=== PATIENT | male | born 1930 | race Caucasian/White ===

== ENCOUNTER 2016-09-26 16:26 | Emergency (ER) | payer MEDICARE ==
[2016-09-26] MEDS ORDERED: HYDROmorphone HCL INJ 2 MG/ML VIAL IV SCH (17:00)
--- NOTE | 2016-09-26 18:39 | CT ---
EXAM DESCRIPTION: CT Abdoment/Pelvis w/o Contrast CLINICAL HISTORY: severe lower abd pain, elevated ddimer COMPARISON: None Available TECHNIQUE: Contiguous axial images of the abdomen and pelvis were obtained followed by reconstruction images. FINDINGS: Appendix is dilated measuring 1.2 cm. There is stranding of the adjacent fat. These findings are compatible with acute appendicitis. Linear opacities within the lungs may represent scar versus subsegmental atelectasis. Elliptical opacity in the right lower lung could represent rounded atelectasis. There is a loculated right pleural fluid collection. Patient is status post median sternotomy. There is atherosclerosis. Decreased attenuation of the ventricular chamber in relation to the ventricular septum compatible with anemia. There are bilateral renal cysts, some of slight increased attenuation, Hounsfield unit of 25 which could represent complex cysts. There is a nonobstructive stone within the right kidney. Calcifications within the pelvis compatible with phleboliths. There is ectasia of the distal abdominal aorta measuring 2.8 cm. The liver, spleen, pancreas and kidneys are otherwise within normal limits. There is no hydronephrosis. The gallbladder is unremarkable by CT criteria. Adrenal glands are within normal limits There is no free fluid in the abdomen or pelvis. There is no bowel obstruction. IMPRESSION: Evidence compatible with acute appendicitis. Loculated right pleural fluid collection. Elliptical opacity in the right lower lung may represent rounded atelectasis. Electronically signed by: Keshawn Mejia MD 09/26/2016 6:38 PM INTERVENTION ANALYST
[2016-09-26] MEDS ORDERED: ceFAZolin SODIUM 2 GM in SODIUM CHLORIDE 0.9% 100ML 100 ML IVPB ONE (19:01)
--- NOTE | 2016-09-26 19:03 | ED.PDOC ---
History of Present Illness - General Chief Complaint: Abdominal Pain Time Seen by Provider: 09/26/16 16:32 Source: patient Exam Limitations: no limitations - History of Present Illness Initial Comments: the patient is an 86-year-old male presenting due to 24 hours of lower abdominal pain. He has been passing gas and having bowel movements he has been urinating without difficulty. He doesn't think he's had any fevers. He has not had this kind of abdominal pain before. He has some BPH issues. He has not had diverticulitis before. He does have some known vascular disease. He has had a CABG in the past and sees Dr. Altamirano. Timing/Duration: 24 hours Severity: moderate Improving Factors: nothing Worsening Factors: eating, movement Associated Symptoms: loss of appetite, malaise Allergies/Adverse Reactions: Allergies NO KNOWN ALLERGY Allergy (Verified 09/26/16 17:06) Home Medications: Ambulatory Orders Aspirin [Aspirin Childrens] 81 mg PO DAILY 09/26/16 Lisinopril 5 mg PO DAILY 09/26/16 Review of Systems - Review of Systems Constitutional: States: no symptoms reported EENTM: States: no symptoms reported Respiratory: States: no symptoms reported Cardiology: States: no symptoms reported Gastrointestinal/Abdominal: States: see HPI Genitourinary: States: no symptoms reported Musculoskeletal: States: no symptoms reported Skin: States: no symptoms reported Neurological: States: no symptoms reported Endocrine: States: no symptoms reported All other Systems: No Change from Baseline Past Medical History (General) - Patient Medical History Hx Seizures: No Hx Stroke: No Hx Asthma: No Hx of COPD: No Hx Cardiac Disorders: Yes - CABG and mitral valve repair 2013 Hx Congestive Heart Failure: No Hx Pacemaker: No Hx Hypertension: Yes - Last few years Hx Diabetes: No Hx MRSA: No Surgical History: coronary bypass surgery, tonsillectomy - Vaccination History Hx Tetanus, Diphtheria Vaccination: Yes Hx Influenza Vaccination: No Hx Pneumococcal Vaccination: No - Social History Hx Tobacco Use: Yes - Quit 2013 Hx Alcohol Use: No Hx Substance Use: No Hx Physical Abuse: No Hx Emotional Abuse: No - Female History Patient : No Family Medical History - Family History Grandparents Family History: Unknown Name: Juan Day Age (years): 64 Living Status: Still Living Hx Family Asthma: No Hx Family Congestive Heart Failure: No Hx Family Hypertension: - doesn't know Hx Family Stroke: No Hx Cardiac Disease: Yes Hx Family Diabetes: No Hx Family Cancer: No Hx Family;Other: he did not want to talk about it Physical Exam - Physical Exam General Appearance: Alert, Obvious distress Eye Exam: bilateral normal Ears, Nose, Throat: normal ENT inspection, normal pharynx Neck: full range of motion, supple Respiratory: chest non-tender, lungs clear, normal breath sounds, no respiratory distress, no accessory muscle use Cardiovascular/Chest: normal peripheral pulses, regular rate, rhythm, no edema Peripheral Pulses: radial,right: 2+, radial,left: 2+, dorsalis pedis,right: 2+, dorsalis pedis,left: 2+ Gastrointestinal/Abdominal: non tender, soft Rectal Exam: deferred Back Exam: normal inspection, no CVA tenderness Extremity: normal range of motion, non-tender, normal inspection, no pedal edema , normal capillary refill Neurologic: insole channeler II-XII nml as tested, alert, normal mood/affect, oriented x 3 Skin Exam: normal color Comments: Vital Signs - 24 hr 09/26/16 16:59 Temperature 98.6 F Pulse Rate [ 64 Left Radial] Respiratory 20 Rate Blood Pressure 119/78 [Right Arm] O2 Sat by Pulse 94 L Oximetry Progress - Progress Progress: 09/26/16 19:04 the patient's 86-year-old male presenting to the emergency room secondary to lower abdominal pain of [address] scan confirms acute appendicitis. The patient is being made nothing by mouth and will be transferred for surgical evaluation at a facility with a trade embalmer at present given his previous history. The patient is fairly high risk from a cardiac standpoint and age. He sees Dr. Altamirano in [place] as his trade embalmer so we will attempt to send him that direction. He is receiving a small fluid bolus and 2 g of Ancef. He did receive 1 dose of IV Dilaudid which did help significantly with the pain. - Results/Orders Results/Orders: Laboratory Tests 09/26/16 04:55 WBC 8.3 RBC 4.88 Hgb 14.3 Hct 42.7 MCV 87.4 MCH 29.2 MCHC 33.4 RDW 15.5 H Plt Count 194 MPV 9.2 Absolute Neuts (auto) 6.30 Absolute Lymphs (auto) 0.90 L Absolute Monos (auto) 0.70 Absolute Eos (auto) 0.30 Absolute Basos (auto) 0.10 Neutrophils % 76.3 Lymphocytes % 10.5 L Monocytes % 8.2 Eosinophils % 3.7 Basophils % 1.3 PT 12.2 INR 1.080 PTT (SP) 37.1 H D-Dimer, Quantitative 1669 H* Sodium 135 Potassium 4.2 Chloride 99 L Carbon Dioxide 28 Anion Gap 12.2 BUN 23 H Creatinine 1.39 H BUN/Creatinine Ratio 16.5 Random Glucose 111 H Serum Osmolality 274.5 L Lactic Acid 1.2 Calcium 10.0 Total Bilirubin 0.9 AST 17 ALT 14 Alkaline Phosphatase 118 Creatine Kinase 46 CK-MB (CK-2) 1.3 CK-MB (CK-2) % Not Reportable Troponin I < 0.02 B-Natriuretic Peptide 202.0 H* Serum Total Protein 8.4 H Albumin 4.5 Globulin 3.9 H Albumin/Globulin Ratio 1.2 Amylase 40 Lipase 26 Urine Color Yellow Urine Appearance Clear Urine pH 7.0 Ur Specific [place] 1.020 Urine Protein 30 Urine Glucose (UA) Negative Urine Ketones Negative Urine Blood Negative Urine Nitrite Negative Urine Bilirubin Negative Urine Urobilinogen 1.0 Ur Leukocyte Esterase Trace H Urine RBC 3-5 H Urine WBC 3-5 H Ur Epithelial Cells 1-3 Amorphous Sediment 1+ Urine Bacteria 1+ Urine Mucus Large abdominal x-ray with mildly dilated loops of bowel. CT scan with discoid atelectasis of the right lung base. Acute appendicitis with a dilated appendix 1.2 cm and adjacent fat stranding. No evidence of rocio perforation or abscess formation. Departure - Departure Clinical Impression: Appendicitis Qualifiers: Appendicitis type: acute appendicitis Acute appendicitis type: with localized peritonitis Qualifier Code: (K35.3) Acute appendicitis with localized peritonitis Disposition: Transfer to Hospital Home Medications: Ambulatory Orders Aspirin [Aspirin Childrens] 81 mg PO DAILY 09/26/16 Lisinopril 5 mg PO DAILY 09/26/16 Transfer to Outside Facility - Transfer Information Accepting Provider:: dr lynch Accepting Facility: [facility] Reason for Transfer: required specialist not available
[2016-09-26] MEDS ORDERED: ceFAZolin SODIUM 1 GM VIAL ONE (19:21)
[2016-09-26] MEDS ORDERED: SODIUM CHLORIDE 0.9% 100ML 100 ML IVPB ONE (19:21)
[2016-09-26] MEDS ORDERED: HYDROmorphone HCL INJ 2 MG/ML VIAL IV ONE (19:45)
[2016-09-26 20:35] VITALS: BP 110/67; O2SAT 98
[2016-09-26 22:00] VITALS: TEMP 97.6
--- NOTE | 2016-10-01 00:39 | RAD ---
EXAM DESCRIPTION: Abdomen Series CLINICAL HISTORY: 86 years Male ,lower abd pain 24 hours COMPARISON: Chest x-ray from 10/02/2014. TECHNIQUE: Frontal view chest x-ray and two views of the abdomen. FINDINGS: The cardiac silhouette appears unremarkable. Changes from previous sternotomy. Similar tortuosity in the thoracic aorta. There is blunting of the right costophrenic angle with opacities at the right lung base which may be from scarring. The opacity is slightly increased compared to the previous study and superimposed small pleural effusion with atelectasis or infectious process is not completely excluded. No free air is identified beneath the hemidiaphragms. There are prominent loops of bowel in the left abdomen which could be from gaseous distention in the colon. If there is clinical concern for bowel obstruction, follow-up is recommended. Atherosclerotic calcifications and phleboliths in the pelvis. Degenerative changes in the spine. IMPRESSION: Opacity at the right lung base with blunting of the right costophrenic angle which may be from scarring. The possibility of pleural effusion with atelectasis/infiltrate is not excluded. Slightly prominent loops of bowel in the left abdomen which may be from colonic distention. If there is clinical concern for bowel obstruction, follow-up is recommended. Electronically signed by: Reza Navarrete MD 09/26/2016 5:29 PM FACSIMILE MACHINE OPERATOR
== END 2016-09-26 21:35 | disposition short-term general hospital (02) ==
LOC: ER 16:26
DX: K35.3 Acute appendicitis with localized peritonitis (principal); Z95.1 Presence of aortocoronary bypass graft; I10 Essential (primary) hypertension; Z87.891 Personal history of nicotine dependence
CPT/HCPCS: 36415; 74020; 74176; 80053; 81001; 82150; 82550; 82553; 83605; 83690; 83880; 84484; 85025; 85379; 85610; 85730; 93005; J0690; J1170; J7050

== ENCOUNTER 2017-02-26 16:56 | Inpatient (IN) | payer MEDICARE ==
[2017-02-26] MEDS ORDERED: SODIUM CHLORIDE 0.9% 1000ML 1,000 ML IVS ONE (17:32)
--- NOTE | 2017-02-26 17:33 | ED.PDOC ---
History of Present Illness - General Chief Complaint: Abdominal Pain Stated Complaint: abdominal pain Time Seen by Provider: 02/26/17 17:31 Information Source: patient Exam Limitations: no limitations - History of Present Illness Initial Comments: Gaurang Day 86 y/o male stated that he started having generalized dull abdominal pains all over which had gotten worse this afternoon. No nausea, vomiting or diarrhea but has no appetite. Bowel movement today.no dysuria Abdominal Pain Onset Location: generalized abdomen Pain Radiation: no radiation Quality: dull, steady Timing/Duration: 7-24 hours Improving Factors: nothing Worsening Factors: nothing Associated Symptoms: denies symptoms Review of Systems - Review of Systems Constitutional: States: no symptoms reported EENTM: States: no symptoms reported Respiratory: States: no symptoms reported Cardiology: States: no symptoms reported Gastrointestinal/Abdominal: States: see HPI Genitourinary: States: no symptoms reported Musculoskeletal: States: no symptoms reported Skin: States: no symptoms reported Neurological: States: no symptoms reported Past Medical History (General) - Patient Medical History Hx Seizures: No Hx Stroke: No Hx Asthma: No Hx of COPD: No Hx Cardiac Disorders: Yes - CABG and mitral valve repair 2013 Hx Congestive Heart Failure: No Hx Pacemaker: No Hx Hypertension: Yes - Last few years Hx Diabetes: No Hx MRSA: No Surgical History: appendectomy, coronary bypass surgery, tonsillectomy - Vaccination History Hx Tetanus, Diphtheria Vaccination: Yes Hx Influenza Vaccination: No Hx Pneumococcal Vaccination: No - Social History Hx Tobacco Use: Yes - Quit 2013 Hx Alcohol Use: No Hx Substance Use: No Hx Physical Abuse: No Hx Emotional Abuse: No - Female History Patient : No Family Medical History - Family History Grandparents Family History: Unknown Name: Juan Day Age (years): 64 Living Status: Hx Family Asthma: No Hx Family Congestive Heart Failure: No Hx Family Hypertension: - doesn't know Hx Family Stroke: No Hx Cardiac Disease: Yes Hx Family Diabetes: No Hx Family Cancer: No Hx Family;Other: he did not want to talk about it Son Family History: No Known Physical Exam - Physical Exam General Appearance: Alert, Comfortable, No apparent distress Eyes, Ears, Nose, Throat Exam: PERRL/EOMI, normal ENT inspection, TMs normal, pharynx normal Neck: non-tender, full range of motion, supple Respiratory: chest non-tender, lungs clear, normal breath sounds, no respiratory distress Cardiovascular/Chest: normal peripheral pulses, regular rate, rhythm, no gallop , systolic murmur - grade 3/4 apex Peripheral Pulses: No deficit Gastrointestinal/Abdominal: normal bowel sounds, soft, tenderness - generalized Back Exam: normal inspection, no CVA tenderness Extremity: normal range of motion, no pedal edema, no calf tenderness Neurologic: no motor/sensory deficits, alert, normal mood/affect, oriented x 3 Progress - Progress Progress: 02/26/17 22:50 Vital Signs - 8 hr 02/26/17 02/26/17 02/26/17 17:02 17:51 18:48 Temperature 98.3 F Pulse Rate [ 67 59 L 59 L left brachial] Respiratory 22 20 22 Rate Blood Pressure 145/91 128/76 117/72 [left brachial] O2 Sat by Pulse 98 97 96 Oximetry 02/26/17 02/26/17 02/26/17 19:00 20:00 21:00 Temperature 98.3 F Pulse Rate [ 55 L 55 L 54 L left brachial] Respiratory 18 18 18 Rate Blood Pressure 115/72 146/77 152/73 [left brachial] O2 Sat by Pulse 95 95 96 Oximetry 02/26/17 22:00 Temperature Pulse Rate [ 57 L left brachial] Respiratory 16 Rate Blood Pressure 132/72 [left brachial] O2 Sat by Pulse 94 L Oximetry 02/26/17 17:32 IV Care:Saline Lock per Protoc QSHIFT 02/26/17 18:13 Sodium Chloride 0.9% 1000ML [Ns 1000 ml] 1,000 ml IVS .QD Laboratory Results - last 24 hr 02/26/17 02/26/17 02/26/17 17:55 17:55 18:05 WBC 5.4 RBC 4.47 L Hgb 12.7 L Hct 38.1 L MCV 85.2 MCH 28.4 MCHC 33.3 RDW 14.7 H Plt Count 185 MPV 8.4 Absolute Neuts (auto) 3.90 Absolute Lymphs (auto) 0.50 L Absolute Monos (auto) 0.50 Absolute Eos (auto) 0.40 Absolute Basos (auto) 0.10 Neutrophils % 71.8 Lymphocytes % 10.0 L Monocytes % 9.7 H Eosinophils % 7.5 H Basophils % 1.0 Sodium 135 Potassium 4.0 Chloride 101 Carbon Dioxide 27 Anion Gap 11.0 L BUN 27 H Creatinine 1.39 H BUN/Creatinine Ratio 19.4 Random Glucose 137 H Serum Osmolality 277.4 Calcium 9.1 Total Bilirubin 0.6 AST 14 ALT 11 Alkaline Phosphatase 92 Serum Total Protein 7.3 Albumin 3.7 Globulin 3.6 H Albumin/Globulin Ratio 1.0 L Urine Color Yellow Urine Appearance Clear Urine pH 6.5 Ur Specific [place] 1.020 Urine Protein Trace Urine Glucose (UA) Negative Urine Ketones Negative Urine Blood Trace-intact H Urine Nitrite Negative Urine Bilirubin Negative Urine Urobilinogen 0.2 Ur Leukocyte Esterase Negative Urine RBC 0-1 Urine WBC 0 Ur Epithelial Cells 0 Urine Bacteria 0 - EKG/XRAY/CT CT Ordered: Yes - acute appendicitis no perforation /rupture Departure - Departure Clinical Impression: Acute appendicitis Qualifiers: Acute appendicitis type: unspecified acute appendicitis type Qualified Code(s) : K35.80 - Unspecified acute appendicitis Time of Disposition: 23:03 - D/W Bhavesh Latif -JERONIMO/Hospitalist Disposition: Admit Patient Condition: Fair Departure Forms: Patient Portal Self Enrollment Home Medications: Ambulatory Orders Aspirin [Aspirin Childrens] 81 mg PO DAILY 09/26/16 Lisinopril 5 mg PO DAILY 09/26/16 Decision To Admit - Decistion To Admit Decision to Admit Reason: Admit from ER Decision to Admit Date: 02/26/17 Decision to Admit Time: 23:01 - D/W Dr. Srinivasan surgeon
[2017-02-26] MEDS ORDERED: PROMETHAZINE HCL INJ 25 MG/ML VIAL IM ONE (17:35)
[2017-02-26] MEDS ORDERED: SODIUM CHLORIDE 0.9% 1000ML 1,000 ML IVS PRN (18:13)
[2017-02-26] MEDS ORDERED: MORPHINE SULFATE INJ 10 MG/ML VIAL IV ONE (18:14)
--- NOTE | 2017-02-26 20:27 | CT ---
EXAM DESCRIPTION: Abdoment/Pelvis w/o Contrast CLINICAL HISTORY: 86 years Male pain COMPARISON: 09/26/2016 TECHNIQUE: Contiguous axial images obtained through the abdomen and pelvis following IV contrast. Reformatted images obtained. This exam was performed according to our department optimization program which includes automated exposure control, adjustment of the mA and/or kv according to patient size and/or use of iterative reconstruction technique. FINDINGS: There is cardiac enlargement with calcification in aorta and the coronary vessels. There is a chronic appearing right pleural fluid collection with rounded atelectasis in the right lung base and areas of atelectasis in the right middle lobe and left lung base which appears similar to the prior study. Small supradiaphragmatic lymph node on the right which is stable. Liver spleen and pancreas appear stable. Stable renal cysts. No adrenal masses. No evidence of obstructive uropathy. The gallbladder is visualized. 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 Recommend follow-up every three years. 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 The right common iliac artery just above the level of the bifurcation measures 3.1 cm. This is unchanged from the prior exam. Moderate fecal material in colon. There is significant inflammatory change involving bowel in the right lower quadrant. There appears to be a dilated and inflamed appendix which measures up to 1.9 cm with surrounding stranding. There is some adjacent wall thickening in terminal ileum but this likely reflects appendicitis. Small amount of fluid in the pelvis. IMPRESSION: Findings most consistent with acute appendicitis. There is marked inflammation involving a blind-ending tubular structure. Small bowel process is thought less likely. I relayed the findings to Dr. Tobar at 8:20 PM central time. He was under the impression patient had a prior appendectomy after the study in September. Recommend confirmation with surgical report. 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
[2017-02-26] MEDS ORDERED: PIPERACILLIN/TAZOBACTAM 3.375 GM in SODIUM CHLORIDE 0.9% 100ML 100 ML IVPB ONE (20:31)
[2017-02-26] MEDS ORDERED: PIPERACILLIN/TAZOBACTAM 3.375 GM VIAL IVPB ONE (21:21)
[2017-02-26] MEDS ORDERED: SODIUM CHLORIDE 0.9% 100ML 100 ML IVPB ONE (21:21)
[2017-02-26] MEDS ORDERED: MORPHINE SULFATE INJ 10 MG/ML VIAL IV PRN (23:28)
[2017-02-26] MEDS ORDERED: SODIUM CHLORIDE 0.9% (FLUSH) 10 ML SYG IV PRN (23:28)
[2017-02-26] MEDS ORDERED: ONDANSETRON INJ 4 MG/2 ML VIAL IV PRN (23:28)
[2017-02-26] MEDS ORDERED: IV SET AND CAP CHANGE INJ INJ SCH (23:30)
--- NOTE | 2017-02-26 23:46 | HP ---
SUPERVISING PHYSICIAN: Usman Capps MD CHIEF COMPLAINT: Abdominal pain. HISTORY OF PRESENT ILLNESS: Mr. Day is an 86-year-old, male patient who presented to the Emergency Room after he started having generalized dull abdominal pains that had worsened throughout the day. He had no nausea, vomiting, or diarrhea, but had a significantly decreased appetite. He did have a bowel movement on the day of admission and denied any dysuria. Laboratory studies showed a white count of 5.4 without a left shift. Chemistries showed normal electrolytes with BUN 27, creatinine 1.39. Liver function within normal limits. He did have a CT of the abdomen and pelvis for further evaluation of abdominal pain which was done with IV contrast. Per radiologic interpretation, significant findings were noted consistent with acute appendicitis. Dr. Tobar, Emergency Room physician, notified Dr. Srinivasan of the patient's findings of acute appendicitis and recommended the patient be admitted to hospitalist services for a consultation with general surgery, Dr. Srinivasan, in the morning for possible appendectomy. The patient has a significant history that includes previous case of appendicitis on 09/26/16 at which time he was shipped to [place] for cardiac evaluation as he does have a significant history of cardiovascular disease. In the Emergency Department, he was started on Zosyn and given pain medicine with morphine and Zofran for nausea with improvement of his symptoms. Dr. Tobar notified me of admission. The patient is now going to be admitted to the Medical/Surgical Floor for further evaluation for acute appendicitis. PAST MEDICAL HISTORY: 1. Hypertension. 2. Congestive heart failure, unknown etiology with no current echocardiogram for review. 3. Coronary artery disease. 4. Benign prostatic hypertrophy. PAST SURGICAL HISTORY: 1. Coronary artery bypass grafting time 5. 2. Mitral valve replacement for regurgitation in 12/2013. 3. Tonsillectomy and adenoidectomy. CURRENT MEDICATIONS: Please updated list of medications in electronic medical record verified by nursing staff. Current medications listed at time of admission included: 1. Lisinopril 5 mg daily. 2. Aspirin 81 mg daily. ALLERGIES: NO KNOWN DRUG ALLERGIES. FAMILY HISTORY: Positive for multiple members with coronary artery disease. SOCIAL HISTORY: He has a history of smoking, but quit in 2013. He denies any alcohol or illicit drug use. REVIEW OF SYSTEMS: CONSTITUTIONAL: Denies any fevers, chills. HEENT: Denies headaches, visual disturbances, nasal congestion. RESPIRATORY: Denies shortness of breath, cough. CARDIOVASCULAR: Denies chest pain or palpitations, no syncopal episodes. GASTROINTESTINAL: As noted in history of present illness, generalized abdominal pain with acute appendicitis. GENITOURINARY: Denies any current urinary symptoms, but does have a history of benign prostatic hypertrophy. NEUROLOGIC: Denies headaches, syncopal episodes or neurological sensory deficits. PHYSICAL EXAMINATION: VITAL SIGNS: Temperature 98.3. Pulse 55. Blood pressure 146/77. Respirations 18. Saturation 95% on room air. Admission weight 72.5 kg. GENERAL: On admission to the Medical/Surgical Floor, the patient is comfortable and appears to be in no current distress. HEENT: Tympanic membranes clear bilaterally. Oropharynx is pink, moist without any lesions. NECK: No jugular venous distention noted. Supple, full range of motion. CHEST: Lungs clear to auscultation bilaterally without any rhonchi, wheezes, or rales. CARDIOVASCULAR: Regular rate and rhythm with a grade III/IV systolic murmur. ABDOMEN: Positive bowel sounds with generalized tenderness. No rebound tenderness. EXTREMITIES: There is no cyanosis, clubbing or edema. NEUROLOGIC: The patient is oriented times three. Cranial nerves II-XII are grossly intact. Facial features are symmetrical. Extraocular movements are within normal limits. There is no nystagmus noted. There are no discernible motor or sensory deficits. LABORATORY: White count 5.4, hemoglobin 12.7, hematocrit 38.1, platelet count 185,000, differential within normal limits. Coagulation studies showed normal PT at 11.9 with a slightly elevated PT-T of 45.0. Chemistries showed normal electrolytes with potassium 4.0, BUN 27, creatinine 1.39. Glucose 137. Liver functions within normal limits. Calcium normal at 9.1. Amylase and lipase pending. BNP pending. Urinalysis showed just a trace of blood on dipstick, otherwise within normal limits. RADIOLOGY: CT of the abdomen and pelvis with contrast per radiologic interpretation significant for findings consistent with acute appendicitis. Please see that report for full details. EKG: Review of EKG on 09/26/16 showed a left bundle branch block. No current EKG was found for review. ASSESSMENT: 1. Acute appendicitis as noted on CT findings. 2. History of coronary artery disease. 3. History of congestive heart failure with a mitral valve replacement. 4. History of hypertension. 5. Benign prostatic hypertrophy. 6. Renal insufficiency, probably related to some mild prerenal azotemia with review of previous renal functions showing a baseline creatinine of 1.2. PLAN: The patient will be admitted to the Medical/Surgical Floor for continuation of treatment for acute appendicitis with possible anticipation of surgical procedure awaiting Dr. Srinivasan's consultation. The patient was started on Zosyn and this will be continued q.6h., awaiting further evaluation with repeat CBC and CMP in the morning. He will be made NPO tonight and provided pain management with morphine and antiemetics with Zofran as needed. I will start him on some IV fluids with normal saline at 80 an hour. We will anticipate his length of stay to be 2 to 3 days depending on clinical reevaluation and need for surgical procedure, appendectomy. Until then, we will continue to monitor the patient closely and treat appropriately. #[id number] MTDD
[2017-02-27] MEDS: KCL 20 MEQ/NS 1,000 ML IVS PRN ×2 (01:06→20:13)
[2017-02-27] MEDS ORDERED: MAGNESIUM HYDROXIDE 30 ML UD PO PRN (01:22)
[2017-02-27] MEDS ORDERED: PIPERACILLIN/TAZOBACTAM 3.375 GM VIAL IVPB ONE ×3 (03:06→13:43)
[2017-02-27] MEDS ORDERED: SODIUM CHLORIDE 0.9% 100ML 100 ML IVPB ONE ×3 (03:06→13:43)
[2017-02-27] MEDS: PIPERACILLIN/TAZOBACTAM 3.375 GM in SODIUM CHLORIDE 0.9% 100ML 100 ML IVPB SCH ×3 (03:36→14:12)
[2017-02-27] MEDS ORDERED: metroNIDAZOLE IV PREMIX 500MG 100 ML IVPB ONE ×2 (10:34→16:55)
[2017-02-27] MEDS: metroNIDAZOLE IV PREMIX 500MG 500 MG in PREMIX BAG 1 BAG IVPB SCH ×2 (10:53→17:19)
--- NOTE | 2017-02-27 13:14 | CONS ---
DATE OF CONSULTATION: 02/27/17 REFERRING PHYSICIAN: Hospitalist service HISTORY OF PRESENT ILLNESS: The patient is an 86-year-old male who was admitted through the Emergency Room last night with worsening abdominal pain over the previous 24 hours with no fever. He denied vomiting, but had mild nausea. He had a bowel movement yesterday, which he stated was normal. His history is significant in that in September of this year, he was sent to [place] where he was treated for appendicitis with antibiotics and there was some question about the ability for him to undergo general anesthesia due to his cardiac history. PAST MEDICAL HISTORY: 1. Congestive heart failure. 2. Hypertension. 3. Coronary artery disease. 4. Benign prostatic hypertrophy. PAST SURGICAL HISTORY: 1. Mitral valve replacement. 2. Coronary artery bypass graft. 3. Tonsillectomy and adenoidectomy. CURRENT MEDICATIONS: 1. Aspirin. 2. Lisinopril. ALLERGIES: NO KNOWN DRUG ALLERGIES. FAMILY HISTORY: Positive for heart disease. SOCIAL HISTORY: The patient quit smoking in 2017. There is no history of alcohol or drug abuse. REVIEW OF SYSTEMS: There has been no change in his bowel habits, no chest pain or shortness of breath. No urinary symptoms. PHYSICAL EXAMINATION: VITAL SIGNS: The patient is currently afebrile, normotensive. HEENT: Sclerae nonicteric. Mucous membranes moist. NECK: Without adenopathy. BACK: Without CVA tenderness. CHEST: Equal breath sounds bilaterally. ABDOMEN: Soft. Mildly distended. Generally tender, but worse in the right lower quadrant and suprapubic area. There is no rebound or guarding. RECTAL: Deferred. EXTREMITIES: Without cyanosis, clubbing or edema. LABORATORY: Last night, white blood cell count 5.4. This morning, it is 5.4 with 62% neutrophils. It was 71% neutrophils this morning. His hemoglobin is down from 12.7 to 11.8. He has 175,000 platelets. Chemistries show potassium has gone from 4 to 5. Creatinine has gone from 1.39 to 1.51. Liver function tests are within normal limits. BNP in the Emergency Room was 220. Amylase and lipase are within normal limits. CT scan revealed inflammatory changes about the appendix with no signs of free air, free fluid or obstruction. There was a question of a longstanding pleural effusion in the right chest. ASSESSMENT: 1. Possible recurrent appendicitis. 2. Significant heart disease of uncertain status. PLAN: Agree with the Zosyn. Would recommend adding Flagyl. Keep the patient NPO and attempt to evaluate his history of an endoscopy in [address] Altamirano evaluation of his cardiac situation as to whether he could withstand a general anesthetic in anything but a dire emergent situation. [facility][id number] [facility]
[2017-02-27] MEDS: LISINOPRIL 10 MG TAB PO SCH ×2 (18:52→20:13)
[2017-02-27] MEDS: TAMSULOSIN 0.4 MG CAP PO SCH (18:52)
--- NOTE | 2017-02-27 19:13 | PCM.CORE ---
Physician DVT/VTE - Nurse DVT Assessment & Total Each Risk Factor Represents 3 Points: Age over 75 years, Hx of DVT/PE DVT Assessment Score: 6 - 5 or more Very High Risk Treatments: Early Ambulation *, Sequential Compression Device Pharmacological: Enoxaparin 40mg SQ Daily
[2017-02-27] MEDS ORDERED: PIPERACILLIN/TAZOBACTAM 2.25 GM VIAL IVPB ONE (20:08)
[2017-02-27] MEDS ORDERED: SODIUM CHLORIDE 0.9% 50ML 50 ML ONE (20:08)
[2017-02-27] MEDS: PIPERACILLIN/TAZOBACTAM 2.25 GM in SODIUM CHLORIDE 0.9% 50ML 50 ML IVPB SCH (20:14)
[2017-02-28] MEDS ORDERED: metroNIDAZOLE IV PREMIX 500MG 100 ML IVPB ONE ×3 (02:09→18:16)
[2017-02-28] MEDS: metroNIDAZOLE IV PREMIX 500MG 500 MG in PREMIX BAG 1 BAG IVPB SCH ×3 (02:13→18:24)
[2017-02-28] MEDS: PIPERACILLIN/TAZOBACTAM 2.25 GM in SODIUM CHLORIDE 0.9% 50ML 50 ML IVPB SCH ×4 (03:40→21:32)
[2017-02-28] MEDS ORDERED: PIPERACILLIN/TAZOBACTAM 2.25 GM VIAL IVPB ONE ×4 (04:03→19:50)
[2017-02-28] MEDS ORDERED: SODIUM CHLORIDE 0.9% 50ML 50 ML ONE ×4 (04:03→19:50)
--- NOTE | 2017-02-28 08:00 | PN ---
SUPERVISING PHYSICIAN: Usman Capps MD DATE: 02/27/17 SUBJECTIVE: The patient says his pain is lessened today, but it is still present. He remains NPO and remains afebrile. OBJECTIVE: VITAL SIGNS: T-max 98.3. Pulse 55. Blood pressure 128/89. Respirations 18. Saturation 97% on room air. I&Os show positive balance of 1685 with the patient having voided 400. Weight 72.0 kg. CHEST: Lungs clear to auscultation. HEART: Regular rate and rhythm. ABDOMEN: Soft. Continued tenderness to the right lower quadrant although on deep palpation. EXTREMITIES: No notable edema, cyanosis, clubbing. NEUROLOGIC: Alert and oriented times three. LABORATORY: White count 5.4, hemoglobin 11.8, hematocrit 35.1, platelet count 175,000. Differential continues to show a normal neutrophil count. Chemistries show electrolytes remain within normal limits with potassium 5, BUN 23 which is down from admission, creatinine is up a little bit to 1.51, glucose 88. Liver functions within normal limits. ASSESSMENT: 1. Possible recurrent appendicitis as noted on CT findings with the patient having a normal white count and remaining afebrile. 2. History of coronary artery disease. 3. History of congestive heart failure with a mitral valve repair. 4. History of hypertension. 5. Benign prostatic hypertrophy. 6. Renal insufficiency, possibly related to some mild prerenal azotemia with ongoing IV fluid therapy in place with previous baseline creatinine of 1.2 with some possible exacerbation from current illness and current antibiotic therapy. We will continue to monitor closely. PLAN: Consultation with Dr. Srinivasan. We will continue to follow as per Dr. Srinivasan' s recommendations and monitor medically. He remains NPO. We will try to secure records from [facility] as well as Dr. Mc' office and Dr. Altamirano' office to further assess the patient's risk factors for anesthesia should he require appendectomy. We will await those records and Dr. Srinivasan's recommendations. We will continue with antibiotic therapy with addition of Flagyl and closely monitor the Zosyn and renal function and dose appropriately. He will be on NPO status except for p.o. medications. We will continue to monitor closely and treat appropriately. [facility][id number] [facility]
[2017-02-28] MEDS: LISINOPRIL 10 MG TAB PO SCH (09:16)
[2017-02-28] MEDS: TAMSULOSIN 0.4 MG CAP PO SCH (09:19)
[2017-02-28] MEDS ORDERED: SODIUM CHLORIDE 0.9% (FLUSH) 10 ML SYG IV PRN (10:30)
[2017-02-28] MEDS: ENOXAPARIN SODIUM 40 MG/0.4 ML SYG SUBCU SCH (12:11)
[2017-02-28] MEDS: KCL 20 MEQ/NS 1,000 ML IVS PRN (14:41)
--- NOTE | 2017-02-28 17:53 | PN ---
DATE: 02/28/17 SUPERVISING PHYSICIAN: Ramsey Peck M.D. SUBJECTIVE: The patient continues to have some abdominal pain in the right lower quadrant which appears to be a little bit worse than yesterday. He has not had any nausea, vomiting or diarrhea and he does remain afebrile. His biggest complaint at this point is he is ready to eat. I was called yesterday that the patient was having some increase in blood pressures. He was treated with Clonidine and his Lisinopril was increased. He has had good response. OBJECTIVE: VITAL SIGNS: T max 98.0, pulse 58, blood pressure 146/76, respirations 19, O2 sat 97%. I's and O's show a positive balance of 1615 with 2240 in, 625 out. Weight is not available. CHEST: Clear to auscultation bilaterally. HEART: Regular rate and rhythm. ABDOMEN: Remains soft, mildly distended with continued right lower quadrant pain on palpation. Seems to be a little bit more prominent today than yesterday. EXTREMITIES: No clubbing, cyanosis or edema. NEUROLOGIC: He is alert and oriented times three. LABORATORY: White count remains normal at 5.2, hemoglobin 12.6, hematocrit 37.9 , platelet count 184,000. Differential shows to be within normal limits. Chemistries show normal electrolytes with potassium 4.5, BUN 23, creatinine has improved to 137. ASSESSMENT: 1. Possible recurrent appendicitis as noted on CT findings with the patient having a normal white count and remaining afebrile having been on parenteral antibiotics to include Flagyl and Zosyn. 2. History of coronary artery disease. 3. History of congestive heart failure with mitral valve repair with no echocardiogram found for review. 4. History of hypertension. 5. Benign prostatic hypertrophy. 6. Renal insufficiency with prerenal azotemia showing improvement after IV therapy. PLAN: Will continue to follow the patient with Dr. Srinivasan. The patient remains NPO. We are continuing to track down records from both Dr. Mc' office and [facility] [place] in efforts to see if he has had any cardiac workup done at all or an echocardiogram. Will await Dr. Srinivasan's final decision on treatment. Until then, will follow and treat appropriately. [facility][id number] [facility]
[2017-03-01] MEDS ORDERED: metroNIDAZOLE IV PREMIX 500MG 100 ML IVPB ONE ×3 (01:19→17:54)
[2017-03-01] MEDS: metroNIDAZOLE IV PREMIX 500MG 500 MG in PREMIX BAG 1 BAG IVPB SCH ×3 (01:32→17:58)
[2017-03-01] MEDS ORDERED: SODIUM CHLORIDE 0.9% 50ML 50 ML ONE ×4 (02:35→19:52)
[2017-03-01] MEDS ORDERED: PIPERACILLIN/TAZOBACTAM 2.25 GM VIAL IVPB ONE ×4 (02:35→19:51)
[2017-03-01] MEDS: PIPERACILLIN/TAZOBACTAM 2.25 GM in SODIUM CHLORIDE 0.9% 50ML 50 ML IVPB SCH ×4 (03:11→20:39)
[2017-03-01] MEDS: TAMSULOSIN 0.4 MG CAP PO SCH (08:55)
[2017-03-01] MEDS: ENOXAPARIN SODIUM 40 MG/0.4 ML SYG SUBCU SCH (08:55)
[2017-03-01] MEDS: KCL 20 MEQ/NS 1,000 ML IVS PRN (08:56)
[2017-03-01] MEDS ORDERED: LISINOPRIL 10 MG TAB ONE (09:00)
[2017-03-01] MEDS: LISINOPRIL 10 MG TAB PO SCH (09:03)
[2017-03-01] MEDS: amLODIPine BESYLATE 5 MG TAB PO SCH (10:39)
--- NOTE | 2017-03-01 17:58 | PN ---
DATE: SUPERVISING PHYSICIAN: Ramsey Peck M.D. SUBJECTIVE: The patient is sitting up in his bed. He has no complaints of chest pain, nausea or vomiting, diarrhea or shortness of breath. He actually states that he is hungry and that he is feeling much improved since he was admitted. He denies any abdominal pain. He did say he has a little bit of diarrhea but he feels that is from the apple juice as well as the antibiotics. OBJECTIVE: VITAL SIGNS: He is afebrile, heart rate 62, blood pressure 153/85, earlier it had been 196/106, respiratory rate 18, O2 sat is 98% on room air. RESPIRATORY: Clear to auscultation bilaterally. CARDIAC: Regular rate and rhythm. ABDOMEN: Soft, nondistended, non-tender. Bowel sounds are positive. EXTREMITIES: No cyanosis, clubbing or edema. NEUROLOGIC: He is awake, alert and oriented times three. LABORATORY: WBCs 4.8, hemoglobin and hematocrit are stable at 12.5 and 37.8. Chemistries are basically within normal limits with the exception of his BUN is 22, creatinine 1.34. All other labs and films have been reviewed via the EMR. ASSESSMENT: 1. Possible recurrent appendicitis as noted on CT findings with the patient having a normal white count and remaining afebrile having been on parenteral antibiotics to include Flagyl and Zosyn. 2. History of coronary artery disease. 3. History of congestive heart failure with mitral valve repair with no echocardiogram found for review. 4. History of hypertension. 5. Benign prostatic hypertrophy. 6. Renal insufficiency with prerenal azotemia showing improvement after IV therapy. PLAN: We will continue present supportive care. I will add Align due to his diarrhea and we will monitor that closely. I discussed his case with Dr. Srinivasan and he agreed that he could maybe advance his diet slowly as tolerated. He will need a followup with Dr. Mc as well as cardiac clearance, and he needs a washcoat wiper in this area, so will need to get him set up with Dr. Altamirano. Although he is improving clinically, at some point he may need to have surgery and it would be beneficial to have that clearance before his surgery become emergent. I have ordered routine labs for the in the morning and advanced his diet. His blood pressure was elevated today and I have added Amlodipine for his hypertension in addition to his Lisinopril. We will continue to monitor him closely and followup as needed. Dr. Peck is the collaborating physician and available for consultation. #[id number] [facility]
[2017-03-01] MEDS ORDERED: BIFIDOBACTERIUM INFANTIS 4 MG CAP ONE (19:51)
[2017-03-01] MEDS: BIFIDOBACTERIUM INFANTIS 4 MG CAP PO SCH (20:39)
[2017-03-02] MEDS: KCL 20 MEQ/NS 1,000 ML IVS PRN (00:55)
[2017-03-02] MEDS ORDERED: metroNIDAZOLE IV PREMIX 500MG 0 ML IVPB ONE (02:13)
[2017-03-02] MEDS: metroNIDAZOLE IV PREMIX 500MG 500 MG in PREMIX BAG 1 BAG IVPB SCH ×2 (02:18→19:45)
[2017-03-02] MEDS ORDERED: SODIUM CHLORIDE 0.9% 50ML 50 ML ONE ×2 (02:47→07:38)
[2017-03-02] MEDS ORDERED: PIPERACILLIN/TAZOBACTAM 2.25 GM VIAL IVPB ONE ×2 (02:47→07:38)
[2017-03-02] MEDS: PIPERACILLIN/TAZOBACTAM 2.25 GM in SODIUM CHLORIDE 0.9% 50ML 50 ML IVPB SCH ×2 (03:01→09:42)
[2017-03-02] MEDS ORDERED: LISINOPRIL 10 MG TAB ONE (07:38)
[2017-03-02] MEDS: ENOXAPARIN SODIUM 40 MG/0.4 ML SYG SUBCU SCH (09:42)
[2017-03-02] MEDS: LISINOPRIL 10 MG TAB PO SCH (09:42)
[2017-03-02] MEDS: BIFIDOBACTERIUM INFANTIS 4 MG CAP PO SCH ×2 (09:42→20:39)
[2017-03-02] MEDS: amLODIPine BESYLATE 5 MG TAB PO SCH (09:42)
[2017-03-02] MEDS: TAMSULOSIN 0.4 MG CAP PO SCH (09:42)
[2017-03-02] MEDS ORDERED: metroNIDAZOLE IV PREMIX 500MG 100 ML IVPB ONE (11:46)
[2017-03-02] MEDS: metroNIDAZOLE 250 MG TAB PO SCH ×3 (11:50→23:25)
[2017-03-02] MEDS: AMOXICILLIN & POT CLAVULANATE 875 MG TAB PO SCH ×2 (11:50→23:25)
[2017-03-03] MEDS: metroNIDAZOLE 250 MG TAB PO SCH ×2 (05:50→12:03)
[2017-03-03 06:29] VITALS: TEMP 98.2
[2017-03-03] MEDS ORDERED: LISINOPRIL 10 MG TAB ONE (07:59)
[2017-03-03] MEDS: TAMSULOSIN 0.4 MG CAP PO SCH (08:24)
[2017-03-03] MEDS: amLODIPine BESYLATE 5 MG TAB PO SCH (08:24)
[2017-03-03] MEDS: ENOXAPARIN SODIUM 40 MG/0.4 ML SYG SUBCU SCH (08:24)
[2017-03-03] MEDS: BIFIDOBACTERIUM INFANTIS 4 MG CAP PO SCH (08:24)
[2017-03-03] MEDS: LISINOPRIL 10 MG TAB PO SCH (08:25)
[2017-03-03] MEDS ORDERED: SODIUM CHLORIDE 0.9% (FLUSH) 10 ML SYG IV SCH (09:00)
[2017-03-03 09:14] VITALS: O2SAT 95
[2017-03-03 10:20] VITALS: BP 150/91
[2017-03-03] MEDS: AMOXICILLIN & POT CLAVULANATE 875 MG TAB PO SCH (12:03)
--- NOTE | 2017-03-03 12:15 | DS ---
SUPERVISING PHYSICIAN: Usman Capps M.D. DISCHARGE DIAGNOSIS: 1. Possible recurrent appendicitis as noted on CT findings with the patient having a normal white count and remaining afebrile and presently on oral antibiotics to include Flagyl and Augmentin. He was previously on IV Flagyl and IV Zosyn. 2. History of coronary artery disease. 3. History of congestive heart failure with a mitral valve repair and an echocardiogram found for review. 4. History of hypertension. 5. Benign prostatic hypertrophy. 6. Renal insufficiency. HISTORY OF PRESENT ILLNESS: This is an 86 year-old male patient who presented to the Emergency Room after he started having generalized dull abdominal pains that had have worsened today. He had no nausea, vomiting or diarrhea but has significantly decreased appetite. He had a bowel movement on the day of admission and denied any dysuria. Lab studies showed a white count of 5.4 without a left shift. His chemistries showed normal electrolytes with a BUN of 27 and creatinine 1.39. Liver functions are within normal limits. He had a CT of the abdomen and pelvis for further evaluation of the abdominal pain which was done with IV contrast per radiology interpretation significant findings were noted consistent with acute appendicitis. Dr. Srinivasan was notified of the patient's findings and recommended the patient be admitted to the hospital services for consultation with General Surgery. The patient has a significant history that includes a previous case of appendicitis on 09/27/16 at which time he was shipped to [place] for cardiac evaluation as he does have a significant history of cardiovascular disease. There were no records available for any cardiac workup. He did not have surgery in [place]. In the Emergency Room, he was started on Zosyn and given pain medications, and he was admitted to the hospital. HOSPITAL COURSE: Dr. Srinivasan saw him in the hospital and due to his significant history of cardiac issues and his response to IV antibiotics as well as bowel rest, elected not to do surgery at this time. His diet was advanced slowly and he tolerated it well. He had no further abdominal pain. He did have several incidences of an elevated blood pressure that was in the 180s/107, 155/100, 196/ 106 and he was given Amlodipine. Yesterday, he was changed from IV antibiotics to Augmentin and oral Metronidazole. He has tolerated his diet well. He has had no further complaints of abdominal pain and he is to be discharged today. DISCHARGE PLAN: The patient will be discharged home in stable condition. He is to have a followup within the next week or so with Dr. Mc, his primary care physician in [place]. It is recommended that Dr. Mc refer the patient to Dr. Altamirano here in [place] so he can have a local torch straightener and heater on board due to the recurrence of this appendicitis. It would be prudent to have the patient have a cardiac workup and clearance in case surgery is needed. He is to continue on 2 weeks total of the Augmentin and Flagyl. He is to increase activity as tolerated as well as to resume his usual diet, to return to the hospital or followup with his primary care physician for any further problems or questions. DISCHARGE MEDICATIONS: 1. Lisinopril. 2. Aspirin. 3. Amlodipine. 4. Augmentin. 5. Align. 6. Metronidazole. 7. Flomax. Dr. Capps is the collaborating physician available for consultation. #[id number] [facility]
== END 2017-03-03 12:15 | disposition home or self-care (01) | DRG 395 ==
LOC: ER 16:56 → MS 23:45
PROVIDERS: ADMIT Nurse Practitioner Family; ATTEND Nurse Practitioner Acute Care
PROC: BW21YZZ Computerized Tomography (CT Scan) of Abdomen and Pelvis using Other Contrast (ICD-10-PCS; principal; 2017-02-26)
DX: K35.89 Other acute appendicitis (principal); I25.10 Atherosclerotic heart disease of native coronary artery without angina pectoris; I11.0 Hypertensive heart disease with heart failure; I50.9 Heart failure, unspecified; N40.0 Benign prostatic hyperplasia without lower urinary tract symptoms; N28.9 Disorder of kidney and ureter, unspecified; Z95.1 Presence of aortocoronary bypass graft; Z95.2 Presence of prosthetic heart valve; Z79.82 Long term (current) use of aspirin; Z79.899 Other long term (current) drug therapy; Z87.891 Personal history of nicotine dependence

== ENCOUNTER 2017-08-05 14:59 | Emergency (ER) | payer MEDICARE ==
[2017-08-05] MEDS ORDERED: IPRATROPIUM/ALBUTEROL 3 ML VIAL NEB ONE (16:19)
[2017-08-05] MEDS ORDERED: fentaNYL CITRATE INJ 50 MCG/ML AMP IV ONE (16:21)
--- NOTE | 2017-08-05 16:23 | ED.PDOC ---
History of Present Illness - General Chief Complaint: Respiratory Problem Stated Complaint: COUGH AND CHEST PAIN Time Seen by Provider: 08/05/17 16:19 Source: patient, family - History of Present Illness Initial Comments: PT PRESENTS TO THE ED WITH COMPLAINT OF PLEURITIC RIGHT SIDED CHEST PAIN, COUGH , AND DYSPNEA X 1 WEEK. PT WAS HOSPITALIZED 1 MONTH AGO IN [place] FOR PNEUMONIA. PT DENIES FEVER OR CHILLS. Timing/Duration: 1 week Severity: moderate Improving Factors: immobilization, rest Worsening Factors: movement, other - DEEP BREATHIN AND COUGH Associated Symptoms: chest pain, cough, shortness of breath Allergies/Adverse Reactions: Allergies NO KNOWN ALLERGY Allergy (Verified 09/26/16 17:06) Home Medications: Ambulatory Orders Aspirin [Aspirin Childrens] 81 mg PO DAILY 09/26/16 Amoxicillin & Pot Clavulanate [Augmentin Tab] 875 mg PO Q12H #24 tablet Bifidobacterium Infantis [Align] 4 mg PO BID #60 capsule 03/03/17 Lisinopril [Prinivil] 10 mg PO DAILY #30 tablet 03/03/17 Tamsulosin [Flomax] 0.4 mg PO DAILY #30 capsule 03/03/17 amLODIPine BESYLATE [Norvasc] 5 mg PO DAILY #30 tablet 03/03/17 metroNIDAZOLE [Flagyl] 250 mg PO Q6H #48 tablet 03/03/17 Tramadol-Acetaminophen [Ultracet] 1 - 2 tab PO Q6HR PRN #30 tab 08/05/17 levoFLOXacin [Levaquin] 500 mg PO DAILY 10 Days #10 tab 08/05/17 Review of Systems - Review of Systems Constitutional: Denies: chills, fever EENTM: Denies: nose congestion, throat pain Respiratory: States: see HPI, cough, short of breath Cardiology: States: see HPI, chest pain. Denies: palpitations, syncope Gastrointestinal/Abdominal: Denies: diarrhea, vomiting Genitourinary: Denies: dysuria, frequency Musculoskeletal: Denies: joint pain, joint swelling Skin: Denies: change in hair/nails, dryness Neurological: Denies: headache, numbness Endocrine: States: no symptoms reported Hematologic/Lymphatic: States: no symptoms reported Past Medical History (General) - Patient Medical History Hx Seizures: No Hx Stroke: No Hx Asthma: No Hx of COPD: No Hx Cardiac Disorders: Yes - CABG and mitral valve repair 2013 Hx Congestive Heart Failure: No Hx Pacemaker: No Hx Hypertension: No Hx Diabetes: No Hx MRSA: No - Vaccination History Hx Tetanus, Diphtheria Vaccination: Yes Hx Influenza Vaccination: No Hx Pneumococcal Vaccination: No - Social History Hx Tobacco Use: Yes - Quit 2013 Hx Alcohol Use: No Hx Substance Use: No Hx Physical Abuse: No Hx Emotional Abuse: No - Female History Patient : No Family Medical History - Family History Son Family History: No Known Living Status: Still Living Hx Family Asthma: No Hx Family Congestive Heart Failure: No Hx Family Hypertension: Yes Hx Family Stroke: No Hx Cardiac Disease: Yes Hx Family Diabetes: No Hx Family Cancer: No Grandparents Family History: Unknown Name: Juan Day Age (years): 64 Living Status: Hx Family Asthma: No Hx Family Congestive Heart Failure: No Hx Family Hypertension: - doesn't know Hx Family Stroke: No Hx Cardiac Disease: Yes Hx Family Diabetes: No Hx Family Cancer: No Hx Family;Other: he did not want to talk about it Physical Exam - Physical Exam General Appearance: Alert, Obvious distress Eye Exam: bilateral normal Ears, Nose, Throat: hearing grossly normal Neck: non-tender, full range of motion, supple Respiratory: no respiratory distress, no accessory muscle use, rales - AT RIGHT BASE Cardiovascular/Chest: regular rate, rhythm, no edema, no murmur Gastrointestinal/Abdominal: non tender, soft Back Exam: normal inspection, no CVA tenderness Extremity: non-tender, normal inspection Neurologic: alert, normal mood/affect, oriented x 3 Skin Exam: normal color, warm/dry Lymphatic: no adenopathy Progress - Progress Progress: 08/05/17 18:33 PT RESTING COMFORTABLY ON RE-EVAL. LABS AND DIAGNOSTIC STUDIES DISCUSSED. PT GIVEN OPTION OF TRANSFER TO [facility], HOWEVER PATIENT DOES NOT WANT TO BE TRANSFERRED. GIVEN PTS CLINICAL PRESENTATION AND LAB FINDINGS I AGREED TO D/C HOME ON ABX PATIENT AGREES TO RETURN IF SYMPTOMS GET WORSE OR FAIL TO IMPROVE. - Results/Orders Results/Orders: 08/05/17 16:19 EKG Assessment ONCE 08/05/17 16:20 Telemetry ONCE Pulse Ox Stat Pulse Oximetry Assessment DAILY 08/05/17 16:30 EKG STAT 08/05/17 16:45 BLOOD CULTURE Stat Laboratory Results - last 24 hr 08/05/17 08/05/17 16:45 16:45 WBC 5.5 RBC 4.60 L Hgb 13.2 L Hct 39.0 L MCV 84.7 MCH 28.6 MCHC 33.8 RDW 16.3 H Plt Count 221 MPV 9.1 Absolute Neuts (auto) 3.90 Absolute Lymphs (auto) 0.60 L Absolute Monos (auto) 0.50 Absolute Eos (auto) 0.50 H Absolute Basos (auto) 0.10 Neutrophils % 70.2 Lymphocytes % 11.7 L Monocytes % 8.5 Eosinophils % 8.2 H Basophils % 1.4 Sodium 139 Potassium 4.0 Chloride 102 Carbon Dioxide 29 Anion Gap 12.0 BUN 25 H Creatinine 1.31 H BUN/Creatinine Ratio 19.1 Random Glucose 96 Serum Osmolality 281.8 Calcium 9.1 Total Bilirubin 0.5 AST 16 ALT 12 Alkaline Phosphatase 109 Serum Total Protein 8.0 Albumin 4.1 Globulin 3.9 H Albumin/Globulin Ratio 1.1 - EKG/XRAY/CT XRAY: chest - PLEURAL PARENCHYMAL CHANGE TO THE RIGHT BASE, PER RAD. Departure - Departure Clinical Impression: Pneumonia Time of Disposition: 18:26 Disposition: Discharge to Home or Self Care Condition: Fair Departure Forms: ED Discharge - Pt. Copy, Patient Portal Self Enrollment Instructions: DI for Pneumonia -- Adult Diet: resume usual diet Activity: increase activity as tolerated Referrals: MARY SLATER [Referring] - 1-5 Days Prescriptions: Tramadol-Acetaminophen [Ultracet] 1 - 2 tab PO Q6HR PRN #30 tab PRN Reason: Pain levoFLOXacin [Levaquin] 500 mg PO DAILY 10 Days #10 tab Home Medications: Ambulatory Orders Aspirin [Aspirin Childrens] 81 mg PO DAILY 09/26/16 Amoxicillin & Pot Clavulanate [Augmentin Tab] 875 mg PO Q12H #24 tablet Bifidobacterium Infantis [Align] 4 mg PO BID #60 capsule 03/03/17 Lisinopril [Prinivil] 10 mg PO DAILY #30 tablet 03/03/17 Tamsulosin [Flomax] 0.4 mg PO DAILY #30 capsule 03/03/17 amLODIPine BESYLATE [Norvasc] 5 mg PO DAILY #30 tablet 03/03/17 metroNIDAZOLE [Flagyl] 250 mg PO Q6H #48 tablet 03/03/17 Tramadol-Acetaminophen [Ultracet] 1 - 2 tab PO Q6HR PRN #30 tab 08/05/17 levoFLOXacin [Levaquin] 500 mg PO DAILY 10 Days #10 tab 08/05/17
--- NOTE | 2017-08-05 17:10 | RAD ---
EXAM DESCRIPTION: Chest,1 View CLINICAL HISTORY: 86 years Male, COUGH, CHEST PAIN COMPARISON: October 02, 2014 TECHNIQUE: Single view chest FINDINGS: Sternotomy changes. Pleural parenchymal change at the right base are again seen. Congestive change. Cardiac silhouette remains moderately enlarged. IMPRESSION: Mild congestive changes Pleural parenchymal change right base as noted previously Electronically signed by: Waldo Cardoza 08/05/2017 5:09 PM [employer] TECHNICIAN
[2017-08-05] MEDS ORDERED: levoFLOXacin 500 MG TAB PO ONE (18:23)
[2017-08-05] MEDS ORDERED: fentaNYL CITRATE INJ 50 MCG/ML AMP ONE (18:53)
[2017-08-05 19:08] VITALS: BP 158/88; TEMP 98.1; O2SAT 97
== END 2017-08-05 18:50 | disposition home or self-care (01) ==
LOC: ER 14:59
DX: J18.9 Pneumonia, unspecified organism (principal); Z95.1 Presence of aortocoronary bypass graft; Z87.891 Personal history of nicotine dependence; Z79.82 Long term (current) use of aspirin
CPT/HCPCS: 36415; 71010; 80053; 85025; 87040; 93005; 94640; 94760; J3010; J7620

== ENCOUNTER 2017-08-14 14:34 | Emergency (ER) | payer MEDICARE ==
[2017-08-14 14:52] VITALS: TEMP 97.5; O2SAT 95
--- NOTE | 2017-08-14 16:06 | RAD ---
EXAM DESCRIPTION: Chest,2 Views CLINICAL HISTORY: 86 years Male, pna symptoms persist COMPARISON: 2017 TECHNIQUE: PA/lateral FINDINGS: The patient is poststernotomy. Persistent pleural and parenchymal lung disease is observed on the right unchanged from the previous exam. The left chest is clear. There is evidence of prior mitral valve surgery. Osteopenia and degenerative changes are seen in the thoracic spine. IMPRESSION: 1. The patient is poststernotomy for valve replacement. 2. Persistent pleural-parenchymal lung disease is observed on the right unchanged. Electronically signed by: Mahendra Alex MD 08/14/2017 4:05 PM [facility]
--- NOTE | 2017-08-14 16:42 | CT ---
PROCEDURE: Chest w/o Contrast CLINICAL HISTORY: 86 years Male rll abnormality COMPARISON: CT abdomen September 24 09/24/2016 and 02/26/2017. TECHNIQUE: Contiguous axial images obtained through the chest without IV contrast. Reformatted images obtained. This exam was performed according to our department optimization program which includes automated exposure control, adjustment of the mA and/or kv according to patient size and/or use of iterative reconstruction technique. FINDINGS: The thoracic aorta is ectatic and calcified with elongation. The ascending aorta measures 4.4 cm and the descending thoracic aorta 3.6 cm. Coronary artery calcifications. Postsurgical changes with median sternotomy wires are present. Scattered small mediastinal lymph nodes. There is volume loss in the right hemithorax with shift of the heart and mediastinal structures toward the right. There is a thick-walled chronic appearing pleural fluid collection on the right with area of parenchymal density in the right lower lobe which suggests rounded atelectasis. There is mild associated bronchial wall thickening. Areas of scarring with platelike atelectasis or scarring along the anterolateral aspect of the right lung base also stable. Small amount of interstitial fibrosis is present in the left lung base as well as area of scarring in the posterior aspect of the left lung base. This also appears stable. There is degenerative change throughout the thoracic spine with areas of chronic appearing wedging at multiple levels. Nonobstructing right renal calculus is noted. No new infiltrate is noted. IMPRESSION: Stable appearing area of parenchymal density in the right lower lobe likely reflecting rounded atelectasis with associated chronic appearing pleural fluid collection. Additional areas of stable pleural parenchymal scarring in the anterolateral right lung base and posterior lateral left lower lobe Mild interstitial fibrosis Tortuous and ectatic thoracic aorta with vascular calcifications in the aorta and the coronary vessels No acute abnormality noted Electronically signed by: Rosalba Navarrete 08/14/2017 4:41 PM [employer]ER[employer] PROCESSING TECHNICIAN
--- NOTE | 2017-08-14 16:54 | ED.PDOC ---
History of Present Illness - General Chief Complaint: Respiratory Problem Stated Complaint: sob Time Seen by Provider: 08/14/17 14:54 Source: patient Exam Limitations: no limitations - History of Present Illness Initial Comments: the patient is an 86-year-old male presenting back to the emergency room after a visit a little more than a week ago. The patient was diagnosed with a pneumonia and was going to be put in the hospital however there was no room available at that time. He was placed on oral Levaquin and has been on oral Levaquin since that time. He is still having some right lower lobe pain with breathing. His cough is less productive. He has not having any fevers. He is not hypoxic. He does have some known chronic right lower lung scarring and atelectasis. At rest the patient actually looks completely normal. He only seems to have discomfort when he tries to take a deep breath or cough. He is oxygenating well without any supplemental oxygen. There is no increased work of breathing. No respiratory distress. Timing/Duration: 1 week, constant Severity: moderate Improving Factors: nothing Worsening Factors: other - deep breathing Associated Symptoms: cough, malaise Allergies/Adverse Reactions: Allergies NO KNOWN ALLERGY Allergy (Verified 08/14/17 14:52) Home Medications: Ambulatory Orders Aspirin [Aspirin Childrens] 81 mg PO DAILY 09/26/16 Amoxicillin & Pot Clavulanate [Augmentin Tab] 875 mg PO Q12H #24 tablet Bifidobacterium Infantis [Align] 4 mg PO BID #60 capsule 03/03/17 Lisinopril [Prinivil] 10 mg PO DAILY #30 tablet 03/03/17 Tamsulosin [Flomax] 0.4 mg PO DAILY #30 capsule 03/03/17 amLODIPine BESYLATE [Norvasc] 5 mg PO DAILY #30 tablet 03/03/17 metroNIDAZOLE [Flagyl] 250 mg PO Q6H #48 tablet 03/03/17 Tramadol-Acetaminophen [Ultracet] 1 - 2 tab PO Q6HR PRN #30 tab 08/05/17 levoFLOXacin [Levaquin] 500 mg PO DAILY 10 Days #10 tab 08/05/17 Moxifloxacin HCl 400 mg PO DAILY #7 tab 08/14/17 Review of Systems - Review of Systems Constitutional: States: no symptoms reported EENTM: States: no symptoms reported Respiratory: States: cough Cardiology: States: chest pain - right lower Gastrointestinal/Abdominal: States: no symptoms reported Genitourinary: States: no symptoms reported Musculoskeletal: States: no symptoms reported Skin: States: no symptoms reported Neurological: States: no symptoms reported Endocrine: States: no symptoms reported Hematologic/Lymphatic: States: no symptoms reported All other Systems: No Change from Baseline Past Medical History (General) - Patient Medical History Hx Seizures: No Hx Stroke: No Hx Asthma: No Hx of COPD: No Hx Cardiac Disorders: Yes - CABG and mitral valve repair 2013 Hx Congestive Heart Failure: No Hx Pacemaker: No Hx Hypertension: Yes Hx Diabetes: No Hx MRSA: No - Vaccination History Hx Tetanus, Diphtheria Vaccination: Yes Hx Influenza Vaccination: No Hx Pneumococcal Vaccination: No - Social History Hx Tobacco Use: Yes - Quit 2013 Hx Alcohol Use: No Hx Substance Use: No Hx Physical Abuse: No Hx Emotional Abuse: No - Female History Patient : No Family Medical History - Family History Son Family History: No Known Living Status: Still Living Hx Family Asthma: No Hx Family Congestive Heart Failure: No Hx Family Hypertension: Yes Hx Family Stroke: No Hx Cardiac Disease: Yes Hx Family Diabetes: No Hx Family Cancer: No Grandparents Family History: Unknown Name: Juan Day Age (years): 64 Living Status: Hx Family Asthma: No Hx Family Congestive Heart Failure: No Hx Family Hypertension: - doesn't know Hx Family Stroke: No Hx Cardiac Disease: Yes Hx Family Diabetes: No Hx Family Cancer: No Hx Family;Other: he did not want to talk about it Physical Exam - Physical Exam General Appearance: Alert, Comfortable, No apparent distress Eye Exam: bilateral normal Ears, Nose, Throat: hearing grossly normal - chronically decreased bilaterally, normal ENT inspection, normal pharynx Neck: full range of motion, supple Respiratory: lungs clear, normal breath sounds, no respiratory distress, no accessory muscle use, other - right lower rib cage uncomfortable to palpation. 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 The patient apparently had a rocio pneumonia a little more than a week ago and does appear to be improving on the Levaquin. Apparently the Levaquin is cost prohibitive so he will be changed to moxifloxacin for another week. The patient is to follow-up with his primary care doctor early next week for reevaluation and he will likely need to be set up with pulmonology for long-term follow-up of the right lower lung field abnormality. Additionally the patient is being set up with an incentive spirometer to try to help recruit lung tissue in the right lower lung field. The patient also needs to be followed long-term for his thoracic aortic aneurysm. ER warnings were given for any significant worsening. he does need to take big deep breaths and make himself cough. - Results/Orders Results/Orders: chest x-ray shows right lower lobe infiltrate and atelectasis. Largely stable. CT scan of the chest without contrast shows a thoracic aortic aneurysm with largest diameter 4.4 cm. He also has thick wall chronic pleural fluid collection in the right lower lung field. He has right lower lobe rounded atelectasis. Mild bronchial wall thickening. Departure - Departure Clinical Impression: Atelectasis Pneumonia Qualifiers: Pneumonia type: due to unspecified organism Laterality: right Lung location: lower lobe of lung Qualified Code(s): J18.1 - Lobar pneumonia, unspecified organism Disposition: Discharge to Home or Self Care Condition: Fair Departure Forms: ED Discharge - Pt. Copy, Patient Portal Self Enrollment Instructions: DI for Pneumonia -- Adult, Atelectasis Diet: regular diet Activity: increase activity as tolerated Referrals: MARY SLATER [Primary Care Provider] - 1-5 Days Prescriptions: Moxifloxacin HCl 400 mg PO DAILY #7 tab Home Medications: Ambulatory Orders Aspirin [Aspirin Childrens] 81 mg PO DAILY 09/26/16 Amoxicillin & Pot Clavulanate [Augmentin Tab] 875 mg PO Q12H #24 tablet Bifidobacterium Infantis [Align] 4 mg PO BID #60 capsule 03/03/17 Lisinopril [Prinivil] 10 mg PO DAILY #30 tablet 03/03/17 Tamsulosin [Flomax] 0.4 mg PO DAILY #30 capsule 03/03/17 amLODIPine BESYLATE [Norvasc] 5 mg PO DAILY #30 tablet 03/03/17 metroNIDAZOLE [Flagyl] 250 mg PO Q6H #48 tablet 03/03/17 Tramadol-Acetaminophen [Ultracet] 1 - 2 tab PO Q6HR PRN #30 tab 08/05/17 levoFLOXacin [Levaquin] 500 mg PO DAILY 10 Days #10 tab 08/05/17 Moxifloxacin HCl 400 mg PO DAILY #7 tab 08/14/17 Additional Instructions: the patient is a 86-year-old male presenting to the emergency room for persistent symptoms of right lower lung field discomfort. The patient apparently had a rocio pneumonia a little more than a week ago and does appear to be improving on the Levaquin. Apparently the Levaquin is cost prohibitive so he will be changed to moxifloxacin for another week. The patient is to follow-up with his primary care doctor early next week for reevaluation and he will likely need to be set up with pulmonology for long-term follow-up of the right lower lung field abnormality. Additionally the patient is being set up with an incentive spirometer to try to help recruit lung tissue in the right lower lung field. The patient also needs to be followed long-term for his thoracic aortic aneurysm. ER warnings were given for any significant worsening. he does need to take big deep breaths and make himself cough.
[2017-08-14 17:25] VITALS: BP 128/72
== END 2017-08-14 17:24 | disposition home or self-care (01) ==
LOC: ER 14:34
DX: J18.1 Lobar pneumonia, unspecified organism (principal); J98.11 Atelectasis; Z95.1 Presence of aortocoronary bypass graft; Z79.82 Long term (current) use of aspirin

== ENCOUNTER 2017-11-01 09:04 | Emergency (ER) | payer MEDICARE ==
[~2017-11-01 09:04] MED LIST: CARBOXYMETHYLCELLULOSE 0.5% OPHTH SOL 0.4 ML UD ONE; TETRACAINE HCL 0.5% OPHTH SOL 1 DROP ONE
[2017-11-01 09:14] VITALS: TEMP 97.4; O2SAT 98
[2017-11-01 09:27] VITALS: BP 138/76
--- NOTE | 2017-11-01 10:13 | ED.PDOC ---
History of Present Illness - General Chief Complaint: Eye Problems Stated Complaint: Eye disturbances - redness, drainage Time Seen by Provider: 11/01/17 09:26 Additional Information: 87 Y/O MALE, C/O R EYE PAIN AND REDNESS, X 2 DAYS, MILD TO MODERATE, GETTING WORSE, (+) EYE DISCHARGE, WAS MATTED SHUT THIS MORNING. DENIES TRAUMA, NO PHOTOPHOBIA, HAS HAD SOME RUNNY NOSE, COUGH WITH WHITE PHLEGM. DENIES FEVER, CP , SOB, ABD PAIN, N/V/D. HAS SL FELDMAN, NO FOCAL WEAKNESS. HAS SOME NUMBNESS IN THE L HAND AND FOOT WHICH IS CHRONIC, UNCHANGED AND HAS BEEN EVALUATED BY HIS PCP. - History of Present Illness Allergies/Adverse Reactions: Allergies NO KNOWN ALLERGY Allergy (Verified 11/01/17 09:16) Home Medications: Ambulatory Orders Lisinopril [Prinivil] 10 mg PO DAILY #30 tablet 03/03/17 Azithromycin [Zithromax Z-Puma] 1 ea PO DAILY #1 pack 11/01/17 Ciprofloxacin HCl (Ophth) [Ciloxan] 3.5 gm OP TID #1 oin 11/01/17 Review of Systems - Review of Systems Constitutional: States: no symptoms reported EENTM: States: see HPI, eye pain, tearing. Denies: blurred vision, double vision, ear pain, ear discharge, nose pain, nose congestion, throat pain, throat swelling, mouth pain, mouth swelling Respiratory: States: cough. Denies: orthopnea, short of breath, stridor, wheezing Cardiology: States: no symptoms reported Gastrointestinal/Abdominal: States: no symptoms reported Genitourinary: States: no symptoms reported Musculoskeletal: States: no symptoms reported Skin: States: no symptoms reported Neurological: States: see HPI, headache. Denies: anxiety, depressed, emotional problems, tingling, tremors, weakness Hematologic/Lymphatic: States: no symptoms reported Past Medical History (General) - Patient Medical History Hx Seizures: No Hx Stroke: No Hx Asthma: No Hx of COPD: No Hx Cardiac Disorders: Yes - CABG and mitral valve repair 2013 Hx Congestive Heart Failure: No Hx Pacemaker: No Hx Hypertension: Yes Hx Diabetes: No Hx MRSA: No Surgical History: coronary bypass surgery - Vaccination History Hx Tetanus, Diphtheria Vaccination: Yes Hx Influenza Vaccination: No Hx Pneumococcal Vaccination: No - Social History Hx Tobacco Use: Yes - Quit 2013 Hx Alcohol Use: No Hx Substance Use: No Hx Physical Abuse: No Hx Emotional Abuse: No - Female History Patient : No Family Medical History - Family History Son Family History: No Known Living Status: Still Living Hx Family Asthma: No Hx Family Congestive Heart Failure: No Hx Family Hypertension: Yes Hx Family Stroke: No Hx Cardiac Disease: Yes Hx Family Diabetes: No Hx Family Cancer: No Grandparents Family History: Unknown Name: Juan Day Age (years): 64 Living Status: Hx Family Asthma: No Hx Family Congestive Heart Failure: No Hx Family Hypertension: - doesn't know Hx Family Stroke: No Hx Cardiac Disease: Yes Hx Family Diabetes: No Hx Family Cancer: No Hx Family;Other: he did not want to talk about it Physical Exam - Physical Exam General Appearance: Alert, No apparent distress Eye Exam: right other - R CONJUNCTIVA RED, (+) DISCHARGE, NO DIRECT OR CONSENSUAL PHOTOPHOBIA, EVERSION OF UPPER LID: NO FB, , bilateral normal, bilateral abnormal EOM, bilateral abnormal pupil Ears, Nose, Throat: normal ENT inspection, normal pharynx Neck: full range of motion, supple Respiratory: chest non-tender, lungs clear, normal breath sounds Cardiovascular/Chest: normal peripheral pulses, regular rate, rhythm, no edema, no gallop, no JVD, no murmur Gastrointestinal/Abdominal: normal bowel sounds, non tender, soft, no organomegaly Extremity: normal range of motion, non-tender, normal inspection, no pedal edema 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 Departure - Departure Clinical Impression: Acute bronchitis Conjunctivitis Qualifiers: Conjunctivitis type: acute Acute conjunctivitis type: bacterial Laterality: right Qualified Code(s): H10.31 - Unspecified acute conjunctivitis, right eye Corneal abrasion Qualifiers: Encounter type: initial encounter Laterality: right Qualified Code(s): S05.01XA - Injury of conjunctiva and corneal abrasion without foreign body, right eye, initial encounter Time of Disposition: 10:30 Disposition: Discharge to Home or Self Care Condition: Good Departure Forms: ED Discharge - Pt. Copy, Patient Portal Self Enrollment Diet: resume usual diet Referrals: MARY SLATER [Primary Care Provider] - 1-2 Weeks Prescriptions: Azithromycin [Zithromax Z-Puma] 1 ea PO DAILY #1 pack Ciprofloxacin HCl (Ophth) [Ciloxan] 3.5 gm OP TID #1 oin Home Medications: Ambulatory Orders Lisinopril [Prinivil] 10 mg PO DAILY #30 tablet 03/03/17 Azithromycin [Zithromax Z-Puma] 1 ea PO DAILY #1 pack 11/01/17 Ciprofloxacin HCl (Ophth) [Ciloxan] 3.5 gm OP TID #1 oin 11/01/17
== END 2017-11-01 10:18 | disposition home or self-care (01) ==
LOC: ER 09:04
DX: H10.31 Unspecified acute conjunctivitis, right eye (principal); J20.9 Acute bronchitis, unspecified; S05.01XA Injury of conjunctiva and corneal abrasion without foreign body, right eye, initial encounter; I10 Essential (primary) hypertension; Z95.1 Presence of aortocoronary bypass graft; Z87.891 Personal history of nicotine dependence; X58.XXXA Exposure to other specified factors, initial encounter

== ENCOUNTER 2017-12-27 18:47 | Inpatient (IN) | payer MEDICARE ==
[2017-12-27] MEDS ORDERED: PIPERACILLIN/TAZOBACTAM 2.25 GM in SODIUM CHLORIDE 0.9% 50ML 50 ML IVPB ONE (18:54)
[2017-12-27] MEDS ORDERED: IPRATROPIUM/ALBUTEROL 3 ML VIAL NEB ONE (18:54)
--- NOTE | 2017-12-27 18:59 | ED.PDOC ---
History of Present Illness - General Chief Complaint: Respiratory Problem Stated Complaint: patient has been short of breath for 2 days Time Seen by Provider: 12/27/17 18:53 Source: patient Exam Limitations: no limitations - History of Present Illness Initial Comments: Patient comes in for shortness of breath 2 days. He states he's been short of breath for the past 4 years but this acute exacerbation has been for the past 2 days. He's been having severe cough that is primarily nonproductive with no fever or chills although on arrival he was noted to have an increased temp of 101. Patient states he's felt ill and has not been able to catch his breath. patient denies chest pain but has had some tightness in his chest with no nausea or emesis. Patient had been a smoker for 70 years but quit 4 years ago when he was diagnosed with coronary artery disease. She has some minimal pedal edema for the past several days. Timing/Duration: days - 2 Severity: severe Activities at Onset: none Possible Cause: chronic episodes Improving Factors: nothing Allergies/Adverse Reactions: Allergies NO KNOWN ALLERGY Allergy (Verified 11/01/17 09:16) Home Medications: Ambulatory Orders Lisinopril [Prinivil] 10 mg PO DAILY #30 tablet 03/03/17 Azithromycin [Zithromax Z-Puma] 1 ea PO DAILY #1 pack 11/01/17 Ciprofloxacin HCl (Ophth) [Ciloxan] 3.5 gm OP TID #1 oin 11/01/17 Review of Systems - Review of Systems Constitutional: Denies: chills, diaphoresis, fever, malaise EENTM: Denies: eye pain, ear pain, nose pain, throat pain Respiratory: States: cough, short of breath, wheezing Cardiology: States: edema. Denies: chest pain, palpitations Gastrointestinal/Abdominal: Denies: abdominal pain, constipation, diarrhea, nausea, vomiting Genitourinary: States: no symptoms reported Musculoskeletal: States: no symptoms reported Skin: States: no symptoms reported Past Medical History (General) - Patient Medical History Hx Seizures: No Hx Stroke: No Hx Asthma: No Hx of COPD: No Hx Cardiac Disorders: Yes - CABG and mitral valve repair 2013 Hx Congestive Heart Failure: No Hx Pacemaker: No Hx Hypertension: Yes Hx Diabetes: No Hx MRSA: No - Vaccination History Hx Tetanus, Diphtheria Vaccination: Yes Hx Influenza Vaccination: No Hx Pneumococcal Vaccination: No - Social History Hx Tobacco Use: Yes - Quit 2013 Hx Alcohol Use: No Hx Substance Use: No Hx Physical Abuse: No Hx Emotional Abuse: No - Female History Patient : No Family Medical History - Family History Son Family History: No Known Living Status: Still Living Hx Family Asthma: No Hx Family Congestive Heart Failure: No Hx Family Hypertension: Yes Hx Family Stroke: No Hx Cardiac Disease: Yes Hx Family Diabetes: No Hx Family Cancer: No Grandparents Family History: Unknown Name: Juan Day Age (years): 64 Living Status: Hx Family Asthma: No Hx Family Congestive Heart Failure: No Hx Family Hypertension: - doesn't know Hx Family Stroke: No Hx Cardiac Disease: Yes Hx Family Diabetes: No Hx Family Cancer: No Hx Family;Other: he did not want to talk about it Physical Exam - Physical Exam General Appearance: Obvious distress, Ill Appearing Eyes, Ears, Nose, Throat Exam: PERRL/EOMI, normal ENT inspection, TMs normal, pharynx normal Neck: non-tender, full range of motion, supple, normal inspection Respiratory: chest non-tender, lungs clear, decreased breath sounds Cardiovascular/Chest: normal peripheral pulses, regular rate, rhythm, no edema, no gallop, no JVD Peripheral Pulses: radial,right: 2+, radial,left: 2+, dorsalis pedis,right: 2+, dorsalis pedis,left: 2+ Gastrointestinal/Abdominal: normal bowel sounds, non tender, soft, no organomegaly, no pulsatile mass Neurologic: alert, oriented x 3 Progress - Progress Progress: 12/27/17 19:45 12/27/17 18:54 Piperacillin/Tazobactam [Zosyn] 2.25 gm Sodium Chloride 0.9% 50Ml [NS 50ml] 50 ml IVPB ONCE Chest,1 View [RAD] Stat 12/27/17 19:00 EKG STAT 12/27/17 19:09 BLOOD CULTURE Stat 12/28/17 09:00 Oxygen Daily Laboratory Results WBC 9.5 K/mm3 (4.8-10.8) 12/27/17 19:09 RBC 4.86 M/mm3 (4.70-6.10) 12/27/17 19:09 Hgb 14.1 gm/dL (14.0-18.0) 12/27/17 19:09 Hct 41.9 % (42.0-52.0) L 12/27/17 19:09 MCV 86.3 fl (80.0-94.0) 12/27/17 19:09 MCH 29.0 pg (27.0-31.0) 12/27/17 19:09 MCHC 33.6 g/dL (33.0-37.0) 12/27/17 19:09 RDW 16.4 % (11.5-14.5) H 12/27/17 19:09 Plt Count 169 K/mm3 (130-400) 12/27/17 19:09 MPV 8.9 fl (7.40-10.4) 12/27/17 19:09 Absolute Neuts (auto) 7.90 K/uL (1.8-6.8) H 12/27/17 19:09 Absolute Lymphs (auto) 0.70 K/uL (1.0-3.4) L 12/27/17 19:09 Absolute Monos (auto) 0.70 K/uL (0.2-0.8) 12/27/17 19:09 Absolute Eos (auto) 0.20 K/uL (0.0-0.4) 12/27/17 19:09 Absolute Basos (auto) 0.10 K/uL (0.0-0.1) 12/27/17 19:09 Neutrophils % 83.0 % (42.0-78.0) H 12/27/17 19:09 Lymphocytes % 7.2 % (20.0-50.0) L 12/27/17 19:09 Monocytes % 7.5 % (2.0-9.0) 12/27/17 19:09 Eosinophils % 1.7 % (1.0-5.0) 12/27/17 19:09 Basophils % 0.6 % (0.0-2.0) 12/27/17 19:09 Sodium 135 mmol/L (135-145) 12/27/17 19:09 Potassium 4.0 mmol/L (3.6-5.0) 12/27/17 19:09 Chloride 101 mmol/L (101-111) 12/27/17 19:09 Carbon Dioxide 25 mmol/L (21-31) 05/25/18 19:09 Anion Gap 13.0 (12-18) 12/27/17 19:09 BUN 28 mg/dL (7-18) H 12/27/17 19:09 Creatinine 1.42 mg/dL (0.6-1.3) H 12/27/17 19:09 BUN/Creatinine Ratio 19.7 (10-20) 12/27/17 19:09 Random Glucose 104 mg/dL (70-105) 12/27/17 19:09 Serum Osmolality 275.9 mOsm/L (275-295) 12/27/17 19:09 Lactic Acid 0.9 mmol/L (0.5-2.2) 12/27/17 19:09 Calcium 9.3 mg/dL (8.4-10.2) 12/27/17 19:09 Total Bilirubin 1.0 mg/dL (0.2-1.0) 12/27/17 19:09 AST 15 IU/L (10-42) 12/27/17 19:09 ALT 11 IU/L (10-60) 12/27/17 19:09 Alkaline Phosphatase 90 IU/L (42-121) 12/27/17 19:09 Creatine Kinase 55 IU/L (38-174) 12/27/17 19:09 CK-MB (CK-2) 1.2 ng/mL (0.0-4.4) 12/27/17 19:09 CK-MB (CK-2) % Not Reportable 12/27/17 19:09 Troponin I < 0.02 ng/mL (0.01-0.05) 12/27/17 19:09 B-Natriuretic Peptide 571.0 pg/ml (0-100) H* 12/27/17 19:09 Serum Total Protein 8.1 gm/dL (6.4-8.2) 12/27/17 19:09 Albumin 4.1 g/dl (3.2-5.5) 12/27/17 19:09 Globulin 4.0 gm/dL (2.3-3.5) H 12/27/17 19:09 Albumin/Globulin Ratio 1.0 (1.1-1.9) L 12/27/17 19:09 12/27/17 19:58 patient is doing much better after breathing treatment and IV Solu-Medrol. His does state that every time he gets breathing treatments it seems to help and then when he goes home he doesn't have them given to them on discharge and she wonders if they might help. Although he does not have an ongoing diagnosis of COPD per patient he has a greater than 70 year history of smoking. He only quit 4 years ago. Patient however this time does have fever and presentation consistent with pneumonia as well as chest x-ray that shows worsening right lower lobe consolidation. White blood cell count and lactic acid are reassuring the blood cultures are pending. We have called on-call practitioner Niranjan Latif and he has accepted admission. IV Zosyn was given in ER at lower dose for decreased GFR - EKG/XRAY/CT EKG: Sinus Comments: Sinus with normal axis, with LVH, 1st degree Av block, and LBBB XRAY: chest Xray Comments: worsening RLL consolidation with moderate pleural effusion Departure - Departure Clinical Impression: Pneumonia Qualifiers: Pneumonia type: due to unspecified organism Laterality: right Lung location: lower lobe of lung Qualified Code(s): J18.1 - Lobar pneumonia, unspecified organism Congestive heart failure Qualifiers: Congestive heart failure type: unspecified congestive heart failure type Congestive heart failure chronicity: chronic Qualified Code(s): I50.9 - Heart failure, unspecified Disposition: Admit Patient Condition: Fair Departure Forms: ED Discharge - Pt. Copy, Patient Portal Self Enrollment Referrals: MARY SLATER [Primary Care Provider] - 1-2 Weeks Home Medications: Ambulatory Orders Lisinopril [Prinivil] 10 mg PO DAILY #30 tablet 03/03/17 Azithromycin [Zithromax Z-Puma] 1 ea PO DAILY #1 pack 11/01/17 Ciprofloxacin HCl (Ophth) [Ciloxan] 3.5 gm OP TID #1 oin 11/01/17
[2017-12-27] MEDS ORDERED: PIPERACILLIN/TAZOBACTAM 2.25 GM VIAL IVPB ONE (19:13)
[2017-12-27] MEDS ORDERED: SODIUM CHLORIDE 0.9% 50ML 50 ML ONE (19:13)
[2017-12-27] MEDS ORDERED: methylPREDNISolone SODIUM SUC 125 MG/2 ML VIAL IV ONE (19:36)
--- NOTE | 2017-12-27 19:49 | RAD ---
EXAM DESCRIPTION: Chest,1 View CLINICAL HISTORY: shortness of breath COMPARISON: 08/14/2017 FINDINGS: Cardiac silhouette is mildly enlarged. There is worsening consolidation and atelectasis at the right lung base with a moderate right pleural effusion. Mild atelectasis has developed in the left lung. IMPRESSION: Worsening right lung consolidation. Electronically signed by: David Mendoza 12/27/2017 7:48 PM CDT
--- NOTE | 2017-12-27 20:20 | HP ---
SUPERVISING PHYSICIAN: Ramsey Peck MD CHIEF COMPLAINT: Increasing shortness of breath. HISTORY OF PRESENT ILLNESS: Mr. Day is an 87-year-old, male patient who presented to the Emergency Room with two days of increasing shortness of breath. He notes that over the last several days he has been having a severe cough that has been nonproductive and not felt that he has had any fever or chills, although in the Emergency Room his temperature was noted to be 100.1. He does not have a history of chronic obstructive pulmonary disease but he has a history of tobacco abuse for 70 years and has been diagnosed with coronary artery disease and required CABG times 5 vessels in the past. He also notes that he was treated back in August of this year in the Emergency Room for the same symptoms, right lower lobe pneumonia, but was not hospitalized and treated with Levaquin. He felt like he did well with outpatient treatment but again had similar symptoms approximately a month later , he thinks in September and then was started on antibiotics at the [place], [place]. Since that time, he has not had any antibiotics which appears to be approximately 3 months to 4 months without any antibiotic treatment. He denied any ill contacts at home and has been in his usual health up until 2 days ago. His initial workup in the Emergency Room showed he has a normal white count but a left shift and radiographic studies indicated he had a right lung consolidation in the base compared to previous on 08/14/17. His 02 saturations initially were low, saturation 88% on nasal cannula with significant respirations and some obvious distress. He was given a Duoneb treatment and Solu-Medrol which did improve his symptoms significantly, improving his 02 saturations on 08/06 nasal up to 96%. Given the findings on the radiographic studies indicating right lower lobe pneumonia, fever and increasing shortness of breath, the patient is now going to be admitted to the medical/surgical floor for treatment of right lower lobe pneumonia. He had blood cultures drawn prior to antibiotics and was given one single dose of Zosyn in the Emergency Department along with Solu-Medrol. He was in stable condition at time of admission. PAST MEDICAL HISTORY: 1. Hypertension. 2. Benign prostatic hypertrophy. PAST SURGICAL HISTORY: 1. Coronary artery bypass grafting times 5. 2. 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 CURRENT MEDICATIONS: : Lisinopril 10 mg daily. ALLERGIES: NO KNOWN DRUG ALLERGIES. FAMILY HISTORY: Significant for cardiovascular disease. . SOCIAL HISTORY: Patient lives in [place], [place]. 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 He has a history of smoking cigars for well over 72 years but quit four years previously. He does not drink alcohol or use illicit drugs. REVIEW OF SYSTEMS: CONSTITUTIONAL: Denies any chills, diaphoresis, fever or malaise. HEENT: Denies headaches, earaches, sore throats, nasal congestion. RESPIRATORY: As noted in history of present illness, worsening shortness of breath, wheezing and cough which is nonproductive, over the lat two days. CARDIOVASCULAR: He has some chronic lower extremity edema at times but denies chest pain or palpitations, no syncopal episodes. GASTROINTESTINAL: Denies abdominal pain, constipation, diarrhea, nausea or vomiting. GENITOURINARY: Denies any dysuria but notes he does have difficulty keeping his stream started but is not being treated for any significant benign prostatic hypertrophy and denies dysuria, hematuria, nocturia or urinary symptoms. NEUROLOGIC: Denies headaches, ataxia, seizures or neurological deficits. PHYSICAL EXAMINATION: VITAL SIGNS: Febrile with a temperature 101.0. Pulse 79. Blood pressure 156/ 64. Respirations were tachypneic after 28 with some purse-lip breathing on distress.. Saturation 98% on nasal cannula at 2 liters. After breathing treatments, he did show improvement and saturation 96% on nasal cannula at 4 liters at rest. Admission weight 74.4 kg. GENERAL: On admission to the Medical/Surgical Floor, the patient was alert and appeared to be in no acute distress and resting comfortably. HEENT: Tympanic membranes clear bilaterally. Oropharynx is pink, moist without any lesions. NECK: No jugular venous distention noted. Supple, non-tender, full range of motion. CHEST: Lungs were significantly decreased throughout. There was a very faint crackle heard in the lateral right lower base. No obvious wheezing or rales. CARDIOVASCULAR: No appreciable murmurs, rubs, or gallops. ABDOMEN: Soft, obese, non-tender with positive bowel sounds. . EXTREMITIES: There is no cyanosis, clubbing or edema. NEUROLOGIC: The patient is alert and oriented times three. LABORATORY: CBC showed a white count of 9,500 and he did have a left shift. Hemoglobin 14.1, hematocrit 41.9, platelet count 169,000. Chemistries showed normal electrolytes, BUN elevated at 29, creatinine 1.42, lactic acid 0.9. Liver functions all was negative. Troponin less than 0.02. He had a BNP that was elevated at 571. Urinalysis shows trace of intact blood with 3 to 5 WBCs and 1 to 3 RBCs on microscopic examination. MICROBIOLOGY Sputum culture pending. Blood culture pending. RADIOLOGY: Chest x-ray in the Emergency Department, single view chest, showed cardiac silhouette mildly enlarged. There was a worsening consolidation and atelectasis at the right lung base with a moderate right pleural effusion compared to previous examination on 08/14/17 that showed a worsening right lung consolidation. EKG showed sinus rhythm with a first degree AV block and a left bundle branch block with no comparison at time of admission. The patient was not complaining of chest pain. ASSESSMENT: 1. Pneumonia, community acquired, right lower lobe. 2. Chronic obstructive pulmonary disease with exacerbation secondary to #1. 3. Febrile illness secondary to #1 with cultures pending. 4. History of hypertension. 5. History of benign prostatic hypertrophy. 6. Renal insufficiency, likely prerenal azotemia with elevated creatinine with no history of renal insufficiency. PLAN: The patient is going to be admitted to the medical/surgical floor for treatment of the right lower lobe pneumonia. Initially in the Emergency Room he was given a dose of Zosyn but given his kidney function and his current clinical stability, I am going deescalate him to Rocephin one gram every 12 hours along with azithromycin 500 IV daily. He will be on aggressive pulmonary hygiene with Duoneb treatments q.i.d. along with chest percussion therapy. Will attempt to collect a sputum and await culture results to further target antibiotic therapy if possible. He is a little dry along with increased renal function, I will go ahead and give him some IV fluids tonight. Recheck his labs in the morning to include a BNP and a repeat CBC. He was given a dose of Solu-Medrol in the Emergency Room but is no longer having any obvious and in no distress. At this point, I will hold off additional corticosteroids. He will be on DVT prophylaxis as per protocol. Will anticipate his length of stay to e at least 2 to 3 days and until clinically stable, continue to monitor and treat appropriately. [facility][id number] [facility]
[2017-12-27] MEDS ORDERED: ACETAMINOPHEN 325 MG TAB PO PRN (20:42)
[2017-12-27] MEDS ORDERED: HYDROcodone 5MG/APAP 325MG 1 EA TAB PO PRN (20:42)
[2017-12-27] MEDS ORDERED: SODIUM CHLORIDE 0.9% (FLUSH) 10 ML SYG IV PRN (20:42)
[2017-12-27] MEDS ORDERED: ALBUTEROL SULFATE 2.5 MG/3 ML VIAL NEB PRN (20:42)
[2017-12-27] MEDS ORDERED: ONDANSETRON INJ 4 MG/2 ML VIAL IV PRN (20:42)
--- NOTE | 2017-12-27 21:03 | PCM.CORE ---
Physician DVT/VTE - Nurse DVT Assessment & Total Each Risk Factor Represents 3 Points: Age over 75 years, Medical PT with Hx of [place], CHF, Severe infection/sepsis Each Risk Factor is 1 Point: Serious Lung disease (pnemonia <1month, COPD, emphysema,etc) DVT Assessment Score: 7 - 5 or more Very High Risk Treatments: Early Ambulation *, Sequential Compression Device Pharmacological: Enoxaparin 40mg SQ Daily
[2017-12-27] MEDS: IV SET AND CAP CHANGE INJ INJ SCH (22:04)
[2017-12-27] MEDS ORDERED: SODIUM CHL 0.9% 50ML MIN-BAG+ 50 ML IVPB ONE (22:09)
[2017-12-27] MEDS ORDERED: cefTRIAXone SODIUM 1 GM VIAL ONE (22:10)
[2017-12-27] MEDS: KCL 20MEQ/0.45% NS 1,000 ML IVS PRN (22:10)
[2017-12-27] MEDS: cefTRIAXone SODIUM 1 GM in SODIUM CHL 0.9% 50ML MIN-BAG+ 50 ML IVPB SCH (22:16)
[2017-12-27] MEDS ORDERED: SODIUM CHLORIDE 0.9% 250ML 250 ML ONE (22:20)
[2017-12-27] MEDS ORDERED: AZITHROMYCIN IV 500 MG VIAL IVPB ONE (22:20)
[2017-12-27] MEDS ORDERED: ENOXAPARIN SODIUM 40 MG/0.4 ML SYG SUBCU SCH (23:00)
[2017-12-27] MEDS ORDERED: AZITHROMYCIN IV 500 MG in SODIUM CHLORIDE 0.9% 250ML 250 ML IVPB SCH (23:30)
[2017-12-28] MEDS: PANTOPRAZOLE SODIUM IV 40 MG VIAL IV SCH (06:27)
--- NOTE | 2017-12-28 07:35 | RAD ---
EXAM: Two view chest. INDICATION: Pneumonia. COMPARISON: Chest x-ray: None. FINDINGS: There is a stable right basilar airspace opacity with small right pleural effusion. The heart is normal in size with a tortuous aorta. There is no pneumothorax. There is no acute fracture IMPRESSION: Stable right basilar airspace opacity, likely representing scarring. A superimposed pneumonia may be present. Small right pleural effusion Electronically signed by: Abundio Reese MD 12/28/2017 7:34 AM CDT Workstation: [id number]
[2017-12-28] MEDS: IPRATROPIUM/ALBUTEROL 3 ML VIAL NEB SCH ×4 (08:20→20:03)
[2017-12-28] MEDS ORDERED: SODIUM CHL 0.9% 50ML MIN-BAG+ 50 ML IVPB ONE ×2 (09:34→19:52)
[2017-12-28] MEDS ORDERED: cefTRIAXone SODIUM 1 GM VIAL ONE ×2 (09:35→19:53)
[2017-12-28] MEDS: cefTRIAXone SODIUM 1 GM in SODIUM CHL 0.9% 50ML MIN-BAG+ 50 ML IVPB SCH ×2 (10:26→22:26)
[2017-12-28] MEDS: LISINOPRIL 10 MG TAB PO SCH (10:27)
[2017-12-28] MEDS: DUTASTERIDE 0.5 MG CAP PO SCH (10:27)
[2017-12-28] MEDS: guaiFENesin ER TAB 600 MG TAB PO SCH ×2 (10:27→20:44)
[2017-12-28] MEDS: TAMSULOSIN 0.4 MG CAP PO SCH (10:27)
[2017-12-28] MEDS: AZITHROMYCIN 250 MG TAB PO SCH (10:27)
[2017-12-28] MEDS: BIFIDOBACTERIUM INFANTIS 4 MG CAP PO SCH (10:27)
[2017-12-28] MEDS ORDERED: MAGNESIUM HYDROXIDE 30 ML UD PO ONE (10:36)
[2017-12-28] MEDS ORDERED: MAGNESIUM HYDROXIDE 30 ML UD PO PRN (10:36)
[2017-12-28] MEDS: BISACODYL TAB 5 MG TAB PO SCH (11:39)
--- NOTE | 2017-12-28 13:31 | PN ---
SUPERVISING PHYSICIAN: Ramsey Peck MD DATE: SUBJECTIVE: The patient notes his breathing is much easier today. After starting chest percussive therapy, he was able to produce a sputum for culture and has been clearing his airways much more compared to admission. He remains afebrile since admission and has not had any complications of diarrhea or nausea or vomiting since starting antibiotic therapy. The patient has had a little difficulty with urination in getting his stream started but is not having any obvious retention problems. Discussed starting him on some Avodart and Flomax and he was in agreement in efforts to help decrease his symptoms. The patient also noted he has had some mild constipation and is requesting some assistance to have a bowel movement. OBJECTIVE: VITAL SIGNS: T-max temperature was 100.4 at 2100 last night. Pulse 80, blood pressure 118/83, respirations 16, saturation 98% on nasal cannula at rest. Weight is stable at 74.4 kg. CHEST: Lung sounds are much improved today with more prominent breath sounds heard towards the bases, just a very faint coarse rhonchi found again on the lateral right aspect in the base. HEART: Regular rate and rhythm. ABDOMEN: Soft, non-tender, positive bowel sounds. EXTREMITIES: No cyanosis, clubbing, or edema. NEUROLOGICAL: He is alert and oriented x3. LABORATORY: White count 7,900, hemoglobin 13.2, hematocrit 39.2, platelet count 157,000. Differential does continue to show a left shift. Chemistries show normal electrolytes today with a potassium 4.3, BUN up to 35, creatinine up to 1.52, calcium 9.2. RADIOLOGY: Repeat chest x-ray per radiology interpretation showed a stable right basilar interstitial opacity likely representing scarring, although a superimposed pneumonia may be present with small right pleural effusion. ASSESSMENT: 1. Pneumonia, community acquired, right lower lobe. 2. Chronic obstructive pulmonary disease with exacerbation secondary to #1. 3. Febrile illness secondary to #1 with cultures pending. 4. History of hypertension. 5. History of benign prostatic hypertrophy with current symptoms requiring initiation of medical treatment. 6. Renal insufficiency with a slight worsening this morning, again likely due to prerenal azotemia. 7. Constipation. PLAN: Will continue with current treatment plan and antibiotic therapy with Rocephin and azithromycin. He continues with aggressive pulmonary hygiene and was able to produce a sputum. Will await those for cultures. I will go ahead and give him some milk of magnesia and some Miralax today with the stool softener efforts to resolve his constipation. Will continue with IV fluids as he is still a little dry in efforts to help improve his renal function. Unsure at this point what his baseline creatinine actually is but he has no history per his report of kidney problems. Will plan to recheck labs in the morning with a BMP, CBC, and not do a chest x-ray tomorrow morning as his x-ray has been showing to be fairly stable today. Again, will anticipate hopefully discharging Saturday or Saturday. Until the, we will continue to monitor and treat appropriately. Once discharged, he will need close followup with his primary care physician who is Dr. Mc. #[id number] [facility]
[2017-12-28] MEDS: POLYETHYLENE GLYCOL 3350 17 GM PCKT PO SCH (13:59)
[2017-12-28] MEDS: KCL 20MEQ/0.45% NS 1,000 ML IVS PRN (15:21)
[2017-12-28] MEDS: ENOXAPARIN SODIUM 40 MG/0.4 ML SYG SUBCU SCH (20:44)
[2017-12-29] MEDS: KCL 20MEQ/0.45% NS 1,000 ML IVS PRN (04:03)
[2017-12-29] MEDS: PANTOPRAZOLE SODIUM IV 40 MG VIAL IV SCH (06:08)
[2017-12-29] MEDS: IPRATROPIUM/ALBUTEROL 3 ML VIAL NEB SCH ×4 (08:49→19:54)
[2017-12-29] MEDS ORDERED: SODIUM CHL 0.9% 50ML MIN-BAG+ 50 ML IVPB ONE ×2 (09:20→19:53)
[2017-12-29] MEDS ORDERED: cefTRIAXone SODIUM 1 GM VIAL ONE ×2 (09:21→19:53)
[2017-12-29] MEDS: DUTASTERIDE 0.5 MG CAP PO SCH (09:43)
[2017-12-29] MEDS: BIFIDOBACTERIUM INFANTIS 4 MG CAP PO SCH (09:43)
[2017-12-29] MEDS: guaiFENesin ER TAB 600 MG TAB PO SCH ×2 (09:43→20:37)
[2017-12-29] MEDS: AZITHROMYCIN 250 MG TAB PO SCH (09:44)
[2017-12-29] MEDS: LISINOPRIL 10 MG TAB PO SCH (09:44)
[2017-12-29] MEDS: BISACODYL TAB 5 MG TAB PO SCH (09:44)
[2017-12-29] MEDS: TAMSULOSIN 0.4 MG CAP PO SCH (09:44)
[2017-12-29] MEDS: POLYETHYLENE GLYCOL 3350 17 GM PCKT PO SCH (10:00)
--- NOTE | 2017-12-29 10:49 | CT ---
EXAM DESCRIPTION: Abdoment/Pelvis w/o Contrast CLINICAL HISTORY: elevated kidney fx COMPARISON: None Available TECHNIQUE: Contiguous axial images of the abdomen and pelvis were obtained followed by reconstruction images. This exam was performed according to our departmental dose-optimization program, which includes automated exposure control, adjustment of the mA and/or kV according to patient size and/or use of iterative reconstruction technique. FINDINGS: There is right pleural thickening, underlying loculated right pleural fluid collection cannot be excluded. Focal opacity in the right lower lung suggests rounded atelectasis. Linear opacities within the lungs may represent scar versus subsegmental atelectasis. Patient is status post median sternotomy. There is atherosclerosis. Calcifications within the pelvis compatible with phleboliths. There is aneurysmal dilatation of the right common iliac artery measuring approximately 3 cm. There is focal aneurysmal dilatation of the left internal iliac artery measuring approximately 1.8 cm. There are degenerative changes of the lumbar spine. There are bilateral renal cysts ranging from 7 mm to 2.6 cm. There is a nonobstructive right renal stone. There is a small anterior abdominal wall hernia without bowel components, image 31. The appendix was not visualized. There is no pericecal inflammation. The liver, spleen, pancreas and kidneys are otherwise within normal limits. There is no hydronephrosis . The gallbladder is unremarkable by CT criteria. Adrenal glands are within normal limits. There is no free fluid in the abdomen or pelvis. There is no bowel obstruction. There is no stranding of the mesenteric fat to suggest an inflammatory response. IMPRESSION: No acute intra-abdominal abnormality. 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 Electronically signed by: Keshawn Mejia MD 12/29/2017 10:48 AM CDT
[2017-12-29] MEDS ORDERED: SODIUM CHLORIDE 0.45% 1000ML 1,000 ML IVS ONE (11:00)
[2017-12-29] MEDS: cefTRIAXone SODIUM 1 GM in SODIUM CHL 0.9% 50ML MIN-BAG+ 50 ML IVPB SCH ×2 (11:03→22:06)
--- NOTE | 2017-12-29 13:15 | PN ---
SUPERVISING PHYSICIAN: Ramsey Peck MD DATE: 12/29/17 SUBJECTIVE: The patient is lying in his hospital bed. He is asleep. He awakens easily. He feels much better today than yesterday. He had been dizzy yesterday and today it is much improved. I discussed the results of the CT of his abdomen and encouraged him use the urinal so the nurses could do close urinary output monitoring. He has no complaints of chest pain, nausea or vomiting or dysuria or difficulty voiding at this time. OBJECTIVE: VITAL SIGNS: He is afebrile. Heart rate is 77, blood pressure 130/78, respiratory rate 20, 02 saturation 94% on room air. RESPIRATORY: Essentially clear in the apices but diminished at the bases. There are a few scattered rhonchi but mostly clears with coughing. CARDIAC: Regular rate and rhythm. GI: Abdomen soft, nondistended, non-tender. Bowel sounds are positive. EXTREMITIES: No cyanosis, clubbing, or edema. NEURO: He is awake, alert, and oriented x3. LABORATORY: WBC 10.5 with hemoglobin of 11.5 and hematocrit 34.3. He also has a left shift with neutrophils of 89.4%. Electrolytes are basically within normal limits with the exception his BUN is 48 and his creatinine has slightly worsened to 1.85. Cultures are still pending. 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 All other films and labs have been reviewed via the EMR. ASSESSMENT: 1. Pneumonia, community acquired, right lower lobe. 2. Chronic obstructive pulmonary disease with exacerbation secondary to #1. 3. Febrile illness secondary to #1 with cultures pending. 4. History of hypertension. 5. History of benign prostatic hypertrophy with current symptoms requiring initiation of medical treatment. 6. Renal insufficiency with a continuing worsening. Creatinine again most likely due to prerenal azotemia. . 7. Constipation. PLAN: We will continue present supportive care. I have discontinued his IV fluids with potassium. I will give him another liter of fluids to help improve his kidney function. Will check his labs in the morning as well as a chest x-ray. Will continue with aggressive pulmonary hygiene. He received milk of magnesia yesterday and has had good results. Will continue to monitor him closely and followup as needed. Dr. Peck is the collaborating physician available for consultation. [facility][id number] [facility]
[2017-12-29] MEDS: SODIUM CHLORIDE 0.9% (FLUSH) 10 ML SYG IV SCH ×2 (14:31→20:37)
[2017-12-29] MEDS: GENTAMICIN 0.3% OPHTH SOL 1 DROP BOTH_EYES SCH ×2 (17:08→20:37)
[2017-12-29] MEDS: ENOXAPARIN SODIUM 40 MG/0.4 ML SYG SUBCU SCH (20:37)
[2017-12-30] MEDS: PANTOPRAZOLE SODIUM IV 40 MG VIAL IV SCH (06:01)
[2017-12-30] MEDS: IPRATROPIUM/ALBUTEROL 3 ML VIAL NEB SCH ×4 (08:29→21:13)
[2017-12-30] MEDS: AZITHROMYCIN 250 MG TAB PO SCH (08:57)
[2017-12-30] MEDS: DUTASTERIDE 0.5 MG CAP PO SCH (08:58)
[2017-12-30] MEDS: LISINOPRIL 10 MG TAB PO SCH (08:58)
[2017-12-30] MEDS: POLYETHYLENE GLYCOL 3350 17 GM PCKT PO SCH (08:58)
[2017-12-30] MEDS: BIFIDOBACTERIUM INFANTIS 4 MG CAP PO SCH (08:58)
[2017-12-30] MEDS: BISACODYL TAB 5 MG TAB PO SCH (08:58)
[2017-12-30] MEDS: SODIUM CHLORIDE 0.9% (FLUSH) 10 ML SYG IV SCH ×2 (08:58→20:57)
[2017-12-30] MEDS: TAMSULOSIN 0.4 MG CAP PO SCH (08:58)
[2017-12-30] MEDS: guaiFENesin ER TAB 600 MG TAB PO SCH ×2 (08:58→20:56)
[2017-12-30] MEDS: GENTAMICIN 0.3% OPHTH SOL 1 DROP BOTH_EYES SCH ×4 (08:59→20:54)
[2017-12-30] MEDS ORDERED: SODIUM CHL 0.9% 50ML MIN-BAG+ 50 ML IVPB ONE ×2 (10:39→19:47)
[2017-12-30] MEDS ORDERED: cefTRIAXone SODIUM 1 GM VIAL ONE ×2 (10:40→19:47)
[2017-12-30] MEDS: cefTRIAXone SODIUM 1 GM in SODIUM CHL 0.9% 50ML MIN-BAG+ 50 ML IVPB SCH ×2 (10:45→22:16)
[2017-12-30] MEDS ORDERED: MAGNESIUM SULFATE PREMIX 2GM 2 GM in PREMIX BAG 1 BAG IVPB ONE (11:50)
[2017-12-30] MEDS ORDERED: MAGNESIUM SULFATE PREMIX 2GM 50 ML IVPB ONE (11:59)
--- NOTE | 2017-12-30 15:03 | RAD ---
EXAM DESCRIPTION: Chest,2 Views CLINICAL HISTORY: pna COMPARISON: 12/28/2017 FINDINGS: Single view of the chest is submitted. Cardiac silhouette is normal. There is worsened consolidation at the right lung base. Poorly defined possible masses at the left upper lateral lung measuring 13 mm.. No acute bony abnormality. There is no significant pulmonary vascular engorgement. IMPRESSION: Possible left lung mass. Right lung consolidation. Electronically signed by: David Mendoza 12/30/2017 3:02 PM CDT
--- NOTE | 2017-12-30 17:19 | PN ---
DATE: 12/30/17 SUPERVISING PHYSICIAN: Lane Laureano M.D. SUBJECTIVE: The patient is lying in bed. He has been walking around in his room. Denies shortness of breath or chest pain, but he does complain of a sinus -type headache with pressure along his sinuses. In fact, the pressure was so bad that he refused his lunch because he says he just does not feel like eating. OBJECTIVE: VITAL SIGNS: He is afebrile, heart rate 77, blood pressure 116/73, respiratory rate 18, O2 sat 93% on room air. HEENT: The patient has bilateral frontal sinus tenderness and nasal congestion with some thick nasal drainage. RESPIRATORY: Somewhat diminished at the bases but essentially clear to auscultation. CARDIAC: Regular rate and rhythm. GASTROINTESTINAL: Abdomen is soft, nondistended, non-tender. Bowel sounds are positive. EXTREMITIES: No cyanosis, clubbing or edema. NEUROLOGIC: He is awake, alert and oriented times three. LABORATORY: WBCs are 7 with hemoglobin 11.8, hematocrit 35.3. He still has a left shift with neutrophils at 81.7. Electrolytes are basically within normal limits except his magnesium is slightly low at 1.7. Preliminary blood cultures show no growth after 48 hours. Sputum culture is pending. Chest x-ray is also pending. All other labs and films have been reviewed via the EMR. ASSESSMENT: 1. Pneumonia, community acquired, right lower lobe. 2. Chronic obstructive pulmonary disease with exacerbation secondary to #1. 3. Febrile illness secondary to #1 with cultures pending. 4. Acute frontal sinusitis. 5. History of hypertension. 6. History of benign prostatic hypertrophy with current symptoms requiring initiation of medical treatment. 7. Renal insufficiency that has improved today. His creatinine is down to 1.24. 8. Constipation that is now improved. PLAN: We will continue present supportive care. I am awaiting his chest x- ray. I have ordered some nasal spray for his sinusitis. If he continues to have problems, he mad to have a CT at some point. I have encouraged good pulmonary hygiene as well as frequent ambulation. Will monitor cultures as they become available to facilitate the antibiotic therapy. Will continue to monitor him closely and follow as needed. Dr. Laureano is the collaborating physician available for consultation. #[id number] [facility]
[2017-12-30] MEDS: IV SET AND CAP CHANGE INJ INJ SCH (20:55)
[2017-12-30] MEDS: ENOXAPARIN SODIUM 40 MG/0.4 ML SYG SUBCU SCH (20:55)
[2017-12-31] MEDS: PANTOPRAZOLE SODIUM IV 40 MG VIAL IV SCH (05:52)
[2017-12-31] MEDS: DUTASTERIDE 0.5 MG CAP PO SCH (08:33)
[2017-12-31] MEDS: BIFIDOBACTERIUM INFANTIS 4 MG CAP PO SCH (08:33)
[2017-12-31] MEDS: LISINOPRIL 10 MG TAB PO SCH (08:33)
[2017-12-31] MEDS: BISACODYL TAB 5 MG TAB PO SCH (08:33)
[2017-12-31] MEDS: SODIUM CHLORIDE 0.9% (FLUSH) 10 ML SYG IV SCH (08:33)
[2017-12-31] MEDS: POLYETHYLENE GLYCOL 3350 17 GM PCKT PO SCH (08:33)
[2017-12-31] MEDS: AZITHROMYCIN 250 MG TAB PO SCH (08:33)
[2017-12-31] MEDS: GENTAMICIN 0.3% OPHTH SOL 1 DROP BOTH_EYES SCH ×2 (08:33→12:19)
[2017-12-31] MEDS: TAMSULOSIN 0.4 MG CAP PO SCH (08:33)
[2017-12-31] MEDS: guaiFENesin ER TAB 600 MG TAB PO SCH (08:33)
[2017-12-31] MEDS: IPRATROPIUM/ALBUTEROL 3 ML VIAL NEB SCH ×2 (08:35→12:23)
[2017-12-31] MEDS ORDERED: cefTRIAXone SODIUM 1 GM VIAL ONE (09:54)
[2017-12-31] MEDS ORDERED: SODIUM CHL 0.9% 50ML MIN-BAG+ 50 ML IVPB ONE (09:54)
[2017-12-31] MEDS: cefTRIAXone SODIUM 1 GM in SODIUM CHL 0.9% 50ML MIN-BAG+ 50 ML IVPB SCH (10:02)
[2017-12-31 14:22] VITALS: BP 127/74; TEMP 97.8; O2SAT 95
[2018-01-01] MEDS ORDERED: PANTOPRAZOLE SODIUM TAB 40 MG PO SCH (06:30)
--- NOTE | 2018-01-01 08:42 | DS ---
SUPERVISING PHYSICIAN: Lane Laureano MD DISCHARGE DIAGNOSIS: 1. Pneumonia, community acquired, right lower lobe. 2. Chronic obstructive pulmonary disease with exacerbation secondary to #1. 3. Febrile illness secondary to #1 with blood cultures showing no growth after three days. Preliminary sputum culture showed no growth. 4. Acute frontal sinusitis. 5. History of hypertension. 6. History of benign prostatic hypertrophy with current symptoms requiring initiation of Flomax and Avodart. 7. Renal insufficiency, improved. 8. Constipation, improved. HISTORY OF PRESENT ILLNESS: This is an 87-year-old, male patient who presented to the Emergency Room with two days of increasing shortness of breath. Over the last several days he had been having a severe cough that was nonproductive and not felt that he had any fever or chills, although in the Emergency Room his temperature was noted to be 100.1. He has a history of chronic obstructive pulmonary disease as well as coronary artery disease and required a 5 vessel CABG in the past. He also notes that he was treated back in August of this year in the Emergency Room for the same symptoms, but was not hospitalized and treated with Levaquin. He was started on antibiotics again September at [place], but since that time, he has been 3 months to 4 months without any treatment. He was in his usual state of health until 2 days prior to admission. His workup in the Emergency Room showed a normal white count but a left shift and radiographic studies indicated he had a right lung consolidation in the base compared to previous visit on 08/14/17. His 02 saturations initially were 88% on nasal cannula with some respiratory distress. He was given DuoNeb treatment and Solu-Medrol which did improve his symptoms significantly, improving his 02 saturations on 2.5 liters up to 96%. He was given a single dose of Zosyn in the Emergency Room along with Solu-Medrol and breathing treatments. Blood cultures were done prior to his antibiotics and he was admitted to the hospital. He was in stable condition at time of admission. HOSPITAL COURSE: The patient was started on Rocephin and azithromycin as well as aggressive pulmonary hygiene. He also had complaints of constipation during his stay and was given MiraLAX as well as extra IV fluids. He has had renal insufficiency in the past, but unsure of his baseline creatinine. During his stay, his creatinine did elevate to 1.85, but after fluids, it came down to 1.24. His electrolytes remained within normal limits except his magnesium at one point was 1.7 and after supplementation, it was 2.2. Initially, his BNP was 571. He was given some Lasix, continued with his antibiotic therapy as well as he had some urinary retention and he was started on Flomax and Avodart which improved his urinary symptoms. On the day prior to discharge, he had some complaints of some sinus symptoms. He was given some saline nasal spray. His WBCs remained within normal limits and his neutrophils today were 78%. Hemoglobin and hematocrit were stable at 12.3 and 36.6. Preliminary blood culture showed no growth after 3 days and his preliminary sputum culture showed no growth at 48 hours. Today, he is feeling much improved. He is walking in the hallways, no complaints of sinus symptoms and he will be discharged home. DISCHARGE PLAN: The patient will be discharged home in stable condition. He is to resume his previous diet as well as his previous activity. He is to followup with his primary care physician, Dr. David Mc within 1 to 2 weeks. He has completed his antibiotic therapy in the hospital. He is to return to Dr. Mc' office or to the hospital for any further complications or problems. DISCHARGE MEDICATIONS: 1. Lisinopril. 2. Align. 3. Avodart. 4. Gentamicin eyedrops. 5. Guaifenesin. 6. Tamsulosin. Dr. Laureano is the collaborating physician and available for consultation. #[id number] [facility]
== END 2017-12-31 15:43 | disposition home or self-care (01) | DRG 194 ==
LOC: ER 18:47 → OBSVTOIN 20:19 → MS 20:19
PROVIDERS: ADMIT Nurse Practitioner Family; ATTEND Nurse Practitioner Acute Care
DX: J18.1 Lobar pneumonia, unspecified organism (principal); J44.1 Chronic obstructive pulmonary disease with (acute) exacerbation; J44.0 Chronic obstructive pulmonary disease with (acute) lower respiratory infection; J91.8 Pleural effusion in other conditions classified elsewhere; J01.10 Acute frontal sinusitis, unspecified; I10 Essential (primary) hypertension; N40.1 Benign prostatic hyperplasia with lower urinary tract symptoms; N28.9 Disorder of kidney and ureter, unspecified; K59.00 Constipation, unspecified; I25.10 Atherosclerotic heart disease of native coronary artery without angina pectoris; I72.3 Aneurysm of iliac artery; R79.89 Other specified abnormal findings of blood chemistry; I44.0 Atrioventricular block, first degree; I44.7 Left bundle-branch block, unspecified; R33.8 Other retention of urine; E66.9 Obesity, unspecified; Z95.1 Presence of aortocoronary bypass graft; Z95.2 Presence of prosthetic heart valve; Z79.899 Other long term (current) drug therapy; Z87.891 Personal history of nicotine dependence; Z68.24 Body mass index [BMI] 24.0-24.9, adult

== ENCOUNTER 2018-02-12 07:27 | Inpatient (IN) | payer MEDICARE ==
[2018-02-12] MEDS ORDERED: PIPERACILLIN/TAZOBACTAM 3.375 GM in SODIUM CHLORIDE 0.9% 100ML 100 ML IVPB ONE (07:47)
[2018-02-12] MEDS ORDERED: SODIUM CHLORIDE 0.9% 100ML 100 ML IVPB ONE ×3 (08:13→19:58)
[2018-02-12] MEDS ORDERED: PIPERACILLIN/TAZOBACTAM 3.375 GM VIAL IVPB ONE ×3 (08:13→19:58)
[2018-02-12] MEDS ORDERED: SODIUM CHLORIDE 0.9% 1000ML 500 ML IVS ONE (08:26)
--- NOTE | 2018-02-12 10:13 | CT ---
EXAM DESCRIPTION: Abdomen/Pelvis w/o Contrast: Computed Tomography. CLINICAL HISTORY: abd pain, possible recurrent appy COMPARISON: CT abdomen and pelvis without contrast 12/29/2017 and 02/26/2017. TECHNIQUE: Spiral-axial scans 5.0 mm intervals through the abdomen and pelvis without oral or IV contrast. Coronal and sagittal 2.0 mm reconstructions. Total Exam DLP: 804.63 mGy-cm. This exam was performed according to our departmental CT dose-optimization program which includes automated exposure control, adjustment of the mA and/or kV according to patient size and/or use of iterative reconstruction technique; to reduce radiation dose to as low as reasonably achievable (ALARA). FINDINGS: Small Bowel: Minimal gas and fluid with normal caliber. Terminal Ileum/Cecum: Fatty stranding and fascial thickening around the terminal ileum. Minimal wall thickening in the TI with fecalization. (Axial series 2, images 51-61). Fecal matter in the cecum but not abnormally distended. Appendix is not seen. No fluid collection. Colon: Fecal material in the ascending and transverse colon with minimal distention. Redundancy of the splenic flexure. Minimal fecal material in the descending colon with no distention and no complications. Pelvic Organs: Prostate gland impressing on the base of the urinary bladder with transverse dimensions 5.2 x 4.5 cm and central calcification. Also mass effect on the seminal vesicles. Normal density of the bladder. Spine and Bony Pelvis: Multiple levels of spondylosis in the lumbar spine spine and included thoracic spine. Narrowing L5-S1 disc space and significant bilateral foraminal narrowing. Also bilateral hip joint space narrowing. Abdominal Wall/Back Soft Tissues: Abdominal wall hernia in the right AC abutting the medial right musculature with the neck of the hernia approximately 1 x 1 cm. Density or edema in the hernia sac but no bowel. Axial series #2, images 31-36. Bilateral fatty inguinal hernias not containing bowel. Lung bases and pleura: Persistent scarring and fibrosis in the lung bases and pleural based tissue with partial air bronchograms measuring 6 x 3 cm. Stable since the prior study. 9 mm nodule with irregular borders in the left lung base is stable. Bibasilar pleural thickening. Coronary Artery calcifications and stents with cardiac enlargement. Liver, stomach, spleen, and adrenal glands: Stomach distended by gas and fluid. Solid organs are unremarkable. Pancreas, Gallbladder, and Ducts: Gallbladder visualized. Fatty infiltration of the pancreas. Duct negative. Kidneys and Ureters: 2 mm radiodense stone in the upper collecting system of the right kidney. Multiple bilateral renal cysts are stable. No stones in the left kidney and no hydronephrosis bilaterally. Bilateral ureters unremarkable. Mesentery: Physiologic density around the kidneys. Stranding as described around the distal ileum and terminal ileum. No free air. No ascites. Aorta: Proximal abdominal aorta caliber 3.3 x 3.3 cm. Moderate atherosclerotic calcification in its entire length. 2.6 x 2.5 cm distal aorta. 2.8 x 2.7 cm caliber. The origins of the renal arteries and 2.6 x 2.6 cm inferior to the renal arteries. Significant calcification of the ostia of the major branch vessels. Ectasia also of the bilateral common iliac arteries 3 x 3 cm on the right which is stable. IMPRESSION: 1. Nonspecific inflammatory process involving the distal ileum and terminal ileum but not involving the cecum. No appendix is seen. Fecalization of the terminal ileum. No free air or free fluid. 2. Small hernia in the midline anterior abdominal wall raising abutting the medial edge of the right abdominal musculature at the L2 level and the inferior liver. Contains fatty tissue with increased density but no bowel. The hernia neck is one by one cm. Stable bilateral fatty inguinal hernias not containing bowel. 3. Fibrosis and scarring in the right lung base with pleural thickening and stable loculated fluid or fibrosis in the pleural base. Stable irregular nodule left base. (Stable since CT scan 02/26/2017.) 4. Stable bilateral renal cysts. Stable small stone in the upper collecting system of the right kidney without hydronephrosis. Enlarged prostate gland impressing on the base of the urinary bladder. Correlate with physical findings and serial serum PSA measurements. 5. Stable ectasia of the abdominal aorta and atherosclerotic calcification also involving the major branch vessels. Stable aneurysm right common iliac artery. Electronically signed by: David Esquivel MD 02/12/2018 10:11 AM CDT
--- NOTE | 2018-02-12 11:08 | ED.PDOC ---
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 He does have a significant history of coronary artery disease and COPD. He has had 2 previous episodes of appendicitis that were dealt with with antibiotics as the patient is a poor surgical candidate. He was sent to [facility] first time and they deferred surgery and the second time he was admitted here where surgery was again deferred. he denies any high fevers. He threw up once yesterday but otherwise has not really been nauseated. He has not been very hungry. No chest pain or shortness of breath. No syncope or near syncope. Pain is somewhat worse with movement. It is essentially localized to the right lower quadrant. He does have mild peritoneal signs. No true rebound at this point. No palpable mass. He does have a upper ventral hernia that is nontender. the patient does obviously have some mild dementia as well. Timing/Duration: 24 hours Severity: moderate Improving Factors: nothing Worsening Factors: nothing Associated Symptoms: malaise Allergies/Adverse Reactions: Allergies NO KNOWN ALLERGY Allergy (Verified 12/31/17 09:21) Home Medications: Ambulatory Orders Lisinopril [Prinivil] 10 mg PO DAILY #30 tablet 03/03/17 Bifidobacterium Infantis [Align] 4 mg PO DAILY #30 cap 12/31/17 Dutasteride [Avodart] 0.5 mg PO DAILY #30 cap 12/31/17 Gentamicin 0.3% Ophth Polina [Garamycin Opthalmic Solution] 1 drop BOTH_EYES QID drops 12/31/17 Tamsulosin [Flomax] 0.4 mg PO DAILY #30 cap 12/31/17 guaiFENesin ER TAB [Mucinex Tab] 600 mg PO BID #60 tab 12/31/17 Review of Systems - Review of Systems Constitutional: States: fever - low-grade according to him EENTM: States: no symptoms reported Respiratory: States: no symptoms reported Cardiology: States: no symptoms reported Gastrointestinal/Abdominal: States: abdominal pain, nausea, vomiting. Denies: constipation, diarrhea Genitourinary: States: no symptoms reported Musculoskeletal: States: no symptoms reported Skin: States: no symptoms reported Neurological: States: no symptoms reported Endocrine: States: no symptoms reported All other Systems: No Change from Baseline Past Medical History (General) - Patient Medical History Hx Seizures: No Hx Stroke: No Hx Asthma: No Hx of COPD: Yes Hx Cardiac Disorders: Yes - CABG and mitral valve repair 2013 Hx Congestive Heart Failure: Yes Hx Pacemaker: No Hx Hypertension: Yes Hx Diabetes: No Hx MRSA: No Surgical History: coronary bypass surgery - Vaccination History Hx Tetanus, Diphtheria Vaccination: Yes Hx Influenza Vaccination: No Hx Pneumococcal Vaccination: No - Social History Hx Tobacco Use: Yes Hx Alcohol Use: No Hx Substance Use: No Hx Physical Abuse: No Hx Emotional Abuse: No - Female History Patient : No Family Medical History - Family History Son Family History: No Known Living Status: Still Living Hx Family Asthma: No Hx Family Congestive Heart Failure: No Hx Family Hypertension: Yes Hx Family Stroke: No Hx Cardiac Disease: Yes Hx Family Diabetes: No Hx Family Cancer: No Grandparents Family History: Unknown Name: Juan Day Age (years): 64 Living Status: Hx Family Asthma: No Hx Family Congestive Heart Failure: No Hx Family Hypertension: - doesn't know Hx Family Stroke: No Hx Cardiac Disease: Yes Hx Family Diabetes: No Hx Family Cancer: No Hx Family;Other: he did not want to talk about it Physical Exam - Physical Exam General Appearance: Alert, Comfortable, No apparent distress Eye Exam: bilateral normal Ears, Nose, Throat: hearing grossly normal, normal ENT inspection, normal pharynx Neck: full range of motion, supple Respiratory: lungs clear, normal breath sounds, no respiratory distress, no accessory muscle use Cardiovascular/Chest: normal peripheral pulses, no edema, other - regular rate Peripheral Pulses: radial,right: 2+, radial,left: 2+, dorsalis pedis,right: 2+, dorsalis pedis,left: 2+ Gastrointestinal/Abdominal: soft, other - see history of present illness Rectal Exam: deferred Back Exam: no CVA tenderness, no vertebral tenderness Extremity: normal range of motion, non-tender, normal inspection, no pedal edema , normal capillary refill Neurologic: cutlery grinder II-XII nml as tested, alert, normal mood/affect, oriented x 3 - he does obviously have some mild dementia Skin Exam: normal color Comments: Vital Signs - 24 hr 02/12/18 02/12/18 07:35 09:04 Temperature 97.4 F L Pulse Rate [ 61 50 L left brachial] Respiratory 16 16 Rate Blood Pressure 167/98 137/68 [left brachial] O2 Sat by Pulse 98 96 Oximetry Progress - Progress Progress: 02/12/18 11:10 the patient is an 87-year-old male presenting to emergency room secondary to what appears to be a terminal ileitis that is possibly related to infection in whatever remnant is left of the appendix at this point after 2 previous infections. A blood culture has been performed. The patient has been placed on Zosyn. We are starting Flagyl as well as per inpatient request. No evidence of sepsis at this point. No evidence of abscess or perforation. The patient is a poor surgical candidate and if surgery becomes absolutely necessary he will have to be transferred to a facility for higher risk surgery patients. We are not anticipating any surgical intervention at this time and indeed the patient does not want any. Laboratory work is reassuring at this point. - Results/Orders Results/Orders: 02/12/18 08:09 BLOOD CULTURE Stat Laboratory Results - last 24 hr 02/12/18 02/12/18 02/12/18 07:46 07:46 07:46 WBC 5.3 RBC 4.59 L Hgb 13.5 L Hct 39.6 L MCV 86.3 MCH 29.4 MCHC 34.0 RDW 16.6 H Plt Count 210 MPV 9.1 Absolute Neuts (auto) 3.60 Absolute Lymphs (auto) 0.80 L Absolute Monos (auto) 0.40 Absolute Eos (auto) 0.40 Absolute Basos (auto) 0.00 Neutrophils % 68.1 Lymphocytes % 15.8 L Monocytes % 7.5 Eosinophils % 7.7 H Basophils % 0.9 PT 12.3 INR 1.060 PTT (SP) 34.0 Sodium 139 Potassium 3.8 Chloride 104 Carbon Dioxide 28 Anion Gap 10.8 L BUN 23 H Creatinine 1.45 H BUN/Creatinine Ratio 15.9 Random Glucose 140 H Serum Osmolality 283.5 Lactic Acid Calcium 9.1 Total Bilirubin 0.6 AST 16 ALT 11 Alkaline Phosphatase 94 Creatine Kinase 61 CK-MB (CK-2) 1.7 CK-MB (CK-2) % Not Reportable Troponin I < 0.02 B-Natriuretic Peptide 547.0 H* Serum Total Protein 7.7 Albumin 4.0 Globulin 3.7 H Albumin/Globulin Ratio 1.1 Amylase 39 Lipase 22 Urine Color Urine Appearance Urine pH Ur Specific [place] Urine Protein Urine Glucose (UA) Urine Ketones Urine Blood Urine Nitrite Urine Bilirubin Urine Urobilinogen Ur Leukocyte Esterase Urine RBC Urine WBC Ur Epithelial Cells Urine Bacteria Urine Mucus 02/12/18 02/12/18 08:09 08:52 WBC RBC Hgb Hct MCV MCH MCHC RDW Plt Count MPV Absolute Neuts (auto) Absolute Lymphs (auto) Absolute Monos (auto) Absolute Eos (auto) Absolute Basos (auto) Neutrophils % Lymphocytes % Monocytes % Eosinophils % Basophils % PT INR PTT (SP) Sodium Potassium Chloride Carbon Dioxide Anion Gap BUN Creatinine BUN/Creatinine Ratio Random Glucose Serum Osmolality Lactic Acid 1.3 Calcium Total Bilirubin AST ALT Alkaline Phosphatase Creatine Kinase CK-MB (CK-2) CK-MB (CK-2) % Troponin I B-Natriuretic Peptide Serum Total Protein Albumin Globulin Albumin/Globulin Ratio Amylase Lipase Urine Color Yellow Urine Appearance Clear Urine pH 5.5 Ur Specific [place] 1.025 Urine Protein Trace Urine Glucose (UA) Negative Urine Ketones Negative Urine Blood Negative Urine Nitrite Negative Urine Bilirubin Negative Urine Urobilinogen 1.0 Ur Leukocyte Esterase Negative Urine RBC 0 Urine WBC 1-3 Ur Epithelial Cells 1-3 Urine Bacteria Rare Urine Mucus Small CT scan abdomen and pelvis shows fatty stranding and fascial thickening around the area of the terminal ileum. No appendix is seen. No fluid collection. No free air. He does have some prostate enlargement. He does have chronic pleural -based thickening that is stable at 6 x 3 cm since the last CT scan. He has a stable left lung base nodule 9 mm as well. He does have chronic large vessel changes. He does have a upper midline ventral hernia containing fat only an adjacent to the level of L2. Departure - Departure Clinical Impression: Terminal ileitis without complication Disposition: Admit Patient Referrals: MARY SLATER [Primary Care Provider] - 1-2 Weeks Home Medications: Ambulatory Orders Lisinopril [Prinivil] 10 mg PO DAILY #30 tablet 03/03/17 Bifidobacterium Infantis [Align] 4 mg PO DAILY #30 cap 12/31/17 Dutasteride [Avodart] 0.5 mg PO DAILY #30 cap 12/31/17 Gentamicin 0.3% Ophth Polina [Garamycin Opthalmic Solution] 1 drop BOTH_EYES QID drops 12/31/17 Tamsulosin [Flomax] 0.4 mg PO DAILY #30 cap 12/31/17 guaiFENesin ER TAB [Mucinex Tab] 600 mg PO BID #60 tab 12/31/17 Decision To Admit - Decistion To Admit Decision to Admit Reason: Medical Nature Decision to Admit Date: 02/12/18 Decision to Admit Time: 11:13
--- NOTE | 2018-02-12 11:29 | HP ---
SUPERVISING PHYSICIAN: Lane Laureano MD CHIEF COMPLAINT: Abdominal pain. HISTORY OF PRESENT ILLNESS: Mr. Day is an 87-year-old, male patient who presented today to the Emergency Room complaining of lower abdominal pain that had been present and progressively worsening over the last 48 hours. He has a history that is significant for coronary artery disease and chronic obstructive pulmonary disease and previous two episodes of appendicitis that were with with antibiotics as the patient is a poor surgical candidate. His last admission here was on 12/27/17. He was treated back in September at which time he was transferred to [facility] for acute appendicitis as surgery was deferred here due to the patient's comorbidities as well as it was deferred at [facility] at which he was again treated with medical management with antibiotics. He notes he was not noted to be feverish, but had thrown up once yesterday and had not really been significantly nauseated, but had no appetite. He denied any chest pains or shortness of breath. He notes his pain is somewhat worse when he is moving and it seems to be localized to the right lower quadrant. In the Emergency Room, it was noted he had some mild peritoneal signs, but no rebound tenderness and no palpable masses. Workup in the Emergency Room included laboratory studies that showed he had a white count of 5,300 with a normal differential. His coagulation studies were normal. Chemistries showed he had a slightly elevated creatinine at 1.45. Electrolytes were normal with potassium 3.8, lactic acid 1.3. Liver functions all within normal limits. Troponin less than 0.02. BNP slightly elevated at 547. Amylase and lipase were both normal. Urinalysis was within normal limits. CT of his abdomen and pelvis without contrast was also completed showed nonspecific inflammatory process involving the distal ileum and terminal ileum, but not involving the cecum. The appendix was not seen. There was fecalization of the terminal ileum, but no free air or free fluid. There was also note of a small hernia in the midline anterior abdominal wall containing fat, tissue and no bowel. Given the findings on CT with concerns for appendicitis with probable terminal ileitis, the patient was started on antibiotics after blood cultures were completed with Zosyn. The patient is now going to be admitted to the Medical/Surgical Floor for acute on chronic appendicitis with further treatment and evaluation and surgical consultation. The patient was admitted in stable condition. PAST MEDICAL HISTORY: 1. Several hospitalizations for appendicitis. 2. Hypertension. 3. Benign prostatic hypertrophy. PAST SURGICAL HISTORY: 1. Coronary artery bypass grafting x5. 2. Mitral valve replacement along with coronary artery bypass graft in 2014. CURRENT MEDICATIONS: 1. Mucinex 600 mg b.i.d. 2. Flomax 0.4 mg daily. 3. Prinivil 10 mg daily. 4. Garamycin ophthalmic solution with 1 drop both eyes q.i.d. 5. Avodart 0.5 mg. 6. Align 4 mg daily. ALLERGIES: NO KNOWN DRUG ALLERGIES FAMILY HISTORY: Significant for cardiovascular disease. SOCIAL HISTORY: The patient lives in [place], [place]. 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 He has a history of smoking cigarettes for well over 72 years, but quit 4 years previously. He is . He does not drink alcohol or use illicit drugs. REVIEW OF SYSTEMS: CONSTITUTIONAL: He notes a low grade subjective fever, but no weight loss. There is some general malaise. HEENT: Denies headaches, earaches, sore throats, nasal congestion. RESPIRATORY: No significant wheezing, coughing, exertional dyspnea. CARDIOVASCULAR: Denies edema, chest pain, palpitations or syncopal episodes. GASTROINTESTINAL: As noted in history of present illness, abdominal king, nausea and vomiting. Denies any constipation or diarrhea. GENITOURINARY: Denies dysuria, hematuria, polyuria or other urinary symptoms. NEUROLOGIC: Denies headaches, ataxia, seizures, neurologic deficits. PHYSICAL EXAMINATION: VITAL SIGNS: Temperature 97.4. Pulse 50. Blood pressure 137/68. Respirations 16. Saturation 96% on room air. Admission weight 80.0 kg which is up from previous admission of 74.4 kg. GENERAL: On admission to the Medical/Surgical Floor, the patient was resting comfortably, appeared to be in no acute distress. He was alert. HEENT: Tympanic membranes clear bilaterally. Oropharynx is pink, moist without any lesions. NECK: Supple, nontender with full range of motion. No jugular venous distention noted. RESPIRATORY: Lungs clear to auscultation bilaterally without any rhonchi, wheezes, or rales. CARDIOVASCULAR: Regular rate and rhythm without any appreciable murmurs, gallops, or rubs. ABDOMEN: Soft with some mild peritoneal signs. No masses. Positive bowel sounds. No guarding. EXTREMITIES: There is no cyanosis, clubbing or edema. NEUROLOGIC: The patient is alert and oriented times three. Cranial nerves II- XII are grossly intact. Facial features are symmetrical. Extraocular movements are within normal limits. There is no nystagmus noted. LABORATORY: CBC showed white count 5,300, hemoglobin 13.5, hematocrit 39.6, platelet count 210,000. Differential without a left shift. Coagulation studies showed normal PT, PT-T. Chemistries showed normal electrolytes. BUN elevated at 23, creatinine 1.45, calcium 9.1, lactic acid 1.3. Liver functions all within normal limits. Troponin less than 0.02. He had elevated BNP of 547. Amylase and lipase normal. Urinalysis within normal limits. MICROBIOLOGY: Blood cultures pending. RADIOLOGY: CT of the abdomen and pelvis in the Emergency Room without contrast as per radiologic interpretation was significant for nonspecific inflammatory process involving the distal ileum and terminal ileum, but not involving the cecum. The appendix was not visualized. There was fecalization of the terminal ileum, but no free air or free fluid. There was also note of a small hernia in the midline anterior abdominal wall raising and abutting the medial edge of the right abdominal musculature at L2 level and inferior liver, containing fatty tissue with increased density, but no bowel. Also of note were stable bilateral fatty inguinal hernias not containing bowel. There was also note if fibrous and scarring in the right lung base with pleural thickening and stable loculated fluid or fibrosis in the pleural base, stable irregular nodule noted on CT as compared to 02/26/17. Also of note were stable bilateral renal cysts with stable small stones in the upper collecting system of the right kidney without hydronephrosis. The prostate was noted to be enlarged and pressing on the base of the urinary bladder. Also noted was stable ectasia of the abdominal aorta and atherosclerotic calcification involving major branch vessels with a stable aneurysm of the right common iliac artery. ASSESSMENT: 1. Acute abdominal pain with history of previous episodes of appendicitis treated medically with findings on CT showing some inflammatory changes around the terminal ileum. 2. Chronic benign prostatic hypertrophy. 3. Chronic obstructive pulmonary disease without exacerbation. 4. History of hypertension. 5. Renal insufficiency, likely prerenal azotemic state with a noted elevated creatinine with no previous history of renal insufficiency, more likely a component of the dehydration due to nausea and vomiting. 6. Constipation. PLAN: The patient is going to be admitted to the Medical/Surgical Floor for ongoing treatment of questionable appendicitis versus terminal ileitis. Dr. Srinivasan has been consulted. We will await his findings and further management plan. At this point, the patient will remain NPO, on pain medicine with morphine and Phenergan and Zofran as needed for nausea. We will have him on IV fluids. He was started on Zosyn. This will be continued with extended infusion of Zosyn 3.375 mg as per protocol as well as addition of Flagyl to his antibiotic regimen. We will plan to repeat labs in the morning and further evaluate clinically. At this point, the patient is a not a surgical candidate due to his underlying comorbidities and has agreed that at this point he does not want to seek any surgical intervention if possible and wants to treat as previously with antibiotics. Again, we will await Dr. Srinivasan's consultation. If the patient should show any clinical decline, certainly he will need to be transferred to [facility] for further management. We will anticipate his length of stay to be 2 to 3 days. Until clinically stable, we will continue to monitor the patient closely and treat appropriately. #[id number] [facility]
[2018-02-12] MEDS ORDERED: SODIUM CHLORIDE 0.9% (FLUSH) 10 ML SYG IV PRN (12:46)
[2018-02-12] MEDS ORDERED: ACETAMINOPHEN 325 MG TAB PO PRN (12:56)
[2018-02-12] MEDS ORDERED: MORPHINE SULFATE INJ 10 MG/ML VIAL IV PRN (12:56)
[2018-02-12] MEDS ORDERED: IV SET AND CAP CHANGE INJ INJ SCH (13:00)
[2018-02-12] MEDS ORDERED: ONDANSETRON INJ 4 MG/2 ML VIAL IV PRN (13:06)
[2018-02-12] MEDS ORDERED: metroNIDAZOLE IV PREMIX 500MG 100 ML IVPB ONE ×2 (13:09→19:58)
[2018-02-12] MEDS: metroNIDAZOLE IV PREMIX 500MG 500 MG in PREMIX BAG 1 BAG IVPB SCH ×2 (13:13→21:04)
[2018-02-12] MEDS: KCL 20MEQ/D5 1/2NS 1,000 ML IVS PRN (14:24)
[2018-02-12] MEDS: PIPERACILLIN/TAZOBACTAM 3.375 GM in SODIUM CHLORIDE 0.9% 100ML 100 ML IVPB SCH ×2 (14:29→22:20)
[2018-02-12] MEDS: MAGNESIUM HYDROXIDE 30 ML UD PO PRN (22:30)
[2018-02-13] MEDS: KCL 20MEQ/D5 1/2NS 1,000 ML IVS PRN ×2 (03:15→17:37)
[2018-02-13] MEDS ORDERED: SODIUM CHLORIDE 0.9% 100ML 100 ML IVPB ONE ×2 (04:46→17:42)
[2018-02-13] MEDS ORDERED: PIPERACILLIN/TAZOBACTAM 3.375 GM VIAL IVPB ONE ×2 (04:46→17:42)
[2018-02-13] MEDS ORDERED: metroNIDAZOLE IV PREMIX 500MG 100 ML IVPB ONE ×2 (04:46→17:29)
[2018-02-13] MEDS: metroNIDAZOLE IV PREMIX 500MG 500 MG in PREMIX BAG 1 BAG IVPB SCH ×2 (04:54→17:35)
[2018-02-13] MEDS: PIPERACILLIN/TAZOBACTAM 3.375 GM in SODIUM CHLORIDE 0.9% 100ML 100 ML IVPB SCH ×2 (06:12→22:25)
--- NOTE | 2018-02-13 07:30 | RAD ---
EXAM DESCRIPTION: Abdomen Flat Upright CLINICAL HISTORY: 87 years Male, termial ileitis vs appendicytis COMPARISON: CT February 12, 2018 FINDINGS: Upright and supine views of the abdomen were obtained. There is a small right-sided pleural effusion with overlying atelectasis or consolidation in the right lung base. No free subdiaphragmatic gas. Large amount of colonic stool and gas. No small bowel obstruction. No suspicious intra-abdominal calcification or mass. IMPRESSION: Large amount of colonic stool and gas, but no pneumoperitoneum or obstruction. Small right-sided pleural effusion with overlying atelectasis or consolidation in the right lung base. Electronically signed by: Jagdeep Sheikh MD 02/13/2018 7:29 AM CDT
[2018-02-13] MEDS: MAGNESIUM HYDROXIDE 30 ML UD PO PRN (11:17)
--- NOTE | 2018-02-13 11:58 | PCM.CORE ---
Physician DVT/VTE - Nurse DVT Assessment & Total Each Risk Factor Represents 3 Points: Age over 75 years, Medical PT with Hx of VA, CHF, Severe infection/sepsis DVT Assessment Score: 6 - 5 or more Very High Risk Treatments: Early Ambulation *, Sequential Compression Device Pharmacological: Enoxaparin 40mg SQ Daily
[2018-02-13] MEDS ORDERED: ENOXAPARIN SODIUM 40 MG/0.4 ML SYG SUBCU SCH (12:00)
--- NOTE | 2018-02-13 13:40 | CONS ---
DATE OF CONSULTATION: 02/13/18 HISTORY OF PRESENT ILLNESS: The patient is an 87-year-old male who I saw previously in the Emergency Room with right lower quadrant pain consistent with appendicitis. At that time, we were told he had been told he had comorbidities that would make him a very poor surgical candidate and, therefore, he was transferred to [facility]. He has had a second hospitalization where he has been treated with antibiotics for appendicitis. He presents now with right lower quadrant pain again. He had normal white count with no fever. Physical examination revealed tenderness in the right lower quadrant. At that time, a CT scan was consistent with terminal ileitis with no identification of the appendix, no free fluid, no free air. He has been NPO overnight and I see him today just afternoon. He is actually different pain now which he describes as crampy like he needs to have a bowel movement. He is hungry. He has voided dark urine, but has not had a bowel movement. PAST MEDICAL HISTORY: 1. Benign prostatic hypertrophy. 2. Hypertension. PAST SURGICAL HISTORY: 1. 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 CURRENT MEDICATIONS: 1. Mucinex. 2. Flomax. 3. Prinivil. 4. Garamycin ophthalmic. 5. Avodart. 6. Align. ALLERGIES: NO KNOWN DRUG ALLERGIES. FAMILY HISTORY: Positive for cardiovascular disease. SOCIAL HISTORY: The patient lives in [place]. He quit smoking 4 years ago after smoking for over 70 years. He does not drink or use other drugs. 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 REVIEW OF SYSTEMS: From a gastrointestinal point of view, no changes in bowel habits, no hematemesis, no hematochezia, no melanotic stools. He has had no change in his urinary symptoms. He current denies chest pain or shortness of breath. PHYSICAL EXAMINATION: GENERAL: The patient was, in fact, up using the restroom when I walked in. VITAL SIGNS: The patient is currently afebrile, normotensive. HEENT: Sclerae nonicteric. Mucous membranes moist. NECK: Without adenopathy. ABDOMEN: Soft, distended. Bowel sounds are positive. There is no discrete tenderness. There is mild diffuse tenderness. RECTAL: Deferred. LABORATORY: Potassium up to 4.2. Creatinine down to 1.31, still high. Liver function tests are all within normal limits. BNP was elevated yesterday on admission to 547. His hemoglobin is down to 12.1, white count down to 4.8, 64% neutrophils, 198,[address] scan was reviewed as is today's x-ray which reveals no dilated loops of bowel and large amount of stool. No free air or free fluid. ASSESSMENT: 1. Abdominal pain which is changing in nature. 2. Large amount of stool. 3. Abnormal CT scan worrisome for ileitis. RECOMMENDATION: Begin clear liquids. Continue the antibiotics and given an enema. If enema is not successful, consider another dose of Milk of Magnesia. #[id number] [facility]
--- NOTE | 2018-02-13 22:57 | PN ---
DATE: 02/13/18 SUPERVISING PHYSICIAN: Lane Laureano M.D. SUBJECTIVE: The patient notes that his abdominal pain is pretty much the same as it was yesterday. It is being controlled with pain medicine. He has had no nausea. Does remain afebrile. He does note that he feels like he is constipated and I told him that after Dr. Srinivasan sees him today we will more likely try an enema and some Milk of Magnesia. OBJECTIVE: VITAL SIGNS: temperature 98, pulse 57, blood pressure 160/88, respirations 18, satting 96% on room air. I's and O's show a positive balance of 700 with 2100 in, 1400 out. Weight is 74.6 kg. CHEST: Clear to auscultation , just slightly diminished towards the bases. HEART: Regular rate and rhythm. ABDOMEN: Remains soft with some tenderness noted around the umbilicus and with some mild rebound tenderness and more so persistent tenderness across the left and lower right quadrants. EXTREMITIES: No clubbing, cyanosis or edema. NEUROLOGIC: He is alert and oriented times three. LABORATORY: White count remains within normal limits at 4,800, hemoglobin stable at 12.1, hematocrit 35.3, platelet count 198,000. Differential shows to be without a left shift. Chemistries show normal electrolytes with BUN 15, creatinine 1.31 which is improved from admission. Liver functions all show to be within normal limits. MICROBIOLOGY: Blood cultures remain negative at 24 hours. RADIOLOGY: Abdominal series this morning per radiology interpretation shows a large amount of colonic stool and gas but no pneumoperitoneum or obstruction. There was a slight right pleural effusion with atelectasis or consolidation in the right lung base. ASSESSMENT: 1. Acute abdominal pain with history of previous episodes of appendicitis having been treated medically with findings on CT now showing some inflammatory changes around the terminal ileum with concerns for possible terminal ileitis. 2. Chronic benign prostatic hypertrophy. 3. Chronic obstructive pulmonary disease without any signs of exacerbation. 4. History of hypertension. 5. Renal insufficiency, likely prerenal azotemic state with a noted elevated creatinine on admission with no previous history of renal insufficiency showing improvement with fluids. 6. Constipation possibly contributing to exacerbation of #1. PLAN: Dr. Srinivasan has seen the patient in consultation. Will follow his recommendations in regards to the patient's diet which is now on a clear liquid diet. He remains on antibiotic coverage with Zosyn extended infusion along with Flagyl. Will plan to repeat laboratory studies including a BMP and CBC in the morning. Will hopefully be able to continue with medical management of the patient's condition as he continues to be a very poor candidate for any surgical intervention. Again, will follow the patient. Will treat the patient based off Dr. Srinivasan's consultation and recommendations. Until discharge, will continue to monitor and treat appropriately. #[id number] [facility]
[2018-02-14] MEDS: PIPERACILLIN/TAZOBACTAM 3.375 GM in SODIUM CHLORIDE 0.9% 100ML 100 ML IVPB SCH ×4 (00:11→22:02)
[2018-02-14] MEDS: metroNIDAZOLE IV PREMIX 500MG 500 MG in PREMIX BAG 1 BAG IVPB SCH ×5 (01:40→17:58)
[2018-02-14] MEDS ORDERED: metroNIDAZOLE IV PREMIX 500MG 100 ML IVPB ONE ×4 (01:52→19:13)
[2018-02-14] MEDS ORDERED: SODIUM CHLORIDE 0.9% 100ML 100 ML IVPB ONE ×4 (05:29→19:14)
[2018-02-14] MEDS ORDERED: PIPERACILLIN/TAZOBACTAM 3.375 GM VIAL IVPB ONE ×4 (05:29→19:14)
[2018-02-14] MEDS: KCL 20MEQ/D5 1/2NS 1,000 ML IVS PRN (06:53)
[2018-02-14] MEDS ORDERED: MAGNESIUM HYDROXIDE 30 ML UD PO ONE (14:39)
--- NOTE | 2018-02-14 23:12 | PN ---
DATE: 02/14/18 SUPERVISING PHYSICIAN: Lane Laureano M.D. SUBJECTIVE: The patient has no complaints of abdominal pain, nausea or vomiting , chest pain or shortness of breath. He has had multiple bowel movements overnight as he had an enema. Otherwise he says he is feeling much improved and is actually hungry. He has been tolerating his clear liquids without any problems. OBJECTIVE: VITAL SIGNS: He is afebrile, heart rate 66, blood pressure 160/90, respiratory rate 20, O2 sat 96% on room air. RESPIRATORY: Essentially clear to auscultation bilaterally. CARDIAC: Regular rate and rhythm. GASTROINTESTINAL: Abdomen is soft. Very mildly tender in the epigastric and umbilicus area. There is no rebound tenderness. EXTREMITIES: No cyanosis, clubbing or edema. NEUROLOGIC: He is awake, alert and oriented times three. LABORATORY: WBCs have remained stable at 5 with hemoglobin 12.8, hematocrit 37.3. Electrolytes are basically within normal limits. Preliminary blood cultures show no growth after 48 hours. All other labs and films have been reviewed via the EMR. ASSESSMENT: 1. Acute abdominal pain with history of previous episodes of appendicitis. He has been treated medically with findings on CT that now shows some inflammatory changes around the terminal ileum with concerns for possible terminal ileitis. 2. Chronic benign prostatic hypertrophy. 3. Chronic obstructive pulmonary disease with no sign of exacerbation. 4. Hypertension. 5. Renal insufficiency that has improved. 6. Constipation that has improved and also may have contributed to the abdominal pain. PLAN: We will continue present supportive care. We will follow Dr. Srinivasan's recommendations in regard to the patient's diet. I have now advanced it to a cardiac diet. Will continue his antibiotic coverage. I will hold on his lab for in the morning as they have remained stable. Hopefully he can be medically managed as he is a poor candidate for surgical intervention. He does see Dr. Mc routinely in [place]. We will follow the patient closely. It was noted that he does drink 3 to 4 alcoholic beverages nightly and I have ordered Ativan for any signs or symptoms of ETOH withdrawal as well as given him 1 additional dose of Milk of Magnesia as per Dr. Srinivasan's recommendation. Will continue to monitor patient and treat as needed. #[id number] [facility]
[2018-02-15] MEDS: metroNIDAZOLE IV PREMIX 500MG 500 MG in PREMIX BAG 1 BAG IVPB SCH ×2 (02:13→10:22)
[2018-02-15] MEDS: KCL 20MEQ/D5 1/2NS 1,000 ML IVS PRN (04:09)
[2018-02-15] MEDS: PIPERACILLIN/TAZOBACTAM 3.375 GM in SODIUM CHLORIDE 0.9% 100ML 100 ML IVPB SCH (06:18)
[2018-02-15] MEDS ORDERED: metroNIDAZOLE IV PREMIX 500MG 100 ML IVPB ONE (10:20)
[2018-02-15 11:19] VITALS: BP 121/72; TEMP 98; O2SAT 97
--- NOTE | 2018-02-15 15:51 | DS ---
SUPERVISING PHYSICIAN: Lane Laureano M.D. DISCHARGE DIAGNOSIS: 1. Acute abdominal pain with history of previous episodes of appendicitis. He has been treated medically with findings on CT that now shows some inflammatory changes around the terminal ileum with concerns for possible terminal ileitis. 2. Chronic benign prostatic hypertrophy. 3. Chronic obstructive pulmonary disease with no sign of exacerbation. 4. Hypertension. 5. Renal insufficiency that has improved. 6. Constipation that has improved and also may have contributed to the abdominal pain. HISTORY OF PRESENT ILLNESS: This is an 87-year-old male patient who presented to the Emergency Room on day of admission for lower abdominal pain that had been present and progressively worsened over the the previous 2 days. He has a significant history of coronary artery disease and chronic obstructive pulmonary disease as well as 2 episodes of appendicitis that were cleared up with antibiotics. Due to his age and co-morbidities, the patient is a poor surgical candidate. His last admission here was on 12/27/17. He was also treated back in September where he was transferred to [facility] for acute appendicitis and was deferred here due to the patient's co- morbidities. He was medically managed with antibiotics. He had no fever, some mild nausea and vomiting. Also he had no appetite. There were no complaints of chest pain or shortness of breath. In the E. R., he had some mild peritoneal signs but no rebound tenderness and no palpable masses. Workup in the E. R. included lab studies that showed he had a white count of 5,300 and a normal differential. His coagulation studies were normal. Chemistries showed an elevated creatinine at 1.45. Electrolytes were normal. Lactic acid was 1.3. Liver functions all within normal limits. Troponin less than 0.02. BNP slightly elevated at 547. Amylase and lipase were both normal. Urinalysis was within normal limits. CT of his abdomen and pelvis without contrast also showed nonspecific inflammatory process involving the distal ileum and terminal ileum, but not involving the cecum. The appendix was not seen. There was fecalization of the terminal ileum, but no free air or free fluid. There was also note of a small hernia in the midline anterior abdominal wall containing fat tissue and no bowel. Given the findings on CT with concerns for appendicitis with probable terminal ileitis, the patient was started on antibiotics after cultures were completed. He was started on Zosyn and was admitted to the Medical/Surgical floor for acute on chronic appendicitis with further treatment and evaluation with a surgical consultation. The patient was admitted in stable condition. HOSPITAL COURSE: Dr. Srinivasan was consulted. He was started on Flagyl in addition to continuing the Zosyn. His electrolytes remained stable. His creatinine improved to 1.14. Cardiac enzymes were within normal limits. White count remained normal with a stable hemoglobin and hematocrit of 12.8 and 37.3. He had a normal differential. He was placed on bowel rest and after several days of bowel rest with antibiotics his condition improved. His preliminary blood cultures showed no growth. His diet was advanced yesterday. He has tolerated a cardiac diet without any problems. There is no abdominal pain or discomfort today. The patient will be discharged home with close followup with his primary care physician, Dr. Mc. DISCHARGE PLAN: The patient will be discharged home in stable condition. He is to resume his previous activity which includes rehab at the [facility]. He is to continue a low fat cardiac diet and to have close followup with his primary care physician, Dr. Mc, within the next 1 to 2 weeks. He will be discharged on Levaquin and Flagyl. I sent those prescriptions to [facility]. He is to return to the Emergency Room or call Dr. Mc for any further problems or complications. The patient will be sent home with a DVD of his radiology reports. DISCHARGE MEDICATIONS: 1. Lisinopril. 2. Align. 3. Avodart. 4. Garamycin ophthalmic drops. 5. Guaifenesin. 6. Tamsulosin. 7. Levaquin. 8. Metronidazole. #[id number] [facility]
== END 2018-02-15 11:50 | disposition home or self-care (01) | DRG 387 ==
LOC: ER 07:27 → MS 11:27
PROVIDERS: ADMIT Nurse Practitioner Family; ATTEND Nurse Practitioner Acute Care
DX: K50.00 Crohn's disease of small intestine without complications (principal); E86.0 Dehydration; N28.9 Disorder of kidney and ureter, unspecified; K59.00 Constipation, unspecified; N40.0 Benign prostatic hyperplasia without lower urinary tract symptoms; I10 Essential (primary) hypertension; I25.10 Atherosclerotic heart disease of native coronary artery without angina pectoris; J44.9 Chronic obstructive pulmonary disease, unspecified; Z95.1 Presence of aortocoronary bypass graft; Z95.2 Presence of prosthetic heart valve; Z79.899 Other long term (current) drug therapy; Z87.891 Personal history of nicotine dependence

== ENCOUNTER 2018-10-18 19:24 | Emergency (ER) | payer MEDICARE ==
--- NOTE | 2018-10-18 19:53 | ED.PDOC ---
History of Present Illness - General Chief Complaint: Respiratory Problem Stated Complaint: SOB, coughing Time Seen by Provider: 10/18/18 19:44 Source: patient, RN notes reviewed, Vital Signs reviewed Exam Limitations: no limitations - History of Present Illness Initial Comments: c/o dyspnea x 5 days similar to with a previous pneumonia. Denies edema or weight gain. Has had a dry cough but no fever. He was discharged from another hospital 2 days ago with the flu. Severity: moderate Possible Cause: occasional episodes Improving Factors: nothing Worsening Factors: movement Associated Symptoms: weakness Allergies/Adverse Reactions: Allergies NO KNOWN ALLERGY Allergy (Verified 10/18/18 19:47) Home Medications: Ambulatory Orders Lisinopril [Prinivil] 10 mg PO DAILY #30 tablet 03/03/17 Bifidobacterium Infantis [Align] 4 mg PO DAILY #30 cap 12/31/17 Dutasteride [Avodart] 0.5 mg PO DAILY #30 cap 12/31/17 Gentamicin 0.3% Ophth Polina [Garamycin Opthalmic Solution] 1 drop BOTH_EYES QID drops 12/31/17 Tamsulosin [Flomax] 0.4 mg PO DAILY #30 cap 12/31/17 guaiFENesin ER TAB [Mucinex Tab] 600 mg PO BID #60 tab 12/31/17 levoFLOXacin [Levaquin] 500 mg PO DAILY #7 tab 02/15/18 metroNIDAZOLE [Flagyl] 500 mg PO Q8H #21 tab 02/15/18 Review of Systems - Review of Systems Constitutional: States: see HPI, weakness EENTM: States: no symptoms reported Respiratory: States: see HPI Cardiology: States: no symptoms reported Gastrointestinal/Abdominal: States: no symptoms reported Genitourinary: States: no symptoms reported Musculoskeletal: States: no symptoms reported Skin: States: no symptoms reported Neurological: States: no symptoms reported Endocrine: States: no symptoms reported Hematologic/Lymphatic: States: no symptoms reported Past Medical History (General) - Patient Medical History Hx Seizures: No Hx Stroke: No Hx Dementia: No Hx Asthma: No Hx of COPD: Yes - patient states it's possible he was diagnosed with it Hx Cardiac Disorders: No Hx Congestive Heart Failure: Yes Hx Pacemaker: No Hx Hypertension: Yes Hx Thyroid Disease: No Hx Diabetes: No Hx Gastroesophageal Reflux: No Hx Renal Disease: No Hx Cancer: No Hx of HIV: No Hx Hepatitis C: No Hx MRSA: No - Vaccination History Hx Tetanus, Diphtheria Vaccination: No Hx Influenza Vaccination: No Hx Pneumococcal Vaccination: No - Social History Hx Tobacco Use: Yes - quit 4 years ago Hx Alcohol Use: No Hx Substance Use: No Hx Physical Abuse: No Hx Emotional Abuse: No - Female History Patient : No Family Medical History - Family History Son Family History: No Known Living Status: Still Living Hx Family Asthma: No Hx Family Congestive Heart Failure: No Hx Family Hypertension: Yes Hx Family Stroke: No Hx Cardiac Disease: Yes Hx Family Diabetes: No Hx Family Cancer: No Grandparents Family History: Unknown Name: Juan Day Age (years): 64 Living Status: Hx Family Asthma: No Hx Family Congestive Heart Failure: No Hx Family Hypertension: - doesn't know Hx Family Stroke: No Hx Cardiac Disease: Yes Hx Family Diabetes: No Hx Family Cancer: No Hx Family;Other: he did not want to talk about it Physical Exam - Physical Exam General Appearance: Alert Eyes, Ears, Nose, Throat Exam: other - anicteric, pink conjunctiva; moist mucosa Neck: full range of motion, supple Respiratory: lungs clear, respiratory distress, accessory muscle use Cardiovascular/Chest: regular rate, rhythm, JVD, other - 1+ peripheral edema Gastrointestinal/Abdominal: non tender, soft, no organomegaly, no pulsatile mass Extremity: normal range of motion, non-tender, pedal edema Neurologic: change control coordinator II-XII nml as tested, normal mood/affect, oriented x 3, other - unsteady gait Skin Exam: normal color - dry, somewhat cool Progress - Progress Progress: 10/18/18 20:40 States he is feeling better. He reports he has either a h/o DVT or PE 4 years ago for which hhe was placed on Xarelto. That was later discontinued due to a GI bleed. Due to his Cr I am unable to do a CTA here. Will seek transfer to . 10/18/18 21:06 ASSESSMENT: 88 yo male presents c/o 5 days of dyspnea. - released from an outside facility 2 days ago for the flu - h/o pneumonia with a new RUL infiltrate on today's CXR (nml WBC & LA; no fever) - h/o CHF (BNP mildly elevated; trace peripheral edema; no failure on CXR) - h/o DVT/PE (recently hospitalized; d-dimer elevated; not anti-coagulated due to h/o GIB; Lovenox given here) - h/o CAD with CABG (LBBB here - old; nml troponin) PLAN: 1. Transfer for VQ scan 2. Zosyn 3. Lovenox - EKG/XRAY/CT EKG: Sinus, LBBB, Unchanged from Comments: unchanged from December 2017 XRAY: chest - new RUL opacity - Consult/PCP Time Called: 20:55 Consult/PCP: Dr. Montgomery Consult Reason/Comments: accepted in transfer Departure - Departure Clinical Impression: Left bundle branch block (LBBB), Lung infiltrate Time of Disposition: 21:05 Disposition: Transfer to Hospital Condition: Fair Referrals: MARY SLATER [Primary Care Provider] - 1-2 Weeks Home Medications: Ambulatory Orders Lisinopril [Prinivil] 10 mg PO DAILY #30 tablet 03/03/17 Bifidobacterium Infantis [Align] 4 mg PO DAILY #30 cap 12/31/17 Dutasteride [Avodart] 0.5 mg PO DAILY #30 cap 12/31/17 Gentamicin 0.3% Ophth Polina [Garamycin Opthalmic Solution] 1 drop BOTH_EYES QID drops 12/31/17 Tamsulosin [Flomax] 0.4 mg PO DAILY #30 cap 12/31/17 guaiFENesin ER TAB [Mucinex Tab] 600 mg PO BID #60 tab 12/31/17 levoFLOXacin [Levaquin] 500 mg PO DAILY #7 tab 02/15/18 metroNIDAZOLE [Flagyl] 500 mg PO Q8H #21 tab 02/15/18
--- NOTE | 2018-10-18 20:01 | RAD ---
EXAM DESCRIPTION: Chest,1 View CLINICAL HISTORY: 88 years Male, dyspnea COMPARISON: Chest x-ray December 30, 2017 FINDINGS: Irregular opacity in the right lower lung zone is again noted appearing relatively unchanged. There is new mild patchy opacity in the right upper lung zone. No pneumothorax. There is blunting of the right costophrenic angle suggestive pleural effusion versus pleural thickening. Cardiac silhouette appears mildly enlarged. Aortic tortuosity is present. Sternotomy changes are present. Degenerative changes of the spine noted. IMPRESSION: 1. New mild patchy opacity in the right upper lung zone may be related to pneumonia. 3. Relatively unchanged right basilar pulmonary opacity suggestive of atelectasis or scarring. 3. Possible small right pleural effusion versus pleural thickening. Electronically signed by: Juvencio Gomez MD 10/18/2018 7:58 PM CDT
[2018-10-18 20:31] VITALS: O2SAT 97
[2018-10-18] MEDS ORDERED: PIPERACILLIN/TAZOBACTAM 3.375 GM VIAL IVPB ONE (20:38)
[2018-10-18] MEDS ORDERED: SODIUM CHLORIDE 0.9% 100ML 100 ML IVPB ONE (20:38)
[2018-10-18] MEDS ORDERED: PIPERACILLIN/TAZOBACTAM 3.375 GM in SODIUM CHLORIDE 0.9% 100ML 100 ML IVPB ONE (20:38)
[2018-10-18] MEDS ORDERED: ENOXAPARIN SODIUM 80 MG/0.8 ML SYG SUBCU ONE (21:10)
[2018-10-18 21:17] VITALS: BP 134/94; TEMP 99.3
== END 2018-10-18 21:25 | disposition short-term general hospital (02) ==
LOC: ER 19:24
DX: I44.7 Left bundle-branch block, unspecified (principal); R91.8 Other nonspecific abnormal finding of lung field; I50.9 Heart failure, unspecified; I11.0 Hypertensive heart disease with heart failure; Z87.01 Personal history of pneumonia (recurrent); Z87.891 Personal history of nicotine dependence; Z79.899 Other long term (current) drug therapy
CPT/HCPCS: 36415; 71045; 80048; 83605; 83880; 84484; 85025; 85379; 87040; 87804; 93005; J1650; J2543; J7050

== ENCOUNTER 2019-01-10 12:36 | Inpatient (IN) | payer MEDICARE ==
[2019-01-10] MEDS ORDERED: IPRATROPIUM/ALBUTEROL 3 ML VIAL NEB ONE (13:13)
--- NOTE | 2019-01-10 13:44 | RAD ---
EXAM: PA and LATERAL CHEST RADIOGRAPHS CLINICAL INDICATION: Shortness of breath. Recent pneumonia. COMPARISON: Chest radiograph October 18, 2018. FINDINGS: Cardiac size and pulmonary vasculature are normal. Slight improvement in right basilar consolidation and right pleural effusion October 18, 2018 comparison chest radiograph. Left lung remains clear. No pneumothorax or free peritoneal gas. No suspicious hilar or mediastinal lymphadenopathy. Bones are intact on these two views. IMPRESSION: Slight improvement in right basilar consolidation and small right pleural effusion suspicious for sequela of a typical pneumonia versus right empyema. Post contrast chest CTA would prove useful for further evaluation as clinically warranted. Electronically signed by: Waldo Geiger MD 01/10/2019 1:42 PM CDT
[2019-01-10] MEDS ORDERED: AZITHROMYCIN IV 500 MG in SODIUM CHLORIDE 0.9% 250ML 250 ML IVPB ONE (14:19)
[2019-01-10] MEDS ORDERED: cefTRIAXone SODIUM 1 GM in SODIUM CHL 0.9% 50ML MIN-BAG+ 50 ML IVPB ONE (14:19)
[2019-01-10] MEDS ORDERED: methylPREDNISolone SODIUM SUC 40 MG/ML VIAL IV ONE (14:19)
[2019-01-10] MEDS ORDERED: cefTRIAXone SODIUM 1 GM VIAL ONE (14:30)
[2019-01-10] MEDS ORDERED: AZITHROMYCIN IV 500 MG VIAL IVPB ONE (14:31)
[2019-01-10] MEDS ORDERED: SODIUM CHLORIDE 0.9% 250ML 250 ML ONE (14:31)
[2019-01-10] MEDS ORDERED: SODIUM CHL 0.9% 50ML MIN-BAG+ 50 ML IVPB ONE (14:31)
--- NOTE | 2019-01-10 14:34 | ED.PDOC ---
History of Present Illness - General Chief Complaint: Respiratory Problem Stated Complaint: Pt is SOB Time Seen by Provider: 01/10/19 13:05 Source: patient Exam Limitations: no limitations - History of Present Illness Initial Comments: the patient's an 88-year-old male presenting to the emergency room secondary to increasing shortness of breath and fatigue along with a productive sputum over the last 24-48 hours. He was in the hospital 2 weeks ago for a pneumonia at [facility]. He finishes antibiotics a little more than a week ago. He does have advanced COPD but historically has not required supplemental oxygen. He does desaturate down to around 85% here without oxygen at times. Additionally he presented with significant respiratory distress which was significantly improved with supplemental oxygen and a breathing treatment. He has not reported any fever. No chest pain. No palpitations. No syncope. He does have a chronically elevated d-dimer and was apparently worked up for it at [facility] and found to have no DVT or pulmonary embolus. Timing/Duration: 24 hours Severity: moderate Improving Factors: nothing Worsening Factors: nothing Associated Symptoms: cough, loss of appetite, malaise, shortness of breath Allergies/Adverse Reactions: Allergies NO KNOWN ALLERGY Allergy (Verified 01/10/19 12:57) Home Medications: Ambulatory Orders Lisinopril [Prinivil] 10 mg PO DAILY #30 tablet 03/03/17 Bifidobacterium Infantis [Align] 4 mg PO DAILY #30 cap 12/31/17 Dutasteride [Avodart] 0.5 mg PO DAILY #30 cap 12/31/17 Gentamicin 0.3% Ophth Polina [Garamycin Opthalmic Solution] 1 drop BOTH_EYES QID drops 12/31/17 Tamsulosin [Flomax] 0.4 mg PO DAILY #30 cap 12/31/17 guaiFENesin ER TAB [Mucinex Tab] 600 mg PO BID #60 tab 12/31/17 levoFLOXacin [Levaquin] 500 mg PO DAILY #7 tab 02/15/18 metroNIDAZOLE [Flagyl] 500 mg PO Q8H #21 tab 02/15/18 Review of Systems - Review of Systems Constitutional: States: malaise, weakness EENTM: States: no symptoms reported Respiratory: States: cough, short of breath, wheezing Cardiology: States: no symptoms reported Gastrointestinal/Abdominal: States: no symptoms reported Genitourinary: States: no symptoms reported Musculoskeletal: States: no symptoms reported Skin: States: no symptoms reported Neurological: States: no symptoms reported Endocrine: States: no symptoms reported All other Systems: No Change from Baseline Past Medical History (General) - Patient Medical History Hx Seizures: No Hx Stroke: No Hx Dementia: No Hx Asthma: No Hx of COPD: Yes - patient states it's possible he was diagnosed with it Hx Cardiac Disorders: No Hx Congestive Heart Failure: Yes Hx Pacemaker: No Hx Hypertension: Yes Hx Thyroid Disease: No Hx Diabetes: No Hx Gastroesophageal Reflux: No Hx Renal Disease: No Hx Cancer: No Hx of HIV: No Hx Hepatitis C: No Hx MRSA: No Surgical History: coronary bypass surgery - Vaccination History Hx Tetanus, Diphtheria Vaccination: No Hx Influenza Vaccination: No Hx Pneumococcal Vaccination: No - Social History Hx Tobacco Use: Yes - quit 4 years ago Hx Alcohol Use: No Hx Substance Use: No Hx Physical Abuse: No Hx Emotional Abuse: No - Female History Patient is a Female of Child Bearing Age (10 -59 yrs old): No Patient : No Family Medical History - Family History Son Family History: No Known Living Status: Still Living Hx Family Asthma: No Hx Family Congestive Heart Failure: No Hx Family Hypertension: Yes Hx Family Stroke: No Hx Cardiac Disease: Yes Hx Family Diabetes: No Hx Family Cancer: No Grandparents Family History: Unknown Name: Jaun Day Age (years): 64 Living Status: Hx Family Asthma: No Hx Family Congestive Heart Failure: No Hx Family Hypertension: - doesn't know Hx Family Stroke: No Hx Cardiac Disease: Yes Hx Family Diabetes: No Hx Family Cancer: No Hx Family;Other: he did not want to talk about it Physical Exam - Physical Exam General Appearance: Alert, Frail, Ill Appearing, Other - the patient presents in significant respiratory distress Eye Exam: bilateral normal Ears, Nose, Throat: hearing grossly normal, normal ENT inspection Neck: full range of motion, supple Respiratory: respiratory distress, decreased breath sounds, accessory muscle use, crackles, rhonchi, wheezing Cardiovascular/Chest: normal peripheral pulses, no edema, other - telemetry monitoring shows normal sinus rhythm with frequent PVCs. 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 He has been started on Solu-Medrol, Rocephin and azithromycin. He has received supplemental oxygen and breathing treatment. He is breathing more comfortably at this point. He does still require supplemental oxygen to prevent desaturations when he is resting. The COPD may be triggering a mild CHF exacerbation. I have not given him any diuretic to this point. This may imp rove simply with a improvement in the respiratory distress. Admit for continued care. - Results/Orders Results/Orders: chest x-ray shows numerous chronic changes. No definitive new pneumonia. COPD is apparent. Laboratory Tests 01/10/19 01/10/19 01/10/19 13:28 13:28 13:28 WBC 7.7 RBC 4.43 L Hgb 13.0 L Hct 38.9 L MCV 87.9 MCH 29.4 MCHC 33.4 RDW 15.1 H Plt Count 221 MPV 8.0 Absolute Neuts (auto) 6.10 Absolute Lymphs (auto) 0.60 L Absolute Monos (auto) 0.90 H Absolute Eos (auto) 0.10 Absolute Basos (auto) 0.00 Neutrophils % 79.1 H Lymphocytes % 7.8 L Monocytes % 11.1 H Eosinophils % 1.6 Basophils % 0.4 PT 10.6 INR 1.06 PTT (SP) 35.4 H D-Dimer, Quantitative 1.94 H* Sodium Potassium Chloride Carbon Dioxide Anion Gap BUN Creatinine BUN/Creatinine Ratio Random Glucose Serum Osmolality Lactic Acid Calcium Magnesium Total Bilirubin AST ALT Alkaline Phosphatase Creatine Kinase 38 CK-MB (CK-2) 1.3 CK-MB (CK-2) % Not Reportable Troponin I < 0.02 B-Natriuretic Peptide 574.0 H* Serum Total Protein Albumin Globulin Albumin/Globulin Ratio 01/10/19 01/10/19 13:28 13:28 WBC RBC Hgb Hct MCV MCH MCHC RDW Plt Count MPV Absolute Neuts (auto) Absolute Lymphs (auto) Absolute Monos (auto) Absolute Eos (auto) Absolute Basos (auto) Neutrophils % Lymphocytes % Monocytes % Eosinophils % Basophils % PT INR PTT (SP) D-Dimer, Quantitative Sodium 134 L Potassium 3.9 Chloride 99 L Carbon Dioxide 25 Anion Gap 13.9 BUN 24 H Creatinine 1.24 BUN/Creatinine Ratio 19.4 Random Glucose 114 H Serum Osmolality 273.1 L Lactic Acid 1.1 Calcium 9.2 Magnesium 1.9 Total Bilirubin 1.0 AST 17 ALT 15 Alkaline Phosphatase 97 Creatine Kinase CK-MB (CK-2) CK-MB (CK-2) % Troponin I B-Natriuretic Peptide Serum Total Protein 8.0 Albumin 3.8 Globulin 4.2 H Albumin/Globulin Ratio 0.9 L EKG shows an old left bundle branch block with old anterior J-point elevation. First-degree AV block. Difficult to interpret otherwise but no obvious acute changes when compared to previous. Rate is 74 bpm and in sinus rhythm. Departure - Departure Clinical Impression: COPD with exacerbation, Respiratory distress CHF exacerbation Qualifiers: Heart failure type: unspecified Qualified Code(s): I50.9 - Heart failure, unspecified Disposition: Admit Patient Departure Forms: ED Discharge - Pt. Copy, Patient Portal Self Enrollment Referrals: MARY SLATER [Primary Care Provider] - 1-2 Weeks Home Medications: Ambulatory Orders Lisinopril [Prinivil] 10 mg PO DAILY #30 tablet 03/03/17 Bifidobacterium Infantis [Align] 4 mg PO DAILY #30 cap 12/31/17 Dutasteride [Avodart] 0.5 mg PO DAILY #30 cap 12/31/17 Gentamicin 0.3% Ophth Polina [Garamycin Opthalmic Solution] 1 drop BOTH_EYES QID drops 12/31/17 Tamsulosin [Flomax] 0.4 mg PO DAILY #30 cap 12/31/17 guaiFENesin ER TAB [Mucinex Tab] 600 mg PO BID #60 tab 12/31/17 levoFLOXacin [Levaquin] 500 mg PO DAILY #7 tab 02/15/18 metroNIDAZOLE [Flagyl] 500 mg PO Q8H #21 tab 02/15/18 Decision To Admit - Decistion To Admit Decision to Admit Reason: Medical Nature Decision to Admit Date: 01/10/19 Decision to Admit Time: 14:39
--- NOTE | 2019-01-10 14:56 | HP ---
SUPERVISING PHYSICIAN: Salvador Amaya M.D. CHIEF COMPLAINT: Shortness of breath. HISTORY OF PRESENT ILLNESS: This is an 88 year-old male patient who came to the Emergency Room with shortness of breath around 1:00 this afternoon. He also complained of some fatigue and some sputum production over the last 24 to 48 hours. It should be noted the patient was recently admitted to [facility] for pneumonia about 2 weeks ago. This was along with a chronic obstructive pulmonary disease exacerbation as well. He was discharged on nebulizer treatments as well as antibiotics that he actually completed last week. Today, his symptoms worsened so he came to the E. R. In the E. R., at rest he was tachypneic and his O2 saturations were around 85%. He was placed on supplemental oxygen and got a nebulizer treatment as well as a dose of Solu- Medrol 40 mg. He was also give Rocephin and azithromycin. Chest x-ray showed an improvement of the right base infiltrate that was noted a couple of weeks ago. His white count was normal. There was a mild shift with 79% neutrophils. He is not complaining of any fever or chills. He does have a chronically elevated D-dimer, however, this was worked up at [facility] and he did not have any DVT or pulmonary embolism at the time. He states that he was on Xarelto several years ago but nearly bled to . He states he does not really remember why he was on Xarelto, but that he has never been told that he had a pulmonary embolism or DVT in the past. His primary care physician is in [place] and he was in [place] today working on his son-in-law's house. PAST MEDICAL HISTORY: 1. Hypertension. 2. Coronary artery disease. 3. Chronic obstructive pulmonary disease. 4. Possible heart failure. 5. Benign prostatic hypertrophy. 6. Hospitalization for appendicitis in the past. PAST SURGICAL HISTORY: 1. 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 CURRENT MEDICATIONS: Please see the medication list. They are reconciled in the computer. ALLERGIES: NO KNOWN DRUG ALLERGIES. FAMILY HISTORY: SOCIAL HISTORY: The patient quit smoking 4 years ago but had 72 pack years prior to that. No significant alcohol or illicit drug use. 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 REVIEW OF SYSTEMS: CONSTITUTIONAL: No fever, no chills. No recent weight loss or weight gain. HEENT: No headaches, vision changes, ear pain, nasal congestion or throat pain. RESPIRATORY: Positive for cough. No hemoptysis. No pleuritic chest pain but he has shortness of breath and a productive cough. CARDIOVASCULAR: Denies chest pain, palpitations or peripheral edema. GASTROINTESTINAL: No nausea, vomiting, diarrhea, constipation or abdominal pain. GENITOURINARY: No dysuria, frequency or flank pain. NEUROLOGIC: No headaches, vision changes, syncope or seizures. ENDOCRINE: No polydipsia, polyuria or polyphagia. No heat or cold intolerance. MUSCULOSKELETAL: No joint pain, joint swelling or muscle cramps. PHYSICAL EXAMINATION: VITAL SIGNS: Blood pressure 126/92, heart rate 64, respiratory rate 16, temperature 99.0, oxygen secondary to 97%. GENERAL: This is an 88 year-old male patient who is mildly tachypneic at rest but in no significant distress. NEUROLOGIC: The patient is alert and oriented. CHEST: Lungs with a mild expiratory wheeze left base, but other than that he has some coarseness on expiration but no active wheezing in any other lung lazo. CARDIOVASCULAR: The patient has an irregular rate which is sinus, but he has PVCs. ABDOMEN: Soft. Positive bowel sounds. No tenderness to palpation. GENITOURINARY: Exam is deferred. EXTREMITIES: Lower extremities with no significant edema, 2+ pulses. Capillary refill is less than 2 seconds. LABORATORY: White count 7.7, hemoglobin 13.0, hematocrit 38.9, platelet count 221. Neutrophils 79.1. D-dimer 1.94. PT 10.6, INR 1.06, PTT 35.4. Sodium 134, potassium 3.9, chloride 99, CO2 is 25, BUN 24, creatinine 1.24, glucose 114, calcium 9.2, lactate is 1.1. BNP 574. Transaminases are normal. Chest x-ray shows slight improvement of the right basilar consolidation and small right pleural effusion. He does recommend possibly a CT would be more beneficial to evaluate that pleural effusion to ensure that it is not empyema based on the fact that he had a recent pneumonia. ASSESSMENT: 1. Chronic obstructive pulmonary disease exacerbation. 2. Congestive heart failure exacerbation. 3. Recent pneumonia status post hospitalization. 4. Hypertension. 5. History of benign prostatic hypertrophy. PLAN: At this time the patient will be admitted for COPD exacerbation. I will place him on scheduled nebulizers as well as scheduled steroids. I am also going to start him on a small dose of diuretics given his elevated BNP and shortness of breath. Although the chest x-ray does not show a lot of pulmonary vascular congestion, he does have a history of significant COPD and his vasculature may not indicate that at this time. I am going to place him on Lovenox 30 mg for DVT prophylaxis and a PPI for GI ulcer prophylaxis. I am going to resume his home medications once they are reconciled in the computer as well. I am utilizing Levaquin for antibiotics at this time, although he does not have a significantly elevated white count. I do not want to cover for healthcare associated pneumonia due to the improvement in the right sided infiltrate as well as the fact that the white count is not significantly elevated. Will reevaluate his labs and chest x-ray tomorrow. If he continues to improve, I anticipate that he will go home on Saturday, however if there is any deterioration in his condition will probably go ahead and get a CAT scan to evaluate that effusion on the right side. #[id number] [facility]
[2019-01-10] MEDS ORDERED: SODIUM CHLORIDE 0.9% (FLUSH) 10 ML SYG IV PRN (15:43)
[2019-01-10] MEDS ORDERED: IV SET AND CAP CHANGE INJ INJ SCH (16:00)
[2019-01-10] MEDS: ENOXAPARIN SODIUM 30 MG/0.3 ML SYG SUBCU SCH (17:13)
[2019-01-10] MEDS ORDERED: levoFLOXacin 500MG IV 100 ML IVPB ONE (17:21)
[2019-01-10] MEDS: IPRATROPIUM/ALBUTEROL 3 ML VIAL NEB SCH ×2 (17:23→19:45)
[2019-01-10] MEDS: FUROSEMIDE INJ 20 MG/2 ML VIAL IV SCH (17:24)
[2019-01-10] MEDS: levoFLOXacin 500MG IV 500 MG in PREMIX BAG 1 BAG IVPB SCH (17:24)
[2019-01-10] MEDS ORDERED: methylPREDNISolone SODIUM SUC 40 MG/ML VIAL ONE (18:56)
[2019-01-10] MEDS: methylPREDNISolone SODIUM SUC 40 MG/ML VIAL IV SCH (21:04)
[2019-01-11] MEDS: methylPREDNISolone SODIUM SUC 40 MG/ML VIAL IV SCH ×3 (06:01→21:33)
[2019-01-11] MEDS: OMEPRAZOLE CAP 20 MG CAP PO SCH (06:01)
--- NOTE | 2019-01-11 06:33 | RAD ---
EXAM: XR Chest, 1 View CLINICAL HISTORY: The patient is 88 years old and is Male; COPD TECHNIQUE: Frontal view of the chest. COMPARISON: Chest radiograph January 10, 2019. FINDINGS: LUNGS: The lungs are hyperinflated with chronic coarse interstitial markings. Right lower lobe opacity is present. PLEURAL SPACE: Right pleural effusion with apical pleural capping/thickening is noted. No pneumothorax. HEART: The cardiac silhouette is stable. MEDIASTINUM: Unremarkable. BONES/JOINTS: Median sternotomy wires are present. IMPRESSION: Stable chest. Electronically signed by: Jossie Christianson MD 01/11/2019 6:31 AM CDT
[2019-01-11] MEDS: IPRATROPIUM/ALBUTEROL 3 ML VIAL NEB SCH ×4 (08:19→20:00)
[2019-01-11] MEDS: FUROSEMIDE INJ 20 MG/2 ML VIAL IV SCH ×2 (08:52→16:46)
[2019-01-11] MEDS: ENOXAPARIN SODIUM 30 MG/0.3 ML SYG SUBCU SCH (08:53)
--- NOTE | 2019-01-11 11:07 | PN ---
DATE: 01/11/19 SUPERVISING PHYSICIAN: Salvador Amaya M.D. SUBJECTIVE: The patient states he feels a little bit better today.. He is coughing and states it is productive and is white in color. Has significant shortness of breath. OBJECTIVE: Blood pressure 161/99, heart rate 62, respiratory rate 16, temperature 97.5, oxygen saturation 97%. GENERAL: Mr. Day is an 88 year-old male patient in no active distress. NEUROLOGIC: The patient is alert and oriented. LUNGS: Clear to auscultation bilaterally. CARDIOVASCULAR: The patient has a regular rate and rhythm. Normal S1 and S2. ABDOMEN: Soft. Positive bowel sounds. GENITOURINARY: Exam is deferred. EXTREMITIES: Lower extremities no significant edema. LABORATORY: White count 6.9, hemoglobin 12.0, hematocrit 35.3, platelet count 221. Chemistry with sodium 132, potassium 4.3, chloride 101, CO2 is 22, BUN 26, creatinine 1.20, glucose 166, calcium 8.8. Chest x-ray with no active disease at this time. ASSESSMENT: 1. Chronic obstructive pulmonary disease exacerbation. 2. Congestive heart failure exacerbation. 3. Recent pneumonia status post hospitalization. 4. Hypertension. 5. History of benign prostatic hypertrophy. PLAN: At this time we are going to continue his current therapy. He seems to be clinically improving, so we will reduce his steroids. Continue empiric antibiotics as well. Due to stable labs and chest x-ray will not repeat labs and x-ray tomorrow. If his clinical status remains improved, he could potentially go home tomorrow. #[id number] [facility]
[2019-01-11] MEDS ORDERED: levoFLOXacin 500MG IV 100 ML IVPB ONE (14:52)
[2019-01-11] MEDS: levoFLOXacin 500MG IV 500 MG in PREMIX BAG 1 BAG IVPB SCH (14:57)
[2019-01-12] MEDS: methylPREDNISolone SODIUM SUC 40 MG/ML VIAL IV SCH (05:52)
[2019-01-12] MEDS: OMEPRAZOLE CAP 20 MG CAP PO SCH ×2 (05:52→06:03)
[2019-01-12 06:16] VITALS: O2SAT 96
[2019-01-12] MEDS: IPRATROPIUM/ALBUTEROL 3 ML VIAL NEB SCH ×2 (08:11→13:07)
[2019-01-12] MEDS: ENOXAPARIN SODIUM 30 MG/0.3 ML SYG SUBCU SCH (09:24)
[2019-01-12] MEDS ORDERED: levoFLOXacin 500 MG TAB PO ONE (10:50)
[2019-01-12 12:51] VITALS: BP 100/72; TEMP 98
--- NOTE | 2019-01-12 19:45 | DS ---
SUPERVISING PHYSICIAN: Lane Laureano M.D. ADMISSION DIAGNOSIS; 1. Chronic obstructive pulmonary disease exacerbation. 2. Congestive heart failure exacerbation. 3. Recent pneumonia status post hospitalization. 4. Hypertension. 5. History of benign prostatic hypertrophy. 6. Elevated D-dimer with the patient having a history of chronic elevation, uncertain etiology with extensive workup for DVT at [facility] with no evidence of thrombus, probably due to underlying pneumonia. DISCHARGE DIAGNOSIS: 1. Acute exacerbation of chronic obstructive pulmonary disease secondary to right lower lobe pneumonia showing improvement with parenteral antibiotics and aggressive pulmonary hygiene. 2. Acute on chronic congestive heart failure exacerbation, uncertain etiology, without an echocardiogram available on admission with the patient showing good response to treatment. 3. Recent pneumonia status post hospitalization. 4. Hypertension, stable. 5. History of benign prostatic hypertrophy without any complications. REASON FOR HOSPITALIZATION: This is an 88 year-old male patient who came to the Emergency Room with shortness of breath around 1:00 this afternoon. He also complained of some fatigue and some sputum production over the last 24 to 48 hours. It should be noted the patient was recently admitted to [facility] for pneumonia about 2 weeks ago. This was along with a chronic obstructive pulmonary disease exacerbation as well. He was discharged on nebulizer treatments as well as antibiotics that he actually completed last week. Today, his symptoms worsened so he came to the E. R. In the E. R., at rest he was tachypneic and his O2 saturations were around 85%. He was placed on supplemental oxygen and got a nebulizer treatment as well as a dose of Solu- Medrol 40 mg. He was also give Rocephin and azithromycin. Chest x-ray showed an improvement of the right base infiltrate that was noted a couple of weeks ago. His white count was normal. There was a mild shift with 79% neutrophils. He is not complaining of any fever or chills. He does have a chronically elevated D-dimer, however, this was worked up at [facility] and he did not have any DVT or pulmonary embolism at the time. He states that he was on Xarelto several years ago but nearly bled to . He states he does not really remember why he was on Xarelto, but that he has never been told that he had a pulmonary embolism or DVT in the past. His primary care physician is in [place] and he was working in [employer] at time of admission. On admission the patient was showing to be stable. LABORATORY STUDIES: White count on admission was 7,700, at discharge was 6,900. It did show a left shift. Hemoglobin and hematocrit were stable, at discharge was 12 and 35.5 respectively with platelet count 222,000. Coagulation studies did show D-dimer elevation of 1.94 with PT of 10.6 and 35.4 with the patient having a chronically elevated D-dimer. Chemistries showing a sodium 134 on admission, at discharge was 132. Potassium was normal at 4.3, BUN 26, creatinine 1.20. Lactic acid on admission was 1.1. Liver functions were all within normal limits. Did have an elevated BNP at 574 on admission. Troponin was less than 0.02. MICROBIOLOGY: Blood cultures were no growth at 48 hours. RADIOLOGY: Initial radiographic study in the E. R. of two view chest shows slight improvement of right basilar consolidation and small right pleural effusion suspicious for sequelae of typical pneumonia versus right empyema. Please see that report for details. Final chest x-ray on 01/11/19 showed a stable chest. Please see that report for details. HOSPITAL COURSE: Mr. Day was admitted on 01/10/19 for exacerbation of COPD with right sided pneumonia and with exacerbation of CHF. He was treated aggressively with antibiotics on admission that included azithromycin and Rocephin, and then was transitioned to Levaquin. After admission he was also given several doses of Lasix along with Solu-Medrol. He did show good clinical improvement and on day of discharge was felt clinically stable enough to continue with outpatient management. PHYSICAL EXAMINATION: VITAL SIGNS: Temperature 98, pulse 65, blood pressure 100/72, respirations 20, satting 96% on 2 liters nasal cannula. GENERAL: The patient was showing to be without any acute distress. He was alert, actually ambulating and maintaining O2 saturations above 92% on room air. CHEST: Lung sounds were clear to auscultation bilaterally without any rhonchi, wheezing or rales. HEART: Regular rate and rhythm without appreciable murmurs, gallops, or rubs. ABDOMEN: Soft, non-tender. Positive bowel sounds. EXTREMITIES: Without any edema. NEUROLOGIC: He is alert and oriented times three. PLAN: Mr. Day was discharged to have close clinical followup with Dr. Mc as scheduled. He was to resume his home medications as instructed and take new medications as directed. He was encouraged to increase his activity levels as tolerated. Diet was regular diet as tolerated. He was encouraged to return to the hospital should he have any worsening or other concerning symptoms. Medications prescribed at discharge included: 1. Proventil nebs 2.5 mg inhaled every 4 hours as needed, #60. No refills. 2. Levaquin 750 mg daily, #4. No refills. 3. Medrol Dosepak 4 mg daily, 6 day taper as directed, #21. No refills. DISPOSITION: The patient is discharged to the care of family members. Condition at discharge was stable and improved. [facility][id number] [facility]
== END 2019-01-12 12:35 | disposition home or self-care (01) | DRG 190 ==
LOC: ER 12:36 → MS 14:55
PROVIDERS: ADMIT Nurse Practitioner; ATTEND Nurse Practitioner Family
DX: J44.1 Chronic obstructive pulmonary disease with (acute) exacerbation (principal); J18.9 Pneumonia, unspecified organism; J44.0 Chronic obstructive pulmonary disease with (acute) lower respiratory infection; I11.0 Hypertensive heart disease with heart failure; I50.9 Heart failure, unspecified; N40.0 Benign prostatic hyperplasia without lower urinary tract symptoms; R79.89 Other specified abnormal findings of blood chemistry; I25.10 Atherosclerotic heart disease of native coronary artery without angina pectoris; Z95.1 Presence of aortocoronary bypass graft; Z95.2 Presence of prosthetic heart valve; Z87.891 Personal history of nicotine dependence; Z79.899 Other long term (current) drug therapy

== ENCOUNTER 2019-06-26 09:35 | Emergency (ER) | payer MEDICARE ==
[2019-06-26] MEDS ORDERED: IPRATROPIUM/ALBUTEROL 3 ML VIAL NEB ONE (09:49)
--- NOTE | 2019-06-26 09:55 | ED.PDOC ---
History of Present Illness - General Chief Complaint: Respiratory Problem Stated Complaint: SOB, cough, congestion Time Seen by Provider: 06/26/19 09:47 Source: patient, RN notes reviewed, Vital Signs reviewed, old records Exam Limitations: no limitations - History of Present Illness Initial Comments: 88 yo male with PMH of COPD, CHF, CKD and HTN presents for 3 day h/o nonprodu ctive cough, runny nose and congestion. Has felt short of breath. Denies fever, chills, CP, NVD. Has taken albuterol nebs for the symptoms at home with some improvement. Allergies/Adverse Reactions: Allergies NO KNOWN ALLERGY Allergy (Verified 01/10/19 17:20) Home Medications: Ambulatory Orders Albuterol Sulfate Nebs [Proventil Nebs] 2.5 mg INH Q4H PRN #60 vial 01/12/19 Levofloxacin [Levaquin] 750 mg PO DAILY #4 tablet 01/12/19 Methylprednisolone [Medrol Dose Puma] 4 mg PO DAILY 6 Days #21 tab 01/12/19 Azithromycin [Zithromax Z-Puma] 250 mg PO DAILY #6 tab 06/26/19 Prednisone 60 mg PO DAILY 5 Days #15 tab 06/26/19 Review of Systems - Review of Systems Constitutional: Denies: chills, fever, weakness EENTM: States: nose congestion. Denies: ear pain, throat swelling Respiratory: States: cough, short of breath Cardiology: Denies: chest pain, edema, palpitations, syncope Gastrointestinal/Abdominal: Denies: abdominal pain, nausea, vomiting Musculoskeletal: Denies: joint pain Skin: Denies: rash All other Systems: Reviewed and Negative Past Medical History (General) - Patient Medical History Hx Seizures: No Hx Stroke: No Hx Dementia: No Hx Asthma: No Hx of COPD: Yes - patient states it's possible he was diagnosed with it Hx Cardiac Disorders: Yes Hx Congestive Heart Failure: Yes Hx Pacemaker: No Hx Hypertension: Yes Hx Thyroid Disease: No Hx Diabetes: No Hx Gastroesophageal Reflux: No Hx Renal Disease: No Hx Cancer: No Hx of HIV: No Hx Hepatitis C: No Hx MRSA: No Surgical History: coronary bypass surgery - Vaccination History Hx Tetanus, Diphtheria Vaccination: No Hx Influenza Vaccination: No Hx Pneumococcal Vaccination: No - Social History Hx Tobacco Use: Yes Hx Alcohol Use: Yes Hx Substance Use: No Hx Substance Use Treatment: No Hx Depression: No Hx Physical Abuse: No Hx Emotional Abuse: No - Female History Patient is a Female of Child Bearing Age (10 -59 yrs old): No Patient : No Family Medical History - Family History Son Family History: No Known Living Status: Still Living Hx Family Asthma: No Hx Family Congestive Heart Failure: No Hx Family Hypertension: Yes Hx Family Stroke: No Hx Cardiac Disease: Yes Hx Family Diabetes: No Hx Family Cancer: No Grandparents Family History: Unknown Name: Juan Day Age (years): 64 Living Status: Hx Family Asthma: No Hx Family Congestive Heart Failure: No Hx Family Hypertension: - doesn't know Hx Family Stroke: No Hx Cardiac Disease: Yes Hx Family Diabetes: No Hx Family Cancer: No Hx Family;Other: he did not want to talk about it Physical Exam - Physical Exam General Appearance: Alert, Comfortable, No apparent distress, Well Groomed Ears, Nose, Throat: other - Oropharynx has no erythema, edema or exudates. TM's have no erythema or effusion. Neck: non-tender, full range of motion, supple Respiratory: chest non-tender, other - No distress. Good air movement with bilateral wheezes Cardiovascular/Chest: normal peripheral pulses, regular rate, rhythm, no edema Gastrointestinal/Abdominal: non tender, soft, no pulsatile mass Back Exam: no CVA tenderness, no vertebral tenderness Extremity: normal range of motion, non-tender, no pedal edema Neurologic: no motor/sensory deficits, alert Skin Exam: warm/dry Progress - Progress Progress: 06/26/19 11:15 Pt presents with 3 day h/o cough, congestion and wheezing. Has been using albuterol neb at home with improvement. Wheezes and SOB resolved with nebs here. Flu negative. CXR and labs unremarkable. O2 sat 96% on RA with no respiratory distress. he feels improved and comfortable going home. Will treat with prednisone and Z pack for COPD exac and bronchitis. He will continue albuterol nebs at home. F/U with pcp in 1-2 days for recheck. srp given. - Results/Orders Results/Orders: EXAM DESCRIPTION: Chest,1 View CLINICAL HISTORY: short of breath COMPARISON: CT abdomen pelvis February 12, 2018. Chest x-ray dated January 11, 2019. FINDINGS: Single frontal view the thorax. Stable chronic findings of right-sided pleural thickening, rounded atelectasis and scar tissue. No significant interval change in the right lung is evident from multiple comparisons. The contralateral left lung remains clear. Remote surgical changes of the mediastinum are present. Heart size within normal limits. Ectasia thoracic aortic and seen with chronic hypertension. No acute bony pathology. IMPRESSION: No new/acute radiographic abnormality 06/26/19 09:50 Pulse Ox Stat 06/26/19 09:51 Pulse Oximetry Assessment DAILY 06/26/19 10:00 EKG STAT 06/26/19 10:45 BLOOD CULTURE Stat Laboratory Results - last 24 hr 06/26/19 06/26/19 10:00 10:00 WBC 6.2 RBC 4.70 Hgb 13.6 L Hct 41.2 L MCV 87.6 MCH 29.0 MCHC 33.1 RDW 15.0 H Plt Count 187 MPV 8.6 Absolute Neuts (auto) 4.80 Absolute Lymphs (auto) 0.60 L Absolute Monos (auto) 0.40 Absolute Eos (auto) 0.30 Absolute Basos (auto) 0.10 Neutrophils % 77.5 Lymphocytes % 9.8 L Monocytes % 6.8 Eosinophils % 4.8 Basophils % 1.1 Sodium 137 Potassium 3.8 Chloride 100 L Carbon Dioxide 26 Anion Gap 14.8 BUN 27 H Creatinine 1.38 H BUN/Creatinine Ratio 19.6 Random Glucose 104 Serum Osmolality 279.2 Calcium 9.4 Total Bilirubin 0.7 AST 18 ALT 12 Alkaline Phosphatase 96 B-Natriuretic Peptide 581.0 H* Serum Total Protein 7.6 Albumin 4.3 Globulin 3.3 Albumin/Globulin Ratio 1.3 Influenza A&B--Negative - EKG/XRAY/CT EKG: Sinus, LBBB Comments: rate 67, nonspecific T wave abnormality Departure - Departure Clinical Impression: COPD with exacerbation, Bronchitis Hypertension Qualifiers: Hypertension type: essential hypertension Qualified Code(s): I10 - Essential (primary) hypertension Time of Disposition: 11:12 Disposition: Discharge to Home or Self Care Departure Forms: ED Discharge - Pt. Copy, Patient Portal Self Enrollment Instructions: COPD Including Emphysema (DC) Diet: resume usual diet Activity: walking as tolerated Referrals: MARY SLATER [Primary Care Provider] - 1-2 Weeks Prescriptions: Azithromycin [Zithromax Z-Puma] 250 mg PO DAILY #6 tab Prednisone 60 mg PO DAILY 5 Days #15 tab Home Medications: Ambulatory Orders Albuterol Sulfate Nebs [Proventil Nebs] 2.5 mg INH Q4H PRN #60 vial 01/12/19 Levofloxacin [Levaquin] 750 mg PO DAILY #4 tablet 01/12/19 Methylprednisolone [Medrol Dose Puma] 4 mg PO DAILY 6 Days #21 tab 01/12/19 Azithromycin [Zithromax Z-Puma] 250 mg PO DAILY #6 tab 06/26/19 Prednisone 60 mg PO DAILY 5 Days #15 tab 06/26/19
[2019-06-26] MEDS ORDERED: methylPREDNISolone SODIUM SUC 125 MG/2 ML VIAL IV ONE (10:05)
--- NOTE | 2019-06-26 10:37 | RAD ---
EXAM DESCRIPTION: Chest,1 View CLINICAL HISTORY: short of breath COMPARISON: CT abdomen pelvis February 12, 2018. Chest x-ray dated January 11, 2019. FINDINGS: Single frontal view the thorax. Stable chronic findings of right-sided pleural thickening, rounded atelectasis and scar tissue. No significant interval change in the right lung is evident from multiple comparisons. The contralateral left lung remains clear. Remote surgical changes of the mediastinum are present. Heart size within normal limits. Ectasia thoracic aortic and seen with chronic hypertension. No acute bony pathology. IMPRESSION: No new/acute radiographic abnormality Electronically signed by: Magan Loving MD 06/26/2019 10:35 AM [facility]
[2019-06-26 10:39] VITALS: O2SAT 95
[2019-06-26 11:11] VITALS: BP 129/87
[2019-06-26 11:25] VITALS: TEMP 97.3
== END 2019-06-26 11:15 | disposition home or self-care (01) ==
LOC: ER 09:35
DX: J44.1 Chronic obstructive pulmonary disease with (acute) exacerbation (principal); J40 Bronchitis, not specified as acute or chronic; I44.7 Left bundle-branch block, unspecified; I13.0 Hypertensive heart and chronic kidney disease with heart failure and stage 1 through stage 4 chronic kidney disease, or unspecified chronic kidney disease; N18.9 Chronic kidney disease, unspecified; I50.9 Heart failure, unspecified; Z95.1 Presence of aortocoronary bypass graft; Z87.891 Personal history of nicotine dependence; Z79.899 Other long term (current) drug therapy
CPT/HCPCS: 71045; 80053; 83880; 85025; 87040; 87502; 93005; 94640; J2930; J7620

== ENCOUNTER 2019-07-13 08:23 | Emergency (ER) | payer MEDICARE ==
--- NOTE | 2019-07-13 08:57 | ED.PDOC ---
History of Present Illness - General Chief Complaint: General Stated Complaint: weakness Time Seen by Provider: 07/13/19 08:36 Source: patient Exam Limitations: no limitations - History of Present Illness Initial Comments: 88 yo who presents for generalized weakness worsening this morning. Recently dx with bronchitis and finished antibx two days ago, remains with cough that is intermittently productive. 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 Denies f/c, congestion, CP, SOB, abd pain, n/v/d, edema, back pain, neck pain, focal weakness, change in vision, slurred speech. Allergies/Adverse Reactions: Allergies NO KNOWN ALLERGY Allergy (Verified 07/13/19 08:43) Review of Systems - Review of Systems Constitutional: States: weakness - generalized. Denies: chills, fever EENTM: Denies: blurred vision, double vision, nose congestion, throat pain Respiratory: States: cough. Denies: orthopnea, short of breath, stridor, wheezing Cardiology: Denies: chest pain, edema, palpitations, syncope Gastrointestinal/Abdominal: Denies: abdominal pain, constipation, diarrhea, nausea, vomiting Genitourinary: Denies: dysuria, frequency, hematuria Musculoskeletal: Denies: back pain, neck pain Skin: Denies: change in color, lesions, rash Neurological: States: numbness - chronic neuropathy BLE, weakness - generalized. Denies: headache Endocrine: Denies: increased thirst, increased urine Past Medical History (General) - Patient Medical History Hx Seizures: No Hx Stroke: No Hx Dementia: No Hx Asthma: No Hx of COPD: Yes - patient states it's possible he was diagnosed with it Hx Cardiac Disorders: Yes Hx Congestive Heart Failure: Yes Hx Pacemaker: No Hx Hypertension: Yes Hx Thyroid Disease: No Hx Diabetes: No Hx Gastroesophageal Reflux: No Hx Renal Disease: No Hx Cancer: No Hx of HIV: No Hx Hepatitis C: No Hx MRSA: No Surgical History: coronary bypass surgery - Vaccination History Hx Tetanus, Diphtheria Vaccination: No Hx Influenza Vaccination: No Hx Pneumococcal Vaccination: No Immunizations Up to Date: No - Social History Hx Tobacco Use: No Hx Alcohol Use: No Hx Substance Use: No Hx Substance Use Treatment: No Hx Depression: No Hx Physical Abuse: No Hx Emotional Abuse: No - Female History Patient : No Family Medical History - Family History Son Family History: No Known Living Status: Still Living Hx Family Asthma: No Hx Family Congestive Heart Failure: No Hx Family Hypertension: Yes Hx Family Stroke: No Hx Cardiac Disease: Yes Hx Family Diabetes: No Hx Family Cancer: No Grandparents Family History: Unknown Name: Juan Day Age (years): 64 Living Status: Hx Family Asthma: No Hx Family Congestive Heart Failure: No Hx Family Hypertension: - doesn't know Hx Family Stroke: No Hx Cardiac Disease: Yes Hx Family Diabetes: No Hx Family Cancer: No Hx Family;Other: he did not want to talk about it Physical Exam - Physical Exam General Appearance: Alert, Comfortable, No apparent distress, Well Developed, Well Nourished Eye Exam: bilateral normal Ears, Nose, Throat: hearing grossly normal, normal ENT inspection Neck: non-tender, full range of motion, supple, normal inspection Respiratory: chest non-tender, lungs clear, normal breath sounds, no respiratory distress, no accessory muscle use Cardiovascular/Chest: normal peripheral pulses, no edema, no gallop, no JVD, no murmur, bradycardia Peripheral Pulses: radial,right: 2+, radial,left: 2+ Gastrointestinal/Abdominal: normal bowel sounds, non tender, soft, no organomegaly, no pulsatile mass Back Exam: normal inspection, no CVA tenderness, no vertebral tenderness Extremity: normal range of motion, non-tender, normal inspection, no pedal edema, no calf tenderness, normal capillary refill, pelvis stable 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 HR still in the 40's, BP stable, neuro intact, well appearing, NAD. 07/13/19 09:[address] Rain, hospitalist at [facility], accepts pt for transfer and admission. Yane Quiros MD Emergency Medicine Physician Billing Number [id number] - Results/Orders Results/Orders: 07/13/19 08:45 EKG STAT 07/13/19 09:47 levoFLOXacin 750MG IV [Levaquin 750MG IV] 750 mg Premix Bag 1 bag IVPB ONCE Laboratory Results - last 24 hr 07/13/19 07/13/19 07/13/19 08:46 08:46 08:46 WBC 5.2 RBC 4.67 L Hgb 13.6 L Hct 41.5 L MCV 88.9 MCH 29.2 MCHC 32.8 L RDW 15.4 H Plt Count 188 MPV 8.2 Absolute Neuts (auto) 3.40 Absolute Lymphs (auto) 0.70 L Absolute Monos (auto) 0.60 Absolute Eos (auto) 0.30 Absolute Basos (auto) 0.10 Neutrophils % 66.3 Lymphocytes % 13.7 L Monocytes % 12.5 H Eosinophils % 6.2 H Basophils % 1.3 Sodium 134 L Potassium 4.3 Chloride 97 L Carbon Dioxide 29 Anion Gap 12.3 BUN 28 H Creatinine 1.27 BUN/Creatinine Ratio 22.0 H Random Glucose 96 Serum Osmolality 273.6 L Calcium 9.2 Total Bilirubin 0.8 AST 15 ALT 16 Alkaline Phosphatase 85 Troponin I 0.02 Serum Total Protein 6.8 Albumin 3.5 Globulin 3.3 Albumin/Globulin Ratio 1.1 Urine Color Urine Appearance Urine pH Ur Specific [place] Urine Protein Urine Glucose (UA) Urine Ketones Urine Blood Urine Nitrite Urine Bilirubin Urine Urobilinogen Ur Leukocyte Esterase Urine RBC Urine WBC Ur Epithelial Cells Urine Bacteria 07/13/19 09:13 WBC RBC Hgb Hct MCV MCH MCHC RDW Plt Count MPV Absolute Neuts (auto) Absolute Lymphs (auto) Absolute Monos (auto) Absolute Eos (auto) Absolute Basos (auto) Neutrophils % Lymphocytes % Monocytes % Eosinophils % Basophils % Sodium Potassium Chloride Carbon Dioxide Anion Gap BUN Creatinine BUN/Creatinine Ratio Random Glucose Serum Osmolality Calcium Total Bilirubin AST ALT Alkaline Phosphatase Troponin I Serum Total Protein Albumin Globulin Albumin/Globulin Ratio Urine Color Yellow Urine Appearance Clear Urine pH 7.0 Ur Specific [place] 1.015 Urine Protein Negative Urine Glucose (UA) Negative Urine Ketones Negative Urine Blood Negative Urine Nitrite Negative Urine Bilirubin Negative Urine Urobilinogen 0.2 Ur Leukocyte Esterase Negative Urine RBC 0 Urine WBC 0-1 Ur Epithelial Cells 0 Urine Bacteria 0 CXR: EXAM DESCRIPTION: Chest,2 Views CLINICAL HISTORY: 88 years Male, cough COMPARISON: 06/26/2019. TECHNIQUE: PA and lateral radiographs of the chest were obtained. FINDINGS: Trachea is midline.The cardiomediastinal silhouette is normal in size. The pulmonary vasculature is within normal limits. Right pleural effusion with associated airspace opacities of the right lower lobe. IMPRESSION: Right pleural effusion with associated airspace opacities of the right lower lobe. Electronically signed by: Herminia Oliver MD 07/13/2019 9:16 AM [employer] Vital Signs - 24 hr 07/13/19 07/13/19 08:37 09:23 Temperature 96.1 F L Pulse Rate [ 55 L 46 L monitor] Respiratory 20 15 Rate Blood Pressure 180/106 132/86 [LA] O2 Sat by Pulse 95 95 Oximetry - EKG/XRAY/CT EKG: Eduar, LBBB Comments: 1st degree AV block, PVC, PAC; previous with LBBB and 1st degree, rate 67 Departure - Departure Clinical Impression: Symptomatic bradycardia, Pleural effusion Right lower lobe pneumonia Qualifiers: Pneumonia type: due to unspecified organism Qualified Code(s): J18.9 - Pneumonia, unspecified organism Time of Disposition: 09:43 Disposition: Transfer to Hospital Condition: Fair
--- NOTE | 2019-07-13 09:17 | RAD ---
EXAM DESCRIPTION: Chest,2 Views CLINICAL HISTORY: 88 years Male, cough COMPARISON: 06/26/2019. TECHNIQUE: PA and lateral radiographs of the chest were obtained. FINDINGS: Trachea is midline.The cardiomediastinal silhouette is normal in size. The pulmonary vasculature is within normal limits. Right pleural effusion with associated airspace opacities of the right lower lobe. IMPRESSION: Right pleural effusion with associated airspace opacities of the right lower lobe. Electronically signed by: Herminia Oliver MD 07/13/2019 9:16 AM [facility]
[2019-07-13] MEDS: levoFLOXacin 750MG IV 750 MG in PREMIX BAG 1 BAG IVPB ONE (09:54)
[2019-07-13 10:33] VITALS: O2SAT 95
[2019-07-13 11:04] VITALS: BP 179/103; TEMP 97.3
== END 2019-07-13 10:55 | disposition short-term general hospital (02) ==
LOC: ER 08:23
DX: J18.9 Pneumonia, unspecified organism (principal); R00.1 Bradycardia, unspecified; I50.9 Heart failure, unspecified; I44.0 Atrioventricular block, first degree; I44.7 Left bundle-branch block, unspecified; I49.1 Atrial premature depolarization; I49.3 Ventricular premature depolarization; J44.9 Chronic obstructive pulmonary disease, unspecified; I51.9 Heart disease, unspecified; I11.0 Hypertensive heart disease with heart failure; Z95.1 Presence of aortocoronary bypass graft
CPT/HCPCS: 36415; 71046; 80053; 81001; 84484; 85025; 93005; J1956

== ENCOUNTER 2019-10-22 18:22 | Observation (INO) | payer MEDICARE ==
--- NOTE | 2019-10-22 18:40 | ED.PDOC ---
History of Present Illness - General Chief Complaint: Respiratory Problem Stated Complaint: Pt presents with SOB x 3 days Time Seen by Provider: 10/22/19 18:27 Additional Information: Patient is an 89-year-old male who presents the ED with chief complaint of shortness of breath. Patient indicates his symptoms began approximately 3 days ago and are not worse today but have not improved. Patient denies a history of lung disease to include COPD or emphysema or asthma. Patient has had CABG surgery in the distant past and indicates he is not on blood thinner. Patient's cough is for the most part dry but is occasionally productive of slightly colored sputum. Patient specifically denies fever or chest pain. Patient does indicate that he has a component of orthopnea and sometimes sleeps flat sometimes not but recently he has not been able to sleep laying flat. He denies any peripheral edema but does indicate that he takes Lasix for intermittent edema. Patient has no other complaints at this time. Patient denies any history of tobacco use. - History of Present Illness Allergies/Adverse Reactions: Allergies NO KNOWN ALLERGY Allergy (Verified 10/22/19 18:30) Home Medications: Ambulatory Orders NK 10/22/19 Review of Systems - Review of Systems Constitutional: Denies: chills, fever EENTM: States: no symptoms reported Respiratory: States: cough, short of breath. Denies: wheezing Cardiology: Denies: chest pain, palpitations, syncope Gastrointestinal/Abdominal: Denies: abdominal pain, diarrhea, nausea, vomiting Skin: States: no symptoms reported. Denies: rash Neurological: States: no symptoms reported Endocrine: States: no symptoms reported All other Systems: Reviewed and Negative Past Medical History (General) - Patient Medical History Hx Seizures: No Hx Stroke: No Hx Dementia: No Hx Asthma: No Hx of COPD: No Hx Cardiac Disorders: Yes - [place] Hx Congestive Heart Failure: - ??? Unsure of dx Hx Pacemaker: No Hx Hypertension: Yes Hx Thyroid Disease: No Hx Diabetes: No Hx Gastroesophageal Reflux: No Hx Renal Disease: No Hx Cancer: No Hx of HIV: No Hx Hepatitis C: No Hx MRSA: No Surgical History: coronary bypass surgery, tonsillectomy - Vaccination History Hx Tetanus, Diphtheria Vaccination: No Hx Influenza Vaccination: Yes Hx Pneumococcal Vaccination: Yes - Social History Hx Tobacco Use: Yes Hx Alcohol Use: No Hx Substance Use: No Hx Substance Use Treatment: No Hx Depression: No Hx Physical Abuse: No Hx Emotional Abuse: No - Female History Patient is a Female of Child Bearing Age (10 -59 yrs old): No Patient : No Family Medical History - Family History Son Family History: No Known Living Status: Still Living Hx Family Asthma: No Hx Family Congestive Heart Failure: No Hx Family Hypertension: Yes Hx Family Stroke: No Hx Cardiac Disease: Yes Hx Family Diabetes: No Hx Family Cancer: No Grandparents Family History: Unknown Name: Juan Day Age (years): 64 Living Status: Hx Family Asthma: No Hx Family Congestive Heart Failure: No Hx Family Hypertension: - doesn't know Hx Family Stroke: No Hx Cardiac Disease: Yes Hx Family Diabetes: No Hx Family Cancer: No Hx Family;Other: he did not want to talk about it Physical Exam - Physical Exam General Appearance: Alert, Comfortable, No apparent distress, Unkempt ENT Exam: normal ENT inspection Neck: supple, normal inspection Respiratory: chest non-tender, lungs clear, normal breath sounds, no respiratory distress, no accessory muscle use Cardiovascular/Chest: normal peripheral pulses, regular rate, rhythm, no edema, no gallop, no JVD, no murmur, other - Well-healed surgical midline scar Gastrointestinal/Abdominal: normal bowel sounds, non tender, no organomegaly Extremity: normal range of motion, non-tender, normal inspection, no pedal edema 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 10/22/19 19:48 EKG: Normal sinus rhythm rate of 63, prolonged GA, wide QRS, left axis deviation, LBBB B, ST and T wave changes consistent with LBBB. Negative STEMI. Read by Yan Peck MD. 10/22/19 20:09 Patient now has a caregiver in the room with him and she indicates that patient does indeed have a history of congestive heart failure. EMR reviewed and patient has been admitted here in the past for CHF exacerbation. Patient's BNP is elevated above his baseline but his chest x-ray is stable and shows no new findings, only known chronic issues. Patient is breathing more easily now and is comfortable and certainly speaking in complete sentences and I believe he is a good candidate for observation here for diuresis. Patient's d-dimer is slightly elevated but his d-dimer has been elevated in the past and given his known history of CHF clinically I do not suspect PE. Patient is comfortable and stable at this time. 10/22/19 20:13 Case discussed with Niranjan Latif MD, hospitalist, who accepts patient for admission. Departure - Departure Clinical Impression: Left bundle branch block (LBBB) Congestive heart failure Qualifiers: Heart failure type: unspecified Heart failure chronicity: acute Qualified Code(s): I50.9 - Heart failure, unspecified CKD (chronic kidney disease) Qualifiers: Chronic kidney disease stage: unspecified stage Qualified Code(s): N18.9 - Chronic kidney disease, unspecified Disposition: Admit Patient Condition: Fair Home Medications: Ambulatory Orders NK 10/22/19 Decision To Admit - Decistion To Admit Decision to Admit Reason: Admit from ER Decision to Admit Date: 10/22/19 Decision to Admit Time: 20:12
--- NOTE | 2019-10-22 19:12 | RAD ---
EXAM DESCRIPTION: Chest,1 View CLINICAL HISTORY: 89 years Male SOB COMPARISON: 07/13/2019, 01/11/2019 FINDINGS: Cardial enlargement with tortuous and ectatic appearance of the aorta. Increased density in the lateral right lung base which appears similar to previous studies based on patient rotation. Question persistent atelectasis or infiltrate. Findings may reflect rounded atelectasis. There is blunting of the costophrenic angle. Left lung appears clear. IMPRESSION: Chronic appearing pleural fluid on the right with rounded area consistent with rounded atelectasis or infiltrate seen on previous exams. Cardiac enlargement and tortuous aorta Electronically signed by: Rosalba Navarrete MD 10/22/2019 7:11 PM CDT
[2019-10-22] MEDS ORDERED: FUROSEMIDE INJ 40 MG/4 ML VIAL IV ONE (19:44)
--- NOTE | 2019-10-22 23:30 | CT ---
CLINICAL HISTORY: elevated DDimer COMPARISON: None. TECHNIQUE: CT CHEST ANGIOGRAPHY WITH IV CONTRAST on 10/22/2019 10:54 PM CDT. MIPS reconstructions were generated. This exam was performed according to our departmental dose-optimization program, which includes automated exposure control, adjustment of the mA and/or kV according to patient size and/or use of iterative reconstruction technique. MIP images were generated. 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 There is no convincing dissection. There is suggestion of a small filling defect in the posterior medial branch of the right lower lobe pulmonary artery. The heart is moderately enlarged following sternotomy, CABG and mitral valve replacement. There is no pericardial effusion. Intrathoracic lymph nodes are not enlarged. There is no pleural effusion, pleural thickening or pneumothorax. Central airways are patent. There is a rounded atelectasis throughout the right lower lobe and to lesser degree the right middle lobe. There are no acute abnormalities within the limited images of the upper abdomen. There are no acute osseous findings. No suspicious bony lesions. IMPRESSION: Small right lower lobe pulmonary embolus. Postoperative changes of the heart with mildly dilated mid ascending thoracic aorta. Electronically signed by: Kannan Sanz MD 10/22/2019 11:29 PM CDT
[2019-10-23] MEDS ORDERED: SODIUM CHLORIDE 0.9% (FLUSH) 10 ML SYG IV PRN (00:07)
[2019-10-23] MEDS ORDERED: ACETAMINOPHEN 325 MG TAB PO PRN (00:07)
[2019-10-23] MEDS ORDERED: SODIUM CHLORIDE 0.9% 1000ML 1,000 ML IVS PRN (00:13)
[2019-10-23] MEDS ORDERED: ENOXAPARIN SODIUM 100 MG/ML SYG SUBCU ONE (00:19)
[2019-10-23] MEDS ORDERED: IV SET AND CAP CHANGE INJ INJ SCH (00:30)
[2019-10-23] MEDS ORDERED: MAGNESIUM HYDROXIDE 30 ML UD PO PRN (07:22)
[2019-10-23] MEDS ORDERED: APIXABAN 5 MG TAB PO SCH ×2 (10:00→21:00)
[2019-10-23] MEDS ORDERED: ENOXAPARIN SODIUM 80 MG/0.8 ML SYG SUBCU SCH (10:00)
[2019-10-23] MEDS ORDERED: APIXABAN 5 MG TAB PO ONE (11:24)
--- NOTE | 2019-10-23 11:48 | US ---
EXAM DESCRIPTION: Venous,Lower Extremity LT (accession [id number]), Venous,Lower Extremity RT (accession [id number]): Ultrasound. CLINICAL HISTORY: CTA positive for PE COMPARISON: None Available. TECHNIQUE: Two -dimensional and doppler sonographic evaluation of the deep venous system of the bilateral lower extremities. FINDINGS: Doppler evaluation shows normal color flow and normal phasicity and augmentation of the bilateral common femoral veins, junctions with the bilateral proximal saphenous veins, femoral veins, popliteal veins, greater saphenous vein, peroneal and posterior tibial veins. These veins showed normal occlusion with transducer pressure. Two-dimensional survey showed no echogenic clot within these veins. IMPRESSION: Duplex ultrasound evaluation of the bilateral lower extremity deep venous systems showing no evidence of thrombosis. Electronically signed by: David Esquivel MD 10/23/2019 11:47 AM CDT
--- NOTE | 2019-10-23 11:48 | US ---
EXAM DESCRIPTION: Venous,Lower Extremity LT (accession [id number]), Venous,Lower Extremity RT (accession [id number]): Ultrasound. CLINICAL HISTORY: CTA positive for PE COMPARISON: None Available. TECHNIQUE: Two -dimensional and doppler sonographic evaluation of the deep venous system of the bilateral lower extremities. FINDINGS: Doppler evaluation shows normal color flow and normal phasicity and augmentation of the bilateral common femoral veins, junctions with the bilateral proximal saphenous veins, femoral veins, popliteal veins, greater saphenous vein, peroneal and posterior tibial veins. These veins showed normal occlusion with transducer pressure. Two-dimensional survey showed no echogenic clot within these veins. IMPRESSION: Duplex ultrasound evaluation of the bilateral lower extremity deep venous systems showing no evidence of thrombosis. Electronically signed by: David Esquivel MD 10/23/2019 11:47 AM CDT
[2019-10-23 14:55] VITALS: BP 161/92; TEMP 97; O2SAT 94
--- NOTE | 2019-10-30 13:37 | SSS ---
SUPERVISING PHYSICIAN: Philippe Mayer MD DATE OF ADMISSION: 10/22/19 DATE OF DISCHARGE: 10/23/19 DISCHARGE DIAGNOSIS: 1. Pulmonary embolism with elevated D-dimer on admission. 2. Congestive heart failure with questionable exacerbation. He has diastolic dysfunction with an ejection fraction of 45 to 50%. BNP on admission was 605. His chest x-ray showed chronic appearing pleural fluid, but no fluid overload. 3. Shortness of breath on admission. He had a negative troponin and O2 saturations were 92 to 97% on room air. 4. Acute on chronic renal insufficiency. His baseline creatinine is 1.2. Admitting creatinine was 1.57. 5. Hypertension. 6. Coronary artery disease. 7. Chronic obstructive pulmonary disease. HISTORY OF PRESENT ILLNESS: This is an 89-year-old male patient who presented to the Emergency Room with chief complaint of shortness of breath as well as some chest pain. The symptoms started about three days ago. They were not worse on the date of admission, but they had not improved. He does have chronic obstructive pulmonary disease and has a history of coronary artery bypass graft although he is not on a blood thinner. His cough is mostly dry, but occasionally productive with slightly pale green sputum. He does have questionable congestive heart failure and has not been able to sleep flat for several days. He does see Dr. Mc in [place]. He also takes Lasix for intermittent edema. His vital signs on admission showed temperature 98.4, heart rate 79, blood pressure 133/73, respiratory rate 30, O2 saturation 96% on room air. He was given several breathing treatments and his respiratory rate improved to 14. His CBC was unremarkable. INR was 1.08, but his D-dimer was elevated at 1,370. Chemistry was basically within normal limits. Troponin was less than 0.02 and BNP was 605. Chest x-ray showed chronic appearing pleural fluid on the right with rounded area consistent with rounded atelectasis or infiltrate seen on previous exam, cardiac enlargement and tortuous aorta. His chest/thorax CTA showed 1) Small right lower lobe pulmonary embolus. 2) Postoperative changes of the heart with mildly dilated ascending thoracic aorta. The patient was admitted for observation in stable condition. HOSPITAL COURSE: The patient was continued with Lovenox 1 mg/kg. He was then transitioned to Eliquis. We discussed at length with the patient that his need for continued anticoagulation for the pulmonary embolus. He said he has had a problem with some GI bleeds in the past on Xarelto and after discussing the risks versus rewards with the patient, it was felt that a low dose of Eliquis 2.5 mg b.i.d. would be preferable to the high dose of other anticoagulants and he agreed. He had no further complaints of any shortness of breath, nausea, vomiting or chest pain. He will be discharged home in stable condition. PAST MEDICAL HISTORY: 1. Hypertension. 2. Coronary artery disease. 3. Chronic obstructive pulmonary disease. 4. Questionable congestive heart failure with no current echocardiogram to review. 5. Benign prostatic hypertrophy. PAST SURGICAL HISTORY: 1. 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 HOME MEDICATIONS: 1. Furosemide. ALLERGIES: NO KNOWN DRUG ALLERGIES. He does have increased tendency for GI bleed with Xarelto. FAMILY HISTORY: Noncontributory. SOCIAL HISTORY: He quit smoking about 5 years ago. He has a 72-pack year history prior to that. He denies any ETOH or illicit drug use. He lives does live in [place] presently, but he has lived in [place] in the past. REVIEW OF SYSTEMS: GENERAL: Negative for fever, fatigue. HEENT: Negative for ear pain, vision changes or sore throat. RESPIRATORY: Positive for coughing and shortness of breath. Negative for wheezing. CARDIAC: Negative for chest pain, palpitations or tachycardia. GASTROINTESTINAL: Negative for nausea, vomiting, diarrhea, constipation. GENITOURINARY: Negative for hematuria, dysuria or polyuria. SKIN: Negative for lesions or rashes. NEUROLOGIC: Negative for headache, weakness or seizures. PHYSICAL EXAMINATION: VITAL SIGNS: Temperature 97. Heart rate 72. Blood pressure 161/92. Respiratory rate 20. O2 saturation 94% on room air. GENERAL: This is an 89-year-old male patient who is sitting up in his hospital bed. He is in no acute distress. HEENT: Normocephalic, atraumatic. Pupils are equal and reactive. Oropharynx is clear. NECK: Supple without mass. RESPIRATORY: Essentially clear to auscultation bilaterally. CHEST: Equal rise and fall of chest with inspiration and expiration. CARDIOVASCULAR: Regular rate and rhythm. GASTROINTESTINAL: Abdomen is soft, nondistended, nontender. Bowel sounds are positive. NEUROLOGIC: Awake, alert and oriented times three. LABORATORY: CBC is basically within normal limits. Electrolytes are within normal limits. BUN 29, creatinine 1.52 on discharge. Preliminary blood cultures show no growth. RADIOLOGY: His bilateral lower extremity ultrasound showed no evidence of DVT or thrombosis. His echocardiogram showed 1) Technically difficult study and not all regions of the heart including the valves are visualized well. 2) Normal left ventricular size and low normal left ventricular systolic function with an estimated ejection fraction of approximately 45% to 50%. Regional wall motion abnormalities cannot be excluded due to poor endocardial visualization. 3) Normal right ventricular size and function. 4) Mild left atrial enlargement. 5) Mitral valve not well visualized. The leaflets are calcified and restricted in movement. The gradients are not estimated and moderate mitral stenosis cannot be excluded. Recommend CHIARA for further evaluation. 6) Aortic valve is poorly seen. The valve leaflets are calcified and restricted in motion. The peak gradient estimated at 19 mmHg and mean gradient 11 mmHg. Mild to moderate aortic stenosis cannot be excluded. Mild to moderate aortic valve regurgitation. 7) Normal pericardium. 8) Agitated saline contrast did not suggest an intraatrial septal defect. 8) Mild mitral valve regurgitation. PLAN: The patient will be discharged home in stable condition. He is to continue his previous medications and to followup with Dr. Mc as soon as possible. It is recommended that he have a CHIARA at some point. He is to return to the hospital or call Dr. Mc' office for any problems or complications. We did discuss at length bleeding abnormalities in relation to his Eliquis. In addition to his home medications, he is to continue with his Eliquis 2.5 mg b.i.d. I have given him two weeks of Eliquis samples. DISCHARGE MEDICATIONS: 1. Furosemide. 2. Eliquis. #[id number] [id number]
== END 2019-10-23 15:13 | disposition home or self-care (01) ==
LOC: ER 18:22 → MS 20:56
PROVIDERS: ADMIT Nurse Practitioner Family; ATTEND Nurse Practitioner Acute Care
DX: I26.99 Other pulmonary embolism without acute cor pulmonale (principal); I13.0 Hypertensive heart and chronic kidney disease with heart failure and stage 1 through stage 4 chronic kidney disease, or unspecified chronic kidney disease; I50.30 Unspecified diastolic (congestive) heart failure; N18.9 Chronic kidney disease, unspecified; N17.9 Acute kidney failure, unspecified; I25.10 Atherosclerotic heart disease of native coronary artery without angina pectoris; J44.9 Chronic obstructive pulmonary disease, unspecified; I25.2 Old myocardial infarction; I44.7 Left bundle-branch block, unspecified; I35.1 Nonrheumatic aortic (valve) insufficiency; I34.0 Nonrheumatic mitral (valve) insufficiency; I36.1 Nonrheumatic tricuspid (valve) insufficiency; Z79.01 Long term (current) use of anticoagulants; Z79.899 Other long term (current) drug therapy; Z95.1 Presence of aortocoronary bypass graft; Z95.2 Presence of prosthetic heart valve; Z87.891 Personal history of nicotine dependence; Z82.49 Family history of ischemic heart disease and other diseases of the circulatory system
CPT/HCPCS: 96374; 96372; J1940; J7030; J1650; 85379; 80048 ×2; 80053; 36415 ×2; 85025; 87040; 83735; 85610; 84484; 83880; 83605; 71045; 71275; 93971 ×2; 94760; 94762; 99285; 93306; 93005; G0378

== ENCOUNTER 2019-10-30 12:19 | Inpatient (IN) | payer MEDICARE ==
[2019-10-30] MEDS ORDERED: SODIUM CHLORIDE 0.9% 1000ML 1,000 ML IVS ONE (12:36)
--- NOTE | 2019-10-30 12:37 | ED.PDOC ---
History of Present Illness - General Time Seen by Provider: 10/30/19 12:27 - History of Present Illness Initial Comments: 89 yo M PMH CABG and possible NH CHF PE on eloquis and lasix but did not take this am, poor historian presents to ED c/o SOB x [address] Mc. Denies fever chills nausea vomiting diarrhea chest pain diaphoresis. No change in diet rest bowel or bladder but pt reports constipation no other c/o today. Allergies/Adverse Reactions: Allergies NO KNOWN ALLERGY Allergy (Verified 10/30/19 12:48) Home Medications: Ambulatory Orders Furosemide [Lasix] 20 mg PO DAILY PRN 10/22/19 Apixaban [Eliquis] 2.5 mg PO BID 14 Days #28 tab 10/23/19 Review of Systems - Review of Systems Constitutional: States: see HPI EENTM: States: see HPI Respiratory: States: see HPI Cardiology: States: see HPI Gastrointestinal/Abdominal: States: see HPI Genitourinary: States: see HPI Musculoskeletal: States: see HPI Skin: States: see HPI Neurological: States: see HPI Endocrine: States: see HPI Hematologic/Lymphatic: States: see HPI All other Systems: Reviewed and Negative Past Medical History (General) - Patient Medical History Hx Seizures: No Hx Stroke: No Hx Dementia: No Hx Asthma: No Hx of COPD: No Hx Cardiac Disorders: Yes - NH Hx Congestive Heart Failure: Yes Hx Pacemaker: No Hx Hypertension: No Hx Thyroid Disease: No Hx Diabetes: No Hx Gastroesophageal Reflux: No Hx Renal Disease: No Hx Cancer: No Hx of HIV: No Hx Hepatitis C: No Hx MRSA: No - Vaccination History Hx Tetanus, Diphtheria Vaccination: No Hx Influenza Vaccination: Yes Hx Pneumococcal Vaccination: Yes - Social History Hx Tobacco Use: Yes Hx Alcohol Use: No Hx Substance Use: No Hx Substance Use Treatment: No Hx Depression: No Hx Physical Abuse: No Hx Emotional Abuse: No - Female History Patient : No Family Medical History - Family History Son Family History: No Known Living Status: Still Living Hx Family Asthma: No Hx Family Congestive Heart Failure: No Hx Family Hypertension: Yes Hx Family Stroke: No Hx Cardiac Disease: Yes Hx Family Diabetes: No Hx Family Cancer: No Grandparents Family History: Unknown Name: Martinezjesús Day Age (years): 64 Living Status: Hx Family Asthma: No Hx Family Congestive Heart Failure: No Hx Family Hypertension: - doesn't know Hx Family Stroke: No Hx Cardiac Disease: Yes Hx Family Diabetes: No Hx Family Cancer: No Hx Family;Other: he did not want to talk about it Physical Exam - Physical Exam General Appearance: No apparent distress Eye Exam: bilateral normal Ears, Nose, Throat: normal ENT inspection Neck: non-tender, full range of motion Respiratory: no respiratory distress Cardiovascular/Chest: regular rate, rhythm Gastrointestinal/Abdominal: non tender, soft Rectal Exam: deferred Back Exam: normal inspection Extremity: non-tender Neurologic: no motor/sensory deficits Skin Exam: normal color Progress - Progress Progress: 10/30/19 12:40 A/P-SOB, PE, Pneumonia-iv bolus ekg cxr ct angio chest cbc cmp lipase trop pt ptt contact and droplet precautions reassess Pt. assessed with full PPE gown face shield mask gloves 10/30/19 12:52 EKG-non specific TW changes LBBB old when compared to prior studies 10/30/19 14:22 Laboratory Tests 10/30/19 10/30/19 10/30/19 12:40 12:42 12:42 WBC 4.5 L RBC 4.48 L Hgb 13.3 L Hct 38.7 L MCV 86.4 MCH 29.7 MCHC 34.3 RDW 14.4 Plt Count 233 MPV 8.2 Absolute Neuts (auto) 2.70 Absolute Lymphs (auto) 0.90 L Absolute Monos (auto) 0.60 Absolute Eos (auto) 0.40 Absolute Basos (auto) 0.10 Neutrophils % 58.4 Lymphocytes % 20.2 Monocytes % 12.2 H Eosinophils % 8.0 H Basophils % 1.2 PT 10.4 INR 1.05 PTT (SP) 29.2 Sodium Potassium Chloride Carbon Dioxide Anion Gap BUN Creatinine BUN/Creatinine Ratio Random Glucose Serum Osmolality Lactic Acid Calcium Total Bilirubin AST ALT Alkaline Phosphatase Troponin I B-Natriuretic Peptide 283.0 H* Serum Total Protein Albumin Globulin Albumin/Globulin Ratio Lipase 10/30/19 10/30/19 10/30/19 12:42 12:42 12:42 WBC RBC Hgb Hct MCV MCH MCHC RDW Plt Count MPV Absolute Neuts (auto) Absolute Lymphs (auto) Absolute Monos (auto) Absolute Eos (auto) Absolute Basos (auto) Neutrophils % Lymphocytes % Monocytes % Eosinophils % Basophils % PT INR PTT (SP) Sodium 137 Potassium 4.1 Chloride 99 L Carbon Dioxide 28 Anion Gap 14.1 BUN 38 H Creatinine 1.58 H BUN/Creatinine Ratio 24.1 H Random Glucose 85 Serum Osmolality 282.1 Lactic Acid 0.8 Calcium 9.3 Total Bilirubin 0.5 AST 16 ALT 13 Alkaline Phosphatase 107 Troponin I < 0.02 B-Natriuretic Peptide Serum Total Protein 7.7 Albumin 4.1 Globulin 3.6 H Albumin/Globulin Ratio 1.1 Lipase 34 EXAM DESCRIPTION: Chest,1 View CLINICAL HISTORY: 89 years Male, SOB COMPARISON: Previous study October 22, 2019 TECHNIQUE: AP portable chest. FINDINGS: Heart size is large with normal pulmonary vascularity. Ectatic tortuous aorta. Sternotomy wires are present. Surgical clips in the left paracardiac region. Abnormal density in the right lower lung zone appears new or increased compared to previous study and could be a small mass 1.9 x 2.8 cm. Blunting of the right costophrenic angle may be pleural scarring or pleural effusion. Apical pleural thickening on the right. Right lung appears small compared the left. Patchy increased density in the right infrahilar region. Findings in the right lung base are new or worsened compared to previous study. Surgical clips in the mediastinum. No pneumothorax or left pleural effusion. Patient had a CT of the chest October 22, 2019 which showed masslike densities in the right middle lobe and right lower lobe with appearance suggesting progressive massive fibrosis or rounded atelectasis. Patient had an earlier CT abdomen which included a portion of the lower chest. Abnormal densities were present previously in the right middle lobe and right lower lobe with a similar appearance more than two years ago and therefore chronic process was thought most likely. The present x-ray findings likely relate to these abnormal densities seen on CT. Continued follow-up with chest x-ray recommended to rule out developing acute infiltrate. IMPRESSION: Abnormal densities in the right lung base. See above. Electronically signed by: Glen Hurd MD 10/30/2019 1:10 PM CDT 10/30/19 14:45 EXAM DESCRIPTION: CTA Chest CLINICAL HISTORY: 89 years Male, r/o PE TECHNIQUE: Volumetric CT angiographic data acquisition of the thorax was obtained using the pulmonary embolism protocol after administration of IV contrast. Standard axial and coronal and CT angiographic MIP sagittal and coronal images are submitted. This exam was performed according to our departmental dose- optimization program, which includes automated exposure control, adjustment of the mA and/or kV according to patient size and/or use of iterative reconstruction technique. COMPARISON: October 22, 2019 FINDINGS: The thyroid gland is unremarkable. No axillary adenopathy. Median sternotomy. Cardiomegaly. No pericardial effusion. No evidence of acute process in the visualized upper abdomen. No mediastinal adenopathy. Similar right lower lobe segmental pulmonary embolus burden no new pulmonary embolus. Chronic right pleural thickening. No pleural effusion. No pneumothorax. Long-term stability of the bilateral lower lobe rounded atelectasis. No new pulmonary nodule. Scattered multifocal tree-in-bud airspace disease. No acute or suspicious osseous abnormality. Scattered degenerative changes present. IMPRESSION: 1. Redemonstrated right lower lobe segmental nonocclusive pulmonary embolus. Similar clot burden. No new pulmonary embolus. 2. Scattered multifocal tree in bud airspace opacities, most likely infectious/inflammatory. Electronically signed by: Tye Jacobs MD 10/30/2019 2:37 PM CDT PE Pneumonia-zosyn vancomycin admit 10/30/19 14:50 10/30/19 15:26 Laboratory Tests 10/30/19 10/30/19 10/30/19 12:40 12:42 12:42 WBC 4.5 L RBC 4.48 L Hgb 13.3 L Hct 38.7 L MCV 86.4 MCH 29.7 MCHC 34.3 RDW 14.4 Plt Count 233 MPV 8.2 Absolute Neuts (auto) 2.70 Absolute Lymphs (auto) 0.90 L Absolute Monos (auto) 0.60 Absolute Eos (auto) 0.40 Absolute Basos (auto) 0.10 Neutrophils % 58.4 Lymphocytes % 20.2 Monocytes % 12.2 H Eosinophils % 8.0 H Basophils % 1.2 PT 10.4 INR 1.05 PTT (SP) 29.2 Sodium Potassium Chloride Carbon Dioxide Anion Gap BUN Creatinine BUN/Creatinine Ratio Random Glucose Serum Osmolality Lactic Acid Calcium Total Bilirubin AST ALT Alkaline Phosphatase Troponin I B-Natriuretic Peptide 283.0 H* Serum Total Protein Albumin Globulin Albumin/Globulin Ratio Lipase 10/30/19 10/30/19 10/30/19 12:42 12:42 12:42 WBC RBC Hgb Hct MCV MCH MCHC RDW Plt Count MPV Absolute Neuts (auto) Absolute Lymphs (auto) Absolute Monos (auto) Absolute Eos (auto) Absolute Basos (auto) Neutrophils % Lymphocytes % Monocytes % Eosinophils % Basophils % PT INR PTT (SP) Sodium 137 Potassium 4.1 Chloride 99 L Carbon Dioxide 28 Anion Gap 14.1 BUN 38 H Creatinine 1.58 H BUN/Creatinine Ratio 24.1 H Random Glucose 85 Serum Osmolality 282.1 Lactic Acid 0.8 Calcium 9.3 Total Bilirubin 0.5 AST 16 ALT 13 Alkaline Phosphatase 107 Troponin I < 0.02 B-Natriuretic Peptide Serum Total Protein 7.7 Albumin 4.1 Globulin 3.6 H Albumin/Globulin Ratio 1.1 Lipase 34 10/30/19 15:57 Laboratory Tests 10/30/19 10/30/19 10/30/19 12:40 12:42 12:42 WBC 4.5 L RBC 4.48 L Hgb 13.3 L Hct 38.7 L MCV 86.4 MCH 29.7 MCHC 34.3 RDW 14.4 Plt Count 233 MPV 8.2 Absolute Neuts (auto) 2.70 Absolute Lymphs (auto) 0.90 L Absolute Monos (auto) 0.60 Absolute Eos (auto) 0.40 Absolute Basos (auto) 0.10 Neutrophils % 58.4 Lymphocytes % 20.2 Monocytes % 12.2 H Eosinophils % 8.0 H Basophils % 1.2 PT 10.4 INR 1.05 PTT (SP) 29.2 Sodium Potassium Chloride Carbon Dioxide Anion Gap BUN Creatinine BUN/Creatinine Ratio Random Glucose Serum Osmolality Lactic Acid Calcium Total Bilirubin AST ALT Alkaline Phosphatase Troponin I B-Natriuretic Peptide 283.0 H* Serum Total Protein Albumin Globulin Albumin/Globulin Ratio Lipase 10/30/19 10/30/19 10/30/19 12:42 12:42 12:42 WBC RBC Hgb Hct MCV MCH MCHC RDW Plt Count MPV Absolute Neuts (auto) Absolute Lymphs (auto) Absolute Monos (auto) Absolute Eos (auto) Absolute Basos (auto) Neutrophils % Lymphocytes % Monocytes % Eosinophils % Basophils % PT INR PTT (SP) Sodium 137 Potassium 4.1 Chloride 99 L Carbon Dioxide 28 Anion Gap 14.1 BUN 38 H Creatinine 1.58 H BUN/Creatinine Ratio 24.1 H Random Glucose 85 Serum Osmolality 282.1 Lactic Acid 0.8 Calcium 9.3 Total Bilirubin 0.5 AST 16 ALT 13 Alkaline Phosphatase 107 Troponin I < 0.02 B-Natriuretic Peptide Serum Total Protein 7.7 Albumin 4.1 Globulin 3.6 H Albumin/Globulin Ratio 1.1 Lipase 34 10/30/19 16:18 Laboratory Tests 10/30/19 10/30/19 10/30/19 12:40 12:42 12:42 WBC 4.5 L RBC 4.48 L Hgb 13.3 L Hct 38.7 L MCV 86.4 MCH 29.7 MCHC 34.3 RDW 14.4 Plt Count 233 MPV 8.2 Absolute Neuts (auto) 2.70 Absolute Lymphs (auto) 0.90 L Absolute Monos (auto) 0.60 Absolute Eos (auto) 0.40 Absolute Basos (auto) 0.10 Neutrophils % 58.4 Lymphocytes % 20.2 Monocytes % 12.2 H Eosinophils % 8.0 H Basophils % 1.2 PT 10.4 INR 1.05 PTT (SP) 29.2 Sodium Potassium Chloride Carbon Dioxide Anion Gap BUN Creatinine BUN/Creatinine Ratio Random Glucose Serum Osmolality Lactic Acid Calcium Total Bilirubin AST ALT Alkaline Phosphatase Troponin I B-Natriuretic Peptide 283.0 H* Serum Total Protein Albumin Globulin Albumin/Globulin Ratio Lipase 10/30/19 10/30/19 10/30/19 12:42 12:42 12:42 WBC RBC Hgb Hct MCV MCH MCHC RDW Plt Count MPV Absolute Neuts (auto) Absolute Lymphs (auto) Absolute Monos (auto) Absolute Eos (auto) Absolute Basos (auto) Neutrophils % Lymphocytes % Monocytes % Eosinophils % Basophils % PT INR PTT (SP) Sodium 137 Potassium 4.1 Chloride 99 L Carbon Dioxide 28 Anion Gap 14.1 BUN 38 H Creatinine 1.58 H BUN/Creatinine Ratio 24.1 H Random Glucose 85 Serum Osmolality 282.1 Lactic Acid 0.8 Calcium 9.3 Total Bilirubin 0.5 AST 16 ALT 13 Alkaline Phosphatase 107 Troponin I < 0.02 B-Natriuretic Peptide Serum Total Protein 7.7 Albumin 4.1 Globulin 3.6 H Albumin/Globulin Ratio 1.1 Lipase 34 10/30/19 15:38 WBC RBC Hgb Hct MCV MCH MCHC RDW Plt Count MPV Absolute Neuts (auto) Absolute Lymphs (auto) Absolute Monos (auto) Absolute Eos (auto) Absolute Basos (auto) Neutrophils % Lymphocytes % Monocytes % Eosinophils % Basophils % PT INR PTT (SP) Sodium Potassium Chloride Carbon Dioxide Anion Gap BUN Creatinine BUN/Creatinine Ratio Random Glucose Serum Osmolality Lactic Acid Calcium Total Bilirubin AST ALT Alkaline Phosphatase Troponin I < 0.02 B-Natriuretic Peptide Serum Total Protein Albumin Globulin Albumin/Globulin Ratio Lipase 10/30/19 16:23 Admit Observation Jess Mckenzie Accepts Departure - Departure Clinical Impression: Pulmonary embolism Qualifiers: Pulmonary embolism type: other Chronicity: unspecified Acute cor pulmonale presence: unspecified Qualified Code(s): I26.99 - Other pulmonary embolism without acute cor pulmonale Pneumonia Qualifiers: Pneumonia type: due to unspecified organism Laterality: unspecified laterality Lung location: unspecified part of lung Qualified Code(s): J18.9 - Pneumonia, unspecified organism Disposition: Admit Patient Condition: Fair Referrals: MARY [facility] [Primary Care Provider] - 1-2 Days Home Medications: Ambulatory Orders Furosemide [Lasix] 20 mg PO DAILY PRN 10/22/19 Apixaban [Eliquis] 2.5 mg PO BID 14 Days #28 tab 10/23/19 Decision To Admit - Decistion To Admit Decision to Admit Reason: Admit from ER Decision to Admit Date: 10/30/19 Decision to Admit Time: 16:24 - Jess Mckenzie Accepts
--- NOTE | 2019-10-30 13:11 | RAD ---
EXAM DESCRIPTION: Chest,1 View CLINICAL HISTORY: 89 years Male, SOB COMPARISON: Previous study October 22, 2019 TECHNIQUE: AP portable chest. FINDINGS: Heart size is large with normal pulmonary vascularity. Ectatic tortuous aorta. Sternotomy wires are present. Surgical clips in the left paracardiac region. Abnormal density in the right lower lung zone appears new or increased compared to previous study and could be a small mass 1.9 x 2.8 cm. Blunting of the right costophrenic angle may be pleural scarring or pleural effusion. Apical pleural thickening on the right. Right lung appears small compared the left. Patchy increased density in the right infrahilar region. Findings in the right lung base are new or worsened compared to previous study. Surgical clips in the mediastinum. No pneumothorax or left pleural effusion. Patient had a CT of the chest October 22, 2019 which showed masslike densities in the right middle lobe and right lower lobe with appearance suggesting progressive massive fibrosis or rounded atelectasis. Patient had an earlier CT abdomen which included a portion of the lower chest. Abnormal densities were present previously in the right middle lobe and right lower lobe with a similar appearance more than two years ago and therefore chronic process was thought most likely. The present x-ray findings likely relate to these abnormal densities seen on CT. Continued follow-up with chest x-ray recommended to rule out developing acute infiltrate. IMPRESSION: Abnormal densities in the right lung base. See above. Electronically signed by: Glen Hurd MD 10/30/2019 1:10 PM CDT
[2019-10-30] MEDS ORDERED: PIPERACILLIN/TAZOBACTAM 3.375 GM in SODIUM CHLORIDE 0.9% 100ML 100 ML IVPB ONE (14:27)
--- NOTE | 2019-10-30 14:39 | CT ---
EXAM DESCRIPTION: CTA Chest CLINICAL HISTORY: 89 years Male, r/o PE TECHNIQUE: Volumetric CT angiographic data acquisition of the thorax was obtained using the pulmonary embolism protocol after administration of IV contrast. Standard axial and coronal and CT angiographic MIP sagittal and coronal images are submitted. This exam was performed according to our departmental dose-optimization program, which includes automated exposure control, adjustment of the mA and/or kV according to patient size and/or use of iterative reconstruction technique. COMPARISON: October 22, 2019 FINDINGS: The thyroid gland is unremarkable. No axillary adenopathy. Median sternotomy. Cardiomegaly. No pericardial effusion. No evidence of acute process in the visualized upper abdomen. No mediastinal adenopathy. Similar right lower lobe segmental pulmonary embolus burden no new pulmonary embolus. Chronic right pleural thickening. No pleural effusion. No pneumothorax. Long-term stability of the bilateral lower lobe rounded atelectasis. No new pulmonary nodule. Scattered multifocal tree-in-bud airspace disease. No acute or suspicious osseous abnormality. Scattered degenerative changes present. IMPRESSION: 1. Redemonstrated right lower lobe segmental nonocclusive pulmonary embolus. Similar clot burden. No new pulmonary embolus. 2. Scattered multifocal tree in bud airspace opacities, most likely infectious/inflammatory. Electronically signed by: Tye Jacobs MD 10/30/2019 2:37 PM CDT
[2019-10-30] MEDS ORDERED: SODIUM CHLORIDE 0.9% 100ML 100 ML IVPB ONE (14:41)
[2019-10-30] MEDS ORDERED: PIPERACILLIN/TAZOBACTAM 3.375 GM VIAL IVPB ONE (14:41)
[2019-10-30] MEDS ORDERED: VANCOMYCIN HCL INJ 1,000 MG in SODIUM CHLORIDE 0.9% 250ML 250 ML IVPB ONE (14:48)
[2019-10-30] MEDS ORDERED: VANCOMYCIN HCL INJ 1,000 MG VIAL IVPB ONE (15:55)
[2019-10-30] MEDS ORDERED: SODIUM CHLORIDE 0.9% 250ML 250 ML ONE ×3 (15:55→20:36)
--- NOTE | 2019-10-30 17:17 | HP ---
SUPERVISING PHYSICIAN: Ramsey Peck MD CHIEF COMPLAINT: Shortness of breath. HISTORY OF PRESENT ILLNESS: This is an 89-year-old male patient with a history of a coronary artery bypass graft, diastolic congestive heart failure and a recent treatment for pulmonary embolism who came into the Emergency Room due to shortness of breath times one week. He actually was in the hospital treated for pulmonary embolus last week. His symptoms resolved but he has progressively worsened over the last several days. He is actually on no home medications except Lasix and now he is on low-dose Eliquis. He does have a history of having bleeding problems on Xarelto it was decided at his hospital stay last week that he would go on the low-dose of Eliquis for safety reasons. His primary care physician is Dr. Mc in [place]. He has had no fever, chills, nausea or vomiting. He had an oxygen saturation on admission of 88% and after he was placed on oxygen his oxygen saturation went up into the low 90s. His temperature was 97.8, heart rate 64, blood pressure 167/111, respiratory rate 26, oxygen saturation 88 to 89% on room air. Lab studies were done and he had a WBC of 4,500 with a hemoglobin of 13.3 and hematocrit of 38.7. His electrolytes had a slightly low chloride at 99, BUN 38, creatinine 1.58. Based on creatinine it is about 1.2, he also had a slightly elevated BNP of 283, at his visit last week it was 605. His sugar enzymes were within normal limits. He had 2 negative serial troponin and his lactic acid was 0.8. Urinalysis was unremarkable. Chest x-ray showed abnormal densities in the right lung base that appeared new or increased compared to the previous study. It could be a mass of approximately 1.9 x 2.8 cm. Blunting of the right costophrenic angle may be pleural scarring or pleural effusion. Please see radiology report. Because he had a pulmonary embolus one week ago and has been on low-dose anticoagulant therapy, a CTA of the chest was done that showed a re-demonstrated right lower lobe segmental nonocclusive pulmonary embolus, similar clot burden, no new pulmonary; embolus, scattered multifocal tree in bud air space opacity, most likely infectious or inflammatory. He was given vancomycin and Zosyn in the Emergency Room as well as some judicious fluids and I was called for hospital admission. It should be noted that due to his shortness of breath, his age and diagnosis of an atypical pneumonia, influenza A and B per PCR was ordered as well as a COVID-19 testing and patient was admitted to the hospital in droplet isolation. PAST MEDICAL HISTORY: 1. Hypertension. 2. Coronary artery disease. 3. Chronic obstructive pulmonary disease. 4. Congestive heart failure with an ejection fraction of 35 to 55% on recent echocardiogram from one week ago. 5. Benign prostatic hypertrophy. 6. Recent treatment for right pulmonary embolism. PAST SURGICAL HISTORY: 1. 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 CURRENT MEDICATIONS: 1. Furosemide. 2. Eliquis. ALLERGIES: No known drug allergies, although he does have an adverse affect to Xarelto that includes GI bleed. FAMILY HISTORY: Noncontributory. SOCIAL HISTORY: He quit smoking about 5 years ago. He had a 72-pack year history prior to that. He denies any ETOH or illicit drug use. He does live in [place] presently, but he has lived in [place] in the past. His primary care physician is Dr. David Mc in [place]. REVIEW OF SYSTEMS: GENERAL: Negative for fever, fatigue or weight changes. HEENT: Negative for ear pain, vision changes or sore throat, sinus symptoms. RESPIRATORY: As per history of present illness. Negative for wheezing. . CARDIAC: Negative for chest pain, palpitations or tachycardia. GASTROINTESTINAL: Negative for nausea, vomiting, diarrhea, constipation. GENITOURINARY: Negative for hematuria, dysuria or polyuria. SKIN: Negative for lesions or rashes. NEUROLOGIC: Negative for headache, weakness or seizures. PHYSICAL EXAMINATION: VITAL SIGNS: Temperature 98.3, heart rate 57, blood pressure 137/82, respiratory rate 18, oxygen saturation 98% on 2 liters nasal cannula. GENERAL: This is an 89 year-old male patient who is lying in his hospital bed. He is in no acute distress. HEENT: Normocephalic and atraumatic. Pupils are equal and reactive. Oropharynx is clear. NECK: Supple without mass. RESPIRATORY: Somewhat diminished at the bases, especially on the right lung base, there are a few scattered rhonchi throughout but no wheezes or crackles. CHEST: There is equal rise and fall of the chest with inspiration and expiration. CARDIOVASCULAR: Regular rate and rhythm. ABDOMEN: Soft, nondistended, non-tender. Bowel sounds are positive. NEUROLOGIC: He is awake, alert, and oriented x3. Cranial nerves II through XII are grossly intact as tested. Labs and films are as per the history of present illness. ASSESSMENT: 1. Sepsis related to right lower lobe pneumonia, most likely community acquired with an admitting oxygen saturation of 88% on room air with a respiratory rate at 26. He had shortness of breath and he had a recent treatment of cor pulmonary embolism. 2. Recent treatment for pulmonary embolus presently on low-dose Eliquis although he did miss several doses in the last day or so due to just feeling poorly. 3. Acute on chronic renal insufficiency with a baseline creatinine of 1.2. His admitting creatinine was 1.58. 4. Congestive heart failure with a diastolic etiology. He recently had an echocardiogram in October of 2019 his ejection fraction was 45 to 50%. 5, Hypertension presently on no medications. 6. Coronary artery disease. 7. Chronic obstructive pulmonary disease with mild exacerbation. PLAN: The patient has been admitted to the hospital, Again, given his age as well as his pneumonia diagnoses as well as shortness of breath, he will be tested for COVID-19 and pneumonia guidelines have been initiated. He will have scheduled and p.r.n. MVI albuterol. I have initiated azithromycin and Rocephin. We will monitor closely cultures as they become available. He will be continued on Eliquis for his pulmonary embolus, although he may need an extra dose of Lovenox if his symptoms do not resolve. I will give him some gentle fluids overnight and hopefully his renal function will improve. I have restarted his home medications including his Eliquis as well as his Lasix. We may need to add a low-dose of a beta melonie or an sharonda inhibitor due to his mild congestive heart failure and his slightly elevated blood pressure. I have ordered a PPI for ulcer prophylaxis, Eliquis should be sufficient for his DVT prophylaxis. We will monitor him closely and follow as needed. [facility][id number] [facility]
[2019-10-30] MEDS ORDERED: SODIUM CHLORIDE 0.9% (FLUSH) 10 ML SYG IV PRN (18:27)
[2019-10-30] MEDS ORDERED: ACETAMINOPHEN SUPPOSITORY 650 MG PR PRN (18:27)
[2019-10-30] MEDS ORDERED: IV SET AND CAP CHANGE INJ INJ SCH (18:30)
[2019-10-30] MEDS ORDERED: ALBUTEROL INHALER 64 PUFF/8GM INH PRN (19:04)
[2019-10-30] MEDS ORDERED: SODIUM CHL 0.9% 50ML MIN-BAG+ 50 ML IVPB ONE ×2 (20:22→20:34)
[2019-10-30] MEDS ORDERED: cefTRIAXone SODIUM 1 GM VIAL ONE ×2 (20:22→20:36)
[2019-10-30] MEDS ORDERED: AZITHROMYCIN IV 500 MG VIAL IVPB ONE ×2 (20:23→20:34)
[2019-10-30] MEDS: cefTRIAXone SODIUM 1 GM in SODIUM CHL 0.9% 50ML MIN-BAG+ 50 ML IVPB SCH (20:39)
[2019-10-30] MEDS: APIXABAN 5 MG TAB PO SCH (20:41)
[2019-10-30] MEDS: SODIUM CHLORIDE 0.9% (FLUSH) 10 ML SYG IV SCH (20:41)
[2019-10-30] MEDS: ALBUTEROL INHALER 64 PUFF/8GM INH SCH (21:00)
[2019-10-30] MEDS: AZITHROMYCIN IV 500 MG in SODIUM CHLORIDE 0.9% 250ML 250 ML IVPB SCH (21:02)
[2019-10-31] MEDS: PANTOPRAZOLE SODIUM IV 40 MG VIAL IV SCH (06:23)
[2019-10-31] MEDS: ALBUTEROL INHALER 64 PUFF/8GM INH SCH ×4 (08:55→20:00)
[2019-10-31] MEDS ORDERED: FUROSEMIDE INJ 20 MG/2 ML VIAL IV ONE (09:37)
--- NOTE | 2019-10-31 09:37 | RAD ---
PROCEDURE: XR Chest, 1 View CLINICAL INDICATION: The patient is 89 years old and is Male; Pneumonia MAIN TECHNIQUE: Frontal view of the chest. COMPARISON: Comparison is made to the prior radiograph from one day earlier. CT from one day earlier as well. FINDINGS: LIMITATIONS: The patient's chin overlies the lung apices causing partial obscuration. LUNGS: See above. PLEURAL SPACE: Worsening patchy opacity at the RIGHT lung base with increased small RIGHT pleural effusion. HEART: The heart size is enlarged. MEDIASTINUM: The mediastinal contour is normal. BONES/JOINTS: There are median sternotomy wires identified in the midline attesting to prior cardiac surgery. High riding RIGHT humeral head suggests rotator cuff chronic pathology. VASCULATURE: The aorta is uncoiled. IMPRESSION: Worsening patchy opacity at the RIGHT lung base with increased small RIGHT pleural effusion. This could be related to pulmonary infarct. Electronically signed by: Raul Saavedra MD 10/31/2019 9:36 AM CDT
[2019-10-31] MEDS: SODIUM CHLORIDE 0.9% (FLUSH) 10 ML SYG IV SCH ×2 (10:10→20:36)
[2019-10-31] MEDS: APIXABAN 5 MG TAB PO SCH ×2 (10:11→20:35)
[2019-10-31] MEDS ORDERED: AZITHROMYCIN IV 500 MG VIAL IVPB ONE (17:29)
[2019-10-31] MEDS ORDERED: SODIUM CHLORIDE 0.9% 250ML 250 ML ONE (17:29)
[2019-10-31] MEDS: AZITHROMYCIN IV 500 MG in SODIUM CHLORIDE 0.9% 250ML 250 ML IVPB SCH (17:51)
[2019-10-31] MEDS ORDERED: SODIUM CHL 0.9% 50ML MIN-BAG+ 50 ML IVPB ONE (18:54)
[2019-10-31] MEDS ORDERED: cefTRIAXone SODIUM 1 GM VIAL ONE (18:54)
[2019-10-31] MEDS: cefTRIAXone SODIUM 1 GM in SODIUM CHL 0.9% 50ML MIN-BAG+ 50 ML IVPB SCH (19:38)
[2019-10-31] MEDS ORDERED: CARBOXYMETHYLCELLULOSE 0.5% OPHTH SOL 0.4 ML UD BOTH_EYES PRN (19:41)
[2019-11-01] MEDS: PANTOPRAZOLE SODIUM IV 40 MG VIAL IV SCH (06:34)
--- NOTE | 2019-11-01 06:45 | RAD ---
Chest one view on 11/01/2019 CLINICAL INDICATION: Pneumonia COMPARISON: 10/31/2019 FINDINGS: The patient is status post median sternotomy and valve replacement. There is a small right pleural effusion. There is stable adjacent right basilar atelectasis. There is minimal linear atelectasis or scarring in left lung base. Vascular calcification is noted in the aorta. Heart is within normal limits for size. There is stable right apical scarring. IMPRESSION: No significant change in the appearance of the chest. Electronically signed by: Luis Vázquez 11/01/2019 6:41 AM CDT
[2019-11-01] MEDS: ALBUTEROL INHALER 64 PUFF/8GM INH SCH ×4 (08:00→20:00)
[2019-11-01] MEDS: APIXABAN 5 MG TAB PO SCH ×2 (09:31→20:47)
[2019-11-01] MEDS: SODIUM CHLORIDE 0.9% (FLUSH) 10 ML SYG IV SCH ×2 (09:32→20:48)
[2019-11-01] MEDS ORDERED: FUROSEMIDE INJ 20 MG/2 ML VIAL IV ONE (09:36)
--- NOTE | 2019-11-01 12:02 | PN ---
SUPERVISING PHYSICIAN: Ramsey Peck MD DATE: 10/31/19 SUBJECTIVE: The patient is sitting up in bed. He feels much improved since he was admitted. He denies any chest pain, nausea or vomiting. He does get somewhat short of breath with exertion but it has improved. OBJECTIVE: VITAL SIGNS: Temperature 97.7, heart rate 58, blood pressure 138/81, respiratory rate 18, oxygen saturation 98% on 2 liters nasal cannula. RESPIRATORY: Diminished at the bases with slightly distant breath sounds. CARDIAC: Regular rate and rhythm. GI: Abdomen soft, nondistended, non-tender. Bowel sounds are positive. NEUROLOGIC: He is awake, alert, and oriented x3. LABORATORY: CBC is unremarkable. Electrolytes are within normal limits. BUN 32, creatinine has improved to 1.34. Preliminary blood cultures show no growth. Chest x-ray shows worsening patchy opacity of the right lung base with increased small right pleural effusion. This could be related to a pulmonary infarct. We are still awaiting the COVID-19 results. All other labs and films have been reviewed via the EMR. ASSESSMENT: 1. Sepsis related to right lower lobe pneumonia, most likely community acquired with an admitting oxygen saturation of 88% on room air with a respiratory rate at 26. He had shortness of breath and he had a recent treatment of cor pulmonary embolism. 2. Recent treatment for pulmonary embolus presently on low-dose Eliquis although he did miss several doses in the last day or so due to just feeling poorly. 3. Acute on chronic renal insufficiency with a baseline creatinine of 1.2. His admitting creatinine was 1.58. 4. Congestive heart failure with a diastolic etiology. He recently had an echocardiogram in October of 2019 his ejection fraction was 45 to 50%. 5, Hypertension presently on no medications. 6. Coronary artery disease. 7. Chronic obstructive pulmonary disease with mild exacerbation. PLAN: We will continue supportive care including aggressive pulmonary hygiene and antibiotics. We are still awaiting his COVID-19 results. Those should be back within the next 24 to 48 hours. He will continue on Eliquis and we again discussed his diligence on watching for any GI bleeding including examining his stool. I will hold on any lab for tomorrow as his present lab is fairly stable. We will continue to monitor him closely and follow as needed. I have added an sharonda inhibitor at a very low dose and will reevaluate the need for a beta melonie tomorrow. His heart rate is on the low side so will weigh the risks versus rewards on adding additional medication. We will continue to monitor him closely and follow as needed. [id number] [facility]ITAL[facility]
--- NOTE | 2019-11-01 15:06 | PN ---
SUPERVISING PHYSICIAN: Ramsey Peck MD DATE: 11/01/19 SUBJECTIVE: The patient is sitting up in bed watching television. His oxygen is off, he feels much better. He has no complaints of shortness of breath, chest pain, nausea or vomiting.. OBJECTIVE: VITAL SIGNS: Temperature 98.2, heart rate 53, blood pressure 115/72, respiratory rate 18, oxygen saturation 97% on room air. . RESPIRATORY: Slightly diminished at the bases with but otherwise clear to auscultation. CARDIAC: Regular rate and rhythm. At times, he is slightly bradycardiac. GI: Abdomen soft, nondistended, non-tender. Bowel sounds are positive. NEUROLOGIC: He is awake, alert, and oriented x3. LABORATORY: There are no labs to report. Chest x-ray shows no significant change in the appearance of the chest. All other labs and films have been reviewed via the EMR. ASSESSMENT: 1. Sepsis related to right lower lobe pneumonia, most likely community acquired with an admitting oxygen saturation of 88% on room air with a respiratory rate at 26. He had shortness of breath and he had a recent treatment of cor pulmonary embolism. 2. Recent treatment for pulmonary embolus presently on low-dose Eliquis although he did miss several doses in the last day or so due to just feeling poorly. 3. Acute on chronic renal insufficiency with a baseline creatinine of 1.2. His admitting creatinine was 1.58. 4. Congestive heart failure with a diastolic etiology. He recently had an echocardiogram in October of 2019 his ejection fraction was 45 to 50%. 5, Hypertension presently on no medications. 6. Coronary artery disease. 7. Chronic obstructive pulmonary disease with mild exacerbation. 8. The patient is high risk for COVID-19, awaiting COVID-19 results. PLAN: We will continue present supportive care including aggressive pulmonary hygiene and his antibiotic therapy. We will monitor cultures as they become available as well as the COVID-19 results. I have ordered lab, chest x-ray and a dose of IV Lasix today. I have started his p.o. Lasix tomorrow and we will continue to monitor him closely and follow as needed. #[id number] [facility]
[2019-11-01] MEDS ORDERED: AZITHROMYCIN IV 500 MG VIAL IVPB ONE (17:03)
[2019-11-01] MEDS ORDERED: SODIUM CHLORIDE 0.9% 250ML 250 ML ONE (17:03)
[2019-11-01] MEDS: AZITHROMYCIN IV 500 MG in SODIUM CHLORIDE 0.9% 250ML 250 ML IVPB SCH (18:02)
[2019-11-01] MEDS ORDERED: cefTRIAXone SODIUM 1 GM VIAL ONE (20:07)
[2019-11-01] MEDS ORDERED: SODIUM CHL 0.9% 50ML MIN-BAG+ 50 ML IVPB ONE (20:07)
[2019-11-01] MEDS: cefTRIAXone SODIUM 1 GM in SODIUM CHL 0.9% 50ML MIN-BAG+ 50 ML IVPB SCH (20:13)
[2019-11-02 06:22] VITALS: O2SAT 97
[2019-11-02] MEDS: PANTOPRAZOLE SODIUM IV 40 MG VIAL IV SCH (06:30)
--- NOTE | 2019-11-02 07:38 | RAD ---
EXAM DESCRIPTION: Chest,1 View CLINICAL HISTORY: pna COMPARISON: November 01, 2019 FINDINGS: Again seen are postoperative changes in the mediastinum. Airspace consolidation in the right lung base with a small right-sided pleural effusion, stable. No new airspace consolidation. No left-sided effusion. The lungs are hyperinflated. There is no pneumothorax or acute fracture. IMPRESSION: Right basilar pneumonia with a tiny right-sided effusion, stable. No new abnormality. Probable COPD. Electronically signed by: Jagdeep Sheikh MD 11/02/2019 7:36 AM CDT
[2019-11-02] MEDS: ALBUTEROL INHALER 64 PUFF/8GM INH SCH ×2 (08:00→12:45)
[2019-11-02] MEDS: APIXABAN 5 MG TAB PO SCH (08:41)
[2019-11-02] MEDS: SODIUM CHLORIDE 0.9% (FLUSH) 10 ML SYG IV SCH (08:41)
[2019-11-02] MEDS ORDERED: FUROSEMIDE 40 MG TAB PO SCH (09:00)
[2019-11-02 09:37] VITALS: BP 116/75; TEMP 99.2
--- NOTE | 2019-11-03 09:09 | DS ---
SUPERVISING PHYSICIAN: Lane Laureano MD ADMISSION DIAGNOSIS: 1. Sepsis related to right lower lobe pneumonia, most likely community acquired with an admitting oxygen saturation of 88% on room air with a respiratory rate at 26. He had shortness of breath and he had a recent treatment of cor pulmonary embolism. 2. Recent treatment for pulmonary embolus presently on low-dose Eliquis although he did miss several doses in the last day or so due to just feeling poorly. 3. Acute on chronic renal insufficiency with a baseline creatinine of 1.2. His admitting creatinine was 1.58. 4. Congestive heart failure with a diastolic etiology. He recently had an echocardiogram in October of 2019 his ejection fraction was 45 to 50%. 5, Hypertension presently on no medications. 6. Coronary artery disease. 7. Chronic obstructive pulmonary disease with mild exacerbation. DISCHARGE DIAGNOSIS: 1. Sepsis due toto right lower lobe pneumonia, community acquired. 2. Chronic obstructive pulmonary disease with exacerbation, secondary to #1. 3. History of pulmonary embolism, recently treated, currently on low-dose Eliquis. 4. Chronic renal insufficiency, back to baseline levels. 5. Congestive heart failure with a diastolic etiology with last echocardiogram in October of 2019 with ejection fraction 45 to 50%. 6. Hypertension, stable. 7. Coronary artery disease. REASON FOR HOSPITALIZATION: This is an 89-year-old male patient with a history of a coronary artery bypass graft, diastolic congestive heart failure and a recent treatment for pulmonary embolism who came into the Emergency Room due to shortness of breath times one week. He actually was in the hospital treated for pulmonary embolus last week. His symptoms resolved but he has progressively worsened over the last several days. He is actually on no home medications except Lasix and now he is on low-dose Eliquis. He does have a history of having bleeding problems on Xarelto it was decided at his hospital stay last week that he would go on the low-dose of Eliquis for safety reasons. His primary care physician is Dr. Mc in [place]. He has had no fever, chills, nausea or vomiting. He had an oxygen saturation on admission of 88% and after he was placed on oxygen his oxygen saturation went up into the low 90s. His temperature was 97.8, heart rate 64, blood pressure 167/111, respiratory rate 26, oxygen saturation 88 to 89% on room air. Lab studies were done and he had a WBC of 4,500 with a hemoglobin of 13.3 and hematocrit of 38.7. His electrolytes had a slightly low chloride at 99, BUN 38, creatinine 1.58. Based on creatinine it is about 1.2, he also had a slightly elevated BNP of 283, at his visit last week it was 605. His sugar enzymes were within normal limits. He had 2 negative serial troponin and his lactic acid was 0.8. Urinalysis was unremarkable. Chest x-ray showed abnormal densities in the right lung base that appeared new or increased compared to the previous study. It could be a mass of approximately 1.9 x 2.8 cm. Blunting of the right costophrenic angle may be pleural scarring or pleural effusion. Please see radiology report. Because he had a pulmonary embolus one week ago and has been on low-dose anticoagulant therapy, a CTA of the chest was done that showed a re-demonstrated right lower lobe segmental nonocclusive pulmonary embolus, similar clot burden, no new pulmonary; embolus, scattered multifocal tree in bud air space opacity, most likely infectious or inflammatory. He was given vancomycin and Zosyn in the Emergency Room as well as some judicious fluids and I was called for hospital admission. It should be noted that due to his shortness of breath, his age and diagnosis of an atypical pneumonia, influenza A and B per PCR was ordered as well as a COVID-19 testing and patient was admitted to the hospital in droplet isolation. LABORATORY: White count on discharge was 3,900, hemoglobin 12.9, hematocrit 37.5, differential was without a left shift. Platelet count was within normal limits. Coagulation studies showed normal PT, PTT. Chemistries showed normal electrolytes with BUN 28, creatinine 1.29. Liver functions all within normal limits. Urinalysis was within normal limits. MICROBIOLOGY: Blood cultures showed no growth after 3 days. Influenza A and B by PCR was negative. RADIOLOGY: His final chest x-ray prior to discharge on 11/02/19 showed right basilar pneumonia with tiny right sided effusion. No new abnormalities. He did have a CTA of the chest and thorax on 10/30/19 prior to admission which re- demonstrated right lower lobe segment nonocclusive pulmonary embolus. Similar clot burden. No new pulmonary embolus. Scattered multifocal tree-in-bud airspace opacities, most likely infectious versus inflammatory. Please see those reports for details. HOSPITAL COURSE: Mr. Day was admitted for exacerbation of chronic obstructive pulmonary disease with right lower lobe pneumonia and further treatment of his pulmonary embolus. He was started on antibiotics with Rocephin and azithromycin. He showed good response to treatment. Vital signs were stable. Temperature on discharge was 99.2, pulse 57, blood pressure 116/75, respiratory rate 16, saturation 97% on room air. PHYSICAL ASSESSMENT: GENERAL: The patient was in no acute distress. He is alert. CHEST: Lung sounds fairly clear, just diminished towards the bases. HEART: Regular rate and rhythm. ABDOMEN: Soft, nontender, positive bowel sounds. NEUROLOGIC: He was alert and oriented x3. PLAN: Mr. Day was discharged on 11/02/[address] Mc as previously scheduled per previous hospitalization due to the pulmonary embolus. He was continued on antibiotics to include azithromycin and Omnicef. He was to resume his usual diet. He was encourage to increase activity as tolerated. He was told to return to the Emergency Department as needed. MEDICATIONS PRESCRIBED ON DISCHARGE: 1. Zithromax 500 mg daily for 3 days. 2. Cefdinir 300 mg twice daily, #14. All other medications prior to hospitalization were continued including Eliquis. CONDITION ON DISCHARGE: Stable and improved. DISPOSITION: The patient was discharged home. #[id number] [facility]
== END 2019-11-02 12:55 | disposition home or self-care (01) | DRG 871 ==
LOC: ER 12:19 → MS 17:15 → UNDOADMOB 17:15 → MS 19:33 → OBSVTOIN 19:33 → MS 11-02 00:09
PROVIDERS: ADMIT Nurse Practitioner Acute Care; ATTEND Nurse Practitioner Family
PROC: B32T1ZZ Computerized Tomography (CT Scan) of Left Pulmonary Artery using Low Osmolar Contrast (ICD-10-PCS; principal; 2019-10-30)
PROC: B32S1ZZ Computerized Tomography (CT Scan) of Right Pulmonary Artery using Low Osmolar Contrast (ICD-10-PCS; 2019-10-30)
DX: A41.9 Sepsis, unspecified organism (principal); J18.9 Pneumonia, unspecified organism; J44.0 Chronic obstructive pulmonary disease with (acute) lower respiratory infection; J44.1 Chronic obstructive pulmonary disease with (acute) exacerbation; I50.32 Chronic diastolic (congestive) heart failure; I13.0 Hypertensive heart and chronic kidney disease with heart failure and stage 1 through stage 4 chronic kidney disease, or unspecified chronic kidney disease; I26.99 Other pulmonary embolism without acute cor pulmonale; N18.9 Chronic kidney disease, unspecified; I25.10 Atherosclerotic heart disease of native coronary artery without angina pectoris; Z95.1 Presence of aortocoronary bypass graft; N40.0 Benign prostatic hyperplasia without lower urinary tract symptoms; Z79.01 Long term (current) use of anticoagulants; Z79.899 Other long term (current) drug therapy; Z87.891 Personal history of nicotine dependence

== ENCOUNTER 2019-12-04 22:29 | Inpatient (IN) | payer MEDICARE ==
[2019-12-04] MEDS ORDERED: IPRATROPIUM/ALBUTEROL 3 ML VIAL NEB ONE (22:47)
--- NOTE | 2019-12-04 23:28 | CT ---
EXAM DESCRIPTION: Head CLINICAL HISTORY: 89 years Male LLE weakness 3 days COMPARISON: None Technique: Contiguous axial images of the brain were obtained without the administration of intravenous contrast.This exam was performed according to our departmental dose-optimization program which includes use of Automated Exposure Control, adjustment of the mA and/or kV according to patient size and/or use of iterative reconstruction technique. DLP: 967 mGy*cm FINDINGS: Brain: No acute intracranial hemorrhage. No extra-axial collection. No mass effect or herniation. Small rounded right thalamic hypodensity. Confluent hypodensity in the left subinsular region. Diffuse prominence of the sulci and cisterns. Advanced confluent periventricular and subcortical white matter hypodensity is noted. Intracranial arterial calcifications. Ventricles: Allowing for underlying cerebral volume loss, ventricular size appears within normal limits. Globes and orbits: Prior cataract surgery. No acute abnormality. Bones: No acute osseous finding Paranasal sinuses: Paranasal sinuses are clear. Mastoid air cells: Well pneumatized. Soft tissues: Within normal limits IMPRESSION: No acute intracranial hemorrhage, hydrocephalus or herniation. Cerebral volume loss, advanced chronic small vessel ischemic changes and multifocal prior infarcts. If persistent clinical concern for acute ischemia, consider MRI brain without contrast for further evaluation. Electronically signed by: Win Munoz DO 12/04/2019 11:27 PM CDT
--- NOTE | 2019-12-04 23:48 | CT ---
PROCEDURE: Abdoment/Pelvis w/o Contrast (accession [id number]), Chest w/o Contrast (accession [id number]) CLINICAL HISTORY: 89 years Male fall with pain to left lower lat ribs and abd COMPARISON: CT chest study from 10/30/[address] abdomen and pelvis study from 02/12/2018. TECHNIQUE: Contiguous axial images obtained through the chest, abdomen and pelvis without IV contrast. Reformatted images obtained. This exam was performed according to our department optimization program which includes automated exposure control, adjustment of the mA and/or kv according to patient size and/or use of iterative reconstruction technique. FINDINGS: The mediastinum appears unremarkable. There are changes from previous sternotomy and aortic valve replacement. Coronary artery calcifications. Mild cardiomegaly. There are atherosclerotic calcifications and tortuosity in the thoracic aorta. There is dilatation of the ascending thoracic aorta to 4.4 cm which was similar on the prior study. There is dilatation of the descending thoracic aorta to 3.5 cm which was similar on the prior study. Emphysematous changes in the lungs. There is scarring/atelectasis at the lung bases. There is consolidating infiltrate in the dependent right lower lung with a small right pleural effusion. These findings are all similar in appearance compared to the prior studies. No pneumothorax. The liver appears unremarkable. The spleen and pancreas appear unremarkable. No adrenal masses. There are small bilateral renal cysts appears similar. No hydronephrosis or ureteral calculi. The gallbladder is visualized. Atherosclerotic calcifications. There is dilatation of the infrarenal abdominal aorta measuring 2.8 cm. 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 The appearance of these findings is similar compared to the prior study. No bowel obstruction. There is sigmoid diverticulosis. There is wall thickening in the proximal to mid sigmoid colon with marked surrounding inflammatory changes. The findings are likely secondary to diverticulitis. Stranding is also visualized in the perirectal and presacral fatty tissues which may be from inflammatory change related to diverticulitis. There is likely a small amount of free fluid in the pelvis. The prostate gland is enlarged. There is a small fat-containing ventral abdominal wall hernia slightly to the right of midline. This appears similar compared to the previous study. Degenerative changes in the spine. No definite acute osseous abnormality. IMPRESSION: Chronic consolidation and small pleural effusion in the right lower lung. The appearance is similar compared to the prior studies. There is dilatation of the ascending thoracic aorta to 4.4 cm and the descending thoracic aorta to 3.5 cm. These findings are similar compared to the prior study. 2.8 cm abdominal aortic aneurysm which is similar compared to the prior study. Recommend follow-up every 5 years. Reference: J Am Francheska Radiol 2013;10:789-794. 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 This is stable compared to the prior study. Sigmoid diverticulitis. Other findings as above. Electronically signed by: Reza Navarrete MD 12/04/2019 11:47 PM CDT
[2019-12-04] MEDS ORDERED: HYDROcodone 7.5MG/APAP 325MG 1 EA TAB PO ONE (23:59)
[2019-12-04] MEDS ORDERED: metroNIDAZOLE IV PREMIX 500MG 500 MG in PREMIX BAG 1 BAG IVPB ONE (23:59)
[2019-12-04] MEDS ORDERED: levoFLOXacin 500MG IV 500 MG in PREMIX BAG 1 BAG IVPB ONE (23:59)
--- NOTE | 2019-12-05 00:22 | ED.PDOC ---
History of Present Illness - General Chief Complaint: Trauma Stated Complaint: fall, hx diarrhea Time Seen by Provider: 12/04/19 22:37 Source: patient Exam Limitations: no limitations - History of Present Illness Initial Comments: The patient is a 89-year-old male presented emergency room after having fallen again tonight, this time hitting the left side of his rib cage on the edge of the bathtub. The patient reports that for the last 3 days he has had some significant discoordination or instability of gait with the left lower extremity. Strength grossly appears to be preserved. Sense of positioning appears to be a little bit disturbed. No obvious sensation to touch changes. While lying in bed he moves the leg well. 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 The patient apparently ran out of his Eliquis a couple of days ago. He is on Eliquis for a recent pulmonary embolus and for his aortic valve I am assuming. The patient was in the hospital last month for pneumonia in the right lower lobe. He also reports that over the last for 5 days he has been having some mild abdominal pain as well as very frequent diarrhea. He is feeling weaker than normal. He is unable to ambulate safely at this point to perform his activities of daily living. Timing/Duration: unsure Severity: moderate Improving Factors: nothing Worsening Factors: nothing Associated Symptoms: malaise Allergies/Adverse Reactions: Allergies NO KNOWN ALLERGY Allergy (Verified 10/30/19 12:48) Home Medications: Ambulatory Orders Furosemide [Lasix] 20 mg PO DAILY PRN 10/22/19 Apixaban [Eliquis] 2.5 mg PO BID 14 Days #28 tab 10/23/19 Azithromycin [Zithromax] 500 mg PO DAILY #3 tab 11/02/19 Cefdinir [Omnicef] 300 mg PO BID #14 cap 11/02/19 Review of Systems - Review of Systems Constitutional: States: weakness - Left lower extremity EENTM: States: no symptoms reported Respiratory: States: no symptoms reported Cardiology: States: no symptoms reported Gastrointestinal/Abdominal: States: abdominal pain, diarrhea Genitourinary: States: no symptoms reported Musculoskeletal: States: no symptoms reported Skin: States: no symptoms reported Neurological: States: see HPI Endocrine: States: no symptoms reported Hematologic/Lymphatic: States: no symptoms reported All other Systems: No Change from Baseline Past Medical History (General) - Patient Medical History Hx Seizures: No Hx Stroke: No Hx Dementia: No Hx Asthma: No Hx of COPD: No Hx Cardiac Disorders: Yes Hx Congestive Heart Failure: Yes Hx Pacemaker: No Hx Hypertension: Yes Hx Thyroid Disease: No Hx Diabetes: No Hx Gastroesophageal Reflux: No Hx Renal Disease: No Hx Cancer: No Hx of HIV: No Hx Hepatitis C: No Hx MRSA: No Surgical History: coronary bypass surgery, other - Vaccination History Hx Tetanus, Diphtheria Vaccination: No Hx Influenza Vaccination: Yes Hx Pneumococcal Vaccination: Yes - Social History Hx Tobacco Use: Yes - 72yrs Years Tobacco Use: 72 Hx Alcohol Use: No Hx Substance Use: No Hx Substance Use Treatment: No Hx Depression: No Hx Physical Abuse: No Hx Emotional Abuse: No - Female History Patient : No Family Medical History - Family History Son Family History: No Known Living Status: Still Living Hx Family Asthma: No Hx Family Congestive Heart Failure: No Hx Family Hypertension: Yes Hx Family Stroke: No Hx Cardiac Disease: Yes Hx Family Diabetes: No Hx Family Cancer: No Grandparents Family History: Unknown Name: Juan Day Age (years): 64 Living Status: Hx Family Asthma: No Hx Family Congestive Heart Failure: No Hx Family Hypertension: - doesn't know Hx Family Stroke: No Hx Cardiac Disease: Yes Hx Family Diabetes: No Hx Family Cancer: No Hx Family;Other: he did not want to talk about it Physical Exam - Physical Exam General Appearance: Alert, Unkempt Eye Exam: bilateral normal Ears, Nose, Throat: hearing grossly normal, normal pharynx Neck: full range of motion, supple Respiratory: no respiratory distress, no accessory muscle use, wheezing - Scattered Cardiovascular/Chest: normal peripheral pulses, no edema, other - Regular rate and rhythm. Left lateral chest wall lower aspect is tender to palpation. No crepitus. No bruising at this point. Peripheral Pulses: radial,right: 2+, radial,left: 2+ Gastrointestinal/Abdominal: soft, other - Mild lower abdominal discomfort to palpation. No definite palpable mass. No rebound or peritoneal signs. 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 Skin Exam: normal color Comments: Vital Signs - 24 hr 12/04/19 22:45 Temperature 98.0 F Pulse Rate [ 61 left] Respiratory 18 Rate Blood Pressure 148/102 [left] O2 Sat by Pulse 97 Oximetry Progress - Progress Progress: 12/05/19 00:27 The patient is an 89-year-old male presents emergency room secondary to diarrhea for the last [address] scan seems to indicate sigmoid diverticulitis. The patient is being started on Levaquin and metronidazole. The patient is also reporting some discoordination with his left lower extremity over the last 3 days to a week. No other focal neurological changes. No obvious differential and strength. This is likely the result of another small cerebral infarction. Looking at his CT scan looks like he has had quite a few in the past. The patient may yet require some rehabilitation in order to get back to a status where he can function and perform his activities of daily living. The patient is also having some left lateral rib pain from the fall. There does not appear to be any grossly displaced fractures. No evidence of any splenic laceration or other obvious injury from the fall other than soreness. The patient had actually been out of his Eliquis for 2 days when he fell which may have been fortunate. It can likely be restarted in the morning as long as there is no evidence of any bleeding at that time. The patient was having wheezing upon admission but has received a breathing treatment. He does have COPD and the breathing treatment did help. Admit for care of the above issues. Depending on how the patient does, he may need to go to a rehabilitation facility for the near future. glenn bello [phone] 12/05/19 00:31 - Results/Orders Results/Orders: CT scan of the chest shows chronic dilation of the a sending aorta 4.4 cm and of the descending aorta at 3.5 cm. Aortic valve replacement appears stable. This is consistent with previous. The patient still has right lower lobe consolidation but no pneumothorax. CT scan of the abdomen pelvis shows chronic bilateral renal cysts. Abdominal aorta with mild dilation of 2.8 cm and a right common iliac with dilation 3.3 cm consistent with previous. The patient also has sigmoid diverticulitis without evidence of perforation or abscess formation. CT scan of the head without contrast shows no obvious acute changes though the patient has had multifocal infarcts in the past. Chronic senescent changes. No hydrocephalus or herniation or hemorrhage. Laboratory Tests 12/04/19 12/04/19 12/04/19 23:36 23:36 23:36 WBC 7.3 RBC 4.47 L Hgb 13.1 L Hct 38.4 L MCV 86.0 MCH 29.3 MCHC 34.1 RDW 14.5 Plt Count 221 MPV 8.1 Absolute Neuts (auto) 5.10 Absolute Lymphs (auto) 1.10 Absolute Monos (auto) 0.70 Absolute Eos (auto) 0.40 Absolute Basos (auto) 0.10 Neutrophils % 69.9 Lymphocytes % 14.5 L Monocytes % 9.3 H Eosinophils % 5.5 H Basophils % 0.8 PT 11.0 H INR 1.11 PTT (SP) 28.8 Sodium 136 Potassium 4.1 Chloride 102 Carbon Dioxide 27 Anion Gap 11.1 L BUN 27 H Creatinine 1.34 H BUN/Creatinine Ratio 20.1 H Random Glucose 123 H Serum Osmolality 278.4 Calcium 9.0 Magnesium 1.8 Total Bilirubin 0.7 AST 15 ALT 12 Alkaline Phosphatase 89 Creatine Kinase 46 CK-MB (CK-2) 1.4 CK-MB (CK-2) % Not Reportable Troponin I < 0.02 B-Natriuretic Peptide 267.0 H* Serum Total Protein 7.5 Albumin 3.8 Globulin 3.7 H Albumin/Globulin Ratio 1.0 L EKG shows normal sinus rhythm at 61 bpm with a first-degree AV block. Significant left bundle branch block. These appear to be old findings. - EKG/XRAY/CT CT Ordered: Yes Departure - Departure Clinical Impression: Diverticulitis, Inability to perform activities of daily living, Gait instability Fall at home Qualifiers: Encounter type: initial encounter Qualified Code(s): W19.XXXA - Unspecified fall, initial encounter; Y92.009 - Unspecified place in unspecified non- institutional (private) residence as the place of occurrence of the external cause Rib contusion Qualifiers: Encounter type: initial encounter Laterality: left Qualified Code(s): S20.212A - Contusion of left front wall of thorax, initial encounter Disposition: Admit Patient Condition: Poor Departure Forms: ED Discharge - Pt. Copy, Patient Portal Self Enrollment Referrals: MARY SLATER [Primary Care Provider] - 1-2 Weeks Home Medications: Ambulatory Orders Furosemide [Lasix] 20 mg PO DAILY PRN 10/22/19 Apixaban [Eliquis] 2.5 mg PO BID 14 Days #28 tab 10/23/19 Azithromycin [Zithromax] 500 mg PO DAILY #3 tab 11/02/19 Cefdinir [Omnicef] 300 mg PO BID #14 cap 11/02/19 Decision To Admit - Decistion To Admit Decision to Admit Reason: Medical Nature Decision to Admit Date: 12/05/19 Decision to Admit Time: 00:32
[2019-12-05] MEDS ORDERED: IPRATROPIUM/ALBUTEROL 3 ML VIAL NEB ONE (00:40)
[2019-12-05] MEDS ORDERED: metroNIDAZOLE IV PREMIX 500MG 100 ML IVPB ONE ×4 (00:55→19:07)
[2019-12-05] MEDS ORDERED: levoFLOXacin 500MG IV 100 ML IVPB ONE ×2 (01:42→19:08)
--- NOTE | 2019-12-05 01:57 | HP ---
SUPERVISING PHYSICIAN: Lane Laureano MD HISTORY OF PRESENT ILLNESS: Mr. Day is an 89 year-old male patient who presented to the Emergency Room after a fall last night and hit his left- sided ribcage on the bathtub. He reports he has significant deconditioning, being discoordinated, stability and gait of the left lower extremity. He has had multiple strokes in the past and ran out of Eliquis a couple of days ago which he took for a pulmonary embolus. He was in the hospital within the last 30 days for treatment of right lower lobe pneumonia and he reports that over the last 5 days he has been having quite a bit of diarrhea and denied any abdominal pain. Initial workup in the Emergency Room showed he had a normal white count of 7,300 with a hemoglobin of 13.1 and hematocrit 38.4 without a left shift. Coagulation studies showed a normal PT/PTT. Chemistries showed normal electrolytes with a creatinine of 1.34, BUN slightly elevated at 267, troponin less than 0.02. RADIOLOGY: CT of the abdomen and pelvis without contrast showed sigmoid diverticulitis. There was also note of a 2.8 cm abdominal aortic aneurysm that was similar when compared to previous studies as well as dilation of the ascending thoracic aorta. This is similar compared to previous studies. CT of the head without contrast showed no acute intracranial hemorrhage, hydrocephalus or herniation. CT of the chest shows some chronic consolidation and a small pleural effusion of the right lower lung, similar to previous studies. Given the findings of sigmoid diverticulitis, the patient is going to be admitted for initiation of antibiotic treatments with consultation with Dr. Srinivasan. He is admitted in stable condition. PAST MEDICAL HISTORY: 1. Hypertension. 2. Coronary artery disease. 3. Chronic obstructive pulmonary disease. 4. Congestive heart failure with an ejection fraction of 35 to 55% on last echocardiogram in October 2019. . 5. Benign prostatic hypertrophy. 6. Recent treatment for right pulmonary embolism. PAST SURGICAL HISTORY: 1. 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 CURRENT MEDICATIONS: 1. Lasix. 2. Eliquis. ALLERGIES: No known drug allergies, although he reports numerous effects from Xarelto which includes GI bleeding. FAMILY HISTORY: Noncontributory. SOCIAL HISTORY: The patient quit smoking 5 years previously. He had a 72-pack year history. He denies any alcohol or illicit drug use. He resides in [place]. His primary care physician is Dr. Mc. REVIEW OF SYSTEMS: CONSTITUTIONAL: Negative for general fatigue, fevers. HEENT: Denies headaches. vision changes, sore throat. nasal congestion. CHEST: Denies coughing, wheezing, shortness of breath. HEART: Denies chest pain, palpitations, or syncopal episodes. ABDOMEN: Negative for nausea, vomiting, has had some diarrhea but no constipation. He does have abdominal pains as noted in history of present illness. . GENITOURINARY: Negative for hematuria or polyuria. SKIN: Denies lesions, rashes/ NEUROLOGIC: As noted in history of present illness, generalized weakness. No reported seizures. He does have some mild chronic ataxia to the lower extremity. Otherwise, no reported changes from baseline. PHYSICAL EXAMINATION: VITAL SIGNS: Temperature 98, pulse 62, blood pressure 120/72, respirations 20, oxygen saturation 95% on room air. GENERAL: The patient is a little unkept but he does not look to be in any distress. He is alert. HEENT: Tympanic membranes are clear bilaterally. Oropharynx is pink and moist without any lesions. NECK: Supple, non-tender, full range of motion. No jugular venous distention. CHEST: Lung sounds were clear throughout, just diminished toward the bases. CARDIOVASCULAR: Regular rate and rhythm. ABDOMEN: Soft, non-tender, positive bowel sounds. EXTREMITIES: Without cyanosis, clubbing, or edema. NEUROLOGIC: He is alert and oriented x 3. LABORATORY: White count normal at 7,300, hemoglobin 13.1, hematocrit 38.4. Platelet count showed to be within normal limits, differential showed to be without a left shift. Coagulation studies: PT 11, PTT 28.8. Chemistries showed normal electrolytes. BUN 27, creatinine 1.34. Liver functions all within normal limits. Troponin less than 0.02. BNP slightly elevated at 267. RADIOLOGY: CT of the abdomen without contrast per radiology interpretation showed sigmoid diverticulitis. There were some other chronic findings unchanged from previous. Please see that report for details. CT of the head without contrast showed no acute findings. CT of the chest with no acute findings other than what was mentioned above. ASSESSMENT: 1. Acute sigmoid diverticulitis. 2. Mild electrolyte imbalance with a mild hyponatremia. 3. 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 4. Recently treated for pulmonary embolus on low-dose Eliquis. 5. History of chronic renal insufficiency with creatinine showing to be at baseline levels. 6. Congestive heart failure with diastolic etiology with last echocardiogram in October of 2019 showing ejection fraction of 45 to 50% with no signs of current exacerbation. 7. Hypertension showing to be stable. 8. Coronary artery disease. 9. Chronic obstructive pulmonary disease without any signs of exacerbation. PLAN: I consulted with Dr. Srinivasan. At this point, the patient will be n.p.o. until seen by Dr. Srinivasan. We will resume his home medications as soon as those are updated and verified. I would anticipate his length of stay to be at least 2 to 3 days. Will possibly discharge him Saturday or Saturday. Again, Until we can transition him to outpatient management, we will continue to monitor and treat as needed. Given the fact that he has been on antibiotics, there is a small concern that possibly this is an acute sigmoid diverticulitis secondary to C. diff infection. #[id number] [facility]
[2019-12-05] MEDS ORDERED: SODIUM CHLORIDE 0.9% (FLUSH) 10 ML SYG IV PRN (01:59)
[2019-12-05] MEDS ORDERED: ONDANSETRON INJ 4 MG/2 ML VIAL IV PRN ×2 (01:59→02:06)
[2019-12-05] MEDS ORDERED: ALBUTEROL SULFATE 2.5 MG/3 ML VIAL NEB PRN (01:59)
[2019-12-05] MEDS ORDERED: metroNIDAZOLE IV PREMIX 500MG 500 MG in PREMIX BAG 1 BAG IVPB SCH ×2 (02:30→06:00)
[2019-12-05] MEDS: KCL 10 MEQ/D5 1/2NS 1,000 ML IVS PRN ×3 (02:44→21:26)
[2019-12-05] MEDS: IV SET AND CAP CHANGE INJ INJ SCH (02:47)
[2019-12-05] MEDS: PANTOPRAZOLE SODIUM IV 40 MG VIAL IV SCH (06:05)
[2019-12-05] MEDS: IPRATROPIUM/ALBUTEROL 3 ML VIAL NEB SCH ×4 (08:02→20:35)
[2019-12-05] MEDS: HYDROmorphone HCL INJ 2 MG/ML VIAL IV PRN ×2 (08:04→20:58)
[2019-12-05] MEDS: SODIUM CHLORIDE 0.9% (FLUSH) 10 ML SYG IV SCH ×2 (09:56→20:57)
[2019-12-05] MEDS: metroNIDAZOLE IV PREMIX 500MG 500 MG in PREMIX BAG 1 BAG IVPB SCH ×2 (09:56→17:22)
--- NOTE | 2019-12-05 17:08 | CONS ---
HISTORY OF PRESENT ILLNESS: The patient is an 89 year-old who presented to the Emergency Room after falling and hitting the left side of his ribcage which caused pain. The patient reports that he had been having some problems with stability. He has a history of strokes and of a pulmonary embolus and has been on Eliquis for that. He has been treated for pneumonia within the last [address] scan of his abdomen was obtained and was consistent with diverticulitis despite a normal white blood cell count and lack of fever. PAST MEDICAL HISTORY: 1. Congestive heart failure. 2. Hypertension. 3. Stroke. 4. Pulmonary embolus. There is no known history of diverticulitis. PAST SURGICAL HISTORY: Coronary artery bypass graft. CURRENT MEDICATIONS: 1. Lasix. 2. Eliquis. 3. He has been on Zithromax and Omnicef. ALLERGIES: No known drug allergies. FAMILY HISTORY: Positive for cardiac disease and hypertension. SOCIAL HISTORY: He uses tobacco and has for 72 years. He does not use alcohol or illicit drugs. PHYSICAL EXAMINATION: VITAL SIGNS: He is afebrile, normotensive. Pulse rate approximately 24. GENERAL: The patient is awake, seems to be tired and is somewhat tachypneic. HEENT: Sclera nonicteric. Mucous membranes are moist. NECK: Without adenopathy. CHEST: He had equal breath sounds bilaterally without wheeze. HEART: Regular rate and rhythm. ABDOMEN: Soft, non-tender. There was no mass. RECTAL: Examination deferred. EXTREMITIES: Without cyanosis, clubbing, or edema. LABORATORY: White count 7.7 this morning. Hemoglobin 13. He had a normal differential and had a platelet count of 221,000. PT 11 with INR of 1.11. Electrolytes revealed a potassium of 4, creatinine 1.34 which is mildly elevated. Liver functions was negative. As noted, the CT scan of the chest was essentially unremarkable. The right lower lobe consolidation is still present, there was no pneumothorax or obviously fractured ribs. The aortic aneurysms or dilation of the ascending and descending aorta are stable as is the dilation of the right common iliac. CT scan of the head was without obvious changes. CT of the abdomen showed a small hernia in the midline and consistent changes of inflammatory process, small amount of free fluid and thickened wall of the sigmoid colon. IMPRESSION: 1. Status post pulmonary embolus. 2. Status post pneumonia. 3. Hypertension. 4. Coronary artery disease. 5. Presumed diverticulitis, cannot rule out ischemic or colitis associated with C. difficile. PLAN: Will obtain a C. difficile stool study. Continue the Levaquin and Flagyl and will allow the patient to have a clear-liquid diet. #[id number] [facility]
[2019-12-05] MEDS: APIXABAN 5 MG TAB PO SCH (20:53)
[2019-12-05] MEDS: levoFLOXacin 500MG IV 500 MG in PREMIX BAG 1 BAG IVPB SCH (23:42)
[2019-12-06] MEDS: metroNIDAZOLE IV PREMIX 500MG 500 MG in PREMIX BAG 1 BAG IVPB SCH ×3 (00:44→16:23)
[2019-12-06] MEDS: PANTOPRAZOLE SODIUM IV 40 MG VIAL IV SCH (05:58)
[2019-12-06] MEDS: KCL 10 MEQ/D5 1/2NS 1,000 ML IVS PRN ×2 (07:44→21:48)
[2019-12-06] MEDS ORDERED: metroNIDAZOLE IV PREMIX 500MG 100 ML IVPB ONE ×3 (08:10→19:21)
[2019-12-06] MEDS: IPRATROPIUM/ALBUTEROL 3 ML VIAL NEB SCH ×4 (08:15→20:38)
[2019-12-06] MEDS: SODIUM CHLORIDE 0.9% (FLUSH) 10 ML SYG IV SCH ×2 (08:47→20:13)
[2019-12-06] MEDS: APIXABAN 5 MG TAB PO SCH ×2 (08:47→20:12)
[2019-12-06] MEDS ORDERED: MAGNESIUM HYDROXIDE 30 ML UD PO ONE (12:21)
--- NOTE | 2019-12-06 15:50 | PN ---
SUPERVISING PHYSICIAN: Lane Laureano MD DATE: 12/06/19 SUBJECTIVE: The patient has not had anymore bowel movements. He tolerated clear liquid. He has had no nausea or vomiting, no shortness of breath. OBJECTIVE: VITAL SIGNS: Temperature 97.9, pulse 68, blood pressure 139/79, respirations 18, oxygen saturation 99% on room air. GENERAL: The patient is resting comfortably. He does not appear to be in any distress. He is alert and oriented. CHEST: Lung sounds are clear to auscultation. HEART: Regular rate and rhythm. ABDOMEN: Soft, non-tender today, positive bowel sounds. EXTREMITIES: Without edema. NEUROLOGIC: He is alert and oriented x 3. LABORATORY: No additional laboratory studies today. RADIOLOGY: No additional radiographic studies today. ASSESSMENT: 1. Acute sigmoid diverticulitis. 2. Mild electrolyte imbalance with a mild hyponatremia. 3. 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 4. Recently treated for pulmonary embolus on low-dose Eliquis. 5. History of chronic renal insufficiency with creatinine showing to be at baseline levels. 6. Congestive heart failure with diastolic etiology with last echocardiogram in October of 2019 showing ejection fraction of 45 to 50% with no signs of current exacerbation. 7. Hypertension showing to be stable. 8. Coronary artery disease. 9. Chronic obstructive pulmonary disease without any signs of exacerbation. He is going to be encouraged to ambulate with the nurses having instructions to ambulate him at least twice to three times daily. PLAN: Will continue to follow the patient along with Dr. Srinivasan. At this point, we will decrease his IV fluids. We will give him some milk of magnesia to assist in having a bowel movement. If he does not have a bowel movement by tomorrow AM, we will check a 2-view x-ray of the abdomen. Will advance him to full liquids. I anticipate hopefully being able to discharge by tomorrow. He will continue antibiotic coverage with Levaquin and Flagyl. Until we can transition him to outpatient management, we will continue to monitor and treat as needed. BRIA
[2019-12-06] MEDS ORDERED: levoFLOXacin 500MG IV 100 ML IVPB ONE (19:20)
[2019-12-06] MEDS: SODIUM CHLORIDE 0.65% NASAL SPRAY 45 ML BTTL BNAS PRN (21:25)
[2019-12-06] MEDS: levoFLOXacin 500MG IV 500 MG in PREMIX BAG 1 BAG IVPB SCH (23:33)
[2019-12-07] MEDS: metroNIDAZOLE IV PREMIX 500MG 500 MG in PREMIX BAG 1 BAG IVPB SCH ×3 (00:33→17:43)
[2019-12-07] MEDS: SODIUM CHLORIDE 0.65% NASAL SPRAY 45 ML BTTL BNAS PRN ×2 (00:38→04:40)
[2019-12-07] MEDS: PANTOPRAZOLE SODIUM IV 40 MG VIAL IV SCH (06:00)
[2019-12-07] MEDS ORDERED: metroNIDAZOLE IV PREMIX 500MG 100 ML IVPB ONE ×3 (08:24→23:58)
[2019-12-07] MEDS: SODIUM CHLORIDE 0.9% (FLUSH) 10 ML SYG IV SCH ×2 (08:38→21:45)
[2019-12-07] MEDS: IPRATROPIUM/ALBUTEROL 3 ML VIAL NEB SCH ×4 (08:57→20:00)
--- NOTE | 2019-12-07 09:25 | RAD ---
EXAM DESCRIPTION: Abdomen Flat Upright CLINICAL HISTORY: 89 years Male, sigmoid diverticulitis COMPARISON: None. FINDINGS: Sternotomy wires are present. Heart is enlarged. Mild to moderate vascular congestion. Blunting of the right costophrenic angle consistent with small effusion. Infiltrate right perihilar and right lower lobe regions. Nodular lesion in the right lower lobe measures 2.[address] of the chest December 04, 2019 which showed infiltrate in the right lower lobe, pleural thickening and abnormal density in the right middle lobe. Continued follow-up recommended. Upright view the abdomen shows no free air under the diaphragm. Gas distended colon is prominent. Supine view shows fecal material and gas in the colon with mild prominence of small bowel loops containing air. Pattern is most likely nonobstructive. Right rib fractures appear old and healed. IMPRESSION: Nonspecific nonobstructive bowel gas pattern. Right pleural effusion or pleural scarring with 2.2 cm mass in the peripheral right lung base. Large heart with prominent vascularity. Electronically signed by: Glen Hurd MD 12/07/2019 9:23 AM CDT
[2019-12-07] MEDS: APIXABAN 5 MG TAB PO SCH ×2 (09:31→21:44)
[2019-12-07] MEDS ORDERED: MAGNESIUM HYDROXIDE 30 ML UD PO ONE ×2 (12:20→21:22)
[2019-12-07] MEDS: KCL 10 MEQ/D5 1/2NS 1,000 ML IVS PRN (13:40)
--- NOTE | 2019-12-07 13:43 | PN ---
SUPERVISING PHYSICIAN: Salvador Amaya MD DATE: 12/07/19 SUBJECTIVE: The patient has been ambulating. He is tolerating a clear liquid diet, but he still has a little bit of pain, but he has not passed any stools. He has had some gas. He has had no chest pain, shortness of breath and he remains afebrile. OBJECTIVE: VITAL SIGNS: Temperature 97.3, pulse 63, blood pressure 145/62, respirations 18 to 22, oxygen saturation 94% on room air. GENERAL: The patient is resting comfortably in a chair. He does not appear to be in any distress. He is alert and oriented. CHEST: Lung sounds are clear to auscultation, just slightly diminished towards the bases bilaterally. HEART: Regular rate and rhythm. ABDOMEN: Soft with some tenderness noted on palpation across the left side, lower quadrant, but no rebound tenderness, no guarding, no point tenderness. No peritoneal signs. Bowel sounds are active. EXTREMITIES: Without edema. NEUROLOGIC: He is alert and oriented x3. LABORATORY: White count normal at 4,800. Hemoglobin and hematocrit are stable at 11.9 and 34.9, respectively. Platelet count 205,000. Differential without a left shift. RADIOLOGY: Two-view abdominal x-ray this morning per radiologic interpretation showed nonspecific nonobstructive bowel gas pattern. See that report for details. ASSESSMENT: 1. Acute sigmoid diverticulitis with the patient on Flagyl and Levaquin, now tolerating full liquid diet. 2. Mild electrolyte imbalance with a mild hyponatremia, resolved and stable. 3. 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 4. Recently treated for pulmonary embolus on low-dose Eliquis. 5. History of chronic renal insufficiency with creatinine, at baseline levels. 6. Congestive heart failure with diastolic etiology with last echocardiogram in October of 2019 showing ejection fraction of 45 to 50% with no signs of current exacerbation. 7. Hypertension, stable. 8. Coronary artery disease. 9. Chronic obstructive pulmonary disease without any signs of exacerbation. PLAN: We will continue to follow the patient along with Dr. Srinivasan. He will remain on a full liquid diet today. We have given him a dose of Milk of Magnesia with bowel movement. He is encouraged to ambulate at least twice a day. He remains on DVT prophylaxis on Eliquis. He has had no shortness of breath. We will continue with the current plan at this point. We will anticipate discharge hopefully tomorrow. Until then, we will continue with antibiotic coverage with Levaquin and Flagyl and continue to monitor and treat as needed. #[id number] [facility]
[2019-12-07] MEDS ORDERED: levoFLOXacin 500MG IV 100 ML IVPB ONE (23:57)
[2019-12-08] MEDS: levoFLOXacin 500MG IV 500 MG in PREMIX BAG 1 BAG IVPB SCH ×2 (00:02→23:54)
[2019-12-08] MEDS: metroNIDAZOLE IV PREMIX 500MG 500 MG in PREMIX BAG 1 BAG IVPB SCH ×3 (01:06→17:25)
[2019-12-08] MEDS: IV SET AND CAP CHANGE INJ INJ SCH (01:46)
[2019-12-08] MEDS ORDERED: MORPHINE SULFATE INJ 10 MG/ML VIAL IV PRN (02:23)
[2019-12-08] MEDS ORDERED: cloNIDine HCL 0.1 MG TAB PO PRN (02:24)
[2019-12-08] MEDS: PANTOPRAZOLE SODIUM IV 40 MG VIAL IV SCH (06:11)
[2019-12-08] MEDS ORDERED: metroNIDAZOLE IV PREMIX 500MG 100 ML IVPB ONE ×3 (07:18→19:28)
[2019-12-08] MEDS: IPRATROPIUM/ALBUTEROL 3 ML VIAL NEB SCH ×4 (08:35→20:25)
[2019-12-08] MEDS: APIXABAN 5 MG TAB PO SCH ×2 (09:28→20:45)
[2019-12-08] MEDS: KCL 10 MEQ/D5 1/2NS 1,000 ML IVS PRN (09:28)
[2019-12-08] MEDS: SODIUM CHLORIDE 0.9% (FLUSH) 10 ML SYG IV SCH ×2 (09:29→20:46)
[2019-12-08] MEDS ORDERED: SODIUM PHOS/BIPHOS ENEMA ADULT 133 ML BTTL PR ONE ×3 (10:06→13:55)
[2019-12-08] MEDS ORDERED: MAGNESIUM HYDROXIDE 30 ML UD PO ONE (12:30)
--- NOTE | 2019-12-08 13:05 | PN ---
SUPERVISING PHYSICIAN: Salvador Amaya MD DATE: 12/08/19 SUBJECTIVE: The patient is sitting up in bed. He would not hold his enema earlier and he has complaints of some abdominal discomfort due to constipation. I discussed with him at length that he needed to hold the enema as long as possible, otherwise, more aggressive therapies may be needed as he does need to have a bowel movement. He has no complaints of shortness of breath, chest pain, nausea or vomiting. OBJECTIVE: VITAL SIGNS: Temperature 98.2, heart rate 53, blood pressure 126/83, respiratory rate 18, O2 saturation 94% on room air. RESPIRATORY: Essentially clear to auscultation bilaterally. CARDIAC: Regular rate and rhythm. At times, he is slightly bradycardic. GASTROINTESTINAL: Abdomen is firm. It is mildly distended as well as somewhat tender diffusely. Bowel sounds are positive. EXTREMITIES: No cyanosis, clubbing or edema. NEUROLOGIC: Awake, alert and oriented times three. LABORATORY: Preliminary blood cultures show no growth after 3 days. All other labs and films have been reviewed via the EMR. ASSESSMENT: 1. Acute sigmoid diverticulitis with the patient on Flagyl and Levaquin, now tolerating full liquid diet. 2. Mild electrolyte imbalance with a mild hyponatremia, resolved and stable. 3. 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 4. Recently treated for pulmonary embolus on low-dose Eliquis. 5. History of chronic renal insufficiency with creatinine, at baseline levels. 6. Congestive heart failure with diastolic etiology with last echocardiogram in October of 2019 showing ejection fraction of 45 to 50% with no signs of current exacerbation. 7. Hypertension, stable. 8. Coronary artery disease. 9. Chronic obstructive pulmonary disease without any signs of exacerbation. 10. Constipation. He has been given multiple laxatives and it may be chronic in nature. PLAN: We will continue present supportive care. Earlier today, he had a Fleet's enema and he did not hold the fluid at all. We are going to give him another one and he has been instructed to hold it as long as possible. He has not had a bowel movement in the past few days and he will need to have one before he is discharged. Dr. Srinivasan will see him this afternoon and we will go with his recommendations at that time. Otherwise, he should be discharged this afternoon or tomorrow on Flagyl and Levaquin. We will continue to monitor the patient closely and follow as needed. #[id number] [facility]
[2019-12-08] MEDS ORDERED: levoFLOXacin 500MG IV 100 ML IVPB ONE (19:27)
[2019-12-09] MEDS: metroNIDAZOLE IV PREMIX 500MG 500 MG in PREMIX BAG 1 BAG IVPB SCH ×3 (00:53→16:50)
[2019-12-09] MEDS: KCL 10 MEQ/D5 1/2NS 1,000 ML IVS PRN (00:58)
[2019-12-09] MEDS: PANTOPRAZOLE SODIUM IV 40 MG VIAL IV SCH (05:36)
[2019-12-09] MEDS ORDERED: metroNIDAZOLE IV PREMIX 500MG 100 ML IVPB ONE ×3 (06:54→21:41)
--- NOTE | 2019-12-09 07:35 | RAD ---
EXAM DESCRIPTION: Abdomen Flat Upright CLINICAL HISTORY: 89 years Male, obstipation COMPARISON: December 07, 2019 FINDINGS: 2 views of the abdomen were obtained. What is presumably the upright view shows atelectasis versus consolidation in the right lung base with a small right-sided pleural effusion, unchanged from 2 days prior. There are several gas-filled bowel loops scattered throughout the abdomen likely involving colon and small bowel. The gas-filled small bowel loops are at the upper limits of normal caliber. Vascular calcifications and degenerative changes. IMPRESSION: Abnormal bowel gas pattern most consistent with mild ileus, less likely early or partial small bowel obstruction. Overall, amount of colonic stool and gas is decreased from December 07, 2019. Abnormal appearance of the right lung base, unchanged from December 07, 2019 and suspicious for pneumonia with a small right-sided effusion. Electronically signed by: Jagdeep Sheikh MD 12/09/2019 7:33 AM CDT
[2019-12-09] MEDS: SODIUM CHLORIDE 0.9% (FLUSH) 10 ML SYG IV SCH ×2 (08:54→21:47)
[2019-12-09] MEDS: APIXABAN 5 MG TAB PO SCH ×2 (08:54→21:46)
[2019-12-09] MEDS: IPRATROPIUM/ALBUTEROL 3 ML VIAL NEB SCH ×4 (11:00→20:30)
--- NOTE | 2019-12-09 11:10 | PN ---
SUPERVISING PHYSICIAN: Salvador Amaya MD DATE: 12/09/19 SUBJECTIVE: The patient is sitting up in bed. He has been walking in the hallways. He feels much better. He did admit to having a large bowel movement yesterday. He has no nausea or vomiting. He actually says his abdomen is less painful. OBJECTIVE: VITAL SIGNS: Temperature 98.5, heart rate 59, blood pressure 173/63, respiratory rate 18, O2 saturation 96% on room air. RESPIRATORY: Essentially clear to auscultation bilaterally. CARDIAC: Regular rate and rhythm. GASTROINTESTINAL: Abdomen is softer. It is nondistended. Bowel sounds are positive. NEUROLOGIC: Awake, alert and oriented times three. LABORATORY: WBCs 4.5, hemoglobin 11.9, hematocrit 35. Electrolytes are basically within normal limits. Creatinine is slightly elevated at 1.31. Preliminary blood cultures show no growth after 4 days. Stool culture is pending. Abdominal x-ray shows abnormal bowel gas pattern most consistent with mild ileus, likely early to partial small bowel obstruction. Overall amount of colonic stool and gas is decreased from 12/07/19. Abnormal appearance of the right lung base, unchanged from 12/07/19. Suspicious for pneumonia and a small right sided effusion. All other labs and films have been reviewed via the EMR. ASSESSMENT: 1. Acute sigmoid diverticulitis with the patient on Flagyl and Levaquin, now tolerating full liquid diet. 2. Constipation with some small bowel movements. There is now question of possible ileus per abdominal x-ray. 3. Mild electrolyte imbalance with a mild hyponatremia, resolved and stable. 4. 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 5. Recently treated for pulmonary embolus on low-dose Eliquis. 6. History of chronic renal insufficiency with creatinine, at baseline levels. 7. Congestive heart failure with diastolic etiology with last echocardiogram in October of 2019 showing ejection fraction of 45 to 50% with no signs of current exacerbation. 8. Hypertension, stable. 9. Coronary artery disease. 10. Chronic obstructive pulmonary disease without any signs of exacerbation. 11. Constipation. He has been given multiple laxatives and it may be chronic in nature. PLAN: We will continue present supportive care. The patient has been encouraged to wall frequently. I will leave his discharge plan to Dr. Srinivasan. I did decrease his Levaquin to 250 mg daily per pharmacy recommendation due to his kidney function. We will continue to monitor the patient closely and follow as needed. #[id number] [facility]
[2019-12-09] MEDS ORDERED: MAGNESIUM HYDROXIDE 30 ML UD PO ONE (13:40)
[2019-12-09] MEDS: POLYETHYLENE GLYCOL 3350 17 GM PCKT PO SCH (14:03)
[2019-12-09] MEDS ORDERED: levoFLOXacin 250MG IV 0 ML IVPB ONE (16:38)
[2019-12-09] MEDS ORDERED: levoFLOXacin 250MG IV 50 ML IVPB ONE (16:40)
[2019-12-09] MEDS ORDERED: levoFLOXacin 250MG IV 250 MG in PREMIX BAG 1 BAG IVPB SCH (18:00)
[2019-12-10] MEDS: metroNIDAZOLE IV PREMIX 500MG 500 MG in PREMIX BAG 1 BAG IVPB SCH (03:21)
[2019-12-10] MEDS ORDERED: PANTOPRAZOLE SODIUM TAB 40 MG PO SCH (06:30)
[2019-12-10] MEDS: SODIUM CHLORIDE 0.9% (FLUSH) 10 ML SYG IV SCH (08:05)
[2019-12-10] MEDS: IPRATROPIUM/ALBUTEROL 3 ML VIAL NEB SCH ×3 (08:09→16:24)
[2019-12-10] MEDS: POLYETHYLENE GLYCOL 3350 17 GM PCKT PO SCH (08:09)
[2019-12-10] MEDS: APIXABAN 5 MG TAB PO SCH (08:09)
[2019-12-10] MEDS ORDERED: metroNIDAZOLE IV PREMIX 500MG 500 MG in PREMIX BAG 1 BAG IVPB SCH (11:00)
[2019-12-10] MEDS ORDERED: levoFLOXacin 500 MG TAB PO SCH (12:00)
[2019-12-10] MEDS ORDERED: metroNIDAZOLE 500 MG TAB PO SCH (12:00)
[2019-12-10 14:10] VITALS: BP 123/60; TEMP 97.8
--- NOTE | 2019-12-10 17:51 | DS ---
SUPERVISING PHYSICIAN: Salvador Amaya MD DISCHARGE DIAGNOSIS: 1. Acute sigmoid diverticulitis with the patient on Flagyl and Levaquin, now tolerating full liquid diet. 2. Constipation with some small bowel movements. There is now question of possible ileus per abdominal x-ray. 3. Mild electrolyte imbalance with a mild hyponatremia, resolved and stable. 4. 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 5. Recently treated for pulmonary embolus on low-dose Eliquis. 6. History of chronic renal insufficiency with creatinine, at baseline levels. 7. Congestive heart failure with diastolic etiology with last echocardiogram in October of 2019 showing ejection fraction of 45 to 50% with no signs of current exacerbation. 8. Hypertension, stable. 9. Coronary artery disease. 10. Chronic obstructive pulmonary disease without any signs of exacerbation. 11. Constipation. He has been given multiple laxatives and it may be chronic in nature. HISTORY OF PRESENT ILLNESS: This is an 89-year-old male patient who presented to the Emergency Room after several days of diarrhea and abdominal pain. He actually fell the previous nite and hit his ribcage on the left side in his bathtub. He reported to be very weak, discoordinated, and stability was poor. 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 He was in the hospital within the last 30 days due to right lower lobe pneumonia and he he has had quite a bit of diarrhea. White count was 7,300 with a hemoglobin of 13.1 and hematocrit 38.4 without a left shift. Coagulation studies showed a normal PT/PTT. Chemistries showed normal electrolytes with a creatinine of 1.34, BUN slightly elevated and troponin less than 0.02. CT of the abdomen and pelvis without contrast showed sigmoid diverticulitis. There was also note of a 2.8 cm abdominal aortic aneurysm that was similar when compared to previous studies. CT of the head without contrast showed no acute intracranial hemorrhage, hydrocephalus or herniation. CT of the chest shows some chronic consolidation and a small pleural effusion of the right lower lung, similar to previous studies. Due to his sigmoid diverticulitis as well as ongoing diarrhea and significant weak and deteriorated state, the patient was admitted to the hospital for initiation of antibiotic treatment. He was admitted in stable condition. HOSPITAL COURSE: Dr. Srinivasan, general surgeon, was consulted and the patient was placed on bowel rest. Stool studies were done. C. difficile was ruled out. After 24 hours, he no longer had any loose stools. He was started on clear liquids and had no nausea or vomiting. His IV fluids were decreased and Dr. Srinivasan felt he should have some Milk of Magnesia to assist with bowel movements. He was then advanced the next day to full liquid and continued on his antibiotics of Levaquin and Flagyl. The patient was then encouraged to ambulate although he did not do it very frequently and was still quite weak. He slowly increased his ambulation. He also had some pain in his abdomen, but had not had any stools. He was again given some Milk of Magnesia. He remained on full liquids until he had a bowel movement. His home medications were re-started including Eliquis. He actually received a Fleet's enema and had a small bowel movement. He again received another dose of Milk of Magnesia. An abdominal x- ray was obtained and there were some concerns for an ileus. The patient was encouraged to increase his activity including walking. He did decide he would utilize [facility] on discharge. He continued to have bowel movements and it was felt that there were no problems with him having an ileus and he will be discharged home today in stable condition. LABORATORY: WBCs remained stable at 7.3 and dropped as low as 4.5. Hemoglobin and hematocrit were also stable at 11.1 and 35. His electrolytes were within normal limits prior to discharge. His creatinine remained stable at 1.31 and his baseline creatinine is about 1.3 to 1.4. Urinalysis was unremarkable. His stool for occult blood was negative. His final blood cultures were negative. Stool culture is pending. RADIOLOGY: Reports are as per history of present illness. DISCHARGE PLAN: The patient will be discharged home in stable condition. He will have [facility]. He is to follow a low residual diet. He was given some simple reading material regarding a low residual diet. He is to increase his activity as tolerated. In addition to his routine medications, he will also have 8 additional days of Levaquin, 8 additional of Flagyl and he is to take MiraLAX daily. He is to have a followup appointment with his primary care physician, Dr. David Mc, in 1 to 2 weeks. He is to return to the hospital or followup with Dr. Mc for any problems or complications. DISCHARGE MEDICATIONS: 1. Furosemide. 2. Eliquis. 3. Levaquin. 4. Metronidazole. 5. MiraLAX. #[id number] [facility]
[2019-12-10 18:27] VITALS: O2SAT 97
[2019-12-11] MEDS ORDERED: levoFLOXacin 500 MG TAB PO SCH (14:00)
== END 2019-12-10 17:25 | disposition home health service (06) | DRG 391 ==
LOC: ER 22:29 → OBSVTOIN 12-05 01:56 → MS 12-05 01:56
PROVIDERS: ADMIT Nurse Practitioner Family; ATTEND Nurse Practitioner Acute Care
DX: K57.32 Diverticulitis of large intestine without perforation or abscess without bleeding (principal); I63.9 Cerebral infarction, unspecified; E87.1 Hypo-osmolality and hyponatremia; I50.32 Chronic diastolic (congestive) heart failure; I13.0 Hypertensive heart and chronic kidney disease with heart failure and stage 1 through stage 4 chronic kidney disease, or unspecified chronic kidney disease; K59.00 Constipation, unspecified; I50.9 Heart failure, unspecified; N18.9 Chronic kidney disease, unspecified; I25.10 Atherosclerotic heart disease of native coronary artery without angina pectoris; J44.9 Chronic obstructive pulmonary disease, unspecified; I71.4 Abdominal aortic aneurysm, without rupture; R29.6 Repeated falls; N40.0 Benign prostatic hyperplasia without lower urinary tract symptoms; F17.210 Nicotine dependence, cigarettes, uncomplicated; Z86.73 Personal history of transient ischemic attack (TIA), and cerebral infarction without residual deficits; Z86.711 Personal history of pulmonary embolism; Z79.01 Long term (current) use of anticoagulants; Z87.01 Personal history of pneumonia (recurrent); Z95.1 Presence of aortocoronary bypass graft; Z95.2 Presence of prosthetic heart valve; W01.198A Fall on same level from slipping, tripping and stumbling with subsequent striking against other object, initial encounter; Y92.002 Bathroom of unspecified non-institutional (private) residence as the place of occurrence of the external cause; Z79.899 Other long term (current) drug therapy

== ENCOUNTER → 2019-12-30 | Outpatient (CLI) | payer MEDICARE ==
--- NOTE | 2019-12-30 16:19 | US ---
EXAM DESCRIPTION: Venous,Lower Extremity RT: ULTRASOUND. CLINICAL HISTORY: SWELLING COMPARISON: None Available. TECHNIQUE: Bryant-scale and doppler sonographic evaluation of the deep venous system of the right lower extremity. FINDINGS: Doppler evaluation shows decreased color flow and decreased phasicity with arterial pulsations from the adjacent femoral artery in the thigh of the right common femoral vein, femoral vein, popliteal vein, greater saphenous vein, junction with the CFV. Also abnormal decreased color flow and decreased venous phasicity of the peroneal, and posterior tibial vein. No augmentation maneuvers were performed. The right lower extremity deep veins were incompletely or non- compressible with transducer pressure. Bryant-scale survey showed echogenic thrombus within these veins. Edema noted in the adipose tissue in the calf. IMPRESSION: 1. 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 2. Edema in the subcutaneous adipose tissue of the right calf. CRITICAL COMMUNICATION: The critical value was communicated directly by Ms. Arina Trujillo, RT(R), KARAN (V) via phone call, with Dr. Mc office,, at approximately 1550 hours, on December 30, 2019. 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 Electronically signed by: Dvaid Esquivel MD 12/30/2019 4:18 PM CDT
== END ==
LOC: LAB.O 15:38
PROVIDERS: ATTEND Family Medicine
DX: R60.0 Localized edema (principal); I82.411 Acute embolism and thrombosis of right femoral vein; I82.441 Acute embolism and thrombosis of right tibial vein

== ENCOUNTER → 2020-01-07 | Outpatient (CLI) | payer MEDICARE | LOC: LAB.O 15:43 | PROVIDERS: ATTEND Family Medicine | DX: I82.401 Acute embolism and thrombosis of unspecified deep veins of right lower extremity (principal) ==

== ENCOUNTER → 2020-01-11 | Outpatient (CLI) | payer MEDICARE | LOC: LAB.O 13:10 | PROVIDERS: ATTEND Family Medicine | DX: I82.409 Acute embolism and thrombosis of unspecified deep veins of unspecified lower extremity (principal) ==

== ENCOUNTER 2020-01-16 21:33 | Emergency (ER) | payer MEDICARE ==
[2020-01-16] MEDS ORDERED: HYDROcodone 7.5MG/APAP 325MG 1 EA TAB PO ONE (21:39)
--- NOTE | 2020-01-16 22:32 | CT ---
PROCEDURE: Chest w/o Contrast CLINICAL HISTORY: 89 years Male fall c lt lat rib pain, previous injury 1m ago too COMPARISON: 12/04/2019 TECHNIQUE: Contiguous axial images obtained through the chest without IV contrast. Reformatted images obtained. This exam was performed according to our department optimization program which includes automated exposure control, adjustment of the mA and/or kv according to patient size and/or use of iterative reconstruction technique. FINDINGS: Aorta is elongated with scattered areas of calcification. Coronary artery calcifications. Cardiac enlargement. No pericardial effusion. No significant hilar or mediastinal lymph nodes. Volume loss in the right hemithorax with areas of rounded atelectasis in the base of the right lower lobe and right middle lobe unchanged when compared to the previous study. Small amount of linear atelectasis in the left lung base also unchanged. Multilevel degenerative changes in the spine. There is an old incompletely healed fracture of the posterior left 11th rib. Old fractures of the anterior seventh through ninth ribs. There are acute appearing fractures of the posterolateral seventh eighth and ninth ribs on the left with some associated pleural thickening. No pneumothorax. IMPRESSION: Acute rib fractures involving the lateral and posterior lateral seventh eighth and ninth ribs on the left without evidence of contusion or pneumothorax Old healed rib fractures on the left Rounded atelectasis in the right middle and lower lobe which appear unchanged Cardiac enlargement Electronically signed by: Rosalba Navarrete MD 01/16/2020 10:31 PM CDT
[2020-01-16] MEDS ORDERED: HYDROcodone 5MG/APAP 325MG 1 EA TAB PO ONE (23:14)
--- NOTE | 2020-01-16 23:17 | ED.PDOC ---
History of Present Illness - General Time Seen by Provider: 01/16/20 21:35 Source: patient Exam Limitations: no limitations - History of Present Illness Initial Comments: The patient is an 89-year-old male presented emergency room after a fall at home. The patient apparently got tripped up over a dog. He hit his left posterior rib cage on a piece of furniture during the fall and he felt a crack. The patient had injured that same area about a month and a half ago before. He also had developed a small pneumonia due to it. The patient does have some significant gait instability to start with. Timing/Duration: momentarily Severity: severe Improving Factors: immobilization Worsening Factors: movement Allergies/Adverse Reactions: Allergies NO KNOWN ALLERGY Allergy (Verified 10/30/19 12:48) Home Medications: Ambulatory Orders Furosemide [Lasix] 20 mg PO DAILY PRN 10/22/19 Apixaban [Eliquis] 2.5 mg PO BID 14 Days #28 tab 10/23/19 Levofloxacin 250 mg PO DAILY #8 tablet 12/10/19 Polyethylene Glycol 3350 [Miralax] 17 gm PO DAILY #30 pckt 12/10/19 metroNIDAZOLE [Flagyl] 500 mg PO Q8H #24 tab 12/10/19 Azithromycin 250 mg PO DAILY #7 tab 01/16/20 Tramadol HCl 50 mg PO Q8HR PRN #30 tab 01/16/20 Review of Systems - Review of Systems Constitutional: States: no symptoms reported EENTM: States: no symptoms reported Respiratory: States: no symptoms reported, short of breath - Mild Cardiology: States: no symptoms reported Gastrointestinal/Abdominal: States: no symptoms reported Genitourinary: States: no symptoms reported Musculoskeletal: States: back pain Skin: States: no symptoms reported Neurological: States: no symptoms reported Endocrine: States: no symptoms reported All other Systems: No Change from Baseline Past Medical History (General) - Patient Medical History Hx Seizures: No Hx Stroke: No Hx Dementia: No Hx Asthma: No Hx of COPD: No Hx Cardiac Disorders: Yes Hx Congestive Heart Failure: Yes Hx Pacemaker: No Hx Hypertension: Yes Hx Thyroid Disease: No Hx Diabetes: No Hx Gastroesophageal Reflux: No Hx Renal Disease: No Hx Cancer: No Hx of HIV: No Hx Hepatitis C: No Hx MRSA: No - Vaccination History Hx Tetanus, Diphtheria Vaccination: No Hx Influenza Vaccination: Yes Hx Pneumococcal Vaccination: Yes - Social History Hx Tobacco Use: Yes - 72yrs Hx Alcohol Use: No Hx Substance Use: No Hx Substance Use Treatment: No Hx Depression: No Hx Physical Abuse: No Hx Emotional Abuse: No - Female History Patient : No Family Medical History - Family History Son Family History: No Known Living Status: Still Living Hx Family Asthma: No Hx Family Congestive Heart Failure: No Hx Family Hypertension: Yes Hx Family Stroke: No Hx Cardiac Disease: Yes Hx Family Diabetes: No Hx Family Cancer: No Grandparents Family History: Unknown Name: Juan Day Age (years): 64 Living Status: Hx Family Asthma: No Hx Family Congestive Heart Failure: No Hx Family Hypertension: - doesn't know Hx Family Stroke: No Hx Cardiac Disease: Yes Hx Family Diabetes: No Hx Family Cancer: No Hx Family;Other: he did not want to talk about it Physical Exam - Physical Exam General Appearance: Alert, Frail, Obvious distress Eye Exam: bilateral normal Ears, Nose, Throat: hearing grossly normal, normal pharynx Neck: full range of motion, supple Respiratory: lungs clear, normal breath sounds, no respiratory distress, no accessory muscle use Cardiovascular/Chest: normal peripheral pulses, no edema, other - Regular rate Peripheral Pulses: radial,right: 2+, radial,left: 2+ Gastrointestinal/Abdominal: non tender, soft Rectal Exam: deferred Back Exam: no CVA tenderness, no vertebral tenderness Extremity: normal range of motion, non-tender, normal inspection, no pedal edema, normal capillary refill Neurologic: client relationship consultant II-XII nml as tested, alert, normal mood/affect, oriented x 3 Skin Exam: normal color Progress - Progress Progress: 01/16/20 23:18 The patient is a 89-year-old male presented emergency room secondary to having had a fall at home. He sustained acute fractures with no significant displacement to the posterior left seventh eighth and ninth ribs. No obvious underlying contusion or pneumothorax. He is oxygenating well. The patient has received 2 doses of hydrocodone and wants to go home. He has been offered admission here for pain control and assistance with ambulation over the next 24 hours. He has deferred that. I will write the patient for some tramadol for pain control. He can additionally use some Aleve as needed. He was given incentive spirometer to use to help prevent pneumonia and I will write him for low-dose azithromycin to help prevent a pneumonia again. ER warnings are given for any worsening. He obviously needs to ambulate carefully. I want him to follow back up with his primary care doctor this coming week. He may benefit from physical therapy for strength and gait training. glenn bello [phone] - Results/Orders Results/Orders: CT scan of the chest shows posterior left acute fractures of the seventh eighth and ninth ribs that appear to be largely nondisplaced with some associated pleural thickening. No pneumothorax or pulmonary contusion is noted at this time. Laboratory Tests 01/16/20 01/16/20 01/16/20 22:00 22:00 22:00 WBC 4.8 RBC 4.75 Hgb 13.8 L Hct 41.2 L MCV 86.6 MCH 29.0 MCHC 33.5 RDW 16.0 H Plt Count 252 MPV 8.2 Absolute Neuts (auto) 2.90 Absolute Lymphs (auto) 1.00 Absolute Monos (auto) 0.40 Absolute Eos (auto) 0.40 Absolute Basos (auto) 0.10 Neutrophils % 61.2 Lymphocytes % 21.0 Monocytes % 8.9 Eosinophils % 7.6 H Basophils % 1.3 PT 33.6 H* INR 3.39 H PTT (SP) 35.1 H Sodium 137 Potassium 3.7 Chloride 96 L Carbon Dioxide 31 Anion Gap 13.7 BUN 29 H Creatinine 1.41 H BUN/Creatinine Ratio 20.6 H Random Glucose 113 H Serum Osmolality 280.5 Calcium 9.4 Total Bilirubin 0.4 AST 17 ALT 14 Alkaline Phosphatase 109 Serum Total Protein 8.2 Albumin 4.4 Globulin 3.8 H Albumin/Globulin Ratio 1.2 Departure - Departure Clinical Impression: Fall at home Qualifiers: Encounter type: initial encounter Qualified Code(s): W19.XXXA - Unspecified fall, initial encounter; Y92.009 - Unspecified place in unspecified non- institutional (private) residence as the place of occurrence of the external cause Multiple rib fractures Qualifiers: Encounter type: initial encounter Fracture type: closed Laterality: left Qualified Code(s): S22.42XA - Multiple fractures of ribs, left side, initial encounter for closed fracture Disposition: Discharge to Home or Self Care Condition: Poor Instructions: Rib Fracture (DC) Diet: regular diet Activity: increase activity as tolerated Referrals: MARY SLATER [Primary Care Provider] - 1-2 Weeks Prescriptions: Tramadol HCl 50 mg PO Q8HR PRN #30 tab PRN Reason: Moderate Pain Azithromycin 250 mg PO DAILY #7 tab Home Medications: Ambulatory Orders Furosemide [Lasix] 20 mg PO DAILY PRN 10/22/19 Apixaban [Eliquis] 2.5 mg PO BID 14 Days #28 tab 10/23/19 Levofloxacin 250 mg PO DAILY #8 tablet 12/10/19 Polyethylene Glycol 3350 [Miralax] 17 gm PO DAILY #30 pckt 12/10/19 metroNIDAZOLE [Flagyl] 500 mg PO Q8H #24 tab 12/10/19 Azithromycin 250 mg PO DAILY #7 tab 01/16/20 Tramadol HCl 50 mg PO Q8HR PRN #30 tab 01/16/20 Additional Instructions: The patient is a 89-year-old male presented emergency room secondary to having had a fall at home. He sustained acute fractures with no significant displacement to the posterior left seventh eighth and ninth ribs. No obvious underlying contusion or pneumothorax. He is oxygenating well. The patient has received 2 doses of hydrocodone and wants to go home. He has been offered admission here for pain control and assistance with ambulation over the next 24 hours. He has deferred that. I will write the patient for some tramadol for pain control. He can additionally use some Aleve as needed. He was given incentive spirometer to use to help prevent pneumonia and I will write him for low-dose azithromycin to help prevent a pneumonia again. ER warnings are given for any worsening. He obviously needs to ambulate carefully. I want him to follow back up with his primary care doctor this coming week. He may benefit from physical therapy for strength and gait training.
[2020-01-17 01:10] VITALS: BP 136/86; TEMP 97.8; O2SAT 96
== END 2020-01-16 23:50 | disposition home or self-care (01) ==
LOC: ER 21:33
DX: S22.42XA Multiple fractures of ribs, left side, initial encounter for closed fracture (principal); I11.0 Hypertensive heart disease with heart failure; I50.9 Heart failure, unspecified; W19.XXXA Unspecified fall, initial encounter; Y92.009 Unspecified place in unspecified non-institutional (private) residence as the place of occurrence of the external cause

== ENCOUNTER 2020-02-09 18:11 | Inpatient (IN) | payer MEDICARE ==
[2020-02-09] MEDS ORDERED: MORPHINE SULFATE INJ 10 MG/ML VIAL IV ONE ×2 (19:09→23:12)
[2020-02-09] MEDS ORDERED: cefTRIAXone SODIUM 1 GM in SODIUM CHL 0.9% 50ML MIN-BAG+ 50 ML IVPB ONE (20:16)
[2020-02-09] MEDS ORDERED: SODIUM CHLORIDE 0.9% 500ML 500 ML IVS ONE (20:16)
--- NOTE | 2020-02-09 20:18 | ED.PDOC ---
History of Present Illness - General Chief Complaint: GI Problem Stated Complaint: abdominal pain,no appetite Time Seen by Provider: 02/09/20 18:37 Information Source: patient Exam Limitations: no limitations - History of Present Illness Initial Comments: DIFFUSE ABD PAIN, INTERMITTENT. NO NAUSEA. DECR BM'S X 2 WKS. STILL PASSING FLATUS. TOOK 3 SENNAS YESTERDAY, NO BM. DECR APPETITE X 3 D. PSH - CABG. WARFARIN FOR DVT. STILL HAS GB AND APPENDIX. Abdominal Pain Onset Location: periumbilical, generalized abdomen Pain Radiation: no radiation Quality: severe, intermittent, sharpness, waxing/waning Timing/Duration: days, getting worse Improving Factors: nothing Worsening Factors: nothing Associated Symptoms: denies symptoms Review of Systems - Review of Systems Constitutional: Denies: chills, fever EENTM: States: no symptoms reported Respiratory: Denies: cough, short of breath Cardiology: Denies: chest pain, palpitations Gastrointestinal/Abdominal: States: abdominal pain, constipation. Denies: nausea Genitourinary: States: no symptoms reported Musculoskeletal: States: no symptoms reported Skin: States: no symptoms reported Neurological: States: no symptoms reported Endocrine: States: no symptoms reported Hematologic/Lymphatic: States: no symptoms reported All other Systems: Reviewed and Negative Past Medical History (General) - Patient Medical History Hx Seizures: No Hx Stroke: No Hx Dementia: No Hx Asthma: No Hx of COPD: No Hx Cardiac Disorders: Yes Hx Congestive Heart Failure: Yes Hx Pacemaker: No Hx Hypertension: Yes Hx Thyroid Disease: No Hx Diabetes: No Hx Gastroesophageal Reflux: No Hx Renal Disease: No Hx Cancer: No Hx of HIV: No Hx Hepatitis C: No Hx MRSA: No Surgical History: coronary bypass surgery - Vaccination History Hx Tetanus, Diphtheria Vaccination: No Hx Influenza Vaccination: Yes Hx Pneumococcal Vaccination: Yes - Social History Hx Tobacco Use: Yes Hx Alcohol Use: No Hx Substance Use: No Hx Substance Use Treatment: No Hx Depression: No Hx Physical Abuse: No Hx Emotional Abuse: No Hx Suspected Abuse: No - Female History Patient : No Family Medical History - Family History Son Family History: No Known Living Status: Still Living Hx Family Asthma: No Hx Family Congestive Heart Failure: No Hx Family Hypertension: Yes Hx Family Stroke: No Hx Cardiac Disease: Yes Hx Family Diabetes: No Hx Family Cancer: No Grandparents Family History: Unknown Name: Juan Day Age (years): 64 Living Status: Hx Family Asthma: No Hx Family Congestive Heart Failure: No Hx Family Hypertension: - doesn't know Hx Family Stroke: No Hx Cardiac Disease: Yes Hx Family Diabetes: No Hx Family Cancer: No Hx Family;Other: he did not want to talk about it Physical Exam - Physical Exam General Appearance: Alert, Obvious distress Eyes, Ears, Nose, Throat Exam: PERRL/EOMI, normal ENT inspection Neck: supple, normal inspection Respiratory: lungs clear, normal breath sounds, no respiratory distress, no accessory muscle use Cardiovascular/Chest: regular rate, rhythm, no edema, no murmur Peripheral Pulses: No deficit Gastrointestinal/Abdominal: normal bowel sounds, soft, no organomegaly, no pulsatile mass, tenderness - DIFFUSELY TTP. NO G/R. Back Exam: normal inspection, no CVA tenderness Extremity: normal range of motion, normal inspection Neurologic: no motor/sensory deficits, alert Skin Exam: normal color, warm/dry Lymphatic: no adenopathy Progress - Results/Orders Results/Orders: CBC NEG. LIPASE NEG. EKG PVC'S AND PAC'S (PREMAT SUPRAVENTRICULAR CONTRACTIONS). NO ST CHANGES. CMP ARF VS CRF. CR AND BUN ELEV, RATIO 22, THUS PRERENAL AZOTEMIA. DEHYDRATED. BOLUSED 500 ML. UA -UTI WITH POS LEUK EST, BACTERIA, WBC. ROCEPHIN X 1. CT SHOWS SBO AND POSSIBLE RECTAL MASS. (PASSING MILD FLATUS, THUS POSSIBLY PARTIAL SBO.) IVF 125 ML/HR. NPO. I D/W DR. MAYA, SURGEON, AND HETAL, HOSPITALIST, WHO ARE ACCEPTING FURTHER CARE. THANK YOU, [facility]. - EKG/XRAY/CT EKG: no ST T wave changes Departure - Departure Clinical Impression: Small bowel obstruction, Rectal mass, Dehydration, Acute prerenal azotemia UTI (urinary tract infection) Qualifiers: Urinary tract infection type: acute cystitis Hematuria presence: without hemat uria Qualified Code(s): N30.00 - Acute cystitis without hematuria Disposition: Admit Patient Condition: Fair Departure Forms: ED Discharge - Pt. Copy, Patient Portal Self Enrollment Diet: other - NPO Referrals: MARY SLATER [Primary Care Provider] - 1-2 Weeks Home Medications: Ambulatory Orders Furosemide [Lasix] 20 mg PO DAILY PRN 10/22/19 Tramadol HCl 50 mg PO Q8HR PRN #30 tab 01/16/20 Polyethylene Glycol 3350 [Miralax] 17 gm PO PRN 02/09/20 Sennosides [Senna] 8.6 mg PO PRN 02/09/20 Warfarin Sodium 5 mg PO BEDTIME 02/09/20 Decision To Admit - Decistion To Admit Decision to Admit Reason: Admit from ER Decision to Admit Date: 02/10/20 Decision to Admit Time: 00:33
[2020-02-09] MEDS ORDERED: SODIUM CHLORIDE 0.9% 500ML 500 ML ONE (20:38)
--- NOTE | 2020-02-09 20:44 | CT ---
EXAM DESCRIPTION: Abdomen/Pelvis w/Contrast CLINICAL HISTORY: abdominal pain COMPARISON: December 04, 2019 TECHNIQUE: Contiguous axial images of the abdomen and pelvis were obtained followed by reconstruction images. This exam was performed according to our departmental dose-optimization program, which includes automated exposure control, adjustment of the mA and/or kV according to patient size and/or use of iterative reconstruction technique. FINDINGS: There is mucosal thickening of the distal ileum including the terminal ileum with dilatation of multiple distal small bowel loops compatible with small bowel obstruction. There is a small amount of free fluid in the abdomen. There is fluid within the presacral space. There is atherosclerosis. Reticular opacities within the periphery of the lungs may represent atelectasis versus scar. There are subacute fractures of the left lateral inferior ribs, new finding when compared with the prior exam. There is a loculated right pleural fluid collection. Increased opacity within the dependent portion of the right lower lung could represent rounded atelectasis. Underlying parenchymal disease cannot be excluded. Similar findings were noted in the prior exam. There is a small anterior abdominal wall hernia with fluid component. There are bilateral renal cysts. There is aneurysmal dilatation of the right common iliac artery measuring approximately 3.3 cm in greatest transverse diameter. There is nodular mucosal thickening of the rectum, underlying mass cannot be excluded. Direct visualization recommended. The liver, spleen, pancreas and kidneys are otherwise within normal limits. There is no hydronephrosis or renal stones. The gallbladder is unremarkable by CT criteria. Adrenal glands are within normal limits. Appendix was not visualized. IMPRESSION: Mucosal thickening of distal small bowel loops could be secondary to an infectious or inflammatory etiology. There is superimposed dilatation of the distal small bowel bowel loops compatible with a small bowel obstruction. Recommend follow-up. Nodular contour of the rectal mucosa could be secondary to underlying mass, recommend follow-up. Right iliac artery aneurysm, unchanged. Electronically signed by: Keshawn Mejia MD 02/09/2020 8:43 PM CDT
[2020-02-10] MEDS ORDERED: SODIUM CHLORIDE 0.9% 1000ML 1,000 ML IVS PRN (00:28)
--- NOTE | 2020-02-10 00:32 | HP ---
SUPERVISING PHYSICIAN: Philippe Mayer MD CHIEF COMPLAINT: Abdominal pain. HISTORY OF PRESENT ILLNESS: This is an 89-year-old male patient who came to the Emergency Room with diffuse abdominal pain. He has also had no appetite. His bowel movements have been less over the past 2 weeks although he is still passing gas. He has taken some Senokot yesterday, but he has had no bowel movement. He was in the hospital about 2 months ago for diverticulitis. In the Emergency Room, his vital signs were temperature 97, heart rate 50, blood pressure 149/100, respiratory rate 20, O2 saturation 98%. His labs showed a CBC that was unremarkable. Electrolytes were basically within normal limits. He did have a BUN 37, creatinine 1.66. His baseline creatinine is about 1.3. Lipase 23. Urinalysis showed small amount of urine bilirubin with small amount of urine leukocyte esterase and 10 to [address] of the abdomen showed mucosal thickening of distal small bowel loops could be secondary to an infectious or inflammatory etiology. There is superimposed dilatation of the distal small bowel loops compatible with a small bowel obstruction. Nodular contour of the rectum mucosa could be secondary to underlying mass. Right iliac artery aneurysm unchanged. He received some fluids in the Emergency Room as well as some morphine. He also received some Rocephin for his urinary tract infection. I was called for hospital admission. PAST MEDICAL HISTORY: 1. Hypertension. 2. Coronary artery disease. 3. Chronic obstructive pulmonary disease. 4. Congestive heart failure with an ejection fraction of 45-50% on last echocardiogram in October of 2019. 5. Benign prostatic hypertrophy. 6. Recent treatment for right pulmonary embolism. 7. History of diverticulitis. PAST SURGICAL HISTORY: 1. 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 OUTPATIENT MEDICATIONS: Per the EMR and awaiting verification. ALLERGIES: NO KNOWN DRUG ALLERGIES. FAMILY HISTORY: Noncontributory. SOCIAL HISTORY: He quit smoking approximately 5 years ago. He has a 72 pack year history. He denies any alcohol or illicit drug use. He resides in [place]. Primary care physician is Dr. Mc. REVIEW OF SYSTEMS: GENERAL: Negative for fever, fatigue or weight changes. HEENT: Negative for sinus symptoms, ear pain, vision changes or sore throat. RESPIRATORY: Negative for wheezing, coughing or shortness of breath. CARDIAC: Negative for chest pain, palpitations or tachycardia. GASTROINTESTINAL: As per history of present illness. GENITOURINARY: Negative for hematuria, dysuria or polyuria. SKIN: Negative for lesions or rashes. NEUROLOGIC: Positive for generalized weakness. Negative for headache or seizures. PHYSICAL EXAMINATION: VITAL SIGNS: Temperature 97.9, heart rate 61, blood pressure 109/71, respiratory rate 20, O2 saturation 97% on room air. GENERAL: This is an 89-year-old male patient who is lying in his hospital bed. He looks to be in moderate pain. HEENT: Normocephalic, atraumatic. Pupils are equal and reactive. Oropharynx is clear. NECK: Supple without mass. RESPIRATORY: Essentially clear to auscultation bilaterally. CARDIOVASCULAR: Regular rate and rhythm. GASTROINTESTINAL: Abdomen is slightly firm, but nondistended. He does have a hernia in the epigastric region. There is no rebound tenderness or guarding. Bowel sounds are positive. NEUROLOGIC: Awake, alert and oriented times three. Cranial nerves II-XII are grossly intact as tested. LABORATORY: Labs and films are as per history of present illness. IMPRESSION: 1. Small bowel obstruction. 2. Questionable rectal mass per CT scan. 3. Urinary tract infection. 4. History of diverticulitis, hospitalized about 2 months ago for treatment. 5. History of pulmonary embolism, presently on Coumadin, although there is a question that he did go home on Eliquis. 6. Acute on chronic renal failure. His baseline creatinine is about 1.3. His admitting creatinine is 1.66. 7. Chronic obstructive pulmonary disease without acute exacerbation. 8. Congestive heart failure, diastolic etiology. His last echocardiogram in October of 2019 shows an ejection fraction of 45-50% with no signs of current exacerbation. 9. Hypertension. 10. Coronary artery disease. PLAN: The patient has been admitted to the hospital. He will be placed on bowel rest with IV fluids and pain medications. He will be on a proton pump inhibitor for ulcer prophylaxis as well as Lovenox for DVT prophylaxis. He is on warfarin routinely and since he is NPO, we will utilize Lovenox. I have consulted Dr. Borrero and we will follow his recommendations. I have ordered lab and abdominal x-ray in the morning. He also got some potassium supplementation. We will continue to monitor the patient closely and treat as needed. #[id number] [facility]
[2020-02-10] MEDS ORDERED: SODIUM CHLORIDE 0.9% (FLUSH) 10 ML SYG IV PRN (01:46)
[2020-02-10] MEDS ORDERED: ACETAMINOPHEN SUPPOSITORY 650 MG PR PRN (01:46)
[2020-02-10] MEDS ORDERED: MAGNESIUM HYDROXIDE 30 ML UD PO PRN (01:46)
[2020-02-10] MEDS ORDERED: KCL 20MEQ/D5NS 1,000 ML IVS PRN (01:56)
[2020-02-10] MEDS: MORPHINE SULFATE INJ 10 MG/ML VIAL IV PRN ×4 (02:09→20:16)
[2020-02-10] MEDS: IV SET AND CAP CHANGE INJ INJ SCH (02:10)
[2020-02-10] MEDS: PANTOPRAZOLE SODIUM IV 40 MG VIAL IV SCH (06:07)
[2020-02-10] MEDS: ONDANSETRON INJ 4 MG/2 ML VIAL IV PRN (09:11)
[2020-02-10] MEDS ORDERED: KCL 20MEQ/WATER FOR INJ 100ML 20 MEQ in PREMIX BAG 1 BAG IVPB ONE (10:58)
[2020-02-10] MEDS ORDERED: FUROSEMIDE INJ 20 MG/2 ML VIAL IV ONE (11:30)
[2020-02-10] MEDS ORDERED: HYDROmorphone HCL INJ 2 MG/ML VIAL IV PRN (12:34)
[2020-02-10] MEDS: KCL 20MEQ/D5 1/2NS 1,000 ML IVS PRN ×2 (15:18→22:55)
[2020-02-10] MEDS ORDERED: ENOXAPARIN SODIUM 30 MG/0.3 ML SYG SUBCU ONE (19:04)
[2020-02-10] MEDS ORDERED: ENOXAPARIN SODIUM 30 MG/0.3 ML SYG SUBCU SCH (21:00)
[2020-02-11] MEDS: PANTOPRAZOLE SODIUM IV 40 MG VIAL IV SCH (05:39)
[2020-02-11] MEDS: KCL 20MEQ/D5 1/2NS 1,000 ML IVS PRN ×2 (05:42→15:12)
--- NOTE | 2020-02-11 07:42 | RAD ---
EXAM: ABDOMEN X-RAY, TWO VIEWS CLINICAL HISTORY: sbo COMPARISON: 02/09/2020 TECHNIQUE: Supine and upright images of the abdomen were submitted. FINDINGS: Query development of pneumoperitoneum tracking under the left hemidiaphragm. Otherwise persistent dilated small bowel loops measuring up to 5 cm in maximal diameter. No pneumatosis. No ectopic calcifications. Normal osseous structures. IMPRESSION: 1. Small bowel obstruction with questionable interval development of pneumoperitoneum tracking under the left hemidiaphragm. Recommend evaluation with CT. Electronically signed by: Paco Moralez MD 02/11/2020 7:41 AM CDT
[2020-02-11] MEDS: MORPHINE SULFATE INJ 10 MG/ML VIAL IV PRN ×3 (08:13→20:07)
--- NOTE | 2020-02-11 13:23 | PN ---
DATE: 02/11/20 SUBJECTIVE: The patient is having no pain today, no nausea or vomiting. He passed a little bit of gas. OBJECTIVE: VITAL SIGNS: Afebrile. T-max 98. Pulse 50s. Blood pressure 150/80. I&Os show 1.9 in, 700 out. Adequate urine output on IV fluids. GENERAL: He is conscious, alert, in no distress. CHEST: Clear and equal. HEART: Regular rate and rhythm. No murmurs, rubs or gallops. ABDOMEN: Soft, mildly distended, nontender. No rebound, no guarding. LABORATORY: White blood cell count 2, hematocrit 34 down from 42. No evidence of bleeding. Platelet count 173. CMP shows CO2 20, BUN 23, creatinine 1.1. This was normal from elevated at 1.6. Transaminases are normal. Urinalysis was essentially normal. STUDIES: Initial CT scan showed enteritis. The followup abdominal film is read as small bowel obstruction with questionable interval development of a pneumoperitoneum. ASSESSMENT: Enteritis with possible small bowel obstruction. Regarding the possible pneumoperitoneum, the patient shows no evidence of peritoneal signs and there is no evidence on CT, so this is probably just the read. PLAN: We will monitor him close for any evidence of peritoneal signs, but there is no evidence of bowel perforation. At this point, I am continuing observation, bowel rest, ice chips and water, and await resolution of his enteritis and bowel obstruction. I discussed with the patient it is very rare we would every have to operate for this, but if he remained with persistent bowel obstruction, it is possible he could need surgery, but very unlikely. There may possibly be an underlying tumor that is just not obvious on the CT scan, but with the inflammation and proximal ilial edema, it is consistent with enteritis. #[id number] [facility]
--- NOTE | 2020-02-11 13:43 | RAD ---
EXAM DESCRIPTION: Chest,1 View CLINICAL HISTORY: 89 years Male, rule out free air COMPARISON: 11/02/2019. TECHNIQUE: AP radiograph of the chest was obtained. FINDINGS: Trachea is midline.The cardiomediastinal silhouette is normal in size. The pulmonary vasculature is within normal limits. Persistent small right pleural effusion with associated airspace opacities of the right lower lobe. IMPRESSION: Persistent small right pleural effusion with associated airspace opacities of the right lower lobe. Electronically signed by: Herminia Oliver MD 02/11/2020 1:41 PM CDT
--- NOTE | 2020-02-11 15:59 | PN ---
SUPERVISING PHYSICIAN: Alton Mayer M.D. DATE: 02/11/20 SUBJECTIVE: The patient is still having a little abdominal pains across the mid section. He has not had any nausea. He has actually tolerated a little bit of clear liquids of water. I did discuss with him and his son as well the plan of care and deferred surgical discussions to Dr. Borrero with both understanding that at this point medical treatment is being completed, but ultimately final treatment for any surgery would be deferred to Dr. Borrero. OBJECTIVE: VITAL SIGNS: Temperature 98, pulse 56, blood pressure 153/87, respirations 19, satting 97% on room air. GENERAL: The patient is resting comfortably. Does not appear to be in any acute distress. CHEST: Lung sounds were clear. No obvious rales or rhonchi. HEART: Regular rate and rhythm. ABDOMEN: Soft, nondistended with positive bowel sounds with diffuse tenderness noted across the mid left and right upper quadrants. He is passing some gas. EXTREMITIES: Without any edema. NEUROLOGIC: He is alert and oriented times three. LABORATORY STUDIES: White count is 2,700, hemoglobin 11.8, hematocrit 34.7, platelet count 173,000. Differential shows to be without a left shift. Chemistries show sodium 133, potassium 4.2, creatinine is down to 1.12. Liver functions were all within normal limits. MICROBIOLOGY: Urine culture is pending. RADIOLOGY: Chest x-ray today per radiology interpretation showed persistent small right pleural effusion with associated airspace opacity in the right lower lobe. ASSESSMENT: 1. Enteritis with possible small bowel obstruction followed by Dr. Borrero. 2. Questionable rectal mass seen on CT scan with surgical consultation. 3. Urinary tract infection with cultures pending. 4. History of diverticulitis, hospitalized about 2 months ago for treatment. 5. History of pulmonary embolism, presently on Coumadin, although there is a question that he did go home on Eliquis. 6. Acute on chronic renal failure. His baseline creatinine is about 1.3. His admitting creatinine is 1.66. 7. Chronic obstructive pulmonary disease without acute exacerbation. 8. Congestive heart failure, diastolic etiology. His last echocardiogram in October of 2019 shows an ejection fraction of 45-50% with no signs of current exacerbation. 9. Hypertension. 10. Coronary artery disease. PLAN: Will continue with bowel rest and IV fluids with pain management as per Dr. Borrero. Also give him some ice chips. I have deferred continuation of the management of the questionable enteritis versus small bowel obstruction to Dr. Borrero. He is NPO except for ice chips and is on Lovenox. We are waiting to resume his home medications once he can start eating. Will go ahead and follow his labs and x-rays as necessary. Until we can transition to outpatient management will continue to monitor and treat as needed. [facility][id number] [facility]
[2020-02-11] MEDS ORDERED: ALPRAZolam 0.25 MG TAB PO ONE (16:55)
[2020-02-11] MEDS ORDERED: BISACODYL SUPPOSITORY 10 MG PR ONE (18:00)
[2020-02-11] MEDS: ENOXAPARIN SODIUM 40 MG/0.4 ML SYG SUBCU SCH (20:07)
[2020-02-12] MEDS: KCL 20MEQ/D5 1/2NS 1,000 ML IVS PRN ×3 (00:20→19:04)
[2020-02-12] MEDS: PANTOPRAZOLE SODIUM IV 40 MG VIAL IV SCH (06:16)
--- NOTE | 2020-02-12 07:18 | RAD ---
EXAM: XR Abdomen, 2 Views CLINICAL HISTORY: SBO? TECHNIQUE: Frontal view of the abdomen/pelvis with upright view of the abdomen. COMPARISON: 02/11/2020. FINDINGS: Lower thorax: Stable diffuse small bowel distention. Air identified adjacent left diaphragm is thought to be within bowel loops. Stable small right pleural effusion. Stable enlarged cardiac shadow. Intraperitoneal space: No free air. Gastrointestinal tract: Unremarkable. No dilation. Bones/joints: Unremarkable. IMPRESSION: Stable small bowel obstruction. Electronically signed by: Vilma Richardson MD 02/12/2020 7:17 AM CDT
[2020-02-12] MEDS: MORPHINE SULFATE INJ 10 MG/ML VIAL IV PRN ×3 (07:33→18:02)
--- NOTE | 2020-02-12 08:57 | CONS ---
DATE OF CONSULTATION: 02/10/20 REASON FOR CONSULTATION: Enteritis, possible rectal mass. HISTORY OF PRESENT ILLNESS: This is an 89-year-old man who came to the Emergency Room with abdominal pain and loss of appetite. He has had the pain for at least three days. He complained of constipation in the past. He states he still remains somewhat constipated. He had required enemas on last admission. He denies any fevers or chills, no nausea or vomiting, just abdominal distention and pain. He thought he was constipated. PAST MEDICAL HISTORY: 1. Hypertension. 2. Coronary artery disease. 3. Chronic obstructive pulmonary disease. 4. Congestive heart failure. 5. Pulmonary embolism. 6. History of diverticulitis. PAST SURGICAL HISTORY: 1. Coronary artery bypass graft. 2. Mitral valve. CURRENT MEDICATIONS: Please see list. ALLERGIES: NONE. SOCIAL HISTORY: He quit smoking five years ago. He had smoked extensively in the past. REVIEW OF SYSTEMS: CONSTITUTIONAL. No fevers or chills. HEENT: No headache, no visual changes, no sore throat. RESPIRATORY: No cough or wheeze. CARDIOVASCULAR: No chest pain or palpitations. GASTROINTESTINAL: As above. GENITOURINARY: No frequency, dysuria or hematuria. EXTREMITIES: No complaints. PHYSICAL EXAMINATION: VITAL SIGNS: Afebrile, T-max 98. Heart rate in the 60s. Blood pressure 110/70s. Oxygen saturation 97% on room air. GENERAL: The patient is conscious, alert and well-oriented, laying in bed in no distress. HEENT: Normocephalic, atraumatic. Pupils are equal and reactive. Sclerae are anicteric. Oral mucosa is moist. NECK: Supple. No adenopathy, jugular venous distention or thyromegaly noted. CHEST: Equal, clear breath sounds bilaterally. HEART: Regular rate and rhythm. No murmurs, rubs or gallops. ABDOMEN: Mildly distended, nontender. No evidence of hernias. No rebound, no guarding. No skin changes. No CVA tenderness. EXTREMITIES: No cyanosis, clubbing or edema. NEUROLOGIC: Grossly intact. LABORATORY: White blood cell count on admission was 5, hematocrit 42, platelet count 234. CMP shows creatinine 1.6, BUN 37. Transaminases are normal. Urinalysis shows no evidence of acute infection. He had a abdomen and pelvis CT scan from the Emergency Department that I reviewed myself and it shows some edema in the distal ileum with some surrounding fluid and significant thickening at the very distal ileum consistent with enteritis and with some proximal dilation of the small bowel. There is some nodularity in the rectum and on my view, possible polyp identified in the mid distal rectum that is nonobstructing. IMPRESSION: This is an 89-year-old man with significant enteritis, possibly causing partial small bowel obstruction. PLAN: Continue NPO, IV fluids and observation. I discussed with the patient that this should clear up, but it may take a few days. He does not appear constipated on the CT scan. He was asking for enemas, but I do not think that is necessary at this point. Thank you for asking me to evaluate Mr. Day. #[id number] [facility]
[2020-02-12] MEDS: ENOXAPARIN SODIUM 40 MG/0.4 ML SYG SUBCU SCH (20:46)
--- NOTE | 2020-02-12 21:26 | PN ---
SUPERVISING PHYSICIAN: Alton Mayer M.D. DATE: 02/12/20 SUBJECTIVE: The patient is still having some abdominal pains consistent with what he has had since admission, but he actually had some results with an enema yesterday. He is actually passing some gas. He has not really had any nausea or any emesis. OBJECTIVE: VITAL SIGNS: Temperature 97.8, pulse 57, blood pressure 124/72, respirations 16, satting 93% on room air. GENERAL: The patient is resting comfortably. He does not look to be in any distress. Notes that his pain is controlled with pain management. CHEST: Remains clear to auscultation, just a little diminished towards the bases. HEART: Regular rate and rhythm. ABDOMEN: Soft, nondistended with continued tenderness noted on palpation across the entire mid left and upper right quadrants. Bowel sounds are active. EXTREMITIES: Without any edema. NEUROLOGIC: He remains alert and oriented times three. LABORATORY STUDIES: White count is at 3,500, hemoglobin 12.5, hematocrit 36.5, platelet count 192,000. Differential shows to be without a left shift. Chemistries show sodium 134, potassium is normal at 4.1, creatinine is at 1.08, calcium 8.5. MICROBIOLOGY: Final urine culture results shows urogenital oxana. RADIOLOGY: Repeat abdominal x-ray this morning per radiology interpretation did show a stable small bowel obstruction. ASSESSMENT: 1. Enteritis versus small bowel obstruction followed by Dr. Borrero. 2. CT findings concerning for a questionable rectal mass with Dr. Borrero on consultation. 3. Urinary tract infection showing urogenital oxana. 4. History of diverticulitis with previous hospitalization without current evidence of any acute diverticulitis on admission. 5. History of pulmonary embolism, having been on Coumadin, currently on Levaquin awaiting surgical consultation prior to resuming Coumadin. 6. Acute on chronic renal failure, resolved back to baseline levels due to some underlying prerenal azotemia, resolved with fluids. 7. Chronic obstructive pulmonary disease without acute exacerbation. 8. Chronic congestive heart failure, diastolic slightly with ejection fraction with last echocardiogram showing an ejection fraction of 45-50% with no current exacerbation. 9. Hypertension with a diastolic dysfunction. 10. Coronary artery disease. PLAN: Will continue with bowel rest, IV fluids and defer to Dr. Borrero for further management. He is on Lovenox. He is tolerating some ice chips. He still is off of Warfarin which will need to resume once Dr. Borrero feels that he may not take him to surgery, but he does remain on Lovenox. Until we can transition back to outpatient management, once again will defer to Dr. Borrero for ultimate plans on discharge. Will continue to monitor and treat as needed. #[id number] [facility]
[2020-02-13] MEDS: KCL 20MEQ/D5 1/2NS 1,000 ML IVS PRN ×3 (03:02→22:16)
[2020-02-13] MEDS: IV SET AND CAP CHANGE INJ INJ SCH (03:02)
[2020-02-13] MEDS: PANTOPRAZOLE SODIUM IV 40 MG VIAL IV SCH (05:52)
[2020-02-13] MEDS: MORPHINE SULFATE INJ 10 MG/ML VIAL IV PRN ×2 (09:30→18:38)
--- NOTE | 2020-02-13 10:08 | RAD ---
EXAM: XR Abdomen, 2 Views CLINICAL HISTORY: sbo TECHNIQUE: Frontal view of the abdomen/pelvis with upright view of the abdomen. COMPARISON: 02/12/2020. FINDINGS: Lower thorax: There is stable right basilar pleural effusion and airspace consolidation. Intraperitoneal space: No free air. Gastrointestinal tract: Diffuse small bowel distention increased. There is mild colonic air. There is an air-fluid level in the stomach. Bones/joints: Unremarkable. IMPRESSION: 1. Worsening SBO. 2. Stable right basilar pleural and parenchymal changes. Electronically signed by: Vilma Richardson MD 02/13/2020 10:07 AM CDT
--- NOTE | 2020-02-13 12:56 | PN ---
SUPERVISING PHYSICIAN: Alton Mayer M.D. DATE: 02/13/20 SUBJECTIVE: The patient is lying in bed. He has had no problems with his ice chips. His abdomen does hurt most of the time but does seem to be improving. He continues to pass gas. Denies chest pain, nausea or vomiting. OBJECTIVE: VITAL SIGNS: Temperature 97.4, heart rate 59. blood pressure 124/86, respiratory rate 16, O2 saturation 97%. RESPIRATORY: Essentially clear to auscultation bilaterally. Somewhat diminished at the bases. CARDIAC: Regular rate and rhythm. GASTROINTESTINAL: Abdomen is soft. It is mildly distended. There is minimal tenderness over the epigastric area. No rebound tenderness or guarding. Bowel sounds are positive. NEUROLOGIC: He is awake, alert and oriented times three. LABORATORY: WBCs are 4,700 with hemoglobin of 14.2, hematocrit 41.9. Chemistries: Sodium 133, potassium 4.2, chloride 101, calcium 8.8. Urine culture shows no growth. Abdominal x-ray shows: 1. Worsening SBO. 2. Stable right basilar pleural and parenchymal changes. All other labs and films have been reviewed via the EMR. ASSESSMENT: 1. Enteritis versus small bowel obstruction followed by Dr. Borrero. 2. CT findings concerning for a questionable rectal mass with Dr. Borrero on consultation. 3. Urinary tract infection showing urogenital oxana. 4. History of diverticulitis with previous hospitalization without current evidence of any acute diverticulitis on admission. 5. History of pulmonary embolism, having been on Coumadin, currently on Levaquin awaiting surgical consultation prior to resuming Coumadin. 6. Acute on chronic renal failure, resolved back to baseline levels due to some underlying prerenal azotemia, resolved with fluids. 7. Chronic obstructive pulmonary disease without acute exacerbation. 8. Chronic congestive heart failure, diastolic slightly with ejection fraction with last echocardiogram showing an ejection fraction of 45-50% with no current exacerbation. 9. Hypertension with a diastolic dysfunction. 10. Coronary artery disease. PLAN: We will continue present supportive care. We will defer to Dr. Borrero for surgical issues. I will speak to him later about his recommendations. I have ordered lab and an abdominal x-ray for in the morning. We will continue with present plan of care unless recommended to do otherwise by Dr. Borrero. At some point in the next few days we need to address his code status. Will continue to monitor closely and follow as needed. #[id number] [facility]
--- NOTE | 2020-02-13 18:32 | CT ---
EXAM DESCRIPTION: Abdomen/Pelvis w/wo Contrast CLINICAL HISTORY: sbo COMPARISON: February 09, 2020 TECHNIQUE: Contiguous axial images of the abdomen and pelvis were obtained followed by reconstruction images. This exam was performed according to our departmental dose-optimization program, which includes automated exposure control, adjustment of the mA and/or kV according to patient size and/or use of iterative reconstruction technique. FINDINGS: There are multiple dilated small bowel loops compatible with a small bowel obstruction. There is free fluid in the abdomen and pelvis. There are two anterior abdominal wall hernias without bowel components. There is atherosclerosis. Calcifications within the pelvis compatible with phleboliths. There is fluid within the presacral space. 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 Peripheral focal rounded area of increased attenuation within the posterior aspect of the right lung may represent rounded atelectasis. There is right pleural thickening. Linear opacities within the lungs may represent scar versus subsegmental atelectasis. There are non healed left rib fractures. There is increased attenuation of the gallbladder which could be secondary to vicarious excretion of prior contrast administration. There is a left renal cyst. The liver, spleen, pancreas and kidneys are otherwise within normal limits. There is no hydronephrosis or renal stones. IMPRESSION: Dilated mid small bowel loops compatible with a small bowel obstruction. Mucosal thickening of the level of the rectum of unknown etiology. Recommend follow-up. Electronically signed by: Keshawn Mejia MD 02/13/2020 6:30 PM CDT
[2020-02-13] MEDS: ENOXAPARIN SODIUM 40 MG/0.4 ML SYG SUBCU SCH (20:25)
[2020-02-14] MEDS: KCL 20MEQ/D5 1/2NS 1,000 ML IVS PRN (05:04)
[2020-02-14] MEDS: PANTOPRAZOLE SODIUM IV 40 MG VIAL IV SCH (05:16)
--- NOTE | 2020-02-14 09:49 | RAD ---
EXAM:Chest,2 Views CLINICAL INDICATION: Small bowel obstruction COMPARISON: 02/11/2020 FINDINGS:Two views of the chest were obtained. The heart size is normal. The pulmonary vascularity is unremarkable. Infiltrates in the right lung base appear unchanged from the previous study. The lungs are otherwise clear. Sternotomy wires are noted. There is no pneumothorax. IMPRESSION: Stable infiltrate/pneumonia in the right lung base. Otherwise, no acute process in the chest. Electronically signed by: Paco Moreno MD 02/14/2020 9:48 AM CDT
[2020-02-14] MEDS ORDERED: LEVALBUTEROL NEBS 1.25 MG/3 ML VIAL NEB PRN (12:02)
[2020-02-14] MEDS ORDERED: HYDROcodone 5MG/APAP 325MG 1 EA TAB PO PRN (12:04)
[2020-02-14] MEDS: cefTRIAXone SODIUM 1 GM in SODIUM CHL 0.9% 50ML MIN-BAG+ 50 ML IVPB SCH (12:35)
[2020-02-14] MEDS: LEVALBUTEROL NEBS 1.25 MG/3 ML VIAL NEB SCH ×2 (13:00→20:55)
[2020-02-14] MEDS: AZITHROMYCIN IV 500 MG in SODIUM CHLORIDE 0.9% 250ML 250 ML IVPB SCH (13:04)
--- NOTE | 2020-02-14 17:28 | PN ---
SUPERVISING PHYSICIAN: Alton Mayer M.D. DATE: 02/14/20 SUBJECTIVE: The patient is lying in bed awake. He has had no complaints except is unable to eat or drink much of his clear liquids. He says he is passing gas and the only thing that actually tastes good is coffee. His nurse reports that he is eating very little of his liquid meals. He denies nausea or vomiting or the patient. OBJECTIVE: VITAL SIGNS: Temperature 98.3, heart rate 58. blood pressure 138/82, respiratory rate 18, oxygen saturation 96% on room air. RESPIRATORY: Essentially clear to auscultation bilaterally. CARDIAC: Regular rate and rhythm. GASTROINTESTINAL: Abdomen is slightly firm but not distended. It is very mildly tender in the epigastric and left upper quadrant. No rebound tenderness or guarding. Bowel sounds are positive. NEUROLOGIC: He is awake, alert and oriented times three. LABORATORY: WBCs are 2.8 with hemoglobin of 11.3, hematocrit 33.2. Sodium 131, BUN 10, creatinine 1.21. Abdominal pelvis CT shows dilated mid small bowel loops compatible with small bowel obstruction, mucosal thickening at the levels of the rectum of unknown etiology. Chest x-ray shows stable infiltrate pneumonia in the right lung base, otherwise no acute process in the chest. All other labs and films have been reviewed via the EMR. ASSESSMENT: 1. Enteritis versus small bowel obstruction followed by Dr. Borrero. 2. CT findings concerning for a questionable rectal mass with Dr. Borrero on consultation. 3. Urinary tract infection. 4. Community acquired pneumonia. 5. History of diverticulitis with previous hospitalization without current evidence of acute diverticulitis on admission. 6. History of pulmonary embolism, having been on Coumadin, currently on Levaquin awaiting surgical consultation prior to resuming Coumadin. 7. Acute on chronic renal failure, resolved back to baseline levels due to some underlying prerenal azotemia, resolved with fluids. 8. Chronic obstructive pulmonary disease without acute exacerbation. 9 Chronic congestive heart failure, diastolic slightly with ejection fraction with last echocardiogram showing an ejection fraction of 45-50% with no current exacerbation. 10. Hypertension with a diastolic dysfunction. 11. Coronary artery disease. PLAN: We will continue present supportive care. I started him on Rocephin and azithromycin as well as Xopenex breathing treatments. the patient has been in the hospital several times with multiple diagnoses and I have also consulted [facility] as the patient may need to make a decision on his code status. I have ordered routine labs for in the morning. I will also discuss his plan of care with Dr. Borrero and will follow his recommendations. Otherwise, we will continue to monitor closely and follow as needed. #[id number] ADDENDUM: Dr. Borrero has ordered an NGT and patient to start on Clinamix. Also tentative plans for [facility]. [facility]
[2020-02-14] MEDS: ELECTROLYTES IV SCH (19:47)
[2020-02-14] MEDS: [UNRECOGNIZED DRUG - OTHER] IV SCH (19:47)
[2020-02-14] MEDS: DEXTROSE IV SCH (19:47)
[2020-02-14] MEDS: ENOXAPARIN SODIUM 40 MG/0.4 ML SYG SUBCU SCH (20:25)
[2020-02-14] MEDS: SODIUM CHLORIDE 0.9% (FLUSH) 10 ML SYG IV SCH (20:27)
--- NOTE | 2020-02-14 20:40 | RAD ---
EXAM DESCRIPTION: Chest,1 View CLINICAL HISTORY: 89 years Male NG insertion COMPARISON: 02/14/2020. FINDINGS: Stable cardiomediastinal silhouette. Tortuosity in the thoracic aorta. Changes from previous sternotomy. There is blunting of the right costophrenic angle consistent with a pleural effusion. There is atelectasis/infiltrate in the right lung base. These findings appear similar compared to the earlier study. There is an NG tube tip in the stomach. The tube could be advanced approximately 5 cm for better positioning. IMPRESSION: The NG tube tip is in the stomach. The tube could be advanced approximately 5 cm for better positioning. Electronically signed by: Reza Navarrete MD 02/14/2020 8:38 PM CDT
[2020-02-15] MEDS: [UNRECOGNIZED DRUG - OTHER] IV SCH (05:45)
[2020-02-15] MEDS: ELECTROLYTES IV SCH (05:45)
[2020-02-15] MEDS: DEXTROSE IV SCH (05:45)
[2020-02-15] MEDS: PANTOPRAZOLE SODIUM IV 40 MG VIAL IV SCH (05:47)
[2020-02-15] MEDS: LEVALBUTEROL NEBS 1.25 MG/3 ML VIAL NEB SCH ×4 (07:55→20:30)
--- NOTE | 2020-02-15 08:59 | RAD ---
1 radiograph chest. 1 Radiographs of the Abdomen. Indication: pna Comparison: February 14, 2020. Impression: Median sternotomy wires. Cardiomegaly. Thoracic aorta tortuous. Slightly progressed right basilar consolidation noted with a small right pleural effusion. No pneumothorax. Progressed dilated loops of small bowel which are air filled measuring up to 4 cm in diameter concerning for a persistent, slightly progressed small bowel obstruction. Exclusion of free air is difficult on this supine radiograph. Further characterization with CT versus upright abdominal imaging recommended. Surgical clips noted at the left lower chest. No abnormal calcifications. No acute osseous abnormality. Electronically signed by: Shaheen Burns MD 02/15/2020 8:58 AM CDT
[2020-02-15] MEDS: SODIUM CHLORIDE 0.9% (FLUSH) 10 ML SYG IV SCH ×2 (09:00→20:50)
--- NOTE | 2020-02-15 13:33 | PN ---
SUPERVISING PHYSICIAN: Ramsey Peck MD DATE: 02/15/20 SUBJECTIVE: The patient denies any nausea or vomiting this morning. He did have an NG tube and he pulled it out and refused replacement. He is not complaining of any abdominal pain. He has passed gas and had two small bowel movements. OBJECTIVE: VITAL SIGNS: Blood pressure 168/95, heart rate 64, respiratory rate 18, temperature 97.4, oxygen saturation 95%. GENERAL: Mr. Day is an 89-year-old male patient in no active distress. NEUROLOGIC: Alert. LUNGS: Clear to auscultation bilaterally. CARDIOVASCULAR: Regular rate and rhythm. Normal S1, S2. ABDOMEN: A little bit distended, but soft. No significant tenderness to palpation. GENITOURINARY: Deferred. EXTREMITIES: Lower extremities with no edema. LABORATORY: White count 3.3, hemoglobin 1.16, platelet count 218. Chemistry reveals sodium 134, potassium 3.9, chloride 103, CO2 22, BUN 13, creatinine 1.02, glucose 114, calcium 8.8. RADIOLOGY: Chest x-ray and abdominal x-ray were done today showing flat progression of the right basilar consolidation. No pleural effusion. The abdominal x-ray still shows progressed dilated loops of small bowel measuring up to 4 cm in diameter concerning for persistent small bowel obstruction. ASSESSMENT: 1. Small bowel obstruction, followed by Dr. Borrero. 2. Possible rectal mass, being followed by Dr. Borrero. 3. Urinary tract infection. 4. Right lower lobe consolidation concerning for pneumonia. 5. History of diverticulitis without current evidence of diverticulitis. 6. History of pulmonary embolism. 7. Acute on chronic renal failure, resolved. 8. Chronic obstructive pulmonary disease without exacerbation. 9. Chronic congestive heart failure with no exacerbation. 10. Hypertension. PLAN: Radiographically, the small bowel obstruction does not seem to be resolving, but, as stated above, the patient is passing gas and having bowel movements. We will defer to Dr. Borrero for treatment of the small bowel obstruction. We will continue the current antibiotics. However, I feel that the right lower lobe consolidation is likely compression atelectasis and a reactive pleural effusion. We will continue current medications. Repeat films tomorrow as well as labs. [facility][id number] [facility]
[2020-02-15] MEDS: cefTRIAXone SODIUM 1 GM in SODIUM CHL 0.9% 50ML MIN-BAG+ 50 ML IVPB SCH (15:18)
[2020-02-15] MEDS: AZITHROMYCIN IV 500 MG in SODIUM CHLORIDE 0.9% 250ML 250 ML IVPB SCH (15:19)
[2020-02-15] MEDS: KCL 20MEQ/D5 1/2NS 1,000 ML IVS PRN (20:49)
[2020-02-15] MEDS: ENOXAPARIN SODIUM 40 MG/0.4 ML SYG SUBCU SCH (20:50)
[2020-02-16] MEDS: IV SET AND CAP CHANGE INJ INJ SCH (02:40)
[2020-02-16] MEDS: KCL 20MEQ/D5 1/2NS 1,000 ML IVS PRN (04:11)
[2020-02-16] MEDS: PANTOPRAZOLE SODIUM IV 40 MG VIAL IV SCH (06:10)
[2020-02-16] MEDS: LEVALBUTEROL NEBS 1.25 MG/3 ML VIAL NEB SCH ×5 (07:58→21:01)
[2020-02-16] MEDS: SODIUM CHLORIDE 0.9% (FLUSH) 10 ML SYG IV SCH ×2 (09:00→20:38)
[2020-02-16] MEDS ORDERED: BUPIVACAINE 0.5% W/EPI 30 ML VIAL INJ ONE ×2 (09:35→09:54)
[2020-02-16] MEDS ORDERED: fentaNYL CITRATE INJ 50 MCG/ML AMP ONE (10:05)
[2020-02-16] MEDS ORDERED: SUGAMMADEX SODIUM 200 MG/2 ML VIAL IV ONE (10:05)
[2020-02-16] MEDS ORDERED: ROCURONIUM BROMIDE 10 MG/ML VIAL ONE ×2 (10:06→11:23)
[2020-02-16] MEDS ORDERED: LACTATED RINGERS 2,000 ML ONE (10:19)
[2020-02-16] MEDS ORDERED: LABETALOL INJ 5 MG/ML VIAL IV ONE ×2 (12:40→13:17)
[2020-02-16] MEDS ORDERED: hydrALAZINE HCl 20 MG/ML VIAL IV ONE (12:55)
[2020-02-16] MEDS ORDERED: SODIUM CHLORIDE 0.9% 50 ML VIAL INJ ONE (13:00)
[2020-02-16] MEDS ORDERED: HYDROmorphone HCL INJ 2 MG/ML VIAL IV ONE ×4 (13:00→13:18)
[2020-02-16] MEDS ORDERED: ONDANSETRON INJ 4 MG/2 ML VIAL IV ONE (13:00)
[2020-02-16] MEDS ORDERED: PHENYLEPHRINE INJ 1ML 10 MG/ML VIAL IV ONE (13:00)
[2020-02-16] MEDS ORDERED: PROPOFOL 200 MG/20 ML VIAL IV ONE (13:00)
[2020-02-16] MEDS ORDERED: LIDOCAINE 1% 10 ML VIAL INJ ONE (13:00)
[2020-02-16] MEDS ORDERED: DEXAMETHASONE INJ 10 MG/ML VIAL IV ONE (13:00)
--- NOTE | 2020-02-16 13:28 | OP ---
DATE OF PROCEDURE: 02/16/20 PREOPERATIVE DIAGNOSIS: 1. Partial small bowel obstruction, suspect ileal mass. POSTOPERATIVE DIAGNOSIS: 1. Ileal mass causing obstruction. PROCEDURE: 1. Laparoscopic converted to open right colectomy. 2. Excision of retroperitoneal tumor dissecting off the iliac artery. SURGEON: Ramsey Borrero MD. ANESTHESIA: General. PROCEDURE: General anesthesia was induced. He got preoperative antibiotics. He was prepped and draped in sterile fashion. 0.5% Marcaine with epinephrine was used at the incision sites. While maintaining upward traction, a jono was made near the base of the umbilicus. The Veress needle was introduced. There was free flow of fluid into the peritoneal cavity which was insufflated to an appropriate level of CO2 gas. A 5 mm trocar was placed followed by the camera. There was no evidence of bleeding or bowel injury. Two left mid lateral ports were placed and the area examined. As we examined the terminal ileum, it was apparent that there was a firm mass near the ileocecal valve partially occluding it. It appeared to be fixated to the posterior structures, namely an iliac vessel. It was tortuous and aneurysmal. We freed up the right colon a bit laparoscopically as we had good visualization. That is when we opened. The fixation on the vessels made it hazardous I think to continue laparoscopically. Once we had him open, we freed up the right colon more using the LigaSure as well and the vessel sealing device to free up some of the mesentery, the omentum and we divided the right colon beyond the cecum and took down the mesentery to where it was fixed to the retroperitoneum. We also chose a spot in the ileum to excise and took down the mesentery as well. I was able to divide most of the mesentery and remove the bowel off of that area. This was sent as specimen, but there was still tumor remaining fixated to what appeared to be the gonadal vessel and the iliac. The ureter was traced and identified and kept a little more posterior and out of harm's way. We were careful with the right angle and dissected this tumor mass which was about 4 cmm off the iliac. It was not directly involved in the tissue of the iliac artery itself, but the surrounding tissues. We were able to get it all off. To note, there was a little bit of a mass in the mesentery just before the cecum that was suspicious. That is why we took the colon a little bit higher and there were some suspicious lesions on the peritoneum going into the pelvis, so I think it is evidence of metastatic disease, but I did not see any bulky lymph nodes, nor were there any masses on the peritoneal surfaces or the liver capsule. Once this was done, we put a little bit of Fibrillar posteriorly. There was slight oozing, but no major bleeding. The duodenum was identified and kept out of the way and was not harmed. We had enough slack on both the ileum and the ascending colon that we could make our anastomosis. This was done in side by side fashion, mating it together with interrupted Silk sutures, cutting off the corner godfrey lines in the antimesenteric border and then putting in the Endo-AMY 55 and making our anastomosis, staggering the staple line and closing it with a TA-60. The mesenteric defect was then closed with a running 3-0 Vicryl. There was no significant oozing remaining. The bowel was put back in, making sure it was in a proper orientation. Lap and instrument counts were correct. The fascia was closed with a running 0 PDS suture, the skin with godfrey as well as the other laparoscopic incisions. He tolerated the procedure very well and was awakened and taken to Recovery to be admitted. #[id number] cc: Dr. David FRASER
[2020-02-16] MEDS ORDERED: cefOXitin SODIUM 1 GM in SODIUM CHL 0.9% 50ML MIN-BAG+ 50 ML IVPB SCH (14:00)
[2020-02-16] MEDS: cefTRIAXone SODIUM 1 GM in SODIUM CHL 0.9% 50ML MIN-BAG+ 50 ML IVPB SCH (14:15)
[2020-02-16] MEDS: MORPHINE SULFATE INJ 10 MG/ML VIAL IV PRN ×4 (14:40→22:17)
[2020-02-16] MEDS: AZITHROMYCIN IV 500 MG in SODIUM CHLORIDE 0.9% 250ML 250 ML IVPB SCH (15:05)
--- NOTE | 2020-02-16 18:49 | PN ---
DATE: 02/16/20 SUBJECTIVE: Mr. Day underwent exploratory laparotomy by Dr. Borrero today. Unfortunately he had an apparent colonic mass with evidence of metastatic spread into the mesentery. The patient had removal of the mass and a partial removal of the colon (right colectomy). Postoperatively the patient was extubated successfully. He now has an NG tube and is on a clear liquid diet per Dr. Borrero. He has recently been given a little morphine so when I went in to visit with him he was a little confused, but for his age and the procedure that he just went through, he really looked good. OBJECTIVE: VITAL SIGNS: Temperature 98.5, pulse 55, respiratory rate 16, blood pressure 155/96, O2 96% on 4 liters nasal cannula. GENERAL: Awake and alert. He is a little confused but he is oriented. HEENT: Oropharynx is clear. An NG tube was in place. I did not examine his chest or his abdomen. ASSESSMENT: 1. 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 2. Chronic kidney disease. 3. Chronic obstructive pulmonary disease. 4. Chronic systolic heart failure. 5. Hypertension. PLAN: The patient looks really good for being just a few hours postoperative. Lab work for in the morning has been ordered. We will continue to do routine postoperative care overnight. [id number]
[2020-02-16] MEDS: ONDANSETRON INJ 4 MG/2 ML VIAL IV PRN (22:17)
[2020-02-17] MEDS: MORPHINE SULFATE INJ 10 MG/ML VIAL IV PRN ×7 (01:24→22:01)
[2020-02-17] MEDS: ELECTROLYTES IV SCH ×2 (04:34→20:53)
[2020-02-17] MEDS: [UNRECOGNIZED DRUG - OTHER] IV SCH ×2 (04:34→20:53)
[2020-02-17] MEDS: DEXTROSE IV SCH ×2 (04:34→20:53)
[2020-02-17] MEDS: PANTOPRAZOLE SODIUM IV 40 MG VIAL IV SCH (06:06)
[2020-02-17] MEDS: LEVALBUTEROL NEBS 1.25 MG/3 ML VIAL NEB SCH ×4 (09:33→21:15)
[2020-02-17] MEDS: ENOXAPARIN SODIUM 40 MG/0.4 ML SYG SUBCU SCH (10:44)
[2020-02-17] MEDS: SODIUM CHLORIDE 0.9% (FLUSH) 10 ML SYG IV SCH ×2 (10:45→21:06)
[2020-02-17] MEDS: cefTRIAXone SODIUM 1 GM in SODIUM CHL 0.9% 50ML MIN-BAG+ 50 ML IVPB SCH (12:41)
[2020-02-17] MEDS: AZITHROMYCIN IV 500 MG in SODIUM CHLORIDE 0.9% 250ML 250 ML IVPB SCH (13:20)
[2020-02-17] MEDS ORDERED: MORPHINE SULFATE INJ 10 MG/ML VIAL ONE (15:38)
[2020-02-17] MEDS ORDERED: LACTATED RINGERS 1,000 ML ONE (17:58)
[2020-02-17] MEDS ORDERED: LACTATED RINGERS 500 ML IVS ONE (18:20)
[2020-02-17] MEDS ORDERED: KCL 20MEQ/D5 1/2NS 1,000 ML IVS ONE (19:42)
[2020-02-18] MEDS: MORPHINE SULFATE INJ 10 MG/ML VIAL IV PRN ×7 (01:18→22:34)
[2020-02-18] MEDS: PANTOPRAZOLE SODIUM IV 40 MG VIAL IV SCH (06:03)
--- NOTE | 2020-02-18 07:46 | PN ---
DATE: 02/17/20 POSTOPERATIVE DAY 1, RIGHT COLECTOMY SUBJECTIVE: The patient is having some incisional pain, but no other complaints such as chest pain, shortness of breath, etc. He has taken a small amount of ice chips and some clear liquids. OBJECTIVE: VITAL SIGNS: Temperature is not recorded. Pulse 70s to 90s. Blood pressure 100/65. Oxygen saturation 98% on nasal cannula. He has had just over 200 cc of urine output since this morning. I&Os yesterday were 1.3 in, 675 out. NG tube has 300 mL. GENERAL: He is alert, oriented and in no distress. CHEST: Clear and equal bilaterally. HEART: Regular rate and rhythm. No murmurs, rubs or gallops. ABDOMEN: Appropriate surgical tenderness, not particularly distended. Incision is dry. EXTREMITIES: Trace edema bilaterally. LABORATORY: White blood cell count 9, hematocrit 35, platelet count 229. CMP shows sodium 133, potassium 5.8, chloride 104, CO2 19, BUN 32, creatinine 1.6. Glucose 126. Phosphorous 4.1, magnesium 2.0. Urinalysis is normal. ASSESSMENT/PLAN: Postoperative day 1, right colectomy. The patient is likely slightly dehydrated with a small bump in his creatinine and hyperkalemia. We have given him a 500 mL bolus and continue with his TPN at a rate of 125. I will repeat the BMP now to see his creatinine and potassium which were possibly hemolysis. Additional labs in the morning. [facility][id number] [facility]
--- NOTE | 2020-02-18 07:50 | PN ---
DATE: 02/17/20 SUPERVISING PHYSICIAN: Ramsey Peck MD SUBJECTIVE: The patient is lying in bed. He is awake. He complains of his NG tube, says he is feeling much better. Otherwise, no complaints of nausea or vomiting or chest pain. OBJECTIVE: VITAL SIGNS: Temperature 97/4. heart rate 70, blood pressure 131/76, respiratory rate 16, oxygen saturation 96% on one-half liter nasal cannula. RESPIRATORY: Essentially clear to auscultation bilaterally, slightly diminished at the bases. CARDIAC: Regular rate and rhythm. GI: Abdomen is soft, nondistended, slightly tender to palpation. Bowel sounds are hypoactive. NEURO: He is awake, alert, and oriented x3. LABORATORY: WBC 9, hemoglobin 11.8, hematocrit 35.1, sodium 133, potassium 5.8, BUN 32, creatinine 1.67. All other labs and films have been reviewed via the EMR. ASSESSMENT: 1. 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 2. Chronic kidney disease. 3. Chronic obstructive pulmonary disease. 4. Chronic systolic heart failure. 5. Hypertension. PLAN: We will continue present supportive care. We will defer to for his recommendations and postoperative care. I have encouraged good pulmonary hygiene. We will continue to monitor him closely and follow as needed. [facility][id number] [facility]
[2020-02-18] MEDS: LEVALBUTEROL NEBS 1.25 MG/3 ML VIAL NEB SCH ×4 (08:30→20:00)
[2020-02-18] MEDS: ENOXAPARIN SODIUM 40 MG/0.4 ML SYG SUBCU SCH (08:45)
[2020-02-18] MEDS: SODIUM CHLORIDE 0.9% (FLUSH) 10 ML SYG IV SCH ×2 (08:45→21:00)
[2020-02-18] MEDS: ENOXAPARIN SODIUM 30 MG/0.3 ML SYG SUBCU SCH (08:49)
[2020-02-18] MEDS: ELECTROLYTES IV SCH (10:11)
[2020-02-18] MEDS: DEXTROSE IV SCH (10:11)
[2020-02-18] MEDS: [UNRECOGNIZED DRUG - OTHER] IV SCH (10:11)
[2020-02-18] MEDS ORDERED: SODIUM BICARBONATE SYRINGE 75 MEQ in DEXTROSE 5% 1000ML 1,000 ML IV ONE (10:19)
[2020-02-18] MEDS ORDERED: SODIUM BICARBONATE VIAL 50 MEQ/50 ML VIAL ONE (10:25)
[2020-02-18] MEDS ORDERED: DEXTROSE 5% 1000ML 1,000 ML IVS ONE (10:26)
[2020-02-18] MEDS: cefTRIAXone SODIUM 1 GM in SODIUM CHL 0.9% 50ML MIN-BAG+ 50 ML IVPB SCH (13:18)
[2020-02-18] MEDS: AZITHROMYCIN IV 500 MG in SODIUM CHLORIDE 0.9% 250ML 250 ML IVPB SCH (14:00)
[2020-02-18] MEDS ORDERED: SODIUM CHLORIDE 0.9% 500ML 500 ML IVS ONE (18:55)
--- NOTE | 2020-02-18 18:57 | PN ---
SUPERVISING PHYSICIAN: Ramsey Peck M.D. DATE: 02/18/20 SUBJECTIVE: The patient is resting in bed. He awakens easily. Nursing has reported that he has been somewhat anxious today, and I times more confused. He has been up walking in the hallways with assistance. At this time he has no complaints. Denies nausea, vomiting or chest pain. OBJECTIVE: VITAL SIGNS: Temperature 98.6, heart rate 63, blood pressure 112/67, respiratory rate 16, O2 saturation 93% on room air. HEENT: He has an NG tube in place. RESPIRATORY: Essentially clear to auscultation bilaterally. CARDIAC: Regular rate and rhythm. GASTROINTESTINAL: Slightly firm and somewhat diffusely tender, Bowel sounds positive. NEUROLOGIC: He is awake, alert and oriented times three. LABORATORY: WBCs are 9 with hemoglobin 11.8, hematocrit 35.1. He has a left shift on his differential. Sodium 129 with a potassium of 5.2, carbon dioxide 20, BUN 56, creatinine 2.43, glucose 120. All other labs and films have been reviewed via the EMR. ASSESSMENT: 1. 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 Postoperative day #2. 2. Chronic kidney disease that is slightly worsening. 3. Chronic obstructive pulmonary disease without acute exacerbation. 4. Chronic systolic heart failure, systolic in etiology without exacerbation. 5. Hypertension. PLAN: We will continue present supportive care. I have given him some extra fluids today. Will discuss his case with Dr. Flanagan, drop man in [place]. Will repeat his lab in the morning. Other recommendations will be per Dr. Borrero. Will continue to monitor closely and follow as needed. #[id number] [facility]
[2020-02-19] MEDS: MORPHINE SULFATE INJ 10 MG/ML VIAL IV PRN ×5 (03:22→19:45)
[2020-02-19] MEDS: IV SET AND CAP CHANGE INJ INJ SCH (05:20)
[2020-02-19] MEDS: PANTOPRAZOLE SODIUM IV 40 MG VIAL IV SCH (06:11)
[2020-02-19] MEDS: LEVALBUTEROL NEBS 1.25 MG/3 ML VIAL NEB SCH ×4 (07:30→20:29)
[2020-02-19] MEDS ORDERED: FUROSEMIDE INJ 20 MG/2 ML VIAL ONE (07:54)
[2020-02-19] MEDS ORDERED: FUROSEMIDE INJ 20 MG/2 ML VIAL IV ONE (08:10)
[2020-02-19] MEDS: SODIUM CHLORIDE 0.9% (FLUSH) 10 ML SYG IV SCH (08:11)
[2020-02-19] MEDS: ENOXAPARIN SODIUM 30 MG/0.3 ML SYG SUBCU SCH (08:11)
[2020-02-19] MEDS: ELECTROLYTES IV SCH ×2 (09:21→20:10)
[2020-02-19] MEDS: [UNRECOGNIZED DRUG - OTHER] IV SCH ×2 (09:21→20:10)
[2020-02-19] MEDS: DEXTROSE IV SCH ×2 (09:21→20:10)
[2020-02-19] MEDS ORDERED: HALOPERIDOL LACTATE INJ 5 MG/ML VIAL IM ONE ×2 (09:28→20:24)
--- NOTE | 2020-02-19 11:17 | CT ---
EXAM DESCRIPTION: Abdoment/Pelvis w/o Contrast CLINICAL HISTORY: 89 years, Male, post op distention COMPARISON: Previous CT abdomen and pelvis February 13, 2020 TECHNIQUE: CT of the abdomen and pelvis is performed according to our non contrast protocol. Coronal and sagittal images are reformatted. FINDINGS: The lung bases are abnormal with bilateral lower lobe volume loss/consolidation anterior to small pleural effusions. Patchy infiltrates or atelectasis in the right middle lobe and inferior lingula. Heart is large with extensive coronary calcification. 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 CT abdomen Small amount of free air in the abdomen is presumed to be postoperative. NG tube in the stomach. Bowel loops are much less distended than on previous study consistent with resolution of small bowel obstruction. Air and fecal material in the colon. No significant colonic distention to suggest postoperative ileus. Liver and spleen are unremarkable. Pancreas appears atrophic and fatty replaced. Likely recently excreted contrast in the gallbladder. Adrenal glands appear normal. The right kidney is unremarkable. The left kidney is unremarkable. No renal stones or hydronephrosis. Ventral hernia contains omental fat, pneumoperitoneum and small amount of fluid. Small mass anterior to the left rectus abdominis muscle (image 88) may be lymph node or small soft tissue metastasis. The former is favored with ovoid shape. Bowel anastomotic staple lines are seen in the right lower quadrant. The mass in this area has been resected. High density anterior to the right common iliac artery is consistent with a small hematoma with high-density and low-density areas. This measures approximately 2.3 x 2.6 X 5.4 cm. This is new compared to previous study. 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 Ectatic infrarenal abdominal aorta measures up to 3.3 cm in diameter. This is consistent with a small aneurysm and imaging follow-up is recommended every three years (Reference: J Am Francheska Radiol 2013;10:789-794). Right kidney is hydronephrotic with prominent right ureter. This extends to the level of the false pelvis near the region of the hematoma. Distal to this area of the ureter is normal in caliber. Compression by hematoma might explain the new onset hydronephrosis. Follow-up may be helpful to ensure resolution of hydroureteronephrosis after the hematoma resolves. If hydronephrosis persists then retrograde pyelography should be considered. Nonobstructing right renal calculus measures 3 mm in the posterior upper calyx. No stones are seen along the course of either ureter. No left renal stones. Bilateral renal cysts. CT pelvis In the pelvis, the appendix is not seen. Moderate amount of free fluid in the pelvis presumed to be postoperative. Small amount of postoperative intraperitoneal blood is most likely. No stones in the distal ureters or bladder. Gillis catheter in the bladder. Rectal wall thickness is prominent as noted on previous CT report February 13, 2020. Correlate with proctoscopy sigmoidoscopy findings. No free fluid or mass in the pelvis. Prostate appears enlarged. Edematous changes in the retroperitoneal fat and in the body wall. No inguinal or lower pelvic adenopathy. Coronal and sagittal reformatted images confirm the findings. Advanced degenerative disc disease in lower lumbar spine. Old left rib fractures. Minimal postoperative air in the anterior abdominal wall. Surgical skin godfrey present anteriorly. Metal artifacts from overlying monitor leads. Coronal images show simple and hemorrhagic renal cysts bilaterally. IMPRESSION: Postoperative changes including pneumoperitoneum. Small to moderate amount of postoperative free fluid in the lower abdomen and pelvis. Right hydroureteronephrosis with right false pelvic hematoma. 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 See above recommendations for follow-up. Ventral hernia containing omental fat, peritoneal fluid and air. Large prostate. Gillis catheter in the bladder. Bibasilar pulmonary infiltrates/atelectasis with small pleural effusions. This exam was performed according to our departmental dose-optimization program, which includes automated exposure control, adjustment of the mA and/or kV according to patient size and/or use of iterative reconstruction technique. Total DLP equals 1158.17. mGycm. Electronically signed by: Glen Hurd MD 02/19/2020 11:15 AM CDT
--- NOTE | 2020-02-19 12:07 | PN ---
DATE: 02/19/20 SUBJECTIVE: The patient is postoperative day #3 from a right colectomy. It appeared malignant and had been causing obstruction. This morning, he is noted to be more confused and complaining of abdominal pain and distention. When asked where he is, he says, "I don't where I am," but he is fully alert and does have recollection once prompted. OBJECTIVE: VITAL SIGNS: T-max 98, heart rate in the 60s, blood pressure 102/80, respirations 16, O2 saturation 95% on room air. I&Os show urine output had improved. After fluid challenges yesterday, he had 800 out and 500 out the NG tube for a total of 1.1 liters and 1.3 liters out. He is on Clinimix. MENTAL STATUS: He is conscious, alert and oriented x1. He is sitting comfortably, able to move about. HEENT: Sclerae anicteric. Buccal mucosa is moist. CHEST: Clear bilaterally. HEART: Regular. ABDOMEN: He has some distractible tenderness when barely touching the skin when removing dressings, he screams. When asked to calm down and examine his abdomen, there is some tenderness in the anterior abdomen. No rigidity. Swelling is down significantly consistent with postoperative examination. The stapling has a little ecchymosis around it and some ecchymosis from the Lovenox shot. LABORATORY: White blood cell count 6, hematocrit 29, platelet count 194. Electrolytes show sodium 129 down from 133 on 02/17/20, potassium 5.1. BUN 51, creatinine 2.3 down from 2.4. Osmolality 273. Magnesium 1.9. CT scan done today is consistent with postoperative findings. A formal read shows a pneumoperitoneum. This is slight in the very upper abdomen consistent, moderate postoperative free fluid in the lower abdomen consistent with postoperative. There is no fluid around the anastomosis or evidence of abscess or free air around the anastomosis. Right hydroureteronephrosis. There is a little bit of fluid around the surgical excision site consistent with small hematoma. Bibasilar pulmonary infiltrates/atelectasis. IMPRESSION: Postoperative day #3 with confusion. The patient is 89 years old. He also is having acute renal insufficiency. National Sales Executive is on the case and guiding that. He has been NPO now since admission. He is on Clinimix. During his abdominal exam, he does have tenderness postoperative. The CT does not show evidence of anastomotic leak or abscess at this time. PLAN: Continue NPO, NG tube and support. Continue to consult with nephrology. Possible pneumonia, but likely atelectasis. #[id number] [facility]
[2020-02-19] MEDS: cefTRIAXone SODIUM 1 GM in SODIUM CHL 0.9% 50ML MIN-BAG+ 50 ML IVPB SCH (12:29)
[2020-02-19] MEDS: AZITHROMYCIN IV 500 MG in SODIUM CHLORIDE 0.9% 250ML 250 ML IVPB SCH (12:32)
[2020-02-19] MEDS: HALOPERIDOL LACTATE INJ 5 MG/ML VIAL IM PRN (15:20)
[2020-02-19] MEDS ORDERED: diphenhydrAMINE HCL 50 MG/ML VIAL IV ONE (20:26)
[2020-02-20] MEDS: SODIUM CHLORIDE 0.9% (FLUSH) 10 ML SYG IV SCH ×3 (02:24→21:04)
[2020-02-20] MEDS: ELECTROLYTES IV SCH ×2 (03:52→21:01)
[2020-02-20] MEDS: [UNRECOGNIZED DRUG - OTHER] IV SCH ×2 (03:52→21:01)
[2020-02-20] MEDS: DEXTROSE IV SCH ×2 (03:52→21:01)
[2020-02-20] MEDS: HALOPERIDOL LACTATE INJ 5 MG/ML VIAL IM PRN ×3 (03:59→21:53)
[2020-02-20] MEDS: MORPHINE SULFATE INJ 10 MG/ML VIAL IV PRN ×5 (04:00→21:22)
[2020-02-20] MEDS: PANTOPRAZOLE SODIUM IV 40 MG VIAL IV SCH (06:21)
[2020-02-20] MEDS: LEVALBUTEROL NEBS 1.25 MG/3 ML VIAL NEB SCH ×4 (08:00→21:00)
--- NOTE | 2020-02-20 08:07 | RAD ---
EXAM: X-RAY ABDOMEN, ONE VIEW HISTORY: Abdominal pain. TECHNIQUE: AP supine view of the abdomen. COMPARISON: CT of the abdomen and pelvis from 02/19/2020. FINDINGS: Mildly dilated central small bowel loops measure up to 3.7 cm suggestive of ileus. IMPRESSION: Suspected mild ileus. Electronically signed by: Magan Hutchinson MD 02/20/2020 8:05 AM CDT
--- NOTE | 2020-02-20 09:18 | PN ---
SUPERVISING PHYSICIAN: Ramsey Peck M.D. DATE: 02/19/20 SUBJECTIVE: The patient is much more restless today. It was reported by nursing that he has gotten quite confused and combative. He has actually tried to pull his NG tube out several times. I discussed with his his code status and we have changed him to a DNR. OBJECTIVE: VITAL SIGNS: Temperature 97.5, heart rate 76, blood pressure 156/84, respiratory rate 20, O2 saturation 95%.. RESPIRATORY: Diminished at the bases, obstructive clear to auscultation. . CARDIAC: Regular rate and rhythm. GASTROINTESTINAL: Abdomen is slightly firm but nondistended except he does have some ecchymoses around his incision on his abdomen and bowel sounds are active. NEUROLOGIC: He is awake, alert to person only. . LABORATORY: WBCs are 6.4, hemoglobin 9.7, hematocrit 29. Sodium 129, potassium 5.1, chloride 100, carbon dioxide 20. BUN 51, creatinine 2.3, calcium 8.3. Total bilirubin 1.2. He had a followup BNP with a sodium of 130, potassium 4.9, chloride 98, BUN 56, creatinine 2.32. Abdomen and pelvis CT: 1. Postoperative changes including pneumoperitoneum, mild to moderate amount of postoperative free fluid in the lower abdomen and pelvis. 2. Right hydroureteronephrosis with right soft pelvic hematoma. 3. 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 4. Ventral hernia containing omental fat, peritoneal fluid and air. 5. Large prostate, Gillis catheter in the bladder. 6. Bibasilar pulmonary infiltrates, atelectasis with small pleural effusions. All other labs and films have been reviewed via the EMR. ASSESSMENT: 1. 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 Postoperative day #2. 2. Chronic kidney disease that is slightly worsening. Concerns for developing bilateral pneumonia, presently on Rocephin and azithromycin. 3. Chronic obstructive pulmonary disease without acute exacerbation. 4. Chronic systolic heart failure, systolic in etiology without exacerbation. 5. Hypertension. PLAN: We will continue present supportive care. I have been unable to contact Dr. Flanagan, microstrategy developer, today. We will continue to monitor his labs closely. He is presently on Clinimix. I have also talked to his and we have changed his code status to DNR as he has a poor prognosis due to his comorbidities and his age. Otherwise, we will continue to monitor him closely and follow as needed. #[id number] [facility]
[2020-02-20] MEDS: ENOXAPARIN SODIUM 30 MG/0.3 ML SYG SUBCU SCH (10:54)
[2020-02-20] MEDS: cefTRIAXone SODIUM 1 GM in SODIUM CHL 0.9% 50ML MIN-BAG+ 50 ML IVPB SCH (11:30)
[2020-02-20] MEDS: AZITHROMYCIN IV 500 MG in SODIUM CHLORIDE 0.9% 250ML 250 ML IVPB SCH (12:25)
[2020-02-21] MEDS: MORPHINE SULFATE INJ 10 MG/ML VIAL IV PRN ×4 (02:42→20:05)
[2020-02-21] MEDS: PANTOPRAZOLE SODIUM IV 40 MG VIAL IV SCH (06:10)
[2020-02-21] MEDS: LEVALBUTEROL NEBS 1.25 MG/3 ML VIAL NEB SCH ×4 (08:00→20:23)
--- NOTE | 2020-02-21 08:57 | PN ---
SUPERVISING PHYSICIAN: Rmasey Peck M.D. DATE: 02/20/20 SUBJECTIVE: The patient honestly does not look well compared to when I saw him last. He is pretty obtunded when I see him. Apparently, he has been having some confusion and being combative and actually pulled his NG tube out last night and per Dr. Borrero, he can leave it out. His family has been visiting with him as much as possible but he does not look well. OBJECTIVE: VITAL SIGNS: Temperature 98.8, heart rate 74, blood pressure 141/80, respiratory rate 16, oxygen saturation 94% on room air. GENERAL: The patient looks much older than his stated at this point and he does look quite frail and ill but he is actually resting and does not feel in any distress. CHEST: Lung sounds fairly clear, just a little diminished toward the bases. CARDIAC: Regular rate and rhythm. GASTROINTESTINAL: Abdomen remains firm but not distended. He still has some ecchymoses around his incision, bowel sounds are active. NEUROLOGIC: He is fairly lethargic and obtunded at times but will wake up when he is awakened. He does act like he knows where he is and himself but is not his normal mental status that I have seen in the past. LABORATORY: CBC shows a white count of 6,000, hemoglobin down to 8.6, hematocrit 25.1, platelet count 196,000, differential does show to be without a left shift. Chemistries show sodium 128, potassium 4.9, BUN 67, creatinine down to 2.14. Calcium 8.2 but albumin is 2.5 with corrected calcium to about 8.4. Bilirubin is elevated at 1.6 but AST and ALT are all normal. CEA did come back 5.5. RADIOLOGY: Abdominal x-ray this morning per radiology interpretation shows suspected mild ileus. ASSESSMENT: 1. 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 Postoperative day #3. 2. Chronic kidney disease with elevated creatinine, probably some prerenal, postrenal combination with noted right hydroureter nephrosis due to pelvic hematoma. 3. Concerns for developing bilateral pneumonia, presently on Rocephin and azithromycin. 4. Chronic obstructive pulmonary disease with concerns for exacerbation secondary to developing pneumonia. 5. Chronic systolic heart failure without exacerbation currently. 6. Hyponatremia, likely acute and contributing to some of his acute mental status decline, closely monitoring. 7. Hypertension showing to be stable. PLAN: I did talk to Dr. Flanagan today. He feels at this point continued plan of care is warranted with no significant changes. Just monitor his blood pressure, his output and follow labs and call him if needed. He does remain on Clinimix. I have ordered a forming mill operator consultation to help manage with this and further nutritional needs. Dr. Borrero will continue to follow the patient. Again his prophylaxis is fairly poor at this point but he is showing a slight improvement in his kidney function. We will continue to monitor medically if needed. Until we can transition him to outpatient management, either home or whatever that time may be, we will continue to monitor and treat as needed #[id number] [facility]
[2020-02-21] MEDS: ENOXAPARIN SODIUM 30 MG/0.3 ML SYG SUBCU SCH (09:17)
[2020-02-21] MEDS: SODIUM CHLORIDE 0.9% (FLUSH) 10 ML SYG IV SCH ×2 (09:18→20:06)
[2020-02-21] MEDS: [UNRECOGNIZED DRUG - OTHER] IV SCH ×2 (09:24→20:03)
[2020-02-21] MEDS: ELECTROLYTES IV SCH ×2 (09:24→20:03)
[2020-02-21] MEDS: DEXTROSE IV SCH ×2 (09:24→20:03)
[2020-02-21] MEDS: cefTRIAXone SODIUM 1 GM in SODIUM CHL 0.9% 50ML MIN-BAG+ 50 ML IVPB SCH (11:33)
[2020-02-21] MEDS: AZITHROMYCIN IV 500 MG in SODIUM CHLORIDE 0.9% 250ML 250 ML IVPB SCH (12:20)
--- NOTE | 2020-02-21 15:41 | PN ---
DATE: 02/21/20 Postoperative day #5 for right colectomy for metastatic cancer. SUBJECTIVE: The patient is laying bed, conscious and alert. He is not well- oriented but he did take a sip of the water-filled sponge and followed commands. He does not complain of any pain, no nausea or vomiting. He does not report any bowel movements or flatus. He has been afebrile. OBJECTIVE: VITAL SIGNS: Normal and stable. Oxygen saturation 95% on room air. I&Os show 1.0 in and 700 out. However, I think his Clinimix is not totaled in that so takes in more. Urine output is adequate. GENERAL: He is alert, no distress. CHEST: Clear. HEART: Regular. ABDOMEN: Still mildly distended. He does not have any pain or tenderness like he did before. There are a few bowel sounds. The incision is covered but there was slight ecchymosis but it is clean and dry without drainage A slight epigastric hernia above the incision is present. There was some concern if it is swelling. it appears like it always has. His urine is clear. LABORATORY: Followup hemoglobin 8, hematocrit 23. BMP: sodium 130, BUN and creatinine 79 and 1.9 which is stable and slightly improved from before. Bilirubin 1.2. RADIOLOGY: The abdominal series yesterday, patient had pulled out his NG tube but it shows a mild ileus. IMPRESSION: Postoperative day #5 removal of right colectomy which looks like metastatic colon cancer from the pathology. He now suffers from confusion and acute renal insufficiency, seems to be stable. His abdominal exam is benign. DNR was gotten on him. It is understood that due to his age and how he is progressing, he may not recover well from surgery but at this point, he is stable. We will continue water and ice as tolerated, IV fluids and IV nutrition supplementation. [facility][id number] [facility]
[2020-02-22] MEDS: IV SET AND CAP CHANGE INJ INJ SCH (02:10)
[2020-02-22] MEDS: MORPHINE SULFATE INJ 10 MG/ML VIAL IV PRN ×2 (02:13→05:52)
[2020-02-22] MEDS: ELECTROLYTES IV SCH ×2 (04:00→18:53)
[2020-02-22] MEDS: DEXTROSE IV SCH ×2 (04:00→18:53)
[2020-02-22] MEDS: [UNRECOGNIZED DRUG - OTHER] IV SCH ×2 (04:00→18:53)
[2020-02-22] MEDS: PANTOPRAZOLE SODIUM IV 40 MG VIAL IV SCH (05:52)
--- NOTE | 2020-02-22 07:28 | RAD ---
EXAM: XR Abdomen, 2 Views CLINICAL HISTORY: Metastatic Colon CA. s/p cholectomy TECHNIQUE: Frontal view of the abdomen/pelvis with upright view of the abdomen. COMPARISON: 02/20/2020 and 02/19/2020. FINDINGS: Lower thorax: Stable consolidation in the right lung base. Stable small right pleural effusion. Intraperitoneal space: No free air. Gastrointestinal tract: There are multiple dilated small bowel loops. There is stool and air in the left colon to the rectum. Bones/joints: Unremarkable. IMPRESSION: 1. Partial small bowel obstruction versus ileus. 2. Right basilar airspace consolidation and small right pleural effusion unchanged. Electronically signed by: Vilma Richardson MD 02/22/2020 7:26 AM CDT
[2020-02-22] MEDS: LEVALBUTEROL NEBS 1.25 MG/3 ML VIAL NEB SCH ×4 (08:14→21:00)
[2020-02-22] MEDS: SODIUM CHLORIDE 0.9% (FLUSH) 10 ML SYG IV SCH ×2 (08:16→21:28)
[2020-02-22] MEDS: ENOXAPARIN SODIUM 30 MG/0.3 ML SYG SUBCU SCH (08:16)
--- NOTE | 2020-02-22 08:39 | PN ---
SUPERVISING PHYSICIAN: Ramsey Peck M.D. DATE: 02/21/20 SUBJECTIVE: The patient honestly looks a little better today. He is actually more interactive. He has had good output overnight and is doing okay with his NG tube out and his kidney function is actually looking better. Dr. Borrero continues to follow the patient. OBJECTIVE: VITAL SIGNS: Temperature 98, heart rate 91, blood pressure 150/86, respiratory rate 16, oxygen saturation 96% on room air. GENERAL: The patient looks a little more alert today. He is still confused but is much more interactive than he was yesterday, does not look to be in distress and he is resting. CHEST: Lung sounds remain clear, just a little diminished toward the bases. CARDIAC: Regular rate and rhythm. GASTROINTESTINAL: Abdomen still firm but not distended. He still has some ecchymoses around his incision, bowel sounds are active and his incision is clean and dry. NEUROLOGIC: He is a little more alert today, still lethargic but not quite as obtunded. He still remains confused. Again, he is not near baseline level from what I have seen him in the past. LABORATORY: Hemoglobin down to 8, hematocrit 23.2. Chemistries show an improvement in his sodium, up to 130. Potassium 5, BUN up to 79 but creatinine is down to 1.99, calcium 8.1, bilirubin down to 1.2. Liver functions remain within normal limits. MICROBIOLOGY: Final urine culture results showed normal oxana. RADIOLOGY: No additional radiographic studies today. ASSESSMENT: 1. 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 Postoperative day #4. 2. Chronic kidney disease with elevated creatinine, probably some prerenal, postrenal combination with noted right hydroureter nephrosis due to pelvic hematoma. 3. Concerns for developing bilateral pneumonia, presently on Rocephin and azithromycin. 4. Chronic obstructive pulmonary disease with concerns for exacerbation secondary to developing pneumonia. 5. Chronic systolic heart failure without exacerbation currently. 6. Hyponatremia, likely acute and contributing to some of his acute mental status decline, closely monitoring. 7. Hypertension showing to be stable. PLAN: Will continue with current plan of care at this point. Follow along with Dr. Borrero as needed. I did not touch base with Dr. Flanagan today as his kidney function looks better and he has been maintaining good output. His weight is stable and he seems to be doing much better. He does remain a DNR. I would anticipate probably another 24 to 48 hours as he is making slow clinical improvement. He does have some psychosis related to hospitalization and will treat as needed for that which will be rotation in family members as possible. Until we can transition him back to outpatient management, we will continue with current plan of care, monitor and treat as needed and follow along with Dr. Borrero, consulting with Dr. Borrero managing postoperative surgical state. #[id number] [facility]
[2020-02-22] MEDS: HALOPERIDOL LACTATE INJ 5 MG/ML VIAL IM PRN (14:50)
[2020-02-22] MEDS: cefTRIAXone SODIUM 1 GM in SODIUM CHL 0.9% 50ML MIN-BAG+ 50 ML IVPB SCH (15:02)
[2020-02-22] MEDS: AZITHROMYCIN IV 500 MG in SODIUM CHLORIDE 0.9% 250ML 250 ML IVPB SCH (15:02)
[2020-02-23] MEDS: ELECTROLYTES IV SCH ×2 (01:49→18:27)
[2020-02-23] MEDS: [UNRECOGNIZED DRUG - OTHER] IV SCH ×2 (01:49→18:27)
[2020-02-23] MEDS: DEXTROSE IV SCH ×2 (01:49→18:27)
[2020-02-23] MEDS: PANTOPRAZOLE SODIUM IV 40 MG VIAL IV SCH (05:46)
[2020-02-23] MEDS: LEVALBUTEROL NEBS 1.25 MG/3 ML VIAL NEB SCH ×4 (07:45→19:52)
[2020-02-23] MEDS: ENOXAPARIN SODIUM 30 MG/0.3 ML SYG SUBCU SCH (11:36)
[2020-02-23] MEDS: SODIUM CHLORIDE 0.9% (FLUSH) 10 ML SYG IV SCH ×2 (12:05→21:25)
[2020-02-23] MEDS ORDERED: PHYTONADIONE INJ 10 MG/ML AMP IM ONE (14:10)
[2020-02-23] MEDS ORDERED: SODIUM CHLORIDE 0.9% 1000ML 1,000 ML IVS ONE (14:11)
[2020-02-23] MEDS ORDERED: ALBUTEROL INHALER 64 PUFF/8GM INH ONE (15:15)
[2020-02-23] MEDS ORDERED: ROCURONIUM BROMIDE 10 MG/ML VIAL ONE (15:21)
[2020-02-23] MEDS ORDERED: SUCCINYLCHOLINE CHLORIDE 200 MG/10 ML VIAL ONE (15:21)
[2020-02-24] MEDS: [UNRECOGNIZED DRUG - OTHER] IV SCH ×3 (03:07→21:10)
[2020-02-24] MEDS: ELECTROLYTES IV SCH ×3 (03:07→21:10)
[2020-02-24] MEDS: DEXTROSE IV SCH ×3 (03:07→21:10)
[2020-02-24] MEDS: PANTOPRAZOLE SODIUM IV 40 MG VIAL IV SCH (05:58)
[2020-02-24] MEDS: LEVALBUTEROL NEBS 1.25 MG/3 ML VIAL NEB SCH ×4 (06:41→20:06)
[2020-02-24] MEDS ORDERED: PROPOFOL 200 MG/20 ML VIAL IV ONE (07:00)
[2020-02-24] MEDS ORDERED: ePHEDrine SULF 50 MG/ML ONE (07:00)
[2020-02-24] MEDS ORDERED: LIDOCAINE 1% 10 ML VIAL INJ ONE (07:00)
--- NOTE | 2020-02-24 09:04 | PN ---
SUPERVISING PHYSICIAN: Lane Laureano MD DATE: 02/22/20 SUBJECTIVE: The patient seems a little more alert today. He has actually been to the bedside chair although he is refusing to eat. He remains afebrile. He is not complaining of anything specifically. He seems to be doing well without the NG tube and has not yet had a significant bowel movement. OBJECTIVE: VITAL SIGNS: Temperature 98, pulse 74, blood pressure 140/84, respiratory rate 20, oxygen saturation 96% on room air. GENERAL: The patient looks a little more alert today. He is still confused but is much more interactive than he was yesterday, does not look to be in distress and he is resting. CHEST: Lung sounds remain clear, just a little diminished toward the bases. CARDIAC: Regular rate and rhythm. GASTROINTESTINAL: Abdomen still firm but not distended. He still has some ecchymoses around his incision, bowel sounds are active and his incision is clean and dry. NEUROLOGIC: He is a little more alert today, still lethargic but not quite as obtunded. He still remains confused. Again, he is not near baseline level from what I have seen him in the past. ASSESSMENT: 1. 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 Postoperative day #5. 2. Chronic kidney disease with elevated creatinine, probably some prerenal, postrenal combination with noted right hydroureter nephrosis due to pelvic hematoma. 3. Concerns for developing bilateral pneumonia, presently on Rocephin and azithromycin. 4. Chronic obstructive pulmonary disease with concerns for exacerbation secondary to developing pneumonia. 5. Chronic systolic heart failure without exacerbation currently. 6. Hyponatremia, likely acute and contributing to some of his acute mental status decline, closely monitoring. 7. Hypertension showing to be stable. PLAN: Will continue with current plan of care at this point. His kidney function seems to be improving. We will follow along with Dr. Borrero. I have ordered a nutritional consult as well as to get him up with Physical Therapy and try to get him more active. Hopefully, we will be able to discharge him in in the next day or so. Until then, we will continue to monitor and treat as needed. [facility][id number] [facility]
--- NOTE | 2020-02-24 09:22 | PN ---
SUPERVISING PHYSICIAN: Lane Laureano MD DATE: 02/23/20 SUBJECTIVE: The patient actually is doing well this morning. He refused to eat, but he is up to a chair and was working with physical therapy. He apparently had a massive bowel movement that was pure bloody in nature. His H&H yesterday was low at 8.1 and 23.9. This morning, they called me and it was 7.8 and 23.3. When he had his bowel movement, he did not appear to be in any acute distress. His blood pressure was fairly stable. Dr. Borrero was called and the plan at that point was to take him to surgery to do an EGD to check for an acute upper bleed. He will get vitamin K as his PT showed elevation of 6.9 on INR. I am still not sure where that came from because his other coagulation studies, fibrinogen, platelet count and liver functions are all within normal limits and he shows no signs of early DIC. OBJECTIVE: VITAL SIGNS: After he had acute bowel movement, vital signs showed blood pressure was 147/87, temperature 98.1, saturation 96% on room air with heart rate 80. GENERAL: The patient is sitting on the edge of the bed. He does not appear to be in any acute distress. He does look tired. He looks stable. CHEST: Lung sounds are clear. CARDIAC: Regular rate and rhythm. GASTROINTESTINAL: Abdomen soft, nontender. Positive bowel sounds. He did have a bowel movement again that looked to be old resolved blood. Large volume, both in the toilet and on the floor. NEUROLOGIC: He is alert to himself. He understands what is going on and is actually much more alert than he has been in the last several days. LABORATORY: Repeat labs after the bowel movement showed hemoglobin unchanged from this morning at 7.8 and hematocrit 23.2, white count 6.2, platelet count 341,000. Liver functions all within normal limits. No left shift on differential. Creatinine is up a little bit at 1.68, but sodium was up to 132. Calcium 8.1. Coagulation studies without any really truly abnormals with PT 68, INR 6.3. Fibrinogen 44, D-dimer 825. MICROBIOLOGY: Urine culture showed normal urogenital oxana. RADIOLOGY: No additional radiographic studies today. ASSESSMENT: 1. 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 Postoperative day #6. 2. Acute gastrointestinal bleed, questionable old blood versus early disseminated intravascular coagulation. The patient is hemodynamically stable. 3. Coagulopathy with elevated INR with etiology not known at this point with the patient not currently on any anticoagulants, just Lovenox with no signs of actual disseminated intravascular coagulation and being hemodynamically stable. 4. 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 5. Concerns for early bilateral pneumonia, presently on Rocephin and azithromycin, stable with no advancing disease process. 6. Chronic obstructive pulmonary disease with concerns for exacerbation secondary to developing pneumonia. 7. Chronic systolic heart failure without exacerbation currently. 8. Hyponatremia, showing some improvement. 9. Hypertension, stable. PLAN: Given the volume loss, certainly there is concern for DIC given that he has elevated INR. Again, I do not have an explanation for this elevated INR. He does not seem to be going into DIC. I question whether or not maybe before surgery he was on warfarin and had the bowel obstruction and maybe there were some pills that were residual in the gastrointestinal tract that now are starting to absorb, but again I do not know. Given the fact that he is postoperative and it looks like he could be bleeding, I did discuss with Dr. Borrero and have given him some vitamin K to normalize his INR as well as we gave him some fresh frozen plasma. We will hold off on any transfusion right now since his H&H seems to be stable. Dr. Borrero is going to take him to the Operating Room to do an EGD. We will continue with current plan of care postoperatively with Dr. Borrero as needed. Until the patient can transition to outpatient management, we will continue to monitor and treat as needed. #[id number] [facility]
[2020-02-24] MEDS: ENOXAPARIN SODIUM 30 MG/0.3 ML SYG SUBCU SCH (09:30)
[2020-02-24] MEDS: SODIUM CHLORIDE 0.9% (FLUSH) 10 ML SYG IV SCH ×2 (09:34→21:11)
[2020-02-24] MEDS ORDERED: FUROSEMIDE INJ 20 MG/2 ML VIAL IV ONE ×2 (10:16→21:43)
[2020-02-24] MEDS ORDERED: ACETAMINOPHEN 325 MG TAB PO ONE (10:16)
[2020-02-24] MEDS ORDERED: diphenhydrAMINE HCL 50 MG/ML VIAL IV ONE (10:16)
[2020-02-24] MEDS ORDERED: SODIUM CHLORIDE 0.9% 500ML 500 ML ONE (10:24)
[2020-02-24] MEDS ORDERED: SODIUM CHLORIDE 0.9% 500ML 500 ML IVS SCH (10:30)
--- NOTE | 2020-02-24 14:40 | PN ---
DATE: 02/24/20 SUBJECTIVE: The patient is postoperative right colectomy for metastatic colon cancer. After the episode of lower GI bleed yesterday, the patient's INR was elevated. He got treated for that. His hemoglobin was stable at the time. It was lower this morning at 6.1, so he has gotten a unit of blood transfused and he has been stable over the evening with no recurrent bleeding per rectum. OBJECTIVE: VITAL SIGNS: T-max 98, heart rate in the 70s, blood pressure 130/70, saturation 100% on nasal cannula. GENERAL: He is alert and oriented x2. No complaints of pain. CHEST: Clear and equal bilaterally. HEART: Regular rate and rhythm. ABDOMEN: Soft as it has ever been. No rebound, no guarding, no tenderness. EXTREMITIES: No edema. LABORATORY: White blood cell count 3, hemoglobin 6, hematocrit 18. Yesterday was 6.8 and repeated was 7.8, so we have to believe it is down a little bit. Platelet count 240. INR this morning 1.2, down from 6.9. BNP shows sodium 133, BUN 63, creatinine 1.5 which continues to improve. Calcium 7.9, albumin 2.5 yesterday which is 0.7 from low normal. IMAGING: No new films. ASSESSMENT/PLAN: This is an 89-year-old who is postoperative from colectomy for cancer who has had postoperative dementia as well as some acute renal insufficiency and more recently had GI bleed yesterday. EGD was performed that showed no upper source. It is felt this was possibly old blood that came. He is now anemic. He is getting transfusion with no evidence of ongoing active bleeding. His INR was up, that has been fixed too which may have helped any occult bleed. His kidney function is improving. His mental status is improving. At this point, overall, he is doing well, but we will watch the bleeding closely. After transfusion, we are going to monitor his hemoglobin and hematocrit regularly and if there is any evidence of continued bleeding, we will proceed with a colonoscopy. [facility][id number] [facility]
--- NOTE | 2020-02-24 18:04 | RAD ---
EXAM DESCRIPTION: Chest,1 View CLINICAL HISTORY: picc line placement COMPARISON: February 15, 2020 TECHNIQUE: One view radiograph of the chest FINDINGS: Postsurgical changes and median sternotomy wires. Right upper extremity PICC line with distal tip projecting over the atriocaval junction. Calcific atherosclerosis of the aortic arch. Cardiac silhouette shows cardiomegaly. Pulmonary vascularity upper limits of normal. Blunted right costophrenic angle compatible with small right-sided pleural effusion. Hazy opacities in the bilateral lower lung zones, right greater than left, may represent infiltrate versus atelectasis. There is no pneumothorax. Osseous structures show no acute interval change. IMPRESSION: 1. Right upper extremity PICC line with distal tip projecting over the atriocaval junction. 2. Cardiomegaly without overt congestive heart failure. 3. Hazy opacities bilateral lower lung zones, right greater than left, may represent infiltrates versus atelectasis. 4. Small right-sided pleural effusion. Electronically signed by: Mahendra Eckert MD 02/24/2020 6:02 PM CDT
[2020-02-24] MEDS: diphenhydrAMINE HCL 25 MG CAP PO PRN (22:11)
[2020-02-24] MEDS: ACETAMINOPHEN 325 MG TAB PO PRN (22:11)
[2020-02-25] MEDS: IV SET AND CAP CHANGE INJ INJ SCH (02:00)
[2020-02-25] MEDS: HALOPERIDOL LACTATE INJ 5 MG/ML VIAL IM PRN (02:05)
[2020-02-25] MEDS: PANTOPRAZOLE SODIUM IV 40 MG VIAL IV SCH (05:42)
--- NOTE | 2020-02-25 08:45 | PN ---
SUPERVISING PHYSICIAN: Lane Laureano MD DATE: 02/24/20 SUBJECTIVE: The patient is getting transfused today. He will get 2 units. We will give him some Lasix afterwards. He actually is looking much better today after he had an EGD that did not show any occult bleeding, just some mild gastritis per Dr. Borrero. He has been up to the chair. He is not real interested in eating too much at this point, but he has been working with physical therapy. We discussed with his son, they are going to want to take him home and his is going to take off work so they can take care of him at home because they do not want him anywhere else. OBJECTIVE: VITAL SIGNS: Vital signs remain stable. Temperature 98.2, pulse 82, blood pressure 132/72, respirations 18, saturation 98% on nasal cannula at 2 liters. GENERAL: The patient is resting in a bedside chair this morning. He is in no distress. He is alert. He actually is conversing and seems to be back to his more normal baseline mental status. CHEST: Lung sounds are clear. CARDIAC: Regular rate and rhythm. GASTROINTESTINAL: Abdomen soft. Positive bowel sounds. He does have continued old areas of ecchymosis on his belly down around his panniculus, but no recurrence of any bleeding. NEUROLOGIC: He is alert. He is actually oriented to where he is at, his family and again seems to be at his baseline mental status. There is no obvious neurological deficit. LABORATORY: This morning, hemoglobin was at 6.1 and hematocrit 18.2. White count 3.3, differential is without a left shift. Coagulation studies now show his INR is at 1.20. PT 11.9, PTT 34.8. Chemistries show improving sodium up to 133, BUN 53, creatinine down to 1.56. The rest of his liver functions are within normal limits. MICROBIOLOGY: No specimens are pending. His urine culture showed just urogenital oxana. RADIOLOGY: Chest x-ray this morning per radiologic interpretation showed right upper extremity PICC line with cardiomegaly without any over congestive failure. There is note of hazy opacities in bilateral lower lung zones, right greater than left, may represent infiltrates versus atelectasis. There is a small right sided pleural effusion. ASSESSMENT: 1. 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 Postoperative day #7. 2. Acute gastrointestinal bleed, questionable old blood versus early disseminated intravascular coagulation. The patient is hemodynamically stable. 3. Coagulopathy with elevated INR with etiology not known at this point with the patient not currently on any anticoagulants, just Lovenox with no signs of actual disseminated intravascular coagulation and being hemodynamically stable. 4. 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 5. Concerns for early bilateral pneumonia, presently on Rocephin and azithromycin, stable with no advancing disease process. 6. Chronic obstructive pulmonary disease with concerns for exacerbation secondary to developing pneumonia. 7. Chronic systolic heart failure without exacerbation currently. 8. Hyponatremia, showing some improvement. 9. Hypertension, stable. PLAN: We are going to go ahead and transfuse 2 units of packed red blood cells today. He will get Lasix in between units and after the last unit. He did get a PICC line placed because they lost 2 IVs in attempt to transfuse those units. We will continue to follow the patient with Dr. Borrero. We will repeat BMP in the morning as well as repeat coagulation studies and H&H. He has physical therapy in place and they are working on home health for once he is discharged. He is not really getting any pain management because it seemed like the morphine really did kind of snow him, but he is doing well with his pain control. He needs to be ambulating eventually prior to going home, but he is improving. I would think that if he continues to improve as well as he is, he might be able to discharge in the next 48 yours. Until then, we will continue to monitor and treat as needed. #[id number] [facility]
[2020-02-25] MEDS: LEVALBUTEROL NEBS 1.25 MG/3 ML VIAL NEB SCH ×4 (08:48→20:07)
[2020-02-25] MEDS: SODIUM CHLORIDE 0.9% (FLUSH) 10 ML SYG IV SCH ×2 (10:00→21:10)
[2020-02-25] MEDS: ENOXAPARIN SODIUM 30 MG/0.3 ML SYG SUBCU SCH (10:00)
[2020-02-25] MEDS: DEXTROSE IV SCH (10:54)
[2020-02-25] MEDS: ELECTROLYTES IV SCH (10:54)
[2020-02-25] MEDS: [UNRECOGNIZED DRUG - OTHER] IV SCH (10:54)
--- NOTE | 2020-02-25 14:30 | PN ---
SUPERVISING PHYSICIAN: Lane Laureano M.D. DATE: 02/25/20 SUBJECTIVE: The patient is sitting up in bed. He has no complaints. He is much more alert and oriented today. He said that he feels very weak but much improved. Denies chest pain, nausea or vomiting. OBJECTIVE: VITAL SIGNS: Temperature 97.8, heart rate 61, blood pressure 124/75, respiratory rate 16. It has been as high as 24. O2 saturation is 94% on 2 liters nasal cannula. RESPIRATORY: Diminished at the bases. CARDIAC: Regular rate, irregular rhythm. NEUROLOGIC: He is awake, alert and oriented times three. LABORATORY: Hemoglobin 8.5, hematocrit 25.1, PT is 10.7, INR is 1.08. Sodium 133, potassium 4.3, chloride 100, BUN 64, creatinine 1.62, calcium 8.3. All other labs and films have been reviewed via the EMR. ASSESSMENT: 1. 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 Postoperative day #7. 2. Acute gastrointestinal bleed, questionable old blood versus early disseminated intravascular coagulation. The patient is hemodynamically stable. 3. Coagulopathy with elevated INR with etiology not known at this point with the patient not currently on any anticoagulants, just Lovenox with no signs of actual disseminated intravascular coagulation and being hemodynamically stable. 4. 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 5. Concerns for early bilateral pneumonia, presently on Rocephin and azithromycin, stable with no advancing disease process. 6. Chronic obstructive pulmonary disease with concerns for exacerbation secondary to developing pneumonia. 7. Chronic systolic heart failure without exacerbation currently. 8. Hyponatremia, showing some improvement. 9. Hypertension, stable. PLAN: We will continue present supportive care. His children will be meeting tomorrow here as they are coming in from several out of town locations to help with his discharge planning. It will ultimately be up to his medical Power of [employer], who is his , [place], for his final discharge location. I have started up bladder training so we can discontinue his Gillis catheter in the next 24 to 48 hours. I had also discussed with the dietitian to increase his protein and caloric intake for sufficient healing as the patient does not have much of an appetite. Will decrease his Clinimix to only 1 bag daily and will watch his intake closely. Hopefully he can be discharged in the next 24 to 48 hours. He will also need home health with physical therapy on discharge. Will continue to monitor closely and follow as needed. [facility][id number] [facility]
[2020-02-26] MEDS: ACETAMINOPHEN 325 MG TAB PO PRN (04:17)
[2020-02-26] MEDS: PANTOPRAZOLE SODIUM IV 40 MG VIAL IV SCH (06:20)
[2020-02-26] MEDS: LEVALBUTEROL NEBS 1.25 MG/3 ML VIAL NEB SCH ×4 (08:12→20:15)
[2020-02-26] MEDS: ELECTROLYTES IV SCH (09:35)
[2020-02-26] MEDS: SODIUM CHLORIDE 0.9% (FLUSH) 10 ML SYG IV SCH ×2 (09:35→20:47)
[2020-02-26] MEDS: [UNRECOGNIZED DRUG - OTHER] IV SCH (09:35)
[2020-02-26] MEDS: DEXTROSE IV SCH (09:35)
[2020-02-26] MEDS: ENOXAPARIN SODIUM 30 MG/0.3 ML SYG SUBCU SCH (09:36)
[2020-02-26] MEDS: MORPHINE SULFATE INJ 10 MG/ML VIAL IV PRN ×5 (10:22→20:37)
[2020-02-26] MEDS: POLYETHYLENE GLYCOL 3350 17 GM PCKT PO SCH (12:14)
[2020-02-26] MEDS: ONDANSETRON INJ 4 MG/2 ML VIAL IV PRN (12:22)
--- NOTE | 2020-02-26 13:16 | CT ---
EXAM DESCRIPTION: Abdoment/Pelvis w/o Contrast CLINICAL HISTORY: abd pain COMPARISON: February 19, 2020 TECHNIQUE: Noncontrast transaxial CT images of the abdomen and pelvis are obtained. This exam was performed according to our departmental dose-optimization program, which includes automated exposure control, adjustment of the mA and/or kV according to patient size and/or use of iterative reconstruction technique . FINDINGS: Visualized lower chest interval increased size of small left pleural effusion. Pulmonary infiltrates in the bilateral lower lobes and right middle lobe are again seen. Postsurgical changes to the heart is stable. Given the limitations of a noncontrast exam the liver, spleen, adrenal glands, and gallbladder are unremarkable. Moderate fatty replacement of the pancreas is seen. Moderate to severe arterial vascular calcifications. Infrarenal abdominal aortic aneurysm measures 3 cm maximum diameter. 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 The right measures 3.4 cm. Prostate is enlarged. Urinary bladder is contracted around a Gillis catheter. Moderate right hydronephrosis is again seen with AP diameter of the renal pelvis now measuring 3.6 cm compared to 2.8 cm previously. The ureter is dilated to the level of the iliac vessels. A mixed mostly increased attenuation structure anterior to the right iliac artery measuring 2.7 x 2.4 cm is again seen compared to 2.7 x 2.6 cm on previous exam that is just posterior and inferior to a surgical suture line of the right colon. Fluid attenuation cortical cysts are seen on both kidneys. Bilateral nonobstructing nephrolithiasis. Interval resolution of the postoperative free intraperitoneal air seen on previous exam. Small amount of ascites around the liver and spleen with small ascites in the lower abdomen to pelvis. Anterior midline surgical skin godfrey are seen. Small fat and fluid containing ventral hernias are seen in the upper abdomen similar to previous exam. No dilated loops of small bowel. Colon is air and fluid-filled. Mild circumferential wall thickening of the rectosigmoid colon with presacral fat stranding similar to previous. Mild scattered diverticuli of the colon. Mildly displaced partly healed left-sided fractures of the eighth through 12th ribs. Moderate subcutaneous soft tissue fat stranding around the abdomen and pelvis likely represents anasarca. Partial fusion of the bilateral sacroiliac joints. IMPRESSION: Interval resolution of the previously seen postoperative free intraperitoneal air. Interval increased hydronephrosis of the right kidney and hydroureter which appears secondary to obstruction of the ureter at the level of the iliac vessels possibly related to edema or hematoma related to recent surgery. Partly increased attenuation mass anterior to the right common iliac artery aneurysm and below the suture line seen in the right mid abdomen near the level of the right ureter could represent postop hematoma versus mass. Bilateral common iliac artery aneurysms are also seen. 3.0 cm abdominal aortic aneurysm. Recommend follow-up every 3 years. Reference: J Am Francheska Radiol 2013;10:789-794. Ascites likely reactive from recent surgery is similar to improved from previous. Bowel wall thickening of the sigmoid colon with presacral soft tissue fat stranding could represent infectious or inflammatory etiology. Diffuse anasarca around the soft tissues of the abdomen and pelvis. Interval increased small left pleural effusion. Bilateral lower lobe atelectasis or infiltrates are again seen. Other findings as described above. Electronically signed by: Addison Felix MD 02/26/2020 1:14 PM CDT
[2020-02-26] MEDS ORDERED: NYSTATIN POWDER 15GM BTTL TOP PRN (17:21)
[2020-02-26] MEDS ORDERED: HYDROmorphone HCL INJ 2 MG/ML VIAL IV PRN (17:30)
[2020-02-26] MEDS ORDERED: FLUCONAZOLE 100 MG TAB PO SCH (17:30)
[2020-02-26] MEDS ORDERED: FLUCONAZOLE 150 MG TAB PO ONE (17:51)
[2020-02-26] MEDS: diphenhydrAMINE HCL 25 MG CAP PO PRN (20:55)
[2020-02-26] MEDS ORDERED: HYDROmorphone HCL INJ 2 MG/ML VIAL IV ONE (21:34)
[2020-02-27] MEDS ORDERED: HYDROmorphone HCL INJ 2 MG/ML VIAL IV PRN (00:05)
[2020-02-27 06:02] VITALS: TEMP 98.2
[2020-02-27] MEDS: PANTOPRAZOLE SODIUM IV 40 MG VIAL IV SCH (06:06)
[2020-02-27] MEDS: LEVALBUTEROL NEBS 1.25 MG/3 ML VIAL NEB SCH ×2 (08:45→14:16)
[2020-02-27] MEDS: ELECTROLYTES IV SCH (09:22)
[2020-02-27] MEDS: [UNRECOGNIZED DRUG - OTHER] IV SCH (09:22)
[2020-02-27] MEDS: DEXTROSE IV SCH (09:22)
[2020-02-27] MEDS: SODIUM CHLORIDE 0.9% (FLUSH) 10 ML SYG IV SCH (09:23)
[2020-02-27] MEDS: POLYETHYLENE GLYCOL 3350 17 GM PCKT PO SCH (09:23)
--- NOTE | 2020-02-27 10:02 | PN ---
SUPERVISING PHYSICIAN: Lane Laureano MD DATE: 02/26/20 SUBJECTIVE: The patient is lying in bed. He complains of midepigastric pain. He has been given some morphine. A CT of the abdomen has been ordered. He has had no complaints of nausea or vomiting. OBJECTIVE: VITAL SIGNS: Temperature 98.5, heart rate 87. blood pressure 120/89, respiratory rate 20, oxygen saturation 90% on room air. RESPIRATORY: Diminished at the bases but otherwise clear to auscultation. CARDIAC: Regular rate and rhythm. GASTROINTESTINAL: Abdomen is soft, nondistended but he is diffusely tender in the epigastric and right upper quadrant areas. NEUROLOGIC: He is awake, alert and oriented times three. SKIN: Yeast infection to groin and perineal area with erythema and pruritus. LABORATORY: WBCs are 8,200 with hemoglobin of 9.4, hematocrit 27.0. He has a left shift on his differential. Electrolytes show sodium of 133, potassium 4.3, chloride 100, potassium 8.3. Abdominal pelvis CT shows interval resolution of previous ascending postoperative free intraperitoneal air. Interval increased hydronephrosis of the right kidney and hydroureter which appears secondary to obstruction of the ureter at the level of the iliac vessels possible related to edema or hematoma related to recent surgery. Partly increased attenuation mass anterior to the right common iliac artery aneurysm and below the suture line seen in the right mid abdomen near the level of the right ureter that could represent postoperative hematoma versus mass. Bilateral common iliac artery aneurysm. Also seen, 2.0 cm abdominal aortic aneurysm. Recommend followup every 2 years. Ascites likely reactive from recent surgery similar to previous bowel wall thickening of the sigmoid colon with presacral soft tissue stranding could represent infectious or inflammatory etiology. Diffuse anasarca around the soft tissue of the abdomen and pelvis. Interval increased small left pleural effusion. Bilateral lower lobe atelectasis or infiltrates are again seen. All other labs and films have been reviewed via the EMR. ASSESSMENT: 1. 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 Postoperative day #8. 2. Acute gastrointestinal bleed, questionable old blood versus early disseminated intravascular coagulation. The patient is hemodynamically stable. 3. Coagulopathy with elevated INR with etiology not known at this point with the patient not currently on any anticoagulants, just Lovenox with no signs of actual disseminated intravascular coagulation and being hemodynamically stable. 4. 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 5. Hydronephrosis, right kidney. 6. Chronic obstructive pulmonary disease with concerns for exacerbation secondary to developing pneumonia. 7. Chronic systolic heart failure without exacerbation currently. 8. Hyponatremia, showing some improvement. 9. Hypertension, stable. 10. Concerns for early bilateral pneumonia, presently on Rocephin and azithromycin, stable with no advancing disease process. 11. Candidiasis of groin/perineum. PLAN: We will continue present supportive care. I have spoken to Dr. Prieto, urologist in [place]. He has recommended that the patient have nephrostomy unless he and his medical Power of [employer] decide otherwise. He thought that most of the hydronephrosis on the right was due to postoperative edema and patient and his have chosen to have no further intervention, I have explained we will keep the patient comfortable. I spoke at length to the patient's and she does not want to put patient through any trauma. I have ordered labs for in the morning and I will repeat his CT scan in a day or so. I have also ordered a one time dose of Diflucan and nystatin powder for yeast infection. Otherwise, we will keep his pain under control and continue to monitor closely and follow as needed. Hopefully, he can be discharged to Home Health in the next 24 to 48 hours. #[id number] MTDD
[2020-02-27 10:55] VITALS: BP 122/86
[2020-02-27] MEDS ORDERED: LEVALBUTEROL NEBS 1.25 MG/3 ML VIAL NEB ONE (14:09)
[2020-02-27 17:32] VITALS: O2SAT 97
--- NOTE | 2020-02-27 17:32 | DS ---
SUPERVISING PHYSICIAN: JACINTA CASTILLO M.D. ADMISSION DIAGNOSIS: 1. Small bowel obstruction. 2. Questionable rectal mass per CT scan. 3. Urinary tract infection. 4. History of diverticulitis, hospitalized about 2 months ago for treatment. 5. History of pulmonary embolism, presently on Coumadin, although there is a question that he did go home on Eliquis. 6. Acute on chronic renal failure. His baseline creatinine is about 1.3. His admitting creatinine is 1.66. 7. Chronic obstructive pulmonary disease without acute exacerbation. 8. Congestive heart failure, diastolic etiology. His last echocardiogram in October of 2019 shows an ejection fraction of 45-50% with no signs of current exacerbation. 9. Hypertension. 10. Coronary artery disease. DISCHARGE DIAGNOSIS: 1. 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 Postoperative day #8. 2. Acute gastrointestinal bleed, questionable old blood versus early disseminated intravascular coagulation. The patient is hemodynamically stable. 3. Coagulopathy with elevated INR with etiology not known at this point with the patient not currently on any anticoagulants, just Lovenox with no signs of actual disseminated intravascular coagulation and being hemodynamically stable. 4. 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 5. Hydronephrosis, right kidney. 6. Chronic obstructive pulmonary disease with concerns for exacerbation secondary to developing pneumonia. 7. Chronic systolic heart failure without exacerbation currently. 8. Hyponatremia, showing some improvement. 9. Hypertension, stable. 10. Concerns for early bilateral pneumonia, presently on Rocephin and azithromycin, stable with no advancing disease process. 11. Candidiasis of groin/perineum. HISTORY OF PRESENT ILLNESS: This is an 89-year-old male patient who came to the Emergency Room due to diffuse abdominal pain. He has also had a poor appetite. He has had fewer bowel movements over the previous 2 weeks, but he was still passing gas. He had taken some Senokot, but had had no bowel movement. He had been in the hospital about 2 months ago for diverticulitis. In the Emergency Room, his vital signs were temperature 97, heart rate 50, blood pressure 149/100, respiratory rate 20, O2 saturation 98%. CBC was unremarkable. Electrolytes were within normal limits. He had a BUN of 37, creatinine 1.66. His baseline creatinine is about 1.3. Lipase 23. Urinalysis showed small amount of urine bilirubin with small amount of urine leukocyte esterase and 10 to [address] of the abdomen showed mucosal thickening of distal small bowel loops that could be secondary to infectious or inflammatory etiology. There was also a superimposed dilatation of the distal small bowel loops compatible with a small bowel obstruction. Nodular contour of the rectum mucosa could be secondary to an underlying mass. Right iliac artery aneurysm unchanged. He received some fluids in the Emergency Room as well as some morphine for pain. He also had Rocephin for his urinary tract infection. He was admitted to the hospital. HOSPITAL COURSE: He was placed on bowel rest and had IV fluids with pain medications. A PPI was ordered for ulcer prophylaxis as well as Lovenox for DVT prophylaxis. Previously he had been on Warfarin therapy but it was discontinued when he was in the hospital. Dr. Borrero, general surgeon, was consulted to follow the patient. His initial few days on bowel rest showed little change. He continued to pass gas and he was able to tolerate a few clear liquids as we were trying to hold off for doing any surgical intervention due to his age and co-morbidities. He continued to have some mild pains and Dr. Borrero did discuss with the patient about possible surgery. He actually received an enema to help with his bowel movements, but he showed little improvement, so Dr. Borrero took the patient to surgery. Initially it was supposed to be a laparoscopic bowel resection, but ended up being an open resection with a right colectomy. He did remove a retroperitoneal tumor that was dissected off the iliac artery. It was felt that the mass was causing the obstruction. The surgery was on the . The patient very slowly progressed. He did have an NG tube and he pulled it out multiple times. Postoperatively he initially did not have any abdominal pains. He was on azithromycin and Rocephin. He was being treated for possible pneumonia. The pulmonary hygiene was continued. He actually went through a period of hospital psychosis that required some Haldol and Ativan. He also had a bump in his creatinine but was felt to be postoperatively and he was given fluids, and his creatinine slowly improved. He continued to be more restless and actually got quite combative. He was complaining of abdominal pain again and a CT of the abdomen was done. There was some postoperative free fluid in the lower abdomen and pelvis, but code status was discussed at length with his who has medical Power of [employer]ch[employer] Complaint Adjuster. She wanted aggressive medical management but did not want him to be coded, so a DNR was signed. His urine output was monitored closely. Dr. Flanagan, seismograph chief, was actually consulted via telephone and he felt that our present plan was adequate. He was also given Clinimix for his nutritional needs. Slowly his confusion improved and his abdominal pain significantly improved. He actually had been up walking in the hallways. He slowly had his diet advanced. He had bowel movements and discharge planning was discussed. We felt he would benefit from a rehab facility, but he refused. He wanted to go home with home health. He chose [facility]. He was actually to be discharged yesterday and he had some abdominal pain. An abdomen and pelvis CT was done and he was found to have right kidney hydronephrosis. Dr. Prieto, urologist from [place], was consulted via phone. He felt that the patient would either need a nephrostomy tube due to some obstruction on that right kidney and I discussed it with he and his , and they felt that they would not be up for any other procedures and that he would just like to go home, especially given his age as well as his multiple co-morbidities. He did have some pain yesterday which required some narcotics, but he has not had any pain medication overnight, and today he will be discharged home in stable but fair condition. LABORATORY: WBC were always within normal limits or slightly on the low side. They ran between 2.8 and 9. He did require 2 units of packed red blood cells at one point as his hemoglobin dropped to 6.1. His hemoglobin is now stable at 9.4. He was not on any Coumadin and on the his INR went up to 6.93. He required some Vitamin K. He has been on no Warfarin since he has been in the hospital, but that corrected after Vitamin K and his INR is now 1.08. Sodium ran between 128 and 136. Potassium was mostly stable at 3.4 to 5.1. Creatinine baseline is 1.3. It got as high as 2.4 and is now down to 1.6. Bilirubin was as high as 1.6 and is now 1. Carcinoembryonic antigen is 5.5. Stool for occult blood was positive. Pathology report shows: 1. Right colectomy. 2. Mesentery mass. 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 Intact MMR protein staining makes it unlikely that this patient's tumor demonstrates a gross satellite instability. If MSI by PCR testing is requested, results will be reported separately. Please see the actual Pathology report in the EMR. Urine culture was negative. Final abdomen and pelvis CT from yesterday showed: 1. Interval resolution of the previous seen postoperative free intraperitoneal air. Interval increased hydronephrosis of the right kidney and hydroureter which appear secondary to obstruction of the ureter at the level of the iliac vessels possibly related to edema or hematoma related to recent surgery. Partly increased attenuation mass anterior to the right common iliac artery aneurysm and below the suture line seen in the right mid abdomen near the level of the right ureter could represent postop hematoma versus mass. Bilateral common iliac artery aneurysms also seen. 3.0 cm abdominal aortic aneurysm. Recommend followup every 3 years. Ascites likely reactive from recent surgery is similar to improved from previous. Bowel wall thickening of the sigmoid colon with presacral soft tissue fat stranding could represent infectious or inflammatory etiology. Diffuse anasarca around the soft tissues of the abdomen and pelvis. Interval increased small left leg pleural effusion. Bilateral lower lobe atelectasis or infiltrates are again seen. DISCHARGE PLAN: The patient will be discharged home in fair condition. He will have [facility]. He will increase his activity as tolerated. [facility] will do an evaluation and treat. He is to followup with Dr. Mc in 1 to 2 weeks. Also, he is to call Dr. Borrero's office on Saturday to get a followup appointment with him. He is to continue his previous home medications with the exception of his Coumadin which I have discontinued. I have also put him on low dose Eliquis therapy 2.5 mg b.i.d. I have given him 3 weeks worth of the medication. He can discuss with Dr. Mc his anticoagulant therapy at that time. He is to return to the hospital or followup with Dr. Mc or Dr. Borrero for any problems or complications. DISCHARGE MEDICATIONS: 1. Furosemide. 2. Tramadol. 3. Senna. 4. MiraLAX daily. 5. Acetaminophen with codeine. 6. Eliquis 2.5 mg b.i.d. 7. Nystatin powder. #[id number] [facility]
== END 2020-02-27 15:45 | disposition home health service (06) | DRG 329 ==
LOC: UNDODISIN → ER 18:11 → OBSVTOIN 18:12 → MS 18:12 → INTOOBSV 02-10 00:31 → MS 02-10 00:31 → UNDOADMOB 02-10 00:31 → OBSVTOIN 02-10 00:31 → MS 02-10 00:45 → OBSVTOIN 02-17 22:00 → MS 02-17 22:00 → INTOOBSV 02-17 22:00 → UNDOADMOB 02-17 22:00 → UNDODISIN 02-27 15:45
PROVIDERS: ADMIT Nurse Practitioner Acute Care; ATTEND Nurse Practitioner Acute Care
PROC: BW211ZZ Computerized Tomography (CT Scan) of Abdomen and Pelvis using Low Osmolar Contrast (ICD-10-PCS; 2020-02-09)
PROC: BW2110Z Computerized Tomography (CT Scan) of Abdomen and Pelvis using Low Osmolar Contrast, Unenhanced and Enhanced (ICD-10-PCS; 2020-02-13)
PROC: 0DTF0ZZ Resection of Right Large Intestine, Open Approach (ICD-10-PCS; principal; 2020-02-16 11:00)
PROC: 0WBH0ZZ Excision of Retroperitoneum, Open Approach (ICD-10-PCS; 2020-02-16 11:00)
PROC: 30233N1 Transfusion of Nonautologous Red Blood Cells into Peripheral Vein, Percutaneous Approach (ICD-10-PCS; 2020-02-23)
PROC: 30233N1 Transfusion of Nonautologous Red Blood Cells into Peripheral Vein, Percutaneous Approach (ICD-10-PCS; 2020-02-24)
PROC: 02HV33Z Insertion of Infusion Device into Superior Vena Cava, Percutaneous Approach (ICD-10-PCS; 2020-02-24)
DX: C18.2 Malignant neoplasm of ascending colon (principal); J18.9 Pneumonia, unspecified organism; C77.2 Secondary and unspecified malignant neoplasm of intra-abdominal lymph nodes; C78.6 Secondary malignant neoplasm of retroperitoneum and peritoneum; K56.609 Unspecified intestinal obstruction, unspecified as to partial versus complete obstruction; K92.2 Gastrointestinal hemorrhage, unspecified; N13.30 Unspecified hydronephrosis; I13.0 Hypertensive heart and chronic kidney disease with heart failure and stage 1 through stage 4 chronic kidney disease, or unspecified chronic kidney disease; I50.22 Chronic systolic (congestive) heart failure; E87.1 Hypo-osmolality and hyponatremia; N39.0 Urinary tract infection, site not specified; B37.2 Candidiasis of skin and nail; I72.3 Aneurysm of iliac artery; N40.0 Benign prostatic hyperplasia without lower urinary tract symptoms; I25.10 Atherosclerotic heart disease of native coronary artery without angina pectoris; I48.91 Unspecified atrial fibrillation; K59.00 Constipation, unspecified; J44.9 Chronic obstructive pulmonary disease, unspecified; R79.1 Abnormal coagulation profile; N18.9 Chronic kidney disease, unspecified; I25.2 Old myocardial infarction; Z66 Do not resuscitate; Z95.1 Presence of aortocoronary bypass graft; Z87.891 Personal history of nicotine dependence; Z86.711 Personal history of pulmonary embolism; Z79.01 Long term (current) use of anticoagulants; Z79.891 Long term (current) use of opiate analgesic; Z79.899 Other long term (current) drug therapy; Z53.31 Laparoscopic surgical procedure converted to open procedure

== ENCOUNTER 2020-03-07 15:41 | Inpatient (IN) | payer MEDICARE ==
[2020-03-07] MEDS ORDERED: SODIUM CHLORIDE 0.9% (FLUSH) 10 ML SYG IV PRN ×2 (15:47→23:52)
--- NOTE | 2020-03-07 15:48 | ED.PDOC ---
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 Reported onset 2 days ago after taking MiraLAX. Located across the entire lower abdomen, constant, dull/full, 5/10 severity, took Tylenol 3 once today without relief. Reports only having occasional stools which are just "slivers" but reports normal color without blood or mucus. Also reports one episode of light green emesis earlier today, which was brought on after trying to eat. Reports very poor appetite. Denies any fevers, chills, chest pain, dyspnea, cough, sore throat, urinary symptoms. Last month he was diagnosed with bowel obstruction secondary to metastatic tumor in his bowel. Surgery - Dr. Borrero - was consulted and patient underwent ex lap with surgical resection of the tumor on 02/16. He is unsure of the origin of the tumor/cancer. Reports since then he has generally been doing well until 2 days ago. 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 Allergies/Adverse Reactions: Allergies NO KNOWN ALLERGY Allergy (Verified 10/30/19 12:48) Home Medications: Ambulatory Orders Furosemide [Lasix] 20 mg PO DAILY PRN 10/22/19 Tramadol HCl 50 mg PO Q8HR PRN #30 tab 01/16/20 Polyethylene Glycol 3350 [Miralax] 17 gm PO PRN 02/09/20 Sennosides [Senna] 8.6 mg PO PRN 02/09/20 Acetamin W/Cod #3 Tab 1 tablet PO .Q4-6HR PRN 02/10/20 Apixaban [Eliquis] 2.5 mg PO BID #56 tab 02/27/20 Nystatin Powder 1 applic TOP QID PRN appli 02/27/20 Polyethylene Glycol 3350 [Miralax] 17 gm PO DAILY pckt 02/27/20 Review of Systems - Review of Systems Review of Systems: 03/07/20 16:03 as per HPI All other Systems: Reviewed and Negative Past Medical History (General) - Patient Medical History Hx Seizures: No Hx Stroke: No Hx Dementia: No Hx Asthma: No Hx of COPD: No Hx Cardiac Disorders: Yes Hx Congestive Heart Failure: Yes Hx Pacemaker: No Hx Hypertension: Yes Hx Thyroid Disease: No Hx Diabetes: No Hx Gastroesophageal Reflux: No Hx Renal Disease: No Hx Cancer: No Hx of HIV: No Hx Hepatitis C: No Hx MRSA: No - Vaccination History Hx Tetanus, Diphtheria Vaccination: No Hx Influenza Vaccination: Yes Hx Pneumococcal Vaccination: Yes - Social History Hx Tobacco Use: Yes Hx Alcohol Use: No Hx Substance Use: No Hx Substance Use Treatment: No Hx Depression: No Hx Physical Abuse: No Hx Emotional Abuse: No Hx Suspected Abuse: No - Female History Patient : No Family Medical History - Family History Son Family History: No Known Living Status: Still Living Hx Family Asthma: No Hx Family Congestive Heart Failure: No Hx Family Hypertension: Yes Hx Family Stroke: No Hx Cardiac Disease: Yes Hx Family Diabetes: No Hx Family Cancer: No Grandparents Family History: Unknown Name: Juan Day Age (years): 64 Living Status: Hx Family Asthma: No Hx Family Congestive Heart Failure: No Hx Family Hypertension: - doesn't know Hx Family Stroke: No Hx Cardiac Disease: Yes Hx Family Diabetes: No Hx Family Cancer: No Hx Family;Other: he did not want to talk about it Physical Exam - Physical Exam General Appearance: Alert, Comfortable, No apparent distress Eye Exam: bilateral normal Ears, Nose, Throat: hearing grossly normal, normal ENT inspection Neck: non-tender, full range of motion, supple, normal inspection Respiratory: chest non-tender, lungs clear, normal breath sounds, no respiratory distress, no accessory muscle use Cardiovascular/Chest: normal peripheral pulses, regular rate, rhythm, no edema, no gallop, no JVD, no murmur Peripheral Pulses: radial,right: 2+, radial,left: 2+ Gastrointestinal/Abdominal: soft, abnormal bowel sounds - Diminished throughout, distended, tenderness - Moderate to entire lower abdomen without guarding or rebound., other - Appears mildly distended with large central diastases recti. There is a well-healing surgical incision site at the level of the umbilicus with godfrey still in place, appears clean/dry/intact. Back Exam: normal inspection, no CVA tenderness, no vertebral tenderness Extremity: normal range of motion, non-tender, normal inspection, no pedal edema, no calf tenderness, normal capillary refill Neurologic: garde manger II-XII nml as tested, no motor/sensory deficits, alert, normal mood/affect, oriented x 3 Skin Exam: normal color, warm/dry Progress - Progress Progress: 03/07/20 16:05 Abdominal pain -Consider constipation, small bowel obstruction, diverticulitis, appendicitis, UTI, gastroenteritis/colitis, intra-abdominal abscess, surgical adhesions, ischemic colitis, AAA, other -Patient stable, afebrile -Obtain blood work, UA, cardiac work-up, x-ray of abdomen 03/07/20 17:57 -Lab work reveals serum WBC 7300 with 87% segs and no bands. Lactic acid level 1.0. Serum amylase and lipase within normal limits. Troponin 0.03. X-ray imaging of the chest and abdomen reveal no acute processes. Patient is reporting worsening abdominal distention and discomfort. He remained stable in the ED. I remain concerned for potential developing small bowel obstruction versus intra-abdominal infection versus constipation. Will obtain CT imaging of the abdomen and pelvis for further evaluation and will consult with general surgery once results are back. 03/07/20 20:54 -Findings concerning for developing small bowel obstruction versus ileus as there is marked fluid-filled distention of the stomach and dilated fluid-filled proximal small bowel loops. There are also findings of enteritis/colitis and right lower lung consolidation concerning for possible pneumonia. I discussed the findings with Dr. Borrero, general surgery, who advises that we place a nasogastric tube and admit the patient to the hospital. He states he is on his way up here to evaluate the patient. I spoke with Niranjan Latif, hospitalist, regarding the patient. He requests that the patient be evaluated by surgery in the ER before admission. -We will begin Rocephin 1 g IV in the ED for pneumonia. -Attempted to place nasogastric tube but extremely difficult placement. Initial attempt went into the right lower lobe. It was withdrawn and patient requests that we wait for general surgery consultation until repeat attempt because during the last admission it had to be placed in the operating room under general anesthesia. 03/07/20 23:03 -Pt has had several episodes of large emesis of dark/bile-colored fluid in the ED but continues to adamantly refuse any further attempts of NG tube placement for now. -Dr. Borrero evaluated pt in the ED and personally reviewed his CT scan. He is concerned for possible SBO. After some discussion with the patient, he has convinced him to be admitted. Pt refuses NG tube tonight so will discuss again in the morning. Dr. Borrero states to continue IV fluids tonight and IV Abx in case of developing abscesses - ok continuing with Rocephin. Bowel rest, NPO. Spoke with Niranjan Latif who accepts for admission. Venkat Wakefield MD Billing #[id number] 03/07/20 15:47 IV Care:Saline Lock per Protoc QSHIFT Sodium Chloride 0.9% (Flush) [Saline Flush Syringe] 10 ml IV PRN PRN URINALYSIS Stat 03/07/20 16:00 EKG STAT 03/07/20 16:53 Abdomen/Pelvis w/Contrast [CT] Stat 03/07/20 16:54 Hold Metformin x 48Hrs [id number] Laboratory Results - last 24 hr 03/07/20 03/07/20 03/07/20 16:05 16:05 16:05 WBC 7.3 RBC 3.37 L Hgb 9.4 L Hct 28.1 L MCV 83.6 MCH 27.9 MCHC 33.3 RDW 16.2 H Plt Count 381 MPV 7.8 Absolute Neuts (auto) 6.40 Absolute Lymphs (auto) 0.40 L Absolute Monos (auto) 0.40 Absolute Eos (auto) 0.00 Absolute Basos (auto) 0.10 Neutrophils % 87.2 H Lymphocytes % 5.9 L Monocytes % 5.8 Eosinophils % 0.4 L Basophils % 0.7 Sodium 134 L Potassium 3.5 L Chloride 97 L Carbon Dioxide 26 Anion Gap 14.5 BUN 19 H Creatinine 1.37 H BUN/Creatinine Ratio 13.9 Random Glucose 123 H Serum Osmolality 271.9 L Lactic Acid Calcium 8.6 Total Bilirubin 0.9 Direct Bilirubin 0.2 Indirect Bilirubin 0.7 AST 30 ALT 25 Alkaline Phosphatase 82 Troponin I 0.03 Serum Total Protein 6.6 Albumin 2.8 L Amylase 46 Lipase 35 03/07/20 16:05 WBC RBC Hgb Hct MCV MCH MCHC RDW Plt Count MPV Absolute Neuts (auto) Absolute Lymphs (auto) Absolute Monos (auto) Absolute Eos (auto) Absolute Basos (auto) Neutrophils % Lymphocytes % Monocytes % Eosinophils % Basophils % Sodium Potassium Chloride Carbon Dioxide Anion Gap BUN Creatinine BUN/Creatinine Ratio Random Glucose Serum Osmolality Lactic Acid 1.0 Calcium Total Bilirubin Direct Bilirubin Indirect Bilirubin AST ALT Alkaline Phosphatase Troponin I Serum Total Protein Albumin Amylase Lipase - EKG/XRAY/CT EKG: Sinus - NSR with 1st degree AV block with frequent PVCs and LBBB, HR 80, no ST elevations or q waves noted, nonspecific ST segment changes inferior and lateral leads, T wave inversions noted in anteroseptal leads, appears unchanged from 02/09/2020 EKG XRAY: abdomen - nonspecific nonobstructive bowel gas pattern per my read - Additional EKG/XRAY/Consults XRAY #2: chest - No acute processes per my read. Stable appearing right lower lobe atelectasis versus fluid collection noted Departure - Departure Clinical Impression: Small bowel obstruction, Adenocarcinoma Time of Disposition: 23:07 Disposition: Admit Patient Condition: Fair Diet: other - NPO Referrals: MARY SLATER [Primary Care Provider] - 1-2 Weeks Home Medications: Ambulatory Orders Furosemide [Lasix] 20 mg PO DAILY PRN 10/22/19 Tramadol HCl 50 mg PO Q8HR PRN #30 tab 01/16/20 Polyethylene Glycol 3350 [Miralax] 17 gm PO PRN 02/09/20 Sennosides [Senna] 8.6 mg PO PRN 02/09/20 Acetamin W/Cod #3 Tab 1 tablet PO .Q4-6HR PRN 02/10/20 Apixaban [Eliquis] 2.5 mg PO BID #56 tab 02/27/20 Nystatin Powder 1 applic TOP QID PRN appli 02/27/20 Polyethylene Glycol 3350 [Miralax] 17 gm PO DAILY pckt 02/27/20 Decision To Admit - Decistion To Admit Decision to Admit Reason: Admit from ER Decision to Admit Date: 03/07/20 Decision to Admit Time: 23:07
[2020-03-07] MEDS ORDERED: SODIUM CHLORIDE 0.9% 500ML 500 ML IVS ONE (16:00)
--- NOTE | 2020-03-07 16:22 | RAD ---
EXAM DESCRIPTION: Abdomen 1 View CLINICAL HISTORY: 89 years Male ,abdominal pain, hx of bowel obstruction COMPARISON: 02/26/2020 TECHNIQUE: Single view of the abdomen was provided.. FINDINGS:Upper abdomen incompletely included on the image. No dilated loops of bowel to suggest obstruction. Midline godfrey. Sleeveless in the pelvis. Sclerotic focus in the left iliac bone which was present on the previous exam. 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 This is stable when compared to December 2017. IMPRESSION: No acute plain film abnormality is identified. Electronically signed by: Rosalba Navarrete MD 03/07/2020 4:21 PM CDT
--- NOTE | 2020-03-07 16:25 | RAD ---
EXAM DESCRIPTION: Chest,1 View CLINICAL HISTORY: 89 years Male abdominal pain, post-op patient COMPARISON: 02/24/2020 FINDINGS: Cardiac size appears similar to the previous. There appears to be some volume loss in the right chest which is similar to the previous. Tortuous aorta. There is atelectasis and/or fluid in the right lung base also similar to the previous. Left lung appears clear. IMPRESSION: Atelectasis and/or chronic fluid in the right lung base with ovoid area which may reflect retrocardiac rounded atelectasis as seen on the previous CT Cardiac enlargement Electronically signed by: Rosalba Navarrete MD 03/07/2020 4:23 PM CDT
[2020-03-07] MEDS ORDERED: ONDANSETRON INJ 4 MG/2 ML VIAL IV ONE (17:56)
--- NOTE | 2020-03-07 18:56 | CT ---
CT ABDOMEN PELVIS WITH IV CONTRAST HISTORY: Lower abdominal pain status post bowel tumor resection. COMPARISON: 02/26/2020 TECHNIQUE: CT scan of the abdomen and pelvis was performed with IV contrast. This exam was performed according to our departmental dose-optimization program, which includes automated exposure control, adjustment of the mA and/or kV according to patient size and/or use of iterative reconstruction technique. FINDINGS: There is a consolidation in the right lower lobe with scattered areas of scarring. No pleural or pericardial effusions are seen. There is no hiatal hernia. There are multiple cysts in both kidneys along with tiny nonobstructing stones in the right kidney. There are multiple right peripelvic cysts. Small amount of perihepatic and perisplenic ascites. The gallbladder, pancreas, adrenal glands, and pelvic organs are grossly unremarkable. No obstructing urinary stones are seen. There are surgical sutures surrounding the cecum. Appendix is not visualized. There is focal dilation of the proximal jejunum which measures 4.7 cm. There are a few loops of distal small bowel with mild wall thickening The distal colon is decompressed. No free air or fluid collection is seen. 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 There is a small right ventral hernia containing small pocket of fluid. There is midline skin godfrey with postsurgical scarring. There are multiple subacute left-sided rib fractures. IMPRESSION: 1. Focal dilation of proximal jejunum which may represent ileus or early obstruction. 2. Mild wall thickening of a few distal small bowel loops which may represent colitis or may be reactive. 3. Small amount of abdominopelvic ascites. 4. Right lung base consolidation. Electronically signed by: Bello Tomlinson MD 03/07/2020 6:54 PM CDT
--- NOTE | 2020-03-07 20:33 | RAD ---
EXAM DESCRIPTION: Chest,1 View CLINICAL HISTORY: 89 years Male NG Tube placement COMPARISON: 03/07/2020 4:15 PM FINDINGS: Stable cardial mediastinal silhouette. Elevation of the right hemidiaphragm with blunting of the costophrenic angle suggesting scarring. Rounded atelectasis or infiltrate in the right lung base as noted on the CT examination. Nasogastric tube has been placed extending into the right stem bronchus in the right lung base. This needs to be withdrawn and redirected. PICC line with the tip at the SVC right atrial junction. IMPRESSION: Nasogastric tube extends into the right lower lobe. This needs to be withdrawn and redirected Patchy density in the right lung base suggesting a combination of rounded atelectasis or infiltrate and some scarring Electronically signed by: Rosalba Navarrete MD 03/07/2020 8:31 PM CDT
[2020-03-07] MEDS ORDERED: MIDAZOLAM INJ 5 MG/5 ML VIAL IV ONE (20:37)
[2020-03-07] MEDS ORDERED: cefTRIAXone SODIUM 1 GM in SODIUM CHL 0.9% 50ML MIN-BAG+ 50 ML IVPB ONE (20:54)
[2020-03-07] MEDS ORDERED: MIDAZOLAM HCL 10 MG/10 ML INJ IV ONE (21:59)
--- NOTE | 2020-03-07 23:13 | HP ---
SUPERVISING PHYSICIAN: Philippe Mayer MD CHIEF COMPLAINT: Nausea and vomiting with associated abdominal pain. HISTORY OF PRESENT ILLNESS: Mr. Day is an 89-year-old male patient with a past medical history of previous bowel resection in the last 2 weeks for a metastatic bowel cancer with obstruction, hypertension congestive heart failure, chronic obstructive pulmonary disease, diverticulitis. He endorses that 2 days previous to admission to the Emergency Room today he took some Miralax and started having some abdominal pain that was constant and dull across the entire belly. He took some Tylenol No. 3 before he came to the Emergency Room and did not have any relief. Therefore, he presented for evaluation. He does endorse that he has only been having occasional stools which are just slivers but reports no obvious bleeding, blood or mucus, appear to be normal characteristics of his stools but not caliber. He is also endorsing that he has had some green emesis prior to coming to the Emergency Room when he tried to eat. He does report he has a very poor appetite but actually denies any fever, chills, chest pain, dyspepsia, coughing or shortness of breath or urinary samples. In the Emergency Room, Dr. Borrero was consulted after a CT of his abdomen and pelvis was completed with IV contrast. This showed focal dilation of the proximal jejunum which may represent ileus or early obstruction, a small amount of abdominal/pelvic ascites with mild wall thickening and a few distal small bowel loops. There is note of a right lung base consolidation. His laboratory showed he had a normal white count with a slight left shift. Chemistries showed his creatinine was 1.37, liver functions were all within normal limits as well as amylase and lipase. Troponin was normal at 0.03 as well as lactic acid at 1.0. Sodium was a little low at 134 as well as potassium at 3.5 but anion gap was normal at 14 with C02 of 26. Urinalysis showed a small amount of blood, small amount of bilirubin, trace leukoesterase and microscopic revealed 5 to 10 RBCs, 10 to 20 WBCs but no epithelials or bacteria. Urine culture was submitted and he was started on antibiotics including Rocephin. Dr. Borrero has seen the patient in consultation in the Emergency Room and wants the patient admitted for continuation of some low-dose antibiotics with some IV fluids. At time of observation, the patient was showing to be stable. PAST MEDICAL HISTORY: 1. Hypertension. 2. Coronary artery disease. 3. Chronic obstructive pulmonary disease. 4. Congestive heart failure with an ejection fraction of 45-50% on last echocardiogram in October of 2019. 5. Benign prostatic hypertrophy. 6. Malignant adenocarcinoma of the abdomen with recent bowel resection for obstruction. 7, History of treatment for right pulmonary embolism. 8. History of diverticulitis. PAST SURGICAL HISTORY: 1. 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 3. Laparoscopic converted to open right colectomy with excision of a retroperitoneal tumor dissecting of iliac artery. CURRENT MEDICATIONS: 1. Tramadol 50 mg every 8 hours as needed. 2. Senna 8.6 mg as needed. 3. Miralax 17grams daily. 4. Lasix 20 mg daily as needed. 5. Eliquis 2.5 mg b.i.d. 6, Tylenol No. 3 as needed for pain every 4 to 6 hours. ALLERGIES: NO KNOWN DRUG ALLERGIES. FAMILY HISTORY: Noncontributory. SOCIAL HISTORY: The patient lives in [place] with his . He has a past medical history of smoking but quit 5 years previous. Before that, he was smoking 72 packs per year. He denies any alcohol or illicit drug use. REVIEW OF SYSTEMS: GENERAL: Negative for fever, fatigue or unintentional weight loss. HEENT: Negative for sinus symptoms, congestion, ear pain, headaches, vision changes or sore throat. RESPIRATORY: Negative for wheezing, coughing or shortness of breath. CARDIAC: Negative for chest pain, palpitations or tachycardia, syncopal episodes. GASTROINTESTINAL: As per history of present illness. GENITOURINARY: Negative for hematuria, dysuria or polyuria. SKIN: Negative for lesions or rashes. He does have incision from previous surgery. NEUROLOGIC: Positive for generalized weakness. Negative for headache or seizures. Note generalized weakness associated with postoperative recovery. PHYSICAL EXAMINATION: VITAL SIGNS: Temperature 97.4, heart rate 70, blood pressure 124/71, respiratory rate 16, O2 saturation 96% on room air. GENERAL: The patient is resting comfortably. He was not showing any signs of distress, he is alert. HEENT: Tympanic membranes clear bilaterally. He is edentulous with dentures that are now how. Dry mucous membranes are noted. NECK: Supple, non-tender, full range of motion. No jugular venous distention. CHEST: Lung sounds clear to auscultation bilaterally without rhonchi, rales, or wheezes. CARDIOVASCULAR: Regular rate and rhythm without appreciable murmurs, rubs, or gallops. EXTREMITIES: Without cyanosis, clubbing, or edema. SKIN: Pale but warm and dry. GASTROINTESTINAL: Abdomen is soft, non-tender. Positive bowel sounds, just a little diminished but were audible. He does have some tenderness to palpation which is more associated around his incisional site which actually shows stable in place, clean and dry with no signs of infection. NEUROLOGIC: Cranial nerves II-XII are grossly intact as tested. He is alert and oriented x 3. No obvious neuro focal or motor deficits are noted. LABORATORY: White count 7,300, hemoglobin 9.4, hematocrit 28.1, platelet count 381,000. Differential shows a slight left shift. No coagulation studies were available. Chemistries show sodium 134, potassium 3.5, anion gap normal at 14 with creatinine of 1.37, calcium 8.6, osmolality 1. Liver functions all within normal limits. Troponin normal. Amylase and lipase within normal limits. Urinalysis showed a small amount of blood with small bilirubin, trace of leukoesterase. Microscopic revealed 5 to 10 RBCs, 10 to 20 WBCs with no bacteria, no epithelials. MICROBIOLOGY: Urine culture pending. RADIOLOGY: Abdominal/pelvis CT in the Emergency Room and per radiology interpretation of contrast CT reveals focal dilation of the proximal jejunum which may represent ileus or early obstruction. There is also note of mild wall thickening, a few distal small loops of bowel which may represent colitis or may be reactive. There is note a small amount of pelvic ascites fluid, right lung base consolidation. Chest x-ray shows patchy density in the right lung base suggesting combination of rounded atelectasis or infiltrate with some scarring. 12-lead EKG in the Emergency Room showed a normal sinus rhythm with a first degree AV block with some PVCs and left bundle branch block but heart rate in the 80s. There was no obvious ST elevation or Q-waves or anything to indicate acute ischemia. There were some inversion of T-wave in the anteroseptal leads that appears to be unchanged from previous on 02-09-20. IMPRESSION: 1. Possible ileus status post partial colectomy within the last 2 weeks with history of metastatic disease process. 2. Nausea and vomiting and abdominal pain associated with #1. 3. Electrolyte imbalance including a hyponatremia probably secondary to poor nutritional status. 4. Possible urinary tract infection with cultures pending. 5. History of previous pulmonary embolisms, on Eliquis. 6. Chronic obstructive pulmonary disease without any obvious signs of examination. 7. Congestive heart failure, diastolic etiology with last echocardiogram in October of 2019 showing ejection fraction of 45-50% with no signs of current exacerbation on this admission. 8. Hypertension. 9. Coronary artery disease. 10. Renal insufficiency, near baseline levels, likely an exacerbation from mild dehydration. PLAN: The patient is going to placed in observation for consultation with Dr. Borrero in the morning. Dr. Borrero did see the patient initially in the Emergency Room and wanted the patient admitted and on fluids and n.p.o. overnight to reassess in the morning. Will have him on a PPI for DVT prophylaxis along with continued Eliquis. Dr. Borrero is consulted and will see the patient in the morning. Will repeat labs as necessary. Will resume his home medications once those are updated and verified. Will anticipate length of stay to be 2 to [address] Borrero's recommendations. Until we can discharge and transition back to outpatient management, we will continue to monitor and treat as needed [id number]# MTDD
[2020-03-08] MEDS: IV SET AND CAP CHANGE INJ INJ SCH (00:29)
[2020-03-08] MEDS: KCL 20MEQ/D5NS 1,000 ML IVS PRN ×3 (00:31→18:55)
[2020-03-08] MEDS ORDERED: PROMETHAZINE HCL INJ 25 MG/ML VIAL ONE ×2 (01:34→05:13)
[2020-03-08] MEDS ORDERED: SODIUM CHL 0.9% 50ML MIN-BAG+ 50 ML IVPB ONE (01:34)
[2020-03-08] MEDS: PROMETHAZINE HCL INJ 12.5 MG in SODIUM CHLORIDE 0.9% 50ML 50 ML IVPB PRN ×5 (01:36→22:00)
[2020-03-08] MEDS ORDERED: SODIUM CHLORIDE 0.9% 50ML 50 ML ONE (05:13)
[2020-03-08] MEDS ORDERED: ONDANSETRON INJ 4 MG/2 ML VIAL ONE (08:59)
[2020-03-08] MEDS: ONDANSETRON INJ 4 MG/2 ML VIAL IV PRN ×2 (09:04→16:10)
[2020-03-08] MEDS ORDERED: KCL 20MEQ/D5NS 1,000 ML IVS ONE (09:04)
[2020-03-08] MEDS ORDERED: METRONIDAZOLE IVPB SCH (11:30)
[2020-03-08] MEDS ORDERED: LIDOCAINE HCL 2% (MOUTH-THROAT) 15 ML UD ONE (11:40)
[2020-03-08] MEDS: levoFLOXacin 500MG IV 500 MG in PREMIX BAG 1 BAG IVPB SCH (12:41)
[2020-03-08] MEDS: metroNIDAZOLE IV PREMIX 500MG 500 MG in PREMIX BAG 1 BAG IVPB SCH ×2 (13:00→20:56)
[2020-03-08] MEDS ORDERED: FUROSEMIDE INJ 40 MG/4 ML VIAL IV ONE (13:55)
[2020-03-08] MEDS ORDERED: FUROSEMIDE INJ 20 MG/2 ML VIAL ONE (16:51)
[2020-03-08] MEDS ORDERED: FUROSEMIDE INJ 40 MG/4 ML VIAL ONE (17:09)
[2020-03-08] MEDS ORDERED: HYDROmorphone HCL INJ 2 MG/ML VIAL IV ONE (23:45)
[2020-03-09] MEDS: ONDANSETRON INJ 4 MG/2 ML VIAL IV PRN ×2 (00:08→13:53)
[2020-03-09] MEDS: KCL 20MEQ/D5NS 1,000 ML IVS PRN ×2 (02:39→11:19)
[2020-03-09] MEDS: PROMETHAZINE HCL INJ 12.5 MG in SODIUM CHLORIDE 0.9% 50ML 50 ML IVPB PRN ×2 (02:43→21:30)
[2020-03-09] MEDS: metroNIDAZOLE IV PREMIX 500MG 500 MG in PREMIX BAG 1 BAG IVPB SCH ×3 (04:52→20:43)
--- NOTE | 2020-03-09 07:21 | RAD ---
EXAM: X-RAY ABDOMEN, 2 VIEWS. CLINICAL HISTORY: Possible SBO COMPARISON: 03/07/2020 TECHNIQUE: Supine and upright images of the abdomen were submitted. FINDINGS: Nonobstructive bowel gas pattern. No pneumatosis or pneumoperitoneum. No ectopic calcifications. Normal osseous structures. IMPRESSION: No evidence of obstruction or ileus. Electronically signed by: Paco Moralez MD 03/09/2020 7:20 AM CDT
--- NOTE | 2020-03-09 08:01 | PN ---
SUPERVISING PHYSICIAN: Philippe Mayer MD DATE: 03/08/20 SUBJECTIVE: The patient really does not have any pain he notes with his belly. He had one episode of nausea through the night. They were still not able to pass an NG tube in the ER and this morning, Dr. Borrero requested another be put in, however, the patient was not able to tolerate the procedure and after multiple attempts, requested to no longer try. I did talk to him to see if he wanted me to try and he requested that no one try to put an NG tube in. After talking with Dr. Borrero, Dr. Borrero wants to go ahead and just keep him on ice chips and see if he will medically resolve and treat his nausea as needed. He has been afebrile and he really has no other complaints. OBJECTIVE: VITAL SIGNS: Temperature 98.2, pulse 74, blood pressure 144/83, respirations 81, oxygen saturation 95% on room air. GENERAL: The patient does look tired. He is thin in appearance. He does look frail, but does not appear in any distress. He looks like he is pretty comfortable. CHEST: Lungs are clear, just a little diminished towards the bases. HEART: Regular rate and rhythm. ABDOMEN: A little bit distended, but soft. Positive bowel sounds. He is tender to palpation throughout the entire abdomen, but no guarding, no peritoneal signs. EXTREMITIES: 2 to 3+ pitting edema from the knees down. NEUROLOGIC: Alert and oriented times three. LABORATORY: White count stable at 7,500, hemoglobin 10.7, hematocrit 31.8, platelet count 446,000, differential does show a left shift. Chemistry today shows sodium 134, potassium down to 3.4 from 3.5. Carbon dioxide and anion gap are normal. BUN is up a little bit to 20, creatinine 1.55. Lactic acid last night was normal. Liver functions, bilirubin, everything is normal. He had a urine specimen last night that showed a small amount of blood, small amount of bilirubin, trace leukocyte esterase with microscopic showing 5 to 10 RBCs, 10 to 20 WBCs, no epithelials, no bacteria. MICROBIOLOGY: Urine culture pending. RADIOLOGY: No additional radiographic studies this morning. CONSULTATION: Pending with Dr. Borrero. ASSESSMENT: 1. Possible ileus status post partial colectomy within the last 2 weeks with history of metastatic disease process. 2. Nausea, vomiting and abdominal pain associated with #1. 3. Electrolyte imbalance including a hyponatremia probably secondary to poor nutritional status. 4. Possible urinary tract infection with cultures pending. 5. History of previous pulmonary embolisms, on Eliquis. 6. Chronic obstructive pulmonary disease without any obvious signs of exacerbation. 7. Congestive heart failure, diastolic etiology with last echocardiogram in October of 2019 showing ejection fraction of 45-50% with no signs of current exacerbation on this admission. 8. Hypertension. 9. Coronary artery disease. 10. Renal insufficiency, near baseline levels, likely an exacerbation from mild dehydration. PLAN: We will continue to follow the patient along with Dr. Borrero. Again, multiple attempts were made to place an NG tube which were unsuccessful. I discussed the case with Dr. Borrero and Dr. Borrero opted to not push the issue as far as putting an NG tube in and see if he will do okay on some ice chips and medically improve. Given that Dr. Borrero feels like there is a possible infection, I did increase his antibiotic coverage to Levaquin and Flagyl. We will plan to get an x-ray of his abdomen in the morning and again discuss the case with Dr. Borrero as far as ultimate disposition and ultimate plan of care. We will keep him comfortable, give him Phenergan and Zofran and pain management as needed. At this point, there is not much medically to manage as he is stable. He does have a little lower extremity edema that I think is related to poor nutritional status. I will get a nutritional consult and we will utilize some Lasix to see if we can get the edema down in his lower extremities and watch his I&Os closely. He does remain on fluids. Again, we will defer further management to Dr. Borrero. Until the patient can transition to outpatient management, we will continue to monitor and treat as needed. [facility][id number]
--- NOTE | 2020-03-09 11:04 | CONS ---
DATE OF CONSULTATION: 03/07/20 REASON FOR CONSULTATION: Abdominal pain, nausea and vomiting. HISTORY OF PRESENT ILLNESS: This is an 89-year-old man who underwent a right colectomy on 02/16/20, so about 3 weeks ago, for a cancer. He had postoperative course complicated by a lower GI bleed which resolved. Also, sundowner's syndrome, dementia, etc., but he finally did recover. He has been home, not eating much, but he comes back in now with abdominal pain and vomiting. He had eaten fairly well the other day, but then started vomiting. I am seeing him in the night. An NG tube was suggested. At the bedside, he is conscious, alert and well-oriented. He is refusing an NG tube after a CT scan showed probable obstruction. PAST MEDICAL HISTORY: 1. Hypertension. 2. Coronary disease. 3. Chronic obstructive pulmonary disease. 4. Congestive heart failure. 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 6. History of pulmonary embolism. He had been on blood thinners. PAST SURGICAL HISTORY: 1. Coronary artery bypass graft. 2. Mitral valve. 3. Laparoscopic right colectomy. 4. Excision of retroperitoneal tumor. MEDICATIONS: 1. Tramadol. 2. Lasix. 3. Eliquis. 4. Tylenol #3 p.r.n. ALLERGIES: NO KNOWN DRUG ALLERGIES. SOCIAL HISTORY: The patient denies any current illicit habits. He is . He had smoked for many, many years. He lives at home with his . PHYSICAL EXAMINATION: GENERAL: The patient is conscious, alert and well-oriented at bedside standing. HEENT: Normocephalic, atraumatic. Pupils equal and reactive. Sclerae anicteric. CHEST: Clear and equal bilaterally. HEART: Regular rate and rhythm. ABDOMEN: Tender, soft, mildly distended. No evidence of peritonitis. No CVA tenderness. EXTREMITIES: No cyanosis, clubbing or edema. LABORATORY: Relatively normal. White count 7, hematocrit 28, platelet count 381. Potassium 3.5, sodium 134. Liver function tests normal. Troponin normal. Urinalysis showed no evidence of acute infection. RADIOLOGY: CT scan was done and read as dilation of the jejunum, ileus or early obstruction. Some thickening in a few loops of bowel, which I reviewed and it seems like the proximal third small bowel there is an obstruction, a little conglomeration of bowel away from our operation, so it is unknown if this is possibly tumor or adhesion or infection. The area around the anastomosis looks okay with no evidence of leak of infection. IMPRESSION: 1. 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 2. Nausea and vomiting. PLAN: We will admit the patient tonight. We were unable to place an NG tube and he was wanting to go home, but I really suggested that he stay as it was about 11:30 during the evaluation. We will see how he is doing tomorrow. #[id number] [facility]
--- NOTE | 2020-03-09 11:16 | PN ---
DATE: 03/09/20 HOSPITAL DAY 2 - SMALL BOWEL OBSTRUCTION SUBJECTIVE: Last night, the patient was reported to have vomiting, about 1 liter of green clear fluid and then later last evening he did have liquid stool incontinence. The patient is currently alert and oriented, in no distress. He has no complaints, he is just frustrated at the entire situation and complained that he could not tolerate the NG tube that was unable to be placed yesterday. OBJECTIVE: VITAL SIGNS: Temperature 98, pulse 70, blood pressure normal. I&Os: He had 3500 in, 2400 out with 1 liter of emesis. HEENT: Atraumatic. Sclerae anicteric. Oral mucosa is moist. NECK: Supple. CHEST: Clear. ABDOMEN: Soft. There is mild midabdominal tenderness. There is less distention than yesterday. No CVA tenderness. EXTREMITIES: No edema. LABORATORY: White count 8, hematocrit 25, platelet count 300. BMP is relatively normal with a creatinine of 1.6. This is up a little from admission. RADIOLOGY: Abdominal series done today reports no evidence of obstruction or ileus and, again, the CT abdomen that was done reports the focal dilation of the jejunum and a few distal bowel loops, a little thickened, and a small amount of pelvic ascites. ASSESSMENT: The patient is post right colon from metastatic disease with moderate macroscopic disease. He now has an obstruction. I am uncertain if this obstruction could be from malignant tumor in the mid-bowel, possibly adhesions, possibly infection. PLAN: In discussing with him, his and two of his sons, the patient does not want to repeat the NG tube attempt. We are saying this would be the treatment for this type of early postoperative obstruction. We discussed the possibility of surgery if it does not clear. Neither the patient or his desire surgery. I think given the episode after his colectomy, he would tolerate the operation, but likely not tolerate the postoperative course given that a major adhesiolysis or resection this early postoperative would be quite an undertaking potentially. Given he did have some liquid stool last night, his x-ray looks better, his abdominal exam is somewhat improved, he may be getting better from the obstruction and it may just be a matter of time. The third option if he does remain obstructed is that of a PEG tube, which if we do not do surgical intervention, then he could potentially go home with hospice and the PEG tube could be used as a relief to decompress the stomach if he continues to have obstructive symptoms because the NG tube 1) difficult to put in, 2) he had pulled out multiple times in the past. These are the discussions we had with the family today. Since he seems to be a little better and has not vomited, we will let him have some liquids and observe him. If things seem to be improving, great. We will do another assessment tomorrow. If not improving and it is obvious the obstruction is continuing, then we will look at placing a PEG tube tomorrow. The patient understands and agrees and so does his son who is in the room and his understands as well. #[id number] [facility]
[2020-03-09] MEDS: levoFLOXacin 500MG IV 500 MG in PREMIX BAG 1 BAG IVPB SCH (13:17)
[2020-03-09] MEDS ORDERED: metroNIDAZOLE IV PREMIX 500MG 100 ML IVPB ONE (19:48)
[2020-03-10] MEDS: KCL 20MEQ/D5NS 1,000 ML IVS PRN ×2 (00:32→09:42)
[2020-03-10] MEDS: ONDANSETRON INJ 4 MG/2 ML VIAL IV PRN (00:33)
[2020-03-10] MEDS: PROMETHAZINE HCL INJ 12.5 MG in SODIUM CHLORIDE 0.9% 50ML 50 ML IVPB PRN (04:08)
[2020-03-10] MEDS: metroNIDAZOLE IV PREMIX 500MG 500 MG in PREMIX BAG 1 BAG IVPB SCH ×3 (05:04→20:30)
[2020-03-10] MEDS ORDERED: ENOXAPARIN SODIUM 30 MG/0.3 ML SYG SUBCU ONE (07:19)
--- NOTE | 2020-03-10 07:50 | PN ---
SUPERVISING PHYSICIAN: Philippe Mayer MD DATE: 03/09/20 SUBJECTIVE: The patient has been able to tolerate ice chips overnight, he has not had any nausea. He had 2 bowel movements this morning. He remains afebrile. Bowel sounds are staying stable. He feels a little bit better this morning. I did talk to Dr. Borrero, he continued with ice chips and water and should he continue improving, hopefully can discharge tomorrow, however, if he is unable to tolerate that and he develops a significant amount of nausea and vomiting, the issue at this point I think is to put a G-tube in. OBJECTIVE: VITAL SIGNS: Temperature 98 pulse 83, blood pressure 132/72, respirations 18, oxygen saturation 95% on room air. GENERAL: The patient does look tired. He is thin in appearance. He does look frail, but does not appear in any distress. He looks like he is pretty comfortable. CHEST: Lungs are clear, just a little diminished towards the bases. HEART: Regular rate and rhythm. ABDOMEN: Nondistended today with positive bowel sounds. He is tender to palpation today, more around the postoperative incision site. He did have a couple of bowel movements this morning. EXTREMITIES: 2+ pitting edema, improved from yesterday. NEUROLOGIC: Alert and oriented times three. RADIOLOGY: Abdominal x-ray per radiology interpretation this morning shows no evidence of obstruction or ileus. ASSESSMENT: 1. Post right colectomy for metastatic disease with concerns for obstruction possibly due to tumor followed by Dr. Mc, adhesions versus possible infection, on antibiotics and followed by Dr. Borrero. 2. Nausea, vomiting and abdominal pain associated with #1 now resolved. 3. Electrolyte imbalance, improving and stable secondary to poor nutritional intake. 4. Possible urinary tract infection with cultures pending. 5. History of previous pulmonary embolisms, on Eliquis. 6. Chronic obstructive pulmonary disease without any obvious signs of exacerbation. 7. Congestive heart failure, diastolic etiology with last echocardiogram in October of 2019 showing ejection fraction of 45-50% with no signs of current exacerbation on this admission. 8. Hypertension. 9. Coronary artery disease. 10. Renal insufficiency, near baseline levels, likely an exacerbation from mild dehydration. PLAN: We will continue to follow the patient along with Dr. Borrero. I think at this point, is to go ahead and get him to take more oral intake.. If he tolerates this possibly go home tomorrow. He did have bowel movements, good active bowel sounds and x-rays are showing improvement. He does remain on Levaquin and Flagyl and I did discuss this with Dr. Borrero. He will continue Phenergan and Zofran as needed for any nausea. Should he have any problem tolerating the diet overnight, then Dr. Borrero is going to put a G-tube in for comfort reasons. Possibly we will be able to discharge him tomorrow. Will repeat abdominal x-ray in the morning. His labs are stable, we will hold off on a few of those and reassess in the morning and talk with Dr. Borrero. [facility][id number] [facility]
[2020-03-10] MEDS: ENOXAPARIN SODIUM 40 MG/0.4 ML SYG SUBCU SCH (09:45)
[2020-03-10] MEDS: levoFLOXacin 500MG IV 500 MG in PREMIX BAG 1 BAG IVPB SCH (13:17)
[2020-03-10] MEDS ORDERED: SODIUM CHLORIDE 0.9% (FLUSH) 10 ML SYG IV ONE (18:04)
--- NOTE | 2020-03-10 19:39 | PN ---
SUPERVISING PHYSICIAN: Alton Mayer M.D. DATE: 03/10/20 SUBJECTIVE: The patient reports that he is feeling pretty good this morning. He tolerated ice chips and water overnight and had no reported nausea. He did have some more bowel movements and is passing gas. I did talk to Dr. Borrero about plan of care and we are going to advance his diet today and see how he does. If he does well overnight certainly will discharge for further management as an outpatient. If he has continued nausea and vomiting, he is going to look at the option of maybe putting a G tube in. Right now he is doing well. He has been afebrile and again having no nausea or vomiting. OBJECTIVE: VITAL SIGNS: Temperature 98.8, pulse 76, blood pressure 136/79, respirations 15, satting 99% on room air. GENERAL: The patient looks to be feeling better today. He has been working with Physical Therapy. He has been to a bedside chair and he is alert. CHEST: Lung sounds are clear to auscultation. HEART: Regular rate and rhythm. ABDOMEN: Soft, non-tender with some just mild tenderness still associated with his surgical site, but bowel sounds were present. EXTREMITIES: Showing 1+ edema today but improved from yesterday. NEUROLOGIC: He is abdomen times three. LABORATORY: H&H this morning was 8.8 and 26.7 respectively. BMP showed normal electrolytes with creatinine of 1.37 and calcium 8.1. MICROBIOLOGY: Urine culture showed no growth at 48 hours. RADIOLOGY: No additional radiographic studies today. ASSESSMENT: 1. Post right colectomy for metastatic disease with concerns for obstruction possibly due to tumor or adhesions versus possible infection on antibiotics and followed by Dr. Borrero showing resolving symptoms with conservative measures. 2. Nausea, vomiting and abdominal pain, resolved. 3. Electrolyte imbalance, now resolved. 4. Urinary tract infection with no growth on final culture results. 5. History of pulmonary embolisms on chronic Eliquis. 6. Chronic obstructive pulmonary disease without any obvious signs of exacerbation. 7. Congestive heart failure, diastolic etiology with last echocardiogram in October of 2019 showing ejection fraction of 45-50% with no signs of current exacerbation on this admission. 8. Hypertension. 9. Coronary artery disease. 10. Renal insufficiency at baseline levels, improved with fluids. PLAN: Will continue to follow the patient with Dr. Borrero. The plan at this point is to advance his diet as tolerated and if he tolerates it overnight with no nausea or vomiting, certainly he will be discharged home. Dr. Borrero has voiced that if he does have persistent nausea and vomiting, there will be a discussion as to whether or not he needs a G tube. He does remain on Levaquin and Flagyl antibiotic coverage. Again will encourage ambulation. As he increases his oral intake, will decrease his IV fluids. Again hopefully will be able to transition to outpatient management. Until tomorrow will continue to monitor and treat as needed. #[id number] [facility]
[2020-03-10] MEDS: IV SET AND CAP CHANGE INJ INJ SCH (23:45)
[2020-03-11] MEDS: metroNIDAZOLE IV PREMIX 500MG 500 MG in PREMIX BAG 1 BAG IVPB SCH ×2 (05:05→13:55)
[2020-03-11] MEDS: ENOXAPARIN SODIUM 40 MG/0.4 ML SYG SUBCU SCH (08:34)
--- NOTE | 2020-03-11 10:20 | PN ---
DATE: 03/11/20 SUBJECTIVE: The patient has been on liquids since yesterday and has not vomited for over 48 hours. He has had bowel movements. OBJECTIVE: VITAL SIGNS: His T-max is 98. Vital signs are normal. He has had adequate urine output. Again, no emesis for over 24 hours and two bowel movements. GENERAL: He is conscious, alert and oriented. He says he just does not want to be here in the hospital. He wanted to know his options. We did discussed options yesterday and will be summarized again. ABDOMEN: Soft today. There is mild tenderness, for him is normal. Minimal distention. No rebound, no guarding. There are normal bowel sounds. EXTREMITIES: No edema. ASSESSMENT: This is an 89-year-old man status post right colectomy who presented with a partial small bowel obstruction. It seems to be resolving. PLAN: We discussed options yesterday. If it would lead to surgery for resection of the scarred area, possibly malignant obstruction, he would have a very difficult time postoperatively. He had a very difficult time with the right colectomy. He may be resolving, so he could advanced diet slowly at home if he really does want to leave and try to maintain hydration. A third option, if he fails a trial of orals, which so far he is doing well, and we opt not for surgery, then a PEG tube could be placed to help decompress the stomach and then basically would look like hospice and comfort care. I believe maybe having him advance his diet slowly as tolerated and reinforce hydration, the patient probably could go home as it seems like his partial obstruction is resolving. #[id number] [facility]
[2020-03-11] MEDS: levoFLOXacin 500MG IV 500 MG in PREMIX BAG 1 BAG IVPB SCH (13:00)
[2020-03-11 13:39] VITALS: BP 127/78; TEMP 98.5; O2SAT 95
--- NOTE | 2020-03-11 18:07 | DS ---
SUPERVISING PHYSICIAN: Alton Mayer M.D. ADMISSION DIAGNOSIS: 1. Possible ileus status post partial colectomy within the last 2 weeks with history of metastatic disease process. 2. Nausea and vomiting and abdominal pain associated with #1. 3. Electrolyte imbalance including a hyponatremia probably secondary to poor nutritional status. 4. Possible urinary tract infection with cultures pending. 5. History of previous pulmonary embolisms, on Eliquis. 6. Chronic obstructive pulmonary disease without any obvious signs of examination. 7. Congestive heart failure, diastolic etiology with last echocardiogram in October of 2019 showing ejection fraction of 45-50% with no signs of current exacerbation on this admission. 8. Hypertension. 9. Coronary artery disease. 10. Renal insufficiency, near baseline levels, likely an exacerbation from mild dehydration. DISCHARGE DIAGNOSIS: 1. Possible ileus status post partial colectomy within the last 2 weeks with history of metastatic disease process. 2. Nausea and vomiting and abdominal pain associated with #1. 3. Electrolyte imbalance including a hyponatremia probably secondary to poor nutritional status. 4. Possible urinary tract infection with cultures pending. 5. History of previous pulmonary embolisms, on Eliquis. 6. Chronic obstructive pulmonary disease without any obvious signs of examination. 7. Congestive heart failure, diastolic etiology with last echocardiogram in October of 2019 showing ejection fraction of 45-50% with no signs of current exacerbation on this admission. 8. Hypertension. 9. Coronary artery disease. 10. Renal insufficiency, near baseline levels, likely an exacerbation from mild dehydration. REASON FOR HOSPITALIZATION: Mr. Day is an 89-year-old male patient with a past medical history of previous bowel resection in the last 2 weeks for a metastatic bowel cancer with obstruction, hypertension congestive heart failure, chronic obstructive pulmonary disease, diverticulitis. He endorses that 2 days previous to admission to the Emergency Room today he took some MiraLAX and started having some abdominal pain that was constant and dull across the entire belly. He took some Tylenol No. 3 before he came to the Emergency Room and did not have any relief. Therefore, he presented for evaluation. He does endorse that he has only been having occasional stools which are just slivers but reports no obvious bleeding, blood or mucus, appear to be normal characteristics of his stools but not caliber. He is also endorsing that he has had some green emesis prior to coming to the Emergency Room when he tried to eat. He does report he has a very poor appetite but actually denies any fever, chills, chest pain, dyspepsia, coughing or shortness of breath or urinary samples. In the Emergency Room, Dr. Borrero was consulted after a CT of his abdomen and pelvis was completed with IV contrast. This showed focal dilation of the proximal jejunum which may represent ileus or early obstruction, a small amount of abdominal/pelvic ascites with mild wall thickening and a few distal small bowel loops. There is note of a right lung base consolidation. His laboratory showed he had a normal white count with a slight left shift. Chemistries showed his creatinine was 1.37, liver functions were all within normal limits as well as amylase and lipase. Troponin was normal at 0.03 as well as lactic acid at 1.0. Sodium was a little low at 134 as well as potassium at 3.5 but anion gap was normal at 14 with C02 of 26. Urinalysis showed a small amount of blood, small amount of bilirubin, trace leukoesterase and microscopic revealed 5 to 10 RBCs, 10 to 20 WBCs but no epithelials or bacteria. Urine culture was submitted and he was started on antibiotics including Rocephin. Dr. Borrero has seen the patient in consultation in the Emergency Room and wants the patient admitted for continuation of some low-dose antibiotics with some IV fluids. At time of observation, the patient was showing to be stable. LABORATORY: Final H&H was 8.8 and 26.7 which was showing to be stable. White count was 8,700 with differential showing a slight left shift. Platelet counts were normal at 300,000. Chemistry showed on the day before discharge on the electrolytes his creatinine was returning to baseline levels at 1.37, calcium was 8.1. Liver functions were all within normal limits. Lipase and amylase were both normal. Urinalysis showed small amount of blood, small amount of bilirubin. Microscopic revealed 5 to 10 RBCs, 10 to 20 WBCs but no bacteria. MICROBIOLOGY: Urine culture showed no growth at 48 hours. RADIOLOGY: Last abdominal x-ray on 03/09/20 showed nonobstructive bowel gas pattern. No pneumonitis or pneumoperitoneum. There was no evidence of obstruction or ileus. On admission,, his pelvis and abdomen CT with IV contrast showed focal dilation of proximal jejunum which may represent ileus or early obstruction with some mild wall thickening and a few distal small bowel loops which may represent colitis or maybe reactive. There is also note of a small amount of abdominal and pelvic ascites and right lung base consolidation. MEDICAL CONSULTATION: Dr. Borrero, surgeon. Please see his report for details. HOSPITAL COURSE: Mr. Day was admitted for questionable small bowel obstruction. He was kept NPO initially and started on some IV fluids, and had a consultation with Dr. Borrero. After 24 hours of treatment, he was showing good response. He was having bowel movements and no longer having any nausea. It should be noted that on admission multiple attempts were made in the Emergency Room and on the Medical/Surgical floor to place an NG tube which were all unsuccessful. The patient ultimately refused to have an NG tube placed and opted to go with conservative medical treatments. Again, the patient was showing good response. He was actually tolerating a diet prior to discharge and ambulating. He has already got home health. After discussion with Dr. Borrero, it was felt that the patient had clinically resolved his symptoms well enough to continue with outpatient management. Vital signs on discharge did show he was stable with a temperature of 98, pulse 66, blood pressure 148/88, respirations 20, satting 97% on room air. PLAN: Mr. Day was discharged on 03/11/20. He is to followup with Dr. Borrero and Dr. Mc. He was instructed on a soft mechanical diet. He was started on antibiotics in the hospital and this will be continued for 5 days, including Flagyl and Levaquin. He is to return to the Emergency Room should he have any concerning symptoms and tell Dr. Borrero. He does have home health through [facility]. He is again encouraged to return to the Emergency Room should he have any worsening symptoms with the main plan of care. If he continues with symptoms once discharged, will get a G tube in as he is not able to tolerate an NG tube. At this point he is stable and showing clinical improvement. DISPOSITION: Discharged home. Condition on discharge was stable and improved. #[id number] MTDD
== END 2020-03-11 15:45 | disposition home health service (06) | DRG 389 ==
LOC: ER 15:41 → MS 23:12 → OBSVTOIN 23:12
PROVIDERS: ADMIT Nurse Practitioner Family; ATTEND Nurse Practitioner Family
PROC: BW211ZZ Computerized Tomography (CT Scan) of Abdomen and Pelvis using Low Osmolar Contrast (ICD-10-PCS; principal; 2020-03-07)
DX: K56.7 Ileus, unspecified (principal); E87.1 Hypo-osmolality and hyponatremia; C18.0 Malignant neoplasm of cecum; C78.80 Secondary malignant neoplasm of unspecified digestive organ; I50.32 Chronic diastolic (congestive) heart failure; N39.0 Urinary tract infection, site not specified; G89.18 Other acute postprocedural pain; E86.0 Dehydration; E87.8 Other disorders of electrolyte and fluid balance, not elsewhere classified; J44.9 Chronic obstructive pulmonary disease, unspecified; I11.0 Hypertensive heart disease with heart failure; N28.9 Disorder of kidney and ureter, unspecified; I25.10 Atherosclerotic heart disease of native coronary artery without angina pectoris; N40.0 Benign prostatic hyperplasia without lower urinary tract symptoms; I44.0 Atrioventricular block, first degree; I49.3 Ventricular premature depolarization; I44.7 Left bundle-branch block, unspecified; Z90.49 Acquired absence of other specified parts of digestive tract; Z86.711 Personal history of pulmonary embolism; Z79.01 Long term (current) use of anticoagulants; Z79.899 Other long term (current) drug therapy; Z95.1 Presence of aortocoronary bypass graft; Z95.2 Presence of prosthetic heart valve; Z87.891 Personal history of nicotine dependence; Z66 Do not resuscitate; Z79.891 Long term (current) use of opiate analgesic

== ENCOUNTER 2020-04-08 04:42 | Inpatient (IN) | payer MEDICARE ==
--- NOTE | 2020-04-08 05:18 | ED.PDOC ---
History of Present Illness - General Chief Complaint: Respiratory Problem Stated Complaint: increased shortness of breath Time Seen by Provider: 04/08/20 04:45 Source: patient Exam Limitations: no limitations - History of Present Illness Initial Comments: The patient is an 89-year-old male presenting to the emergency room secondary to progressive shortness of breath. The patient has known metastatic colon cancer apparently. He saw his oncologist yesterday but is refusing any chemotherapy or further treatment. The patient apparently had a colectomy about a month and a half ago for an obstruction. The patient does have increased swelling in his lower extremities. He does have increased shortness of breath with activity as well as with lying back. Minimally productive sputum. No fever. No runny nose. No sore throat. No known coronavirus exposure. No syncope but he has had some dizziness episodes. He does have some generalized weakness but no focal neurological changes. The patient does exhibit significant wasting. He did apparently have a pulmonary embolus back in October for which she is on Eliquis. His last couple of EKGs here have shown normal sinus rhythm however today he is an paroxysmal atrial fibrillation based on the EKG and telemetry. The patient does reiterate that he is okay with vasoactive medications in the event of a code however he does not want any chest compressions and does not want to be on a ventilator. Timing/Duration: 1 week Severity: moderate Improving Factors: rest Worsening Factors: nothing Associated Symptoms: loss of appetite, malaise, shortness of breath Allergies/Adverse Reactions: Allergies NO KNOWN ALLERGY Allergy (Verified 04/08/20 05:21) Home Medications: Ambulatory Orders Furosemide [Lasix] 40 mg PO DAILY PRN 10/22/19 Apixaban [Eliquis] 2.5 mg PO DAILY 04/08/20 Polyethylene Glycol 3350 [Miralax] 17 gm PO BID 04/08/20 Review of Systems - Review of Systems Constitutional: States: malaise, weakness - Generalized EENTM: States: no symptoms reported Respiratory: States: cough, orthopnea, short of breath Cardiology: States: no symptoms reported Gastrointestinal/Abdominal: States: see HPI Genitourinary: States: no symptoms reported Musculoskeletal: States: no symptoms reported Skin: States: no symptoms reported Neurological: States: anxiety Endocrine: States: no symptoms reported All other Systems: No Change from Baseline Past Medical History (General) - Patient Medical History Hx Seizures: No Hx Stroke: No Hx Dementia: No Hx Asthma: No Hx of COPD: Yes Hx Cardiac Disorders: Yes Hx Congestive Heart Failure: Yes Hx Pacemaker: No Hx Hypertension: Yes Hx Thyroid Disease: No Hx Diabetes: No Hx Gastroesophageal Reflux: No Hx Renal Disease: No Hx Cancer: Yes - colon Hx of HIV: No Hx Hepatitis C: No Hx MRSA: No Surgical History: cancer surgery - Vaccination History Hx Tetanus, Diphtheria Vaccination: No Hx Influenza Vaccination: Yes Hx Pneumococcal Vaccination: Yes - Social History Hx Tobacco Use: Yes Hx Alcohol Use: No Hx Substance Use: No Hx Substance Use Treatment: No Hx Depression: No Hx Physical Abuse: No Hx Emotional Abuse: No Hx Suspected Abuse: No - Female History Patient : No Family Medical History - Family History Son Family History: No Known Living Status: Still Living Hx Family Asthma: No Hx Family Congestive Heart Failure: No Hx Family Hypertension: Yes Hx Family Stroke: No Hx Cardiac Disease: Yes Hx Family Diabetes: No Hx Family Cancer: No Grandparents Family History: Unknown Name: Juan Day Age (years): 64 Living Status: Hx Family Asthma: No Hx Family Congestive Heart Failure: No Hx Family Hypertension: - doesn't know Hx Family Stroke: No Hx Cardiac Disease: Yes Hx Family Diabetes: No Hx Family Cancer: No Hx Family;Other: he did not want to talk about it Physical Exam - Physical Exam General Appearance: Alert, Frail, Ill Appearing Eye Exam: bilateral normal Ears, Nose, Throat: hearing grossly normal, normal pharynx - Poor dentition Neck: non-tender, supple Respiratory: decreased breath sounds - Mild, accessory muscle use, rales, rhonchi, wheezing Cardiovascular/Chest: normal peripheral pulses, irregularly irregular Peripheral Pulses: radial,right: 2+, radial,left: 2+ Gastrointestinal/Abdominal: non tender - Recent abdominal surgery scar is healing well. No evidence of abdominal tenderness to palpation., soft Rectal Exam: deferred Back Exam: no CVA tenderness, no vertebral tenderness Extremity: normal range of motion - Given chronic limitations., normal capillary refill, pedal edema - 2+ bilateral lower extremities Neurologic: respiratory director II-XII nml as tested, alert, normal mood/affect - He is anxious as is appropriate, oriented x 3 Skin Exam: pallor Comments: Vital Signs - 24 hr 04/08/20 04/08/20 04:49 05:05 Temperature 98.0 F Pulse Rate [ 47 L 93 H left] Respiratory 26 H 26 H Rate Blood Pressure 127/89 [Left Arm] O2 Sat by Pulse 84 L Oximetry Numerous of the patient's irregular beats failed to produce a strong pulse. Progress - Progress Progress: 04/08/20 06:02 The patient is an 89-year-old male presented emergency room secondary to shortness of breath. This is likely a problem with multiple sources on this patient. He does appear to have a right mid and lower lobe pneumonia. He is unable to mount an adequate white blood cell count response which is not new. He has been placed on Rocephin and azithromycin. He is receiving cultures. Coronavirus testing is still pending. This however is unlikely. Additionally the patient has a CHF exacerbation likely related to what appears to be paroxysmal atrial fibrillation. The patient is already anticoagulated with Eliquis from a previous pulmonary embolus. He is receiving 1 dose of oral 25 mg of Toprol here. He is also received 1 dose of IV Lasix at 40 mg. He does have significant peripheral edema and symptoms consistent with a CHF exacerbation including orthopnea . the patient does have a COPD exacerbation in relation to the pneumonia as well. He is receiving a DuoNeb treatment along with a dose of prednisone. For the hypoxia he is receiving supplemental oxygen. The patient does have known metastatic colon cancer. He saw his oncologist yesterday and is deferring any further treatment. It is possible the pneumonia may be related to metastases. D-dimer is chronically elevated in this patient, however he is already on Eliquis. We will defer CT angiogram at this time as the patient does require some diuresis. Admit for continued care. 6-month prognosis is very poor. glenn bello [phone] - Results/Orders Results/Orders: EKG seems to show mostly atrial fibrillation.. Rate is 85 bpm. There is a prolonged QT interval. There is a left bundle branch block which is not new. There is a strain pattern. Difficult to interpret otherwise. Chest x-ray shows right mid and lower lobe pneumonias. He does have advanced COPD. There is a small effusion. See report for details. Telemetry shows intermittent atrial fibrillation. At times he does appear to be in normal sinus rhythm with a mild first-degree AV block. Laboratory Results - last 24 hr 04/08/20 04/08/2004/08/20 04:52 04:52 04:52 WBC 5.7 RBC 3.56 L Hgb 10.1 L Hct 30.4 L MCV 85.5 MCH 28.3 MCHC 33.1 RDW 17.5 H Plt Count 188 MPV 8.5 Absolute Neuts (auto) 4.60 Absolute Lymphs (auto) 0.50 L Absolute Monos (auto) 0.50 Absolute Eos (auto) 0.00 Absolute Basos (auto) 0.00 Neutrophils % 80.3 H Lymphocytes % 9.1 L Monocytes % 9.1 H Eosinophils % 0.7 L Basophils % 0.8 PT 10.7 INR 1.08 PTT (SP) 29.4 D-Dimer, Quantitative 2440.0 H* Sodium 134 L Potassium 3.8 Chloride 98 L Carbon Dioxide 27 Anion Gap 12.8 BUN 28 H Creatinine 1.13 BUN/Creatinine Ratio 24.8 H Random Glucose 131 H Serum Osmolality 275.5 Lactic Acid Calcium 8.9 Magnesium 1.8 Total Bilirubin 0.7 AST 19 ALT 13 Alkaline Phosphatase 89 Creatine Kinase 33 L CK-MB (CK-2) 1.2 CK-MB (CK-2) % Not Reportable Troponin I 0.03 B-Natriuretic Peptide 3150.0 H* Serum Total Protein 7.1 Albumin 3.6 Globulin 3.5 Albumin/Globulin Ratio 1.0 L TSH 2.93 04/08/20 04:52 WBC RBC Hgb Hct MCV MCH MCHC RDW Plt Count MPV Absolute Neuts (auto) Absolute Lymphs (auto) Absolute Monos (auto) Absolute Eos (auto) Absolute Basos (auto) Neutrophils % Lymphocytes % Monocytes % Eosinophils % Basophils % PT INR PTT (SP) D-Dimer, Quantitative Sodium Potassium Chloride Carbon Dioxide Anion Gap BUN Creatinine BUN/Creatinine Ratio Random Glucose Serum Osmolality Lactic Acid 1.3 Calcium Magnesium Total Bilirubin AST ALT Alkaline Phosphatase Creatine Kinase CK-MB (CK-2) CK-MB (CK-2) % Troponin I B-Natriuretic Peptide Serum Total Protein Albumin Globulin Albumin/Globulin Ratio TSH Departure - Departure Clinical Impression: COPD with exacerbation, Colon cancer metastasized to multiple sites Right lower lobe pneumonia Qualifiers: Pneumonia type: due to unspecified organism Qualified Code(s): J18.9 - Pneumonia, unspecified organism CHF exacerbation Qualifiers: Heart failure type: combined systolic and diastolic Qualified Code(s): I50.43 - Acute on chronic combined systolic (congestive) and diastolic (congestive) heart failure Atrial fibrillation Qualifiers: Atrial fibrillation type: paroxysmal Qualified Code(s): I48.0 - Paroxysmal atrial fibrillation Disposition: Admit Patient Condition: Fair Departure Forms: ED Discharge - Pt. Copy, Patient Portal Self Enrollment Referrals: MARY SLATER [Primary Care Provider] - 1-2 Weeks Home Medications: Ambulatory Orders Furosemide [Lasix] 40 mg PO DAILY PRN 10/22/19 Apixaban [Eliquis] 2.5 mg PO DAILY 04/08/20 Polyethylene Glycol 3350 [Miralax] 17 gm PO BID 04/08/20 Decision To Admit - Decistion To Admit Decision to Admit Reason: Medical Nature Decision to Admit Date: 04/08/20 Decision to Admit Time: 06:07
--- NOTE | 2020-04-08 05:40 | RAD ---
CHEST, ONE VIEW XR CLINICAL HISTORY: sob COMPARISON: 03/07/2020. TECHNIQUE: AP Chest. FINDINGS: Heart is enlarged. Bilateral chest thoracic aorta. Sternal wires and metal clips are present. There is right middle lower lobe consolidation. Small focus of infiltrate in the right upper lobe. There is a small to moderate right pleural effusion. Left lower lobe atelectasis. Small left pleural effusion. No pneumothorax. Endotracheal tube has been removed. Right internal jugular central line is stable at the cavoatrial junction. IMPRESSION: 1. Right middle and lower lobe consolidation with a moderate pleural effusion. Small focus of pneumonitis in the right upper lobe. 2. Left lower lobe atelectasis. Small left pleural effusion. Electronically signed by: Pamela Colindres DO 04/08/2020 5:39 AM CDT
[2020-04-08] MEDS ORDERED: FUROSEMIDE INJ 40 MG/4 ML VIAL IV ONE (05:49)
[2020-04-08] MEDS ORDERED: CEFEPIME 2 GM in SODIUM CHL 0.9% 100ML MINI-BAG 100 ML IVPB ONE (05:49)
[2020-04-08] MEDS ORDERED: AZITHROMYCIN IV 500 MG in SODIUM CHLORIDE 0.9% 250ML 250 ML IVPB ONE (05:49)
[2020-04-08] MEDS ORDERED: METOPROLOL TARTRATE 25 MG TAB PO ONE (05:52)
[2020-04-08] MEDS ORDERED: IPRATROPIUM/ALBUTEROL 3 ML VIAL NEB ONE (05:53)
[2020-04-08] MEDS ORDERED: predniSONE 20 MG TAB PO ONE (05:53)
--- NOTE | 2020-04-08 08:15 | HP ---
SUPERVISING PHYSICIAN: Philippe Mayer MD CHIEF COMPLAINT: Shortness of breath. . HISTORY OF PRESENT ILLNESS: Mr. Day is an 89-year-old male patient who presented to the Emergency Room with progressive shortness of breath that started yesterday. He had actually recently been diagnosed with metastatic colon cancer. He saw his oncologist the day prior to admission but he was refusing all treatment. He had a colectomy about a month and a half ago from obstruction. He is also complaining of some lower extremity swelling. The shortness of breath has worsened to the point that he is having shortness of breath at rest. No other respiratory symptoms other than a mild productive sputum. He does have some syncope and dizziness. His initial vital signs showed temperature of 98 with heart rate 97, blood pressure 139/93, respiratory rate 26, oxygen saturation 84% on room air. After placing him on oxygen it came into the mid 90s. His lab studies showed WBC of 5.7 with hemoglobin 10.9, hematocrit 30.4. He had a left shift on his differential. His coags were within normal limits with the exception of his D-dimer elevated to 2,440. Sodium low at 134, potassium 3.8, chloride 98. Carbon dioxide 27, BUN 28, creatinine 1.13, lactic acid 1.3. BNP 3,150. Blood cultures were drawn. Covid-19 was negative. Chest x-ray showed right middle and lower lobe consolidation with a moderate pleural effusion, small focal pneumonitis in the right upper lobe, a left lower lobe atelectasis, mild left pleural effusion. He was given some Lasix as well as Cefepime and azithromycin. He was also given multiple breathing treatments. He is admitted in stable condition. PAST MEDICAL HISTORY: 1. Hypertension. 2. Coronary artery disease. 3. Chronic obstructive pulmonary disease. 4. Congestive heart failure with an ejection fraction of 45-50% on last echocardiogram in October of 2019. 5. Benign prostatic hypertrophy. 6. Recent diagnosis of metastatic colon cancer. 7, History of treatment for right pulmonary embolism. 8. History of diverticulitis. PAST SURGICAL HISTORY: 1. 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 3. 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 CURRENT MEDICATIONS: Per the EMR and awaiting verification. ALLERGIES: NO KNOWN DRUG ALLERGIES. CODE STATUS: DNR. FAMILY HISTORY: Noncontributory. SOCIAL HISTORY: The patient lives in [place]. He is . He quit smoking about 5 years ago. He denies any alcohol or illicit drug use. REVIEW OF SYSTEMS: GENERAL: Positive for fatigue, negative for fever or unintentional weight loss. HEENT: Negative for sinus symptoms, ear pain, vision changes or sore throat. RESPIRATORY: Positive for wheezing, coughing, shortness of breath. CARDIAC: Negative for chest pain, palpitations or tachycardia. GASTROINTESTINAL: Nausea and vomiting for nausea, vomiting, diarrhea. GENITOURINARY: Negative for hematuria, dysuria or polyuria. SKIN: Negative for lesions or rashes. NEUROLOGIC: Positive for generalized weakness. Negative for headache or seizures. PHYSICAL EXAMINATION: VITAL SIGNS: Temperature 97, heart rate 74, blood pressure 124/78, respiratory rate 20, O2 saturation 94% on 2 liters nasal cannula. GENERAL: This is a 89 year-old m left patient who is lying in his hospital bed. He is in mild respiratory distress. HEENT: Normocephalic and atraumatic. Pupils are equal and reactive. Oropharynx is clear. NECK: Supple without mass. CHEST: He has bilateral rhonchi and is diminished at the bases. There is equal rise and fall of the chest with inspiration and expiration. CARDIOVASCULAR: Regular rate and rhythm. ABDOMEN: Soft, nondistended, non-tender. He does have a recent incision on his abdomen from his colectomy. EXTREMITIES: He has +2 bilateral edema, bilateral pedal pulses are palpable at +2. SKIN: Warm and dry. NEUROLOGIC: Cranial nerves II-XII are grossly intact as tested. He is awake, alert and oriented x 3. LABS AND FILMS: As per the history of present illness. IMPRESSION: 1. Sepsis related to bilateral pneumonia, right worse than left. Most likely community acquired. He had a respiratory rate of 26, oxygen saturation of 84%. WBC 5.8 with a left shift on his differential on admission. 2. Recent diagnosis of metastatic colon cancer refusing all treatment at this time. 3. History of previous pulmonary embolisms, on Eliquis. 4. Chronic obstructive pulmonary disease with questionable mild exacerbation. 5. Congestive heart failure, diastolic in etiology with last echocardiogram in October of 2019 showing ejection fraction of 45-50%. He has a mild exacerbation with bilateral lower extremity edema and elevated BNP. 6. Coronary artery disease. 7. Renal insufficiency at baseline levels. PLAN: The patient has been admitted in stable condition. He will get some additional Lasix. His home medications were restarted once they were verified. The pneumonia guidelines have been started and will continue on Cefepime and azithromycin with aggressive pulmonary hygiene. I will repeat labs in the morning and will monitor cultures as they become available. He will have a PPI for ulcer prophylaxis. He is on Eliquis for DVT prophylaxis. We will continue to monitor closely and follow. [facility][id number] [facility]
[2020-04-08] MEDS ORDERED: ALBUTEROL SULFATE 2.5 MG/3 ML VIAL NEB PRN (15:32)
[2020-04-08] MEDS ORDERED: SODIUM CHLORIDE 0.9% (FLUSH) 10 ML SYG IV PRN (15:32)
[2020-04-08] MEDS ORDERED: ONDANSETRON INJ 4 MG/2 ML VIAL IV PRN (15:32)
[2020-04-08] MEDS ORDERED: FUROSEMIDE INJ 20 MG/2 ML VIAL IV ONE (15:37)
[2020-04-08] MEDS ORDERED: SODIUM CHLORIDE 0.9% 500ML 500 ML IVS ONE (15:38)
[2020-04-08] MEDS ORDERED: IV SET AND CAP CHANGE INJ INJ SCH (16:00)
[2020-04-08] MEDS: IPRATROPIUM/ALBUTEROL 3 ML VIAL INH SCH ×2 (16:21→21:00)
[2020-04-08] MEDS ORDERED: PANTOPRAZOLE SODIUM IV 40 MG VIAL ONE (19:06)
[2020-04-08] MEDS: SODIUM CHLORIDE 0.9% (FLUSH) 10 ML SYG IV SCH (20:57)
[2020-04-09] MEDS ORDERED: SODIUM CHL 0.9% 100ML MINI-BAG 100 ML IVPB ONE ×3 (00:08→23:12)
[2020-04-09] MEDS ORDERED: CEFEPIME 2 GM VIAL ONE ×3 (00:08→23:11)
[2020-04-09] MEDS: CEFEPIME 2 GM in SODIUM CHL 0.9% 100ML MINI-BAG 100 ML IVPB SCH ×3 (00:10→23:34)
[2020-04-09] MEDS: ACETAMINOPHEN 325 MG TAB PO PRN ×2 (00:14→22:31)
[2020-04-09] MEDS: PANTOPRAZOLE SODIUM IV 40 MG VIAL IV SCH (06:11)
[2020-04-09] MEDS: IPRATROPIUM/ALBUTEROL 3 ML VIAL INH SCH ×4 (09:00→20:50)
[2020-04-09] MEDS: cefTRIAXone SODIUM 1 GM in SODIUM CHL 0.9% 50ML MIN-BAG+ 50 ML IVPB SCH (09:31)
[2020-04-09] MEDS: APIXABAN 5 MG TAB PO SCH (09:32)
[2020-04-09] MEDS: FUROSEMIDE 40 MG TAB PO SCH (09:32)
[2020-04-09] MEDS: POLYETHYLENE GLYCOL 3350 17 GM PCKT PO SCH (09:34)
[2020-04-09] MEDS: SODIUM CHLORIDE 0.9% (FLUSH) 10 ML SYG IV SCH ×2 (09:34→21:05)
[2020-04-09] MEDS: AZITHROMYCIN IV 500 MG in SODIUM CHLORIDE 0.9% 250ML 250 ML IVPB SCH (10:13)
--- NOTE | 2020-04-09 13:40 | RAD ---
EXAM: XR Chest, 2 Views CLINICAL HISTORY: Pneumonia TECHNIQUE: Frontal and lateral views of the chest. COMPARISON: 04/08/2020 FINDINGS: Lungs: Stable airspace consolidation in both lung bases right greater than left. Stable vascular congestion. Stable right apical pleural capping. Pleural space: Stable small pleural effusions. No pneumothorax. Heart: Stable prominent cardiac shadow. Mediastinum: No abnormality noted. Bones/joints: Stable left 7th rib fracture. Tubes, lines and devices: Stable right percutaneous central venous catheter which terminates at the cavoatrial junction. IMPRESSION: 1. Stable abnormalities as above. 2. Lines and tubes as above. Electronically signed by: Vilma Richardson MD 04/09/2020 1:38 PM CDT
--- NOTE | 2020-04-09 16:24 | PN ---
SUPERVISING PHYSICIAN: Alton Mayer M.D. DATE: 04/09/20 SUBJECTIVE: The patient is showing some shortness of breath. He was actually ambulating but got significantly tired during the process. He has been afebrile. He is able to maintain his O2 saturations on nasal cannula. He is quite anxious to go home. We did again discuss referral for hospice care given the fact that he has metastatic cancer and has opted to not pursue any treatment course. OBJECTIVE: VITAL SIGNS: Temperature 98, pulse 76, blood pressure 125/85, respirations 20, satting 99% on room air. GENERAL: The patient looks tired and frail, but does not appear to be in any acute distress. He does get a little short of breath when he is conversing. Otherwise he is alert. CHEST: Lung sounds continue with a little bit of rhonchi heard bilaterally, diminished towards the bases. HEART: Regular rate and rhythm. ABDOMEN: Soft, non-tender with positive bowel sounds. EXTREMITIES: Without any notable clubbing. The left leg does show chronic edema with some mild erythema. No true signs of cellulitis. The patient reports that this leg has been swollen that way for multiple months and is chronic in nature. NEUROLOGIC: Cranial nerves II-XII are grossly intact. He is alert and oriented times three. LABORATORY: White count is at 3,500, hemoglobin 8.8, hematocrit 26.6, platelet count 159,000. Differential shows a resolving left shift. Coagulation studies showed a PT of 10.7, PTT of 29.9 with a D-dimer 2440. Chemistries today show normal electrolytes with creatinine at 1.15. Calcium and magnesium were showing normal. Liver functions are all within normal limits. MICROBIOLOGY: Sputum culture is pending. Blood cultures remain negative after 24 hours. RADIOLOGY: Chest today per radiology interpretation shows stable abnormalities. Please see that report for details. He is showing a stable left seventh rib fracture. ASSESSMENT: 1. Sepsis secondary to community acquired pneumonia, bilateral,worse on the right than the left. 2. Metastatic colon cancer with a recent diagnosis opting to not pursue any aggressive treatment. 3. History of past pulmonary embolus, on chronic Eliquis therapy. 4. Chronic obstructive pulmonary disease with acute exacerbation secondary to #1. 5. Congestive heart failure, diastolic in etiology with last echocardiogram in October of 2019 showing ejection fraction of 45-50%. He has a mild exacerbation with bilateral lower extremity edema and elevated BNP. 6. Coronary artery disease. 7. Renal insufficiency at baseline levels. PLAN: Will continue with current plan at this point. I have encouraged him to keep his leg elevated on the right to decrease that swelling. He remains on Cefepime and azithromycin with aggressive pulmonary hygiene. Hopefully will discharge by Saturday and will continue to discuss hospice option because I think he would benefit from this greatly as he is certainly not going to have any additional aggressive treatments and wants to avoid from hospitalizations. Until we can transition to back to outpatient management will continue to monitor and treat as needed. #[id number] [facility]
[2020-04-10] MEDS: PANTOPRAZOLE SODIUM IV 40 MG VIAL IV SCH (05:44)
[2020-04-10] MEDS: IPRATROPIUM/ALBUTEROL 3 ML VIAL INH SCH ×4 (08:00→20:55)
[2020-04-10] MEDS: POLYETHYLENE GLYCOL 3350 17 GM PCKT PO SCH (09:37)
[2020-04-10] MEDS: SODIUM CHLORIDE 0.9% (FLUSH) 10 ML SYG IV SCH ×2 (09:37→21:02)
[2020-04-10] MEDS: cefTRIAXone SODIUM 1 GM in SODIUM CHL 0.9% 50ML MIN-BAG+ 50 ML IVPB SCH (09:37)
[2020-04-10] MEDS: FUROSEMIDE 40 MG TAB PO SCH (09:37)
[2020-04-10] MEDS: APIXABAN 5 MG TAB PO SCH (09:37)
[2020-04-10] MEDS ORDERED: ALPRAZolam 0.25 MG TAB PO ONE (10:28)
[2020-04-10] MEDS: AZITHROMYCIN IV 500 MG in SODIUM CHLORIDE 0.9% 250ML 250 ML IVPB SCH (10:36)
[2020-04-10] MEDS ORDERED: CEFEPIME 2 GM VIAL ONE (12:05)
[2020-04-10] MEDS ORDERED: SODIUM CHL 0.9% 100ML MINI-BAG 100 ML IVPB ONE (12:05)
[2020-04-10] MEDS: CEFEPIME 2 GM in SODIUM CHL 0.9% 100ML MINI-BAG 100 ML IVPB SCH (12:06)
--- NOTE | 2020-04-10 16:01 | PN ---
SUPERVISING PHYSICIAN: Alton Mayer M.D. DATE: 04/10/20 SUBJECTIVE: The patient seems to be doing well. She has been okay. His nurses are saying he is not sleeping much and he has been having some mild panic attacks, and becoming quite anxious at times. I did discuss with him this morning with him discharging home on hospice and he is open to this. He is going to discuss with his so that he can hopefully get home within the next 24 hours, or at least 48 hours. He does remain a little short of breath even at rest, but is actually able to ambulate and maintain O2 saturations okay, but certainly requires some supplemental oxygen. OBJECTIVE: VITAL SIGNS: Temperature 97.8, pulse 84, blood pressure 135/88 showing respirations 20 to 24 with some obvious shortness of breath at rest, even though he is satting 98% on 1 liter nasal cannula. GENERAL: The patient looks tired and frail, but does not appear to be in any acute distress. He does get a little short of breath when he is conversing. Otherwise he is alert. CHEST: Lung sounds continue with a little bit of rhonchi heard bilaterally, diminished towards the bases. HEART: Regular rate and rhythm. ABDOMEN: Soft, non-tender with positive bowel sounds. EXTREMITIES: Without any notable clubbing. The left leg does show chronic edema with some mild erythema. No true signs of cellulitis. The patient reports that this leg has been swollen that way for multiple months and is chronic in nature. NEUROLOGIC: Cranial nerves II-XII are grossly intact. He is alert and oriented times three. LABORATORY STUDIES: No additional laboratory studies as his labs have been fairly stable. RADIOLOGY: No additional radiographic studies this morning. ASSESSMENT: 1. Sepsis secondary to community acquired pneumonia, bilateral,worse on the right than the left. 2. Metastatic colon cancer with a recent diagnosis opting to not pursue any aggressive treatment. 3. History of past pulmonary embolus, on chronic Eliquis with an elevated D- dimer on admission but the patient having metastatic cancer as well as being postoperative within the last 30 days. 4. Chronic obstructive pulmonary disease with acute exacerbation secondary to #1. 5. Congestive heart failure, diastolic in etiology with last echocardiogram in October of 2019 showing ejection fraction of 45-50%. He has a mild exacerbation with bilateral lower extremity edema and elevated BNP. 6. Coronary artery disease. 7. Renal insufficiency at baseline levels. PLAN: Will continue with the plan of care at this point with anticipation of hopefully discharging tomorrow or the next on hospice. He is going to discuss with his . Will need a consultation. They are not sure as to which one to go with but he is anxious to go home and understands that hospice would be very beneficial to him at this point. Until then will continue with current plan of care with treatment with antibiotics, aggressive pulmonary hygiene and oxygen as needed. Until we can transition back to outpatient management will continue to monitor and treat as needed. #[id number] [facility]
[2020-04-10] MEDS: ACETAMINOPHEN 325 MG TAB PO PRN (21:03)
[2020-04-11] MEDS ORDERED: CEFEPIME 2 GM VIAL ONE ×2 (00:20→12:51)
[2020-04-11] MEDS ORDERED: SODIUM CHL 0.9% 100ML MINI-BAG 100 ML IVPB ONE ×2 (00:21→13:14)
[2020-04-11] MEDS: CEFEPIME 2 GM in SODIUM CHL 0.9% 100ML MINI-BAG 100 ML IVPB SCH ×2 (00:22→12:57)
[2020-04-11] MEDS: PANTOPRAZOLE SODIUM IV 40 MG VIAL IV SCH (05:36)
[2020-04-11] MEDS: APIXABAN 5 MG TAB PO SCH (08:01)
[2020-04-11] MEDS: cefTRIAXone SODIUM 1 GM in SODIUM CHL 0.9% 50ML MIN-BAG+ 50 ML IVPB SCH (08:02)
[2020-04-11] MEDS: POLYETHYLENE GLYCOL 3350 17 GM PCKT PO SCH (08:02)
[2020-04-11] MEDS: FUROSEMIDE 40 MG TAB PO SCH (08:02)
[2020-04-11] MEDS: SODIUM CHLORIDE 0.9% (FLUSH) 10 ML SYG IV SCH (08:02)
[2020-04-11] MEDS ORDERED: IPRATROPIUM/ALBUTEROL 3 ML VIAL NEB ONE ×2 (09:04→13:20)
[2020-04-11] MEDS: IPRATROPIUM/ALBUTEROL 3 ML VIAL INH SCH ×3 (09:20→16:06)
[2020-04-11] MEDS: AZITHROMYCIN IV 500 MG in SODIUM CHLORIDE 0.9% 250ML 250 ML IVPB SCH (10:04)
[2020-04-11] MEDS ORDERED: SODIUM CHL 0.9% 50ML MIN-BAG+ 0 ML IVPB ONE (12:51)
[2020-04-11 13:53] VITALS: O2SAT 93
[2020-04-11 14:45] VITALS: BP 137/76; TEMP 98.4
--- NOTE | 2020-04-11 19:57 | DS ---
SUPERVISING PHYSICIAN: Ramsey Peck M.D. DISCHARGE DIAGNOSES: 1. Sepsis secondary to community acquired pneumonia. 2. Metastatic colon cancer. 3. History of pulmonary embolism on Eliquis. 4. COPD with acute exacerbation. 5. Diastolic heart failure. 6. CAD. 7. Renal insufficiency. HOSPITAL COURSE: This is an 89 year-old male patient who came to the hospital reporting no shortness of breath. He has recently been diagnosed with metastatic colon cancer and has decided to forego any sort of chemotherapy or any treatment for that. Anyhow, in the Emergency Room his O2 saturations were 84% on room air. They improved with placement on oxygen. Chest x-ray showed a right middle and lower lobe consolidation as well as a pleural effusion. He was started on empiric antibiotics and admitted to the hospital. BNP was also 3,150. He was continued on antibiotics and pulmonary toileting as well as diuretics while in the hospital. He step-morales improved to where he was not as short of breath, however given his terminal prognosis, the patient has decided to go home with hospice. His white blood cell count was normal. The patient was afebrile. He was requiring 2 liters of oxygen upon discharge and oxygen has been set up through hospice. I did write for some outpatient antibiotics to be taken and hospice will provide those. Further care and followup per hospice, and I believe it is [facility] that he has gone with. #[id number] [facility]
== END 2020-04-11 18:25 | disposition hospice, home (50) | DRG 871 ==
LOC: ER 04:42 → OBSVTOIN 08:12 → MS 08:12
PROVIDERS: ADMIT Nurse Practitioner Acute Care; ATTEND Nurse Practitioner
DX: A41.9 Sepsis, unspecified organism (principal); J18.9 Pneumonia, unspecified organism; J44.1 Chronic obstructive pulmonary disease with (acute) exacerbation; I50.33 Acute on chronic diastolic (congestive) heart failure; E87.1 Hypo-osmolality and hyponatremia; C18.9 Malignant neoplasm of colon, unspecified; C79.9 Secondary malignant neoplasm of unspecified site; I11.0 Hypertensive heart disease with heart failure; N28.9 Disorder of kidney and ureter, unspecified; N40.0 Benign prostatic hyperplasia without lower urinary tract symptoms; F41.0 Panic disorder [episodic paroxysmal anxiety]; I25.10 Atherosclerotic heart disease of native coronary artery without angina pectoris; Z66 Do not resuscitate; Z86.711 Personal history of pulmonary embolism; Z79.01 Long term (current) use of anticoagulants; Z95.1 Presence of aortocoronary bypass graft; Z95.2 Presence of prosthetic heart valve; Z90.49 Acquired absence of other specified parts of digestive tract; Z87.891 Personal history of nicotine dependence

== ENCOUNTER 2020-04-21 12:59 | Emergency (ER) | payer MEDICARE ==
[2020-04-21 13:21] VITALS: TEMP 97.1
--- NOTE | 2020-04-21 13:45 | RAD ---
EXAM DESCRIPTION: Chest,1 View CLINICAL HISTORY: 89 years Male, short of breath COMPARISON: Previous chest x-ray April 09, 2020 TECHNIQUE: AP portable chest. FINDINGS: Heart size is large with centrally prominent pulmonary vascularity. Right central line unchanged in position. Sternotomy wires are present. Patchy infiltrate in the lower lobes and right perihilar region extending into the right upper lobe could be asymmetric pulmonary edema or pneumonia. Infiltrate in the right lower lobe does not appear as masslike as on the previous study. No pulmonary mass or worrisome nodule. No pneumothorax. Moderate size bilateral pleural effusions. Bones are osteopenic or osteoporotic. IMPRESSION: Moderate bilateral pleural effusions. Bilateral pulmonary infiltrates consistent with pneumonia. Electronically signed by: Glen Hurd MD 04/21/2020 1:44 PM CDT
[2020-04-21] MEDS: FUROSEMIDE INJ 40 MG/4 ML VIAL IV ONE (14:06)
--- NOTE | 2020-04-21 14:18 | ED.PDOC ---
History of Present Illness - General Chief Complaint: General Stated Complaint: check for blood clot Time Seen by Provider: 04/21/20 13:00 - History of Present Illness Initial Comments: 89 yo male with metastatic colon cancer, on hospice comes in to make sure he doesn't have a blood clot. States he was diagnosed with pneumonia 2 weeks ago, finished course of cefdinir, was discharged to hospice. Started to feel worse, thinks he might have a PE again. Denies chest pain, n/v. dyspnea worse with activity. + orthopnea. Was started on lasix 40 mg daily prn upon discharge, has been taking daily. Allergies/Adverse Reactions: Allergies NO KNOWN ALLERGY Allergy (Verified 04/21/20 13:23) Home Medications: Ambulatory Orders Furosemide [Lasix] 40 mg PO DAILY PRN 10/22/19 Apixaban [Eliquis] 2.5 mg PO DAILY 04/08/20 Polyethylene Glycol 3350 [Miralax] 17 gm PO BID 04/08/20 Cefdinir 300 mg PO BID 7 Days #14 capsule 04/11/20 Ipratropium/Albuterol [Duoneb] 3 ml INH RTQID 30 Days #2 vial 04/11/20 Furosemide Tab [Lasix] 20 mg PO DAILY #21 tab 04/21/20 Levofloxacin 250 mg PO DAILY 5 Days #5 tablet 04/21/20 Review of Systems - Review of Systems Constitutional: Denies: fever, malaise, weakness EENTM: Denies: blurred vision, throat pain Respiratory: States: short of breath. Denies: cough, stridor, wheezing Cardiology: Denies: chest pain, palpitations, syncope Gastrointestinal/Abdominal: Denies: abdominal pain, nausea, vomiting Genitourinary: Denies: discharge, dysuria Musculoskeletal: Denies: back pain, muscle pain Skin: States: other - hx of decubits ulcer, being managed as outpatient Neurological: Denies: headache, numbness, paresthesia, pre-existing deficit, seizure Endocrine: Denies: unexplained weight gain, unexplained weight loss Hematologic/Lymphatic: Denies: anemia, blood clots Past Medical History (General) - Patient Medical History Hx Seizures: No Hx Stroke: No Hx Dementia: No Hx Asthma: No Hx of COPD: Yes Hx Cardiac Disorders: Yes Hx Congestive Heart Failure: Yes Hx Pacemaker: No Hx Hypertension: Yes Hx Thyroid Disease: No Hx Diabetes: No Hx Gastroesophageal Reflux: No Hx Renal Disease: No Hx Cancer: Yes - colon Hx of HIV: No Hx Hepatitis C: No Hx MRSA: No Surgical History: coronary bypass surgery - Vaccination History Hx Tetanus, Diphtheria Vaccination: No Hx Influenza Vaccination: Yes Hx Pneumococcal Vaccination: Yes - Social History Hx Tobacco Use: Yes Hx Alcohol Use: No Hx Substance Use: No Hx Substance Use Treatment: No Hx Depression: No Hx Physical Abuse: No Hx Emotional Abuse: No Hx Suspected Abuse: No - Activities of Daily Living Hospice Agency (if applicable):: [facility] - Female History Patient is a Female of Child Bearing Age (10 -59 yrs old): No Patient : No Family Medical History - Family History Son Family History: No Known Living Status: Still Living Hx Family Asthma: No Hx Family Congestive Heart Failure: No Hx Family Hypertension: Yes Hx Family Stroke: No Hx Cardiac Disease: Yes Hx Family Diabetes: No Hx Family Cancer: No Grandparents Family History: Unknown Name: Juan Day Age (years): 64 Living Status: Hx Family Asthma: No Hx Family Congestive Heart Failure: No Hx Family Hypertension: - doesn't know Hx Family Stroke: No Hx Cardiac Disease: Yes Hx Family Diabetes: No Hx Family Cancer: No Hx Family;Other: he did not want to talk about it Physical Exam - Physical Exam General Appearance: Alert, Comfortable, No apparent distress Eye Exam: bilateral normal Ears, Nose, Throat: hearing grossly normal, normal ENT inspection Neck: non-tender, full range of motion, supple, normal inspection Respiratory: chest non-tender, accessory muscle use, rales Cardiovascular/Chest: normal peripheral pulses, regular rate, rhythm, no edema, no gallop, no JVD, no murmur Peripheral Pulses: radial,right: 2+, radial,left: 2+ Gastrointestinal/Abdominal: normal bowel sounds, non tender, soft Rectal Exam: deferred Extremity: pedal edema Neurologic: charter coordinator II-XII nml as tested, no motor/sensory deficits, alert, normal mood/affect, oriented x 3 Skin Exam: normal color, warm/dry Progress - Progress Progress: 04/21/20 15:19 partial ddx: PE, pneumonia, CHF, COPD exacerbation, CAD Blood work shows elevated BNP and D-dimer - will get cta. Patient states his decubits ulcer hurts, but declines anything for pain. Given 20 mg IV lasix. Will hose placed for lower extremity edema. CTA negative for PE. Does showed continued pulmonary infiltrates. This could be residue from prior infection. Due to no fever, wbc less likely recurrent pneumonia. However will treat for pneumonia. Levaquin renally dose. Also shows plueral effusions. Will increase lasix to 20 mg daily. Discussed with patient admission. He adamantly refuses. Considering he is on hospice I feel this is appropriate. will discharge home with symptomatic care. The data reviewed when caring for this patient included: nurse notes, prior records, etc. The history and assessments from nurses notes were reviewed and considered, and the patient's home medication list was also reviewed and considered. My assessment and the results of testing completed here in the ED were discussed with the patient. All questions were answered, and he express understanding of my assessment and the plan. he has been instructed to return if their symptoms worsen, and have been asked to follow up with their primary care physician to recheck today's presenting complaint. return precautions given. I have reviewed medication, benefits, alternatives and side effects. Patient decided to proceed with medication.Whitney Chu DO #[id number] - Results/Orders Results/Orders: 04/21/20 15:47 Discharge Stat Laboratory Results WBC 4.5 K/mm3 (4.8-10.8) L 04/21/20 13:39 RBC 3.43 M/mm3 (4.70-6.10) L 04/21/20 13:39 Hgb 9.7 gm/dL (14.0-18.0) L 04/21/20 13:39 Hct 29.1 % (42.0-52.0) L 04/21/20 13:39 MCV 84.8 fl (80.0-94.0) 04/21/20 13:39 MCH 28.1 pg (27.0-31.0) 04/21/20 13:39 MCHC 33.1 g/dL (33.0-37.0) 04/21/20 13:39 RDW 17.1 % (11.5-14.5) H 04/21/20 13:39 Plt Count 230 K/mm3 (130-400) 04/21/20 13:39 MPV 7.9 fl (7.40-10.4) 04/21/20 13:39 Absolute Neuts (auto) 3.00 K/uL (1.8-6.8) 04/21/20 13:39 Absolute Lymphs (auto) 0.90 K/uL (1.0-3.4) L 04/21/20 13:39 Absolute Monos (auto) 0.40 K/uL (0.2-0.8) 04/21/20 13:39 Absolute Eos (auto) 0.10 K/uL (0.0-0.4) 04/21/20 13:39 Absolute Basos (auto) 0.00 K/uL (0.0-0.1) 04/21/20 13:39 Neutrophils % 66.5 % (42.0-78.0) 04/21/20 13:39 Lymphocytes % 20.6 % (20.0-50.0) 04/21/20 13:39 Monocytes % 9.2 % (2.0-9.0) H 04/21/20 13:39 Eosinophils % 2.8 % (1.0-5.0) 04/21/20 13:39 Basophils % 0.9 % (0.0-2.0) 04/21/20 13:39 PT 12.3 SECONDS (9.0-10.9) H 04/21/20 13:39 INR 1.24 (0.9-1.15) H 04/21/20 13:39 PTT (SP) 36.8 SECONDS (21.8-31.6) H 04/21/20 13:39 D-Dimer, Quantitative 2000.0 ng/ml (131-400) H* 04/21/20 13:39 Sodium 137 mmol/L (135-145) 04/21/20 13:39 Potassium 4.1 mmol/L (3.6-5.0) 04/21/20 13:39 Chloride 99 mmol/L (101-111) L 04/21/20 13:39 Carbon Dioxide 29 mmol/L (21-31) 04/21/20 13:39 Anion Gap 13.1 (12-18) 04/21/20 13:39 BUN 27 mg/dL (7-18) H 04/21/20 13:39 Creatinine 1.13 mg/dL (0.6-1.3) 04/21/20 13:39 BUN/Creatinine Ratio 23.9 (10-20) H 04/21/20 13:39 Random Glucose 122 mg/dL (70-105) H 04/21/20 13:39 Serum Osmolality 280.2 mOsm/L (275-295) 04/21/20 13:39 Calcium 8.9 mg/dL (8.4-10.2) 04/21/20 13:39 Total Bilirubin 0.6 mg/dL (0.2-1.0) 04/21/20 13:39 AST 17 IU/L (10-42) 04/21/20 13:39 ALT 15 IU/L (10-60) 04/21/20 13:39 Alkaline Phosphatase 87 IU/L (42-121) 04/21/20 13:39 Troponin I 0.03 ng/mL (0.01-0.05) 04/21/20 13:39 B-Natriuretic Peptide 2370.0 pg/ml (0-100) H* 04/21/20 13:39 Serum Total Protein 6.8 gm/dL (6.4-8.2) 04/21/20 13:39 Albumin 3.5 g/dl (3.2-5.5) 04/21/20 13:39 Globulin 3.3 gm/dL (2.3-3.5) 04/21/20 13:39 Albumin/Globulin Ratio 1.1 (1.1-1.9) 04/21/20 13:39 TSH 3.28 uIU/mL (0.34-5.60) 04/21/20 13:39 Departure - Departure Clinical Impression: CHF exacerbation Qualifiers: Heart failure type: unspecified Qualified Code(s): I50.9 - Heart failure, unspecified Pneumonia Qualifiers: Pneumonia type: due to unspecified organism Laterality: bilateral Lung location: unspecified part of lung Qualified Code(s): J18.9 - Pneumonia, unspecified organism Time of Disposition: 15:35 Disposition: Discharge to Home or Self Care Departure Forms: ED Discharge - Pt. Copy, Patient Portal Self Enrollment Instructions: Heart Failure, Adult (DC) Referrals: MARY SLATER [Primary Care Provider] - 1-2 Days Prescriptions: Furosemide Tab [Lasix] 20 mg PO DAILY #21 tab Levofloxacin 250 mg PO DAILY 5 Days #5 tablet Home Medications: Ambulatory Orders Furosemide [Lasix] 40 mg PO DAILY PRN 10/22/19 Apixaban [Eliquis] 2.5 mg PO DAILY 04/08/20 Polyethylene Glycol 3350 [Miralax] 17 gm PO BID 04/08/20 Cefdinir 300 mg PO BID 7 Days #14 capsule 04/11/20 Ipratropium/Albuterol [Duoneb] 3 ml INH RTQID 30 Days #2 vial 04/11/20 Furosemide Tab [Lasix] 20 mg PO DAILY #21 tab 04/21/20 Levofloxacin 250 mg PO DAILY 5 Days #5 tablet 04/21/20 Comments: patient declined admission, on hospice.
--- NOTE | 2020-04-21 15:28 | CT ---
EXAM DESCRIPTION: CTA Chest CLINICAL HISTORY: 89 years, Male, short of breath, hx of cancer, hx pe COMPARISON: Chest x-ray April 21, 2020, CT abdomen and pelvis March 07, 2020 TECHNIQUE: CT pulmonary angiography is performed with thin-section multi detector technique during rapid bolus administration of Isovue 300 IV contrast media. Multiplanar reformatted images are reviewed along with source images and maximum intensity projection three dimensional images which were created on a separate dedicated workstation and are stored in the patient's medical record. FINDINGS: Enlarged pulmonary arteries consistent with pulmonary hypertension. Normal dense contrast-enhancement of the pulmonary arteries with no filling defects to suggest acute emboli. Bilateral pleural effusions are present left greater than right. Mediastinal adenopathy is noted which may be reactive. Heart is enlarged. Ectatic ascending aorta. Extensive coronary calcification. Minimal pericardial fluid without significant pericardial effusion. Normal enhancement of cardiac chambers. Early enhancement of the aorta is negative for aneurysm or dissection. Lung window images are positive for mild groundglass infiltrate or edema. The vessels appear congested. Findings are most consistent with congestive failure or volume overload with mild pulmonary edema. More consolidative patchy infiltrates are seen in the right middle lobe and right lower lobe as well as in the lingula and left lower lobe. Compared to previous study, chronic scarring is seen in the right middle lobe and right lower lobe and in the posterior left lung base. The more acute appearing infiltrate is seen in the left lower lobe and in the lingula. These consolidated areas may represent pneumonia. No worrisome mass or nodule. In the upper abdomen, upper abdominal viscera are unremarkable. Few renal cysts incidentally noted. No chest wall mass or acute rib fracture. No axillary or lower cervical adenopathy. Healed rib fractures on the left. Coronal and sagittal and oblique reformatted MIP images confirm normal pulmonary arterial enhancement. IMPRESSION: Negative for evidence of pulmonary embolic disease. Large heart with increased pulmonary vascularity. Moderate to large left pleural effusion. Bilateral pulmonary infiltrates and edema. This exam was performed according to our departmental dose-optimization program, which includes automated exposure control, adjustment of the mA and/or kV according to patient size and/or use of iterative reconstruction technique. Total DLP equals 618.78 mGycm. Electronically signed by: Glen Hurd MD 04/21/2020 3:26 PM CDT
[2020-04-21 16:21] VITALS: BP 109/67; O2SAT 94
== END 2020-04-21 15:55 | disposition home or self-care (01) ==
LOC: ER 12:59
DX: J18.9 Pneumonia, unspecified organism (principal); I11.0 Hypertensive heart disease with heart failure; I50.9 Heart failure, unspecified; J44.9 Chronic obstructive pulmonary disease, unspecified; Z95.1 Presence of aortocoronary bypass graft; C78.5 Secondary malignant neoplasm of large intestine and rectum; Z79.01 Long term (current) use of anticoagulants; Z79.899 Other long term (current) drug therapy; Z86.711 Personal history of pulmonary embolism; L89.90 Pressure ulcer of unspecified site, unspecified stage
CPT/HCPCS: 36415; 71045; 71275; 80053; 83880; 84443; 84484; 85025; 85379; 85610; 85730; J1940

== ENCOUNTER → 2020-05-06 | Outpatient (CLI) | payer MEDICARE | LOC: BFHH 13:12 | PROVIDERS: ATTEND Family Medicine | DX: Z79.01 Long term (current) use of anticoagulants (principal); I48.91 Unspecified atrial fibrillation ==